=== PATIENT | male | born 1950 | race Caucasian/White ===

== ENCOUNTER → 2017-10-21 | Outpatient (CLI) | payer MEDICARE, OTHER ==
--- NOTE | 2017-10-26 10:19 | P.ARTDOP ---
Arterial Doppler LOWER EXTREMITY ARTERIAL DOPPLER: DATE OF SERVICE: 10/21/2017 Reason for study: Bilateral leg pain. Doppler waveforms: Multiphasic bilaterally throughout. Pulse volume recording: Normal configuration. Pressure gradients: None. Ankle-brachial indices: Greater than 1 bilaterally. Toe pressures: 90 on the right, 84 on the left Impression: Normal study.
== END | disposition home or self-care (01) ==
LOC: RADUSWWP 12:35
PROVIDERS: ATTEND Family Medicine
DX: R25.2 Cramp and spasm (principal)
CPT/HCPCS: 93923

== ENCOUNTER 2017-12-18 10:23 | Emergency (ER) | payer MEDICARE, OTHER ==
[2017-12-18] MEDS ORDERED: ORPHENADRINE 30 MG/ML 2 ML VIAL IM STA (10:54)
[2017-12-18] MEDS ORDERED: RX INFO: IV CONTRAST WAS GIVEN 1 EACH MISC MISCELLANE PRN (10:54)
[2017-12-18] MEDS ORDERED: SODIUM CHLORIDE 0.9% 1,000 ML IV ONE (11:34)
--- NOTE | 2017-12-18 11:38 | ED ---
Back Pain HPI - General Chief Complaint: Back Pain/Injury Stated Complaint: BACK PAIN Time Seen by Provider: 12/18/17 10:37 Source: patient, RN notes reviewed, old records reviewed Limitations: no limitations - History of Present Illness Initial Comments: 67-year-old male presents to complain of 2 weeks of back pain. He reports occasionally go to a friend's abdomen. Patient states that it's worse with certain movements and laying down. He is here with his significant other. Patient reports occasionally the pain will radiate down his legs. Worse with palpation over the spine. has history of high blood pressure reports is on low-dose medication. Nonsmoker. - Related Data Home Medications Medication Instructions Recorded Confirmed Aspirin [Adult Low Dose Aspirin EC] 81 mg PO DAILY 07/22/16 12/18/17 Cholecalciferol [Vitamin D3] 1,000 units PO DAILY 07/22/16 12/18/17 Gabapentin 300 mg PO TID 07/22/16 12/18/17 Multivit-Min/FA/Lycopen/Lutein 1 tab PO DAILY 07/22/16 12/18/17 [Centrum Silver Tablet] Omeprazole 40 mg PO DAILY 07/22/16 12/18/17 Vitamin B12. 1 tab PO DAILY 07/22/16 12/18/17 metFORMIN HCL 1,000 mg PO BID 07/22/16 12/18/17 Atenolol/Chlorthalidone 0.5 tab PO DAILY 07/26/16 12/18/17 [Atenolol-Chlorthalidone 50-25] Empagliflozin/Linagliptin 1 tab PO DAILY 12/18/17 12/18/17 [Glyxambi 25 mg-5 mg Tablet] Insulin Glargine [Lantus] 12 unit SQ HS 12/18/17 12/18/17 Pioglitazone [Actos] 30 mg PO DAILY 12/18/17 12/18/17 Thiamine [Vitamin B-1] 100 mg PO DAILY 12/18/17 12/18/17 oxyCODONE-APAP 5-325MG [Percocet 1 tab PO Q6HR PRN 12/18/17 12/18/17 5-325 mg] Previous Rx's Medication Instructions Recorded Cyclobenzaprine [Flexeril] 10 mg PO TID #15 tab 12/18/17 Dexamethasone 0.75 mg PO DAILY #12 tab 12/18/17 HYDROcodone/APAP 10-325MG [[place] 1 tab PO Q6H PRN #10 tab 12/18/17 10-325] Allergies Allergy/AdvReac Type Severity Reaction Status Date / Time No Known Allergies Allergy Verified 12/18/17 10:45 Review of Systems ROS Statement: Those systems with pertinent positive or pertinent negative responses have been documented in the HPI. ROS Other: All systems not noted in ROS Statement are negative. Past Medical History Past Medical History: Diabetes Mellitus, GERD/Reflux, Hypertension, Osteoarthritis (OA) History of Any Multi-Drug Resistant Organisms: None Reported Past Surgical History: Orthopedic Surgery Additional Past Surgical History / Comment(s): RT ROTATOR CUFF REPAIR. COLONOSCOPY Past Anesthesia/Blood Transfusion Reactions: Motion Sickness Past Psychological History: No Psychological Hx Reported Smoking Status: Never smoker Past Alcohol Use History: Rare Past Drug Use History: None Reported - Past Family History Father Family Medical History: Cancer Additional Family Medical History / Comment(s): COLON General Exam - General Exam Comments Initial Comments: This patient is a pleasant 67 year old male, no distress. Limitations: no limitations General appearance: alert, in no apparent distress Head exam: Present: atraumatic, normocephalic, normal inspection Eye exam: Present: normal appearance, PERRL, EOMI. Absent: scleral icterus, conjunctival injection, periorbital swelling ENT exam: Present: normal exam, mucous membranes moist Neck exam: Present: normal inspection. Absent: tenderness, meningismus, lymphadenopathy Respiratory exam: Present: normal lung sounds bilaterally. Absent: respiratory distress, wheezes, rales, rhonchi, stridor Cardiovascular Exam: Present: regular rate, normal rhythm, normal heart sounds. Absent: systolic murmur, diastolic murmur, rubs, gallop, clicks GI/Abdominal exam: Present: soft, normal bowel sounds. Absent: distended, tenderness, guarding, rebound, rigid Extremities exam: Present: normal inspection, full ROM, normal capillary refill. Absent: tenderness, pedal edema, joint swelling, calf tenderness Back exam: Present: normal inspection, tenderness (over lumbar spine) Neurological exam: Present: alert, oriented X3, CN II-XII intact Psychiatric exam: Present: normal affect, normal mood Course Vital Signs 12/18/17 12/18/17 12/18/17 10:27 13:24 14:00 Temperature 97 F L Pulse Rate 50 L 49 L 47 L Respiratory 18 16 Rate Blood Pressure 153/63 197/81 169/72 O2 Sat by Pulse 100 96 Oximetry 12/18/17 14:22 Temperature 98 F Pulse Rate Respiratory Rate Blood Pressure O2 Sat by Pulse Oximetry - Reevaluation(s) Reevaluation #1: 12/18/17 14:03 When I went to discharge the patient he reports that he is having some left shoulder pain. He's had a surgery previously on its area. Worse with certain movements. Patient's blood pressure was noted to be elevated this time 200. I ordered labetalol. We'll monitor the patient check his blood pressure. He denies any shortness of breath or significant chest pain. Medical Decision Making - Medical Decision Making This patient is a 67 year old male with CC of lower back pain for 2 weeks worse with movement. Patient has a hisotry of hypertension. Patient was given IV norflex and lab work obtained. CT abdomen and pelvis completed to rule out AAA. Patient CT was negative for AAA, mild spondylitic mash filter cloth changer lumbar spine. Patient was given Rx for pain medication and on discharge was complaining of right shoulder pain and blood pressure became elevated. EKG shows no acute abnormalities from previous EKG. Given IV labetalol and BP went down. Discussed patient needs to follow up with PCP and on site services specialist. Patient understands treatmant plan and will comply. - Lab Data Result diagrams: 12/18/17 11:35 12/18/17 11:35 Lab Results 12/18/17 12/18/17 Range/Units 11:35 11:35 WBC 7.3 (3.8-10.6) k/uL RBC 4.90 (4.30-5.90) m/uL Hgb 13.6 (13.0-17.5) gm/dL Hct 39.7 (39.0-53.0) % MCV 80.9 (80.0-100.0) fL MCH 27.7 (25.0-35.0) pg MCHC 34.2 (31.0-37.0) g/dL RDW 14.1 (11.5-15.5) % Plt Count 201 (150-450) k/uL Neutrophils % 70 % Lymphocytes % 20 % Monocytes % 6 % Eosinophils % 2 % Basophils % 1 % Neutrophils # 5.2 (1.3-7.7) k/uL Lymphocytes # 1.4 (1.0-4.8) k/uL Monocytes # 0.5 (0-1.0) k/uL Eosinophils # 0.1 (0-0.7) k/uL Basophils # 0.0 (0-0.2) k/uL Sodium 141 (137-145) mmol/L Potassium 5.0 (3.5-5.1) mmol/L Chloride 103 (98-107) mmol/L Carbon Dioxide 26 (22-30) mmol/L Anion Gap 12 mmol/L BUN 18 (9-20) mg/dL Creatinine 0.90 (0.66-1.25) mg/dL Est GFR (MDRD) Af Amer >60 (>60 ml/min/1.73 sqM) Est GFR (MDRD) Non-Af >60 (>60 ml/min/1.73 sqM) Glucose 163 H (74-99) mg/dL Calcium 10.2 (8.4-10.2) mg/dL Total Bilirubin 0.5 (0.2-1.3) mg/dL AST 28 (17-59) U/L ALT 33 (21-72) U/L Alkaline Phosphatase 59 (38-126) U/L Total Protein 7.0 (6.3-8.2) g/dL Albumin 4.2 (3.5-5.0) g/dL 12/18/17 14:05 EKG shows sinus bradycardia evidence of rib H Aleksey. Ventricular rate 49 bpm. WA interval 186 most seconds. QRS duration 182 ms. QT QTc is 506/457 ms. No evidence of ST elevation or T-wave inversion. No atrial or ventricular arrhythmias. 12/18/17 14:05 - Radiology Data Radiology results: report reviewed Bladder distended smoothly no evidence of pelvic mass and no chest wall thickening or loops. Mild spondylolisthesis of the lumbar spine. Mild interstitial infiltrate analysis: Basis. Mild sigmoid diverticulosis. No evidence of acute abdomen and pelvis. Disposition Clinical Impression: Mechanical back pain, Disc degeneration, lumbar Disposition: HOME SELF-CARE Condition: Good Instructions: Acute Low Back Pain (ED) Additional Instructions: Patient advised to follow-up with primary care physician within the next 2-3 days. Take the medication as prescribed. Return to the emergency department if any alarming signs or symptoms occur. Prescriptions: Cyclobenzaprine [Flexeril] 10 mg PO TID #15 tab Dexamethasone 0.75 mg PO DAILY #12 tab HYDROcodone/APAP 10-325MG [[place] 10-325] 1 tab PO Q6H PRN #10 tab PRN Reason: Pain Referrals: Long Hobbs MD [Primary Care Provider] - 1-2 days Time of Disposition: 13:36
[2017-12-18 11:47] LABS: Basophils % (A) 1 %; Eosinophils # (A) 0.1 k/uL (0-0.7); Eosinophils % (A) 2 %; HCT 39.7 % (39.0-53.0); HGB 13.6 gm/dL (13.0-17.5); Lymphocytes # (A) 1.4 k/uL (1.0-4.8); Lymphocytes % (A) 20 %; MCH 27.7 pg (25.0-35.0); MCHC 34.2 g/dL (31.0-37.0); MCV 80.9 fL (80.0-100.0); Monocytes # (A) 0.5 k/uL (0-1.0); Monocytes % (A) 6 %; Neutrophils # (A) 5.2 k/uL (1.3-7.7); Neutrophils % (A) 70 %; Platelet Count 201 k/uL (150-450); RDW 14.1 % (11.5-15.5); WBC 7.3 k/uL (3.8-10.6)
[2017-12-18 12:01] LABS: ALT 33 U/L (21-72); AST 28 U/L (17-59); Albumin 4.2 g/dL (3.5-5.0); Alkaline Phosphatase 59 U/L (38-126); Anion Gap 12 mmol/L; Blood Urea Nitrogen 18 mg/dL (9-20); Calcium 10.2 mg/dL (8.4-10.2); Carbon Dioxide 26 mmol/L (22-30); Chloride 103 mmol/L (98-107); Glucose 163 mg/dL (74-99); Sodium 141 mmol/L (137-145); Total Bilirubin 0.5 mg/dL (0.2-1.3)
[2017-12-18] MEDS ORDERED: MORPHINE SULFATE 4 MG/ML SYRINGE IVP ONE (12:16)
--- NOTE | 2017-12-18 13:12 | CT ---
EXAMINATION TYPE: CT abdomen pelvis w con DATE OF EXAM: 12/18/2017 COMPARISON: NONE HISTORY: LUQ and Low back pain CT DLP: 2121 mGycm Automated exposure control for dose reduction was used. TECHNIQUE: Helical acquisition of images was performed from the lung bases through the pelvis. CONTRAST: Performed without Oral Contrast and with IV Contrast, patient injected with 100 mL of Omnipaque 300. FINDINGS: There is patchy mild infiltrate and atelectasis at the lung bases. Heart is enlarged. There is no ple ural effusion. Liver spleen pancreas gallbladder appear normal. Bile ducts are not dilated. There is no adrenal mass. Kidneys show satisfactory contrast opacification. There is no hydronephrosi s. There is no retroperitoneal adenopathy. There is no ascites. Appendix appears normal. There is no sign of free air. There are a few sigmoid diverticula. There is no evidence of diverticulitis. Bladde r distends smoothly. There is no evidence of a pelvic mass. I see no intestinal wall thickening. Ther e are no dilated loops. There is mild spondylosis in the lumbar spine. IMPRESSION: MILD INTERSTITIAL INFILTRATE AND ATELECTASIS AT THE LUNG BASES. CARDIOMEGALY. MINIMAL SIGMOID DIVERTICULOSIS. NO SIGN OF ACUTE ABDOMEN AND PELVIS.
[2017-12-18 13:25] VITALS: RESP 16
[2017-12-18] MEDS ORDERED: LABETALOL 5 MG/ML VIAL MDV IVP STA (13:38)
[2017-12-18 14:01] VITALS: BP 169/72; PULSE 47
[2017-12-18 14:26] VITALS: TEMP 98
== END 2017-12-18 14:22 | disposition home or self-care (01) ==
LOC: EC 10:23
DX: M51.36 Other intervertebral disc degeneration, lumbar region (principal); M43.16 Spondylolisthesis, lumbar region; K57.30 Diverticulosis of large intestine without perforation or abscess without bleeding; R00.1 Bradycardia, unspecified; M25.511 Pain in right shoulder; R10.9 Unspecified abdominal pain; I10 Essential (primary) hypertension; E11.9 Type 2 diabetes mellitus without complications; K21.9 Gastro-esophageal reflux disease without esophagitis; M19.90 Unspecified osteoarthritis, unspecified site; Z79.4 Long term (current) use of insulin; Z79.82 Long term (current) use of aspirin; Z79.899 Other long term (current) drug therapy; Z98.890 Other specified postprocedural states; Z80.0 Family history of malignant neoplasm of digestive organs
CPT/HCPCS: 36415; 93005; 80053; 85025; 74177; 99284; 96374; 96375; 96361 ×2; 96372; J2270; J2360; Q9967

== ENCOUNTER → 2018-06-13 | Outpatient (CLI) | payer MEDICARE ==
--- NOTE | 2018-06-13 14:02 | ECHOS ---
STRESS ECHOCARDIOGRAM INDICATIONS: Shortness of breath. MEDICATIONS: Aspirin, atenolol, gabapentin, metformin, Lantus BASELINE HEART RATE: 48 BASELINE BLOOD PRESSURE: 140/55 MAXIMUM HEART RATE: 79 MAXIMUM BLOOD PRESSURE: 180/57 85% MPHR: 128 100% MPHR: 151 METS: 5.8 MAXIMUM STAGE REACHED: I TOTAL EXERCISE TIME: 4:26 CLINICAL INFORMATION: Baseline rhythm is sinus mechanism, rate 48, normal axis, intervals, normal electrocardiogram. Baseline blood pressure 140/55 mmHg. Patient exercised on Srikanth protocol for 4 minutes 26 seconds reaching a peak rate of 79 beats per minute which is equal to 50% maximum predicted heart rate. Blood pressure 180/57 mmHg. Test was terminated due to fatigue. Patient had chest discomfort at peak exercise that resolved in recovery. Electrocardiograph monitoring revealed no evidence of diagnostic ischemic ST deviation, rare PVCs were noted. FINDINGS: Baseline echocardiogram revealed normal function at peak exercise, there was no evidence of stress induced ischemia. CONCLUSION: 1. Decreased exercise tolerance with normal electrocardiograph with nondiagnostic electrocardiograph stress testing secondary to the inability to achieve 85% maximum predicted heart rate. Patient had chest discomfort at peak exercise. 2. Nondiagnostic stress echocardiogram secondary to the inability to achieve 85% maximum predicted heart rate. At the rate achieved, there was no evidence of stress-induced ischemia. 3. If clinically indicated, further cardiac workup will be needed. MMODL / IJN: [id number] /
== END | disposition home or self-care (01) ==
LOC: RADNMMAIN 09:28
PROVIDERS: ATTEND Family Medicine
DX: R06.00 Dyspnea, unspecified (principal)
CPT/HCPCS: 93351

== ENCOUNTER → 2018-07-24 | Outpatient (CLI) | payer MEDICARE ==
[2018-07-24 15:10] LABS: HCT 40.3 % (39.0-53.0); HGB 13.5 gm/dL (13.0-17.5); MCH 27.8 pg (25.0-35.0); MCHC 33.5 g/dL (31.0-37.0); Mean Platelet Volume 9.3; Platelet Count 192 k/uL (150-450); RBC 4.85 m/uL (4.30-5.90); RDW 13.9 % (11.5-15.5); WBC 5.3 k/uL (3.8-10.6)
[2018-07-24 15:18] LABS: Potassium 4.7 mmol/L (3.5-5.1)
== END | disposition home or self-care (01) ==
LOC: LABPAT 14:34
PROVIDERS: ATTEND Internal Medicine Interventional Cardiology
DX: Z01.812 Encounter for preprocedural laboratory examination (principal); I25.10 Atherosclerotic heart disease of native coronary artery without angina pectoris; I10 Essential (primary) hypertension; E78.1 Pure hyperglyceridemia; E10.9 Type 1 diabetes mellitus without complications; R07.9 Chest pain, unspecified; R05 Cough
CPT/HCPCS: 36415; 80051; 82565; 84520; 85027

== ENCOUNTER 2018-08-01 09:00 | Day surgery (SDC) | payer MEDICARE ==
[2018-07-31 08:42] VITALS: BMI 28.4
[2018-08-01 08:13] VITALS: TEMP 98.9
[2018-08-01 08:17] LABS: Glucose,Whole Blood 180 mg/dL (75-99)
[~2018-08-01 09:00] MED LIST: ALPRAZolam 0.25 MG TAB PO PRN; ALPRAZolam 0.5 MG TAB PO PRN; ASPIRIN 325 MG TAB PO STA; ATORVASTATIN 80 MG TAB PO STA; NITROGLYCERIN SL TABS 0.4 MG TAB SUBLINGUAL PRN; SODIUM CHLORIDE 0.9% 1,000 ML in EMPTY BAG 1 BAG IV ONE
[2018-08-01] MEDS ORDERED: MIDAZOLAM 2 MG/2 ML VIAL ONE (09:14)
[2018-08-01] MEDS ORDERED: HEPARIN SODIUM 1,000 UN/ML (10ML VL) ONE (09:14)
[2018-08-01] MEDS ORDERED: VERAPAMIL 2.5 MG/ML 2 ML AMP ONE (09:14)
[2018-08-01] MEDS ORDERED: LIDOCAINE 1% INJ 10MG/ML (20 ML MDV) ONE (09:14)
[2018-08-01] MEDS ORDERED: MIDAZOLAM 2 MG/2 ML VIAL IVP ONE (09:26)
[2018-08-01] MEDS ORDERED: LIDOCAINE 1% INJ 10MG/ML (20 ML MDV) SQ ONE (09:29)
[2018-08-01] MEDS ORDERED: LIDOCAINE 2% INJ 20 MG/ML SQ ONE (09:29)
[2018-08-01] MEDS: VERAPAMIL SYRINGE (5 MG/10 ML) INTRAARTER ONE ×2 (09:30→09:41)
[2018-08-01] MEDS ORDERED: HEPARIN SODIUM 1,000 UN/ML (10ML VL) IV ONE (09:31)
[2018-08-01] MEDS ORDERED: IV FLUID CONTINUATION 850 ML IV ONE (09:32)
[2018-08-01] MEDS ORDERED: IOPAMIDOL-370 125ML BTL INJ ONE (09:39)
[2018-08-01] MEDS ORDERED: RX INFO: IV CONTRAST WAS GIVEN 1 EACH MISC MISCELLANE PRN (09:51)
[2018-08-01] MEDS ORDERED: SODIUM CHLORIDE 0.9% 1,000 ML IV SCH (10:00)
--- NOTE | 2018-08-01 10:19 | CC ---
CARDIAC CATHETERIZATION REPORT DATE OF SERVICE: 08/01/2018 PERFORMING PHYSICIAN: William Erickson MD, Credit Risk Analyst. PROCEDURE PERFORMED: 1. Selective right and left coronary angiogram. 2. Left heart catheterization. INDICATION: This is a very pleasant 67-year-old gentleman with known history of diabetes, hypertension, dyslipidemia, who was experiencing chest discomfort concerning for angina. Because of that, a heart catheterization was advised. APPROACH: Right radial artery. COMPLICATION: None. LEVEL OF SEDATION: Moderate sedation length of 14 minutes. PROCEDURES DESCRIPTION: After obtaining an informed consent, the patient was brought to the cardiac research laboratory specialist. The right radial artery was cannulated using micropuncture technique, the micropuncture wire passed easily, then I placed a 6-Bolivian sheath in the right radial artery. After that, I did give the patient 2 mg of verapamil IA and 10,000 units of heparin IV and subsequently, I performed selective right and left coronary angiogram using JR4 and JL3.5 catheters. A heart catheterization was performed using 5-Bolivian pigtail catheter. The procedure was completed without any complication. SELECTIVE CORONARY ANGIOGRAM: 1. The right coronary artery is a large caliber vessel. It is a dominant vessel. It is angiographically normal. It distally bifurcates into PDA and PLV branches, both are angiographically normal. The left main is angiographically normal. It bifurcates into left circumflex, ramus intermedius, and left anterior descending artery. The left circumflex is a large caliber vessel. It is a nondominant vessel. The left circumflex itself is angiographically normal. 2. The ramus intermedius has eccentric lesion, appeared to be in the range of 50%. 3. The LAD: The proximal LAD appeared to be angiographically normal and gives rise into a medium-sized diagonal branch, appeared to be angiographically normal. The mid and distal LAD is angiographically normal. HEMODYNAMICS: The left ventricular end-diastolic pressure was about 10 mmHg and no gradient was identified across the aortic valve. 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 POSTPROCEDURE MANAGEMENT: 1. Maximize medical treatment. 2. Follow up with the patient. 3. If the patient continues to have chest discomfort in spite of maximized medical treatment, he might benefit from myocardial perfusion imaging to assess for ischemia in the lateral wall. MMODL / IJN: [id number] /
--- NOTE | 2018-08-01 10:19 | LTR ---
DATE OF SERVICE: August 01, 2018 RE: Otis Corral Dear Dr. Hobbs; Mr. Otis Corral underwent a heart catheterization today and that revealed intermediate disease involving the ramus intermedius coronary artery and the disease appeared to be in the range of 50%. I did recommend maximized medical treatment at this point. I will continue following up with him. I want to thank you for allowing me to participate in his care and please do not hesitate to call if you have any question or concern. Sincerely, William Erickson MD MMLINDAL / PARASN: [id number] /
[2018-08-01 13:41] VITALS: PULSE 46
[2018-08-01 13:54] VITALS: RESP 18
[2018-08-01 16:48] VITALS: BP 164/64
== END 2018-08-01 14:38 | disposition home or self-care (01) ==
LOC: CATHCVL 09:00
PROVIDERS: ATTEND Internal Medicine Interventional Cardiology
DX: I25.110 Atherosclerotic heart disease of native coronary artery with unstable angina pectoris (principal); I10 Essential (primary) hypertension; E11.9 Type 2 diabetes mellitus without complications; Z79.4 Long term (current) use of insulin; Z79.82 Long term (current) use of aspirin; Z79.899 Other long term (current) drug therapy
CPT/HCPCS: 93458; C1894; J2250; J2001; J1644; Q9967

== ENCOUNTER → 2019-01-18 | Outpatient (CLI) | payer MEDICARE ==
[2019-01-18 09:24] LABS: Basophils # (A) 0.1 k/uL (0-0.2); Basophils % (A) 1 %; Eosinophils # (A) 0.1 k/uL (0-0.7); Eosinophils % (A) 1 %; HCT 40.1 % (39.0-53.0); HGB 13.5 gm/dL (13.0-17.5); Lymphocytes # (A) 1.6 k/uL (1.0-4.8); Lymphocytes % (A) 19 %; MCH 27.5 pg (25.0-35.0); MCHC 33.7 g/dL (31.0-37.0); MCV 81.6 fL (80.0-100.0); Monocytes # (A) 0.4 k/uL (0-1.0); Monocytes % (A) 5 %; Neutrophils # (A) 6.1 k/uL (1.3-7.7); Neutrophils % (A) 73 %; Platelet Count 194 k/uL (150-450); RBC 4.92 m/uL (4.30-5.90); RDW 14.8 % (11.5-15.5); WBC 8.4 k/uL (3.8-10.6)
[2019-01-18 16:51] LABS: Albumin 4.6 g/dL (3.80-4.90); Albumin/Globulin Ratio 2.42 (1.60-3.17); Anion Gap 11.2 mmol/L (4.00-12.00); Calcium 9.7 mg/dL (8.7-10.3); Carbon Dioxide 28.8 mmol/L (21.6-31.8); Globulin 1.9 g/dL (1.6-3.3); LDL Cholesterol,Calculated 50.8 mg/dL (0.0-131.0); Potassium 4.2 mmol/L (3.5-5.5); Total Bilirubin 0.7 mg/dL (0.2-1.2); Total Protein 6.5 g/dL (6.2-8.2); VLDL Calculation 54.2 mg/dL (5.00-40.00)
== END | disposition home or self-care (01) ==
LOC: LABWHC1 08:37
PROVIDERS: ATTEND Family Medicine
DX: I10 Essential (primary) hypertension (principal); Z12.5 Encounter for screening for malignant neoplasm of prostate; Z13.220 Encounter for screening for lipoid disorders
CPT/HCPCS: 80061; 80053; 85025; 36415; G0103

== ENCOUNTER 2020-02-13 17:31 | Inpatient (IN) | payer MEDICARE ==
[2020-02-13] MEDS ORDERED: ASPIRIN 81 MG PO STA (17:45)
--- NOTE | 2020-02-13 17:47 | ED ---
Chest Pain HPI - General Chief Complaint: Chest Pain Stated Complaint: chest pain Time Seen by Provider: 02/13/20 17:45 Source: patient, family Mode of arrival: wheelchair Limitations: language barrier - History of Present Illness Initial Comments: 69-year-old male presenting today for chief complaint of shortness of breath cough, chest pain x 2 days. Patient states that for the past 2 days and lying flat night he has had increased cough and shortness of breath he states is experiencing is in the past. Patient states at times he has a chest pressure. Patient denies any history of DVT or pulmonary elbow some he is not currently on any anticoagulation therapy. Denies hemoptysis denies leg swelling. Denies a known active cancer recent surgical procedures. Patient states that he does had a stent procedure performed by Dr. Moore in the past. Patient denies fevers. Patient denies sick contacts. Patient feels fatigued. Remainign ROS (-). Upon arrival he appears well no respiratory distress. - Related Data Home Medications Medication Instructions Recorded Confirmed Aspirin [Adult Low Dose Aspirin EC] 81 mg PO DAILY 07/22/16 02/13/20 Gabapentin 300 mg PO DAILY 07/22/16 02/13/20 Atenolol/Chlorthalidone 1 tab PO DAILY 07/26/16 02/13/20 [Atenolol-Chlorthalidone 50-25] Acetaminophen Tab [Tylenol] 650 mg PO Q6H PRN 02/13/20 02/13/20 Diphenox-Atrop 2.5-0.025 mg 1 tab PO TID PRN 02/13/20 02/13/20 [Lomotil] Insulin Glargine,Hum.rec.anlog 10 unit SQ BID 02/13/20 02/13/20 [Lantus Solostar] Omeprazole [PriLOSEC] 40 mg PO DAILY 02/13/20 02/13/20 Pioglitazone [Actos] 30 mg PO DAILY 02/13/20 02/13/20 Simvastatin [Zocor] 20 mg PO DAILY 02/13/20 02/13/20 hydrOXYzine HCL [Atarax] 25 mg PO DAILY PRN 02/13/20 02/13/20 metFORMIN HCL [Glucophage] 1,000 mg PO BID 02/13/20 02/13/20 sitaGLIPtin [Januvia] 100 mg PO DAILY 02/13/20 02/13/20 Allergies Allergy/AdvReac Type Severity Reaction Status Date / Time Pain Pill (Unknown Name) Allergy Itching Uncoded 02/13/20 19:31 Review of Systems ROS Statement: Those systems with pertinent positive or pertinent negative responses have been documented in the HPI. ROS Other: All systems not noted in ROS Statement are negative. Past Medical History Past Medical History: Diabetes Mellitus, GERD/Reflux, Hypertension, Myocardial Infarction ([place]), Osteoarthritis (OA) History of Any Multi-Drug Resistant Organisms: None Reported Past Surgical History: Heart Catheterization With Stent, Orthopedic Surgery Additional Past Surgical History / Comment(s): RT ROTATOR CUFF REPAIR. COLONOSCOPY Past Anesthesia/Blood Transfusion Reactions: Motion Sickness Past Psychological History: No Psychological Hx Reported Smoking Status: Never smoker Past Alcohol Use History: Rare Past Drug Use History: None Reported - Past Family History Father Family Medical History: Cancer Additional Family Medical History / Comment(s): COLON General Exam - General Exam Comments Initial Comments: General: The patient is awake and alert, in no distress Eye: +3 mm pupils are equal, round and reactive to light, extra-ocular movements are intact. No nystagmus. There is normal conjunctiva bilaterally. No signs of icterus. Ears, nose, mouth and throat: There are moist mucous membranes and no oral lesions. Neck: The neck is supple, there is no tenderness or JVD. Cardiovascular: There is a regular rate and rhythm. No murmur, rub or gallop is appreciated. Respiratory: Lungs are clear to auscultation, respirations are non-labored, b reath sounds are equal. No wheezes, stridor, rales, or rhonchi. Gastrointestinal: Soft, non-tender abdomen without masses or organomegaly noted. There is no rebound or guarding present. Musculoskeletal: Normal ROM, no tenderness. Strength 5/5. Sensation intact. Pulses equal bilaterally 2+. Neurological: A&O x 3. CN II-XII intact grossly, There are no obvious motor or sensory deficits. Coordination appears grossly intact. Speech is normal. Skin: Skin is warm and dry and no rashes or lesions are noted. No lE edema/s welling. Psychiatric: Cooperative, appropriate mood & affect, normal judgment. Limitations: language barrier Course Vital Signs 02/13/20 02/13/20 02/13/20 17:33 18:12 19:37 Temperature 98.9 F 98.2 F Pulse Rate 48 L 48 L 44 L Respiratory 18 18 18 Rate Blood Pressure 210/69 193/78 192/71 O2 Sat by Pulse 98 96 96 Oximetry Chest Pain MDM - MDM 69-year-old male presenting for chest pain shortness of breath cough at night difficulty lying flat. History CHF. Infiltrates consistent with fluid overload on chest x-ray patient's BMP elevated from baseline. Troponin within acceptable limits. EKG no ST elevation or depression. Dimer slightly elevated CT angiography revealed very small peripheral pulmonary emboli no central emboli noted to cause heart strain, there is symmetrically enlarged heart consistent with HF, No saddle emboli. Patient given lasix. Started on high intensity heparin. Patient case accepted by Nila Rodriguez. Admtited appearing well, BP stable slightly bradycardic. Dr. Moore agreeable to care plan. Disposition Clinical Impression: Pulmonary embolism, Chest pressure, Heart failure Disposition: ADMITTED IP TO THIS HOSP Condition: Serious Is patient prescribed a controlled substance at d/c from ED?: No Referrals: Long Hobbs MD [Primary Care Provider] - 1-2 days Time of Disposition: 19:59 Decision to Admit Reason: Admit from EC Decision Date: 02/13/20 Decision Time: 19:59
[2020-02-13 18:00] LABS: Basophils % (A) 1 %; Eosinophils # (A) 0.1 k/uL (0-0.7); Eosinophils % (A) 1 %; HCT 35.8 % (39.0-53.0); HGB 12.1 gm/dL (13.0-17.5); Lymphocytes # (A) 1.4 k/uL (1.0-4.8); Lymphocytes % (A) 20 %; MCH 29.8 pg (25.0-35.0); MCHC 33.8 g/dL (31.0-37.0); MCV 88.3 fL (80.0-100.0); Mean Platelet Volume 10.7; Monocytes # (A) 0.5 k/uL (0-1.0); Monocytes % (A) 7 %; Neutrophils % (A) 70 %; Platelet Count 180 k/uL (150-450); RBC 4.06 m/uL (4.30-5.90); RDW 13.4 % (11.5-15.5); WBC 7.1 k/uL (3.8-10.6)
[2020-02-13 18:10] LABS: ALT 23 U/L (4-49); AST 31 U/L (17-59); African American GFR (CKD) >90 (>60 ml/min/1.73 sqM); Albumin 4.2 g/dL (3.5-5.0); Alkaline Phosphatase 56 U/L (38-126); Anion Gap 7 mmol/L; Blood Urea Nitrogen 11 mg/dL (9-20); Calcium 9.3 mg/dL (8.4-10.2); Carbon Dioxide 27 mmol/L (22-30); Chloride 106 mmol/L (98-107); Glucose 168 mg/dL (74-99); Magnesium 1.2 mg/dL (1.6-2.3); Non-African American GFR(CKD) 78 (>60 ml/min/1.73 sqM); Potassium 4.1 mmol/L (3.5-5.1); Sodium 140 mmol/L (137-145); Total Bilirubin 0.5 mg/dL (0.2-1.3); Total Protein 6.8 g/dL (6.3-8.2)
[2020-02-13 18:13] LABS: INR 1.1 (<1.2); Partial Thromboplastin Time 24.7 sec (22.0-30.0); Prothrombin Time 10.8 sec (9.0-12.0)
--- NOTE | 2020-02-13 18:41 | XR ---
EXAMINATION TYPE: XR chest 2V DATE OF EXAM: 02/13/2020 COMPARISON: 02/26/2011 HISTORY: Chest pain, shortness of breath, and cough that started yesterday TECHNIQUE: Frontal and lateral views of the chest are obtained. FINDINGS: There are new Angelica B lines and diffuse interstitial prominence throughout most exaggerat ed centrally. Cardiomediastinal silhouette is enlarged. Diffuse osseous demineralization. No sizable pleural effusion or pneumothorax. Right infrahilar spiculated density measures 7 mm. IMPRESSION: 1. Findings suggesting interstitial fluid overload. Consider congestive heart failure. 2. Right infrahilar spiculated nodular density. Follow-up CT thorax is recommended on a nonemergent b asis for further evaluation.
[2020-02-13] MEDS ORDERED: FUROSEMIDE 10 MG/ML 4 ML VIAL IV STA (18:52)
[2020-02-13 18:58] LABS: D-Dimer 0.73 mg/L FEU (<0.60)
[2020-02-13] MEDS ORDERED: NALOXONE 0.4 MG/ML 1 ML VIAL IV PRN (19:21)
[2020-02-13] MEDS ORDERED: NITROGLYCERIN SL TABS 0.4 MG TAB SUBLINGUAL PRN (19:22)
[2020-02-13] MEDS ORDERED: NITROGLYCERIN OINT 1 INCH/GM PACKET TOPICAL STA (19:40)
[2020-02-13] MEDS ORDERED: MAGNESIUM SULFATE-D5W PMX 1 GM in DEXTROSE/WATER 1 100ML.BAG IVPB ONE (19:40)
[2020-02-13] MEDS ORDERED: HEPARIN SODIUM,PORCINE 10,000 UNIT/ML 1 ML VIAL IV ONE (19:57)
[2020-02-13] MEDS ORDERED: HEPARIN SODIUM,PORCINE 5,000 UNIT/ML 1 ML VIAL IV PRN (19:57)
--- NOTE | 2020-02-13 20:00 | CT ---
EXAMINATION TYPE: CT angio chest DATE OF EXAM: 02/13/2020 COMPARISON: NONE HISTORY: chest pain, SOB, elevated d-dimer CT DLP: 691.3 mGycm. Automated Exposure Control for Dose Reduction was Utilized. CONTRAST: CTA scan of the thorax is performed with IV Contrast, patient injected with 79cc mL of Isovue 370, pu lmonary embolism protocol. MIP Images are created on CT scanner and reviewed. FINDINGS: LUNGS: Extensive patient motion limits evaluation for pulmonary nodule. Interlobular septal thickenin g is seen throughout with trace left and small right pleural effusions and associated bibasilar atele ctasis. Geographic areas of ground glass opacity at the dependent aspect of the lungs likely are also on the basis of atelectasis versus fluid overload. Right lower lobe pulmonary nodule measures 9 mm o n image 79 of the lung algorithm. Adjacent 5 mm pulmonary nodule is marked on image 77. MEDIASTINUM: The exam is limited by patient motion however there are tiny pulmonary emboli to the sub segmental arteries of the anterior left upper lobe and questionably within the subsegmental arteries of the right lower lobe and left lower lobe. Evaluation of size of the main pulmonary artery is sever sg limited by patient motion and cardiac motion. Reflux of contrast into the inferior vena cava and hepatic veins is seen. There is abnormal right ventricular to left ventricular ratio that can be seen in right heart strain however there is global cardiomegaly also noted. No sizable pericardial effusi on. At least mild coronary calcifications. OTHER: Bilateral symmetric mild gynecomastia. Small splenule near the alutiiq spleen. Limited evaluati on of the upper abdomen given patient motion. Mild multilevel degenerative change of the spine. IMPRESSION: 1. Small subsegmental pulmonary emboli to the anterior left upper lobe and questionable subsegmental pulmonary emboli of the bilateral lower lobes largely limited by patient motion. Assessment of right heart strain is difficult given patient motion however there is an abnormal right ventricular to left ventricular ratio suggesting at least some degree of right heart strain. Underlying cardiomegaly is however appreciated with evidence of likely cardiogenic fluid overload. Findings discussed with the [facility] ER provider Shirin Enriquez by Dr. Damian at 1956 on 02/13/2020. 2. Right lower lobe 9 mm pulmonary nodule and adjacent 5 mm pulmonary nodule. Given the size of the l arger pulmonary nodule PET/CT could be considered.
[2020-02-13] MEDS: HEPARIN SOD,PORK IN 0.45% NACL 25,000 UNIT in 0.45% NACL 1 250ML.BAG IV SCH (20:23)
[2020-02-14 02:52] LABS: Basophils % (A) 1 %; Eosinophils # (A) 0.1 k/uL (0-0.7); Eosinophils % (A) 2 %; HCT 32.4 % (39.0-53.0); HGB 10.9 gm/dL (13.0-17.5); Lymphocytes # (A) 1.6 k/uL (1.0-4.8); Lymphocytes % (A) 25 %; MCH 29.4 pg (25.0-35.0); MCHC 33.6 g/dL (31.0-37.0); MCV 87.4 fL (80.0-100.0); Mean Platelet Volume 10.5; Monocytes # (A) 0.5 k/uL (0-1.0); Monocytes % (A) 7 %; Neutrophils # (A) 4.3 k/uL (1.3-7.7); Neutrophils % (A) 64 %; Platelet Count 175 k/uL (150-450); RBC 3.71 m/uL (4.30-5.90); RDW 13.4 % (11.5-15.5); WBC 6.6 k/uL (3.8-10.6)
[2020-02-14 03:10] LABS: Partial Thromboplastin Time 84.6 sec (22.0-30.0); Prothrombin Time 10.8 sec (9.0-12.0)
[2020-02-14 05:45] LABS: Cholesterol 83 mg/dL (<200); HDL Cholesterol 30 mg/dL (40-60); LDL Cholesterol,Calculated 36 mg/dL (0-99); Triglycerides 87 mg/dL (<150)
[2020-02-14 06:19] LABS: Glucose,Whole Blood 130 mg/dL (75-99)
[2020-02-14] MEDS ORDERED: ASPIRIN 325 MG TAB PO SCH (09:00)
--- NOTE | 2020-02-14 09:44 | P.CRDCN ---
History of Present Illness Consult date: 02/14/20 Requesting physician: Josiane Davidson Chief complaint: Shortness of breath, chest pain History of present illness: This is a 69-year-old gentleman who follows with Dr. Moore in the office. He has a known history of diabetes, hypertension, hyperlipidemia, GERD, underwent a cardiac catheterization in 2018 which revealed intermediate disease in a large ramus, medical therapy was advised at that time. He presents to the hospital with symptoms of shortness of breath with associated chest pains which have been going off and on for the past couple of days, the shortness of breath worsening in intensity. His chest x-ray on presentation here showed fluid overload, right infrahilar nodular density noted, EKG showed a sinus bradycardia with a right bundle branch block pattern, heart rate 46. CTA of the chest didn't reveal small subsegmental pulmonary embolism in the left upper lobe and right lower lobe pulmonary nodule. Blood pressure 146/60 with a heart rate of 46, respirations 18, 93% on room air. White blood cell count 6.6, hemoglobin 10.9, platelet count 175. D-dimer 0.73, sodium 140, potassium 4.1, chloride 106, CO2 27, BUN 11, creatinine 0.9. Magnesium 1.2, BNP 3320, troponin 0.02, 0.03, 0.03. Siddiqui virus not detected. The patient's home medications included Januvia, Glucophage, Atarax, Zocor 20 mg daily, Actos, omeprazole, insulin, no maternal when necessary, atenolol chlorthalidone 50/25 daily, aspirin 81 mg daily. Because of the noted bradycardia, atenolol has been placed on hold. We will also decrease the aspirin to 81 mg, replace magnesium, continue IV heparin, patient will need to be initiated on oral anticoagulation per PE protocol. Past Medical History Past Medical History: Diabetes Mellitus, GERD/Reflux, Hypertension, Myocardial Infarction (CT), Osteoarthritis (OA) Last Myocardial Infarction Date:: UNSURE History of Any Multi-Drug Resistant Organisms: None Reported Past Surgical History: Heart Catheterization With Stent, Orthopedic Surgery Additional Past Surgical History / Comment(s): RT ROTATOR CUFF REPAIR. COLONOSCOPY Past Anesthesia/Blood Transfusion Reactions: Motion Sickness Date of Last Stent Placement:: UNSURE Past Psychological History: No Psychological Hx Reported Smoking Status: Never smoker Past Alcohol Use History: Rare Past Drug Use History: None Reported - Past Family History Father Family Medical History: Cancer Additional Family Medical History / Comment(s): COLON Medications and Allergies Home Medications Medication Instructions Recorded Confirmed Type Aspirin [Adult Low Dose Aspirin EC] 81 mg PO DAILY 07/22/16 02/13/20 History Gabapentin 300 mg PO DAILY 07/22/16 02/13/20 History Atenolol/Chlorthalidone 1 tab PO DAILY 07/26/16 02/13/20 History [Atenolol-Chlorthalidone 50-25] Acetaminophen Tab [Tylenol] 650 mg PO Q6H PRN 02/13/20 02/13/20 History Diphenox-Atrop 2.5-0.025 mg 1 tab PO TID PRN 02/13/20 02/13/20 History [Lomotil] Insulin Glargine,Hum.rec.anlog 10 unit SQ BID 02/13/20 02/13/20 History [Lantus Solostar] Omeprazole [PriLOSEC] 40 mg PO DAILY 02/13/20 02/13/20 History Pioglitazone [Actos] 30 mg PO DAILY 02/13/20 02/13/20 History Simvastatin [Zocor] 20 mg PO DAILY 02/13/20 02/13/20 History hydrOXYzine HCL [Atarax] 25 mg PO DAILY PRN 02/13/20 02/13/20 History metFORMIN HCL [Glucophage] 1,000 mg PO BID 02/13/20 02/13/20 History sitaGLIPtin [Januvia] 100 mg PO DAILY 02/13/20 02/13/20 History Allergies Allergy/AdvReac Type Severity Reaction Status Date / Time Pain Pill (Unknown Name) Allergy Itching Uncoded 02/13/20 19:31 Physical Exam Vitals: Vital Signs Temp Pulse Pulse Resp BP BP BP 02/14/20 08:00 98.8 F 49 L 16 156/77 02/14/20 04:00 98.4 F 44 L 15 146/61 02/14/20 00:00 97.8 F 43 L 18 144/67 02/13/20 22:36 99.0 F 42 L 16 182/65 02/13/20 21:37 99.1 F 42 L 16 168/60 02/13/20 20:30 43 L 17 170/57 02/13/20 19:37 44 L 18 192/71 02/13/20 18:12 98.2 F 48 L 18 193/78 02/13/20 17:33 98.9 F 48 L 18 210/69 Pulse Ox 02/14/20 08:00 94 L 02/14/20 04:00 93 L 02/14/20 00:00 95 02/13/20 22:36 95 02/13/20 21:37 96 02/13/20 20:30 95 02/13/20 19:37 96 02/13/20 18:12 96 02/13/20 17:33 98 Intake and Output 02/13/20 02/14/20 02/14/20 22:59 06:59 14:59 Intake Total 134.986 Output Total 1400 Balance -1265.014 Intake: Intake, IV Titration 134.986 Amount Heparin Sod,Pork in 0.45% 134.986 NaCl 25,000 unit In 0.45 % NaCl 1 250ml.bag @ 18 UNITS/KG/HR 16.329 mls/hr IV .[id number] [facility] Rx#: [id number] Output: Urine 1400 Other: Voiding Method Urinal Weight 90.718 kg 99.2 kg PHYSICAL EXAMINATION: GENERAL: 69-year-old gentleman in no acute distress at the time of my examination HEENT: Head is atraumatic, normocephalic. Pupils equal, round. Sclera anicteric. Conjunctiva are clear. Mucous membranes of the mouth are moist. Neck is supple. There is no elevated jugular venous pressure. No carotid bruit is heard. HEART EXAMINATION: Heart S1-S2 normal, no murmur or gallop heard CHEST EXAMINATION: Lungs are clear to auscultation and precussion. No chest wall tenderness is noted on palpation or with deep breathing. ABDOMEN: Soft, nontender. Bowel sounds are heard. No organomegaly noted. EXTREMITIES: 2+ peripheral pulses with no evidence of peripheral edema and no calf tenderness noted. NEUROLOGIC patient is awake, alert and oriented 3 . Results 02/14/20 02:29 02/13/20 17:45 Cardiac Enzymes 02/13/20 02/13/20 02/14/20 Range/Units 17:45 17:45 00:05 AST 31 (17-59) U/L Troponin I 0.025 0.031 (0.000-0.034) ng/mL 02/14/20 Range/Units 05:27 AST (17-59) U/L Troponin I 0.032 (0.000-0.034) ng/mL Coagulation 02/13/20 02/14/20 Range/Units 17:45 02:29 PT 10.8 10.8 (9.0-12.0) sec APTT 24.7 84.6 H (22.0-30.0) sec Lipids 02/14/20 Range/Units 02:29 Triglycerides 87 (<150) mg/dL Cholesterol 83 (<200) mg/dL HDL Cholesterol 30 L (40-60) mg/dL CBC 02/13/20 02/14/20 Range/Units 17:45 02:29 WBC 7.1 6.6 (3.8-10.6) k/uL RBC 4.06 L 3.71 L (4.30-5.90) m/uL Hgb 12.1 L 10.9 L (13.0-17.5) gm/dL Hct 35.8 L 32.4 L (39.0-53.0) % Plt Count 180 175 (150-450) k/uL Comprehensive Metabolic Panel 02/13/20 Range/Units 17:45 Sodium 140 (137-145) mmol/L Potassium 4.1 (3.5-5.1) mmol/L Chloride 106 (98-107) mmol/L Carbon Dioxide 27 (22-30) mmol/L BUN 11 (9-20) mg/dL Creatinine 0.98 (0.66-1.25) mg/dL Glucose 168 H (74-99) mg/dL Calcium 9.3 (8.4-10.2) mg/dL AST 31 (17-59) U/L ALT 23 (4-49) U/L Alkaline Phosphatase 56 (38-126) U/L Total Protein 6.8 (6.3-8.2) g/dL Albumin 4.2 (3.5-5.0) g/dL Current Medications Generic Name Dose Route Start Last Admin Trade Name Freq PRN Reason Stop Dose Admin Aspirin 81 mg 02/14/20 09:00 Aspirin PO DAILY [facility] Heparin Sodium (Porcine) 0 unit 02/13/20 19:57 Heparin IV PER PROTOCOL PRN Low PTT Protocol Heparin Sodium/Sodium Chloride 250 mls @ 16.329 mls/hr 02/13/20 20:00 02/14/20 04:39 25,000 unit/ Sodium Chloride IV 16 units/kg/hr .[id number] [facility] 14.515 mls/hr Titration Protocol 18 UNITS/KG/HR Naloxone HCl 0.2 mg 02/13/20 19:21 Narcan IV Q2M PRN Opioid Reversal Nitroglycerin 0.4 mg 02/13/20 19:22 Nitrostat SUBLINGUAL Q5M PRN Chest Pain Intake and Output 02/13/20 02/14/20 02/14/20 22:59 06:59 14:59 Intake Total 134.986 Output Total 1400 Balance -1265.014 Intake: Intake, IV Titration 134.986 Amount Heparin Sod,Pork in 0.45% 134.986 NaCl 25,000 unit In 0.45 % NaCl 1 250ml.bag @ 18 UNITS/KG/HR 16.329 mls/hr IV .[id number] [facility] Rx#: [id number] Output: Urine 1400 Other: Voiding Method Urinal Weight 90.718 kg 99.2 kg 02/14/20 02:29 02/13/20 17:45 EKG Interpretations (text) EKG on presentation here showed a sinus bradycardia with a right bundle branch block pattern, heart rate of 46 Assessment and Plan Plan: Assessment and plan #1 symptoms of atypical pleuritic chest pain with associated shortness of breath, evidence of small subsegmental PE on CAT scan. Patient is currently on IV heparin #2 diabetes #3 hypertension #4 hyperlipidemia #5 GERD #6 coronary artery disease, patient underwent a cardiac catheterization in 2018 that revealed intermediate disease in a large ramus, medical therapy advised #7 sinus bradycardia #8 hypomagnesemia Plan We will obtain an echocardiogram with Doppler study, patient is currently on IV heparin and will need to transition over to oral anticoagulation for PE protocol. Replace magnesium. Atenolol has been placed on hold. Decrease aspirin to 81 mg daily. We will add a small dose of losartan to the patient's medication regime to optimize blood pressure control. DNP note has been reviewed, I agree with a documented findings and plan of care. Patient was seen and examined.
[2020-02-14] MEDS ORDERED: ACETAMINOPHEN TAB 325 MG TAB PO PRN (10:02)
[2020-02-14] MEDS ORDERED: DIPHENOX-ATROP 2.5-0.025 MG 1 EACH TAB PO PRN (10:02)
[2020-02-14] MEDS: ASPIRIN 81 MG PO SCH (10:08)
[2020-02-14] MEDS ORDERED: metFORMIN 500 MG TAB PO SCH (10:15)
[2020-02-14 10:46] VITALS: BMI 30.4
[2020-02-14 11:48] LABS: Glucose,Whole Blood 185 mg/dL (75-99)
[2020-02-14] MEDS: HEPARIN SOD,PORK IN 0.45% NACL 25,000 UNIT in 0.45% NACL 1 250ML.BAG IV SCH (11:56)
--- NOTE | 2020-02-14 12:10 | ECHOF ---
Referral Reason:sob MEASUREMENTS -------- HEIGHT: 180.3 cm WEIGHT: 98.9 kg BP: 146/61 RVIDd: 5.1 cm (< 3.3) IVSd: 1.6 cm (0.6 - 1.1) LVIDd: 4.5 cm (3.9 - 5.3) LVPWd: 1.8 cm (0.6 - 1.1) IVSs: 2.4 cm LVIDs: 2.7 cm LVPWs: 1.9 cm LAESV Index (A-L): 36.29 ml/m Ao Diam: 2.7 cm (2.0 - 3.7) AV Cusp: 2.0 cm (1.5 - 2.6) MV EXCURSION: 19.176 mm (> 18.000) MV EF SLOPE: 60 mm/s (70 - 150) EPSS: 0.6 cm MV E Damien: 0.85 m/s MV DecT: 308 ms MV A Damien: 0.57 m/s MV E/A Ratio: 1.49 RAP: 5.00 mmHg RVSP: 54.15 mmHg TAPSE: 21.84 mm FINDINGS -------- Resting bradycardia (HR<60bpm). This was a technically adequate study. The left ventricular size is normal. There is moderate concentric left ventricular hypertrophy. O verall left ventricular systolic function is low-normal with, an EF between 50 - 55 %. Increased La p Grade II Diastolic Dysfunction. The right ventricle is severely enlarged. RV Systolic Dysfunction LA is moderately dilated 34-39 ml/m2 The right atrium is moderately enlarged. Interatrial and interventricular septum intact. The aortic valve is trileaflet and appears structurally normal. There is mild aortic valve sclerosi s. There is no evidence of aortic regurgitation. There is no evidence of aortic stenosis. Moderate mitral regurgitation is present. Moderate to severe tricuspid regurgitation present. There is moderate to severe pulmonary hypertens ion. The right ventricular systolic pressure, as measured by Doppler, is 54.15mmHg. Trace/mild (physiologic) pulmonic regurgitation. The aortic root size is normal. IVC Not well visulized. There is no pericardial effusion. CONCLUSIONS -------- 1. Resting bradycardia (HR<60bpm). 2. This was a technically adequate study. 3. The left ventricular size is normal. 4. Overall left ventricular systolic function is low-normal with, an EF between 50 - 55 %. 5. Increased Lap Grade II Diastolic Dysfunction. 6. The right ventricle is severely enlarged. 7. RV Systolic Dysfunction 8. LA is moderately dilated 34-39 ml/m2 9. The right atrium is moderately enlarged. 10. Interatrial and interventricular septum intact. 11. The aortic valve is trileaflet and appears structurally normal. 12. There is mild aortic valve sclerosis. 13. There is no evidence of aortic regurgitation. 14. There is no evidence of aortic stenosis. 15. Moderate mitral regurgitation is present. 16. Moderate to severe tricuspid regurgitation present. 17. There is moderate to severe pulmonary hypertension. 18. The right ventricular systolic pressure, as measured by Doppler, is 54.15mmHg. 19. Trace/mild (physiologic) pulmonic regurgitation. 20. The aortic root size is normal. 21. IVC Not well visulized. 22. There is no pericardial effusion. METAL BALER: Gaviota Torres RDCS
[2020-02-14] MEDS: GABAPENTIN 300 MG CAP PO SCH (12:15)
[2020-02-14] MEDS: PANTOPRAZOLE 40 MG TABLET PO SCH (12:15)
[2020-02-14] MEDS: LOSARTAN 25 MG TAB PO SCH (12:15)
[2020-02-14] MEDS: LINAGLIPTIN 5 MG TABLET PO SCH (12:15)
[2020-02-14] MEDS: ATORVASTATIN 10 MG TAB PO SCH (12:16)
[2020-02-14] MEDS: MAGNESIUM OXIDE 400 MG TAB PO SCH ×3 (12:16→20:58)
[2020-02-14] MEDS: INSULIN DETEMIR (LEVEMIR) 100 UNIT/ML SYR SQ SCH ×2 (12:52→20:58)
--- NOTE | 2020-02-14 14:57 | P.CNPUL ---
History of Present Illness Consult date: 02/14/20 Requesting physician: Sunny Rodriguez Reason for consult: dyspnea, chest pain Chief complaint: shortness of breath, chest pain History of present illness: 69-year-old white male patient of Dr. Long Hobbs, with past history of pulmonary embolism currently not on any anticoagulation therapy, diabetes mellitus, hypertension, coronary artery disease, hyperlipidemia, previous episode of myocardial infarction, who presents to the hospital on 02/13/2020 with complaints of chest discomfort across his chest of 5 day duration, cough, increasing shortness of breath. Denied any leg swelling or calf tenderness, denied hemoptysis, no fever or chills, denied any recent history of surgical procedures, denied any sick contacts. Reports feeling fatigued. no history of chronic lung disease other than previous history of pulmonary embolism. Not sure what she took for anticoagulation. Patient has a very strong [place] accent, he asked us to speak to his [id number] on the phone, who was also n ot sure what type of anticoagulation patient took in the past for previous PE. chest x-ray was obtained showing interstitial fluid overload, with consideration for congestive heart failure and right infrahilar spiculated nodular density. lab work showed normal white count 7.1, hemoglobin of 12.1, d-dimer was 0.73, electrolytes and renal profile were within normal limits, troponins were 0.025, 0.031, 0.032, proBNP was elevated at 3320, coronavirus PCR was negative. CT angios was completed in view of elevated d-dimer showing a small subsegmental pulmonary emboli to the anterior left upper lobe and questionable subsegmental pulmonary emboli of the bilateral lower lobes. Assessment of right heart strain was difficult related to patient motion however there was an abnormal right ventricular to left ventricular ratio suggesting some degree of right heart strain. There was cardiomegaly with evidence of cardiogenic fluid overload. Right lower lobe 9 mm pulmonary nodule and adjacent 5 mm pulmonary nodule was noted. patient was started on heparin infusion, echocardiogram has been completed showing moderate concentric left ventricular hypertrophy, low normal EF of 50-55%, severe enlargement of the right ventricle, with right-sided pressure of 54.1 mmHg, moderate to severe tricuspid regurg, moderate mitral regurg, no evidence of aortic regurgitation or stenosis. patient has been given IV Lasix, he has diuresed about 1400 mL and urine output over the last 24 hours, during our evaluation patient is awake and alert, with room air pulse ox of 95%, does not appear to be in any acute distress. Review of Systems All systems: negative Constitutional: Denies chills, Denies fever Eyes: denies blurred vision, denies pain Ears, nose, mouth and throat: Denies headache, Denies sore throat Cardiovascular: Reports chest pain, Denies shortness of breath Respiratory: Denies cough Gastrointestinal: Denies abdominal pain, Denies diarrhea, Denies nausea, Denies vomiting Musculoskeletal: Denies myalgias Integumentary: Denies pruritus, Denies rash Neurological: Denies numbness, Denies weakness Psychiatric: Denies anxiety, Denies depression Endocrine: Denies fatigue, Denies weight change Past Medical History Past Medical History: Diabetes Mellitus, GERD/Reflux, Hypertension, Myocardial Infarction ([place]), Osteoarthritis (OA) Last Myocardial Infarction Date:: UNSURE History of Any Multi-Drug Resistant Organisms: None Reported Past Surgical History: Heart Catheterization With Stent, Orthopedic Surgery Additional Past Surgical History / Comment(s): RT ROTATOR CUFF REPAIR. COLONOSCOPY Past Anesthesia/Blood Transfusion Reactions: Motion Sickness Date of Last Stent Placement:: UNSURE Past Psychological History: No Psychological Hx Reported Smoking Status: Never smoker Past Alcohol Use History: Rare Past Drug Use History: None Reported - Past Family History Father Family Medical History: Cancer Additional Family Medical History / Comment(s): COLON Medications and Allergies Home Medications Medication Instructions Recorded Confirmed Type Aspirin [Adult Low Dose Aspirin EC] 81 mg PO DAILY 07/22/16 02/13/20 History Gabapentin 300 mg PO DAILY 07/22/16 02/13/20 History Atenolol/Chlorthalidone 1 tab PO DAILY 07/26/16 02/13/20 History [Atenolol-Chlorthalidone 50-25] Acetaminophen Tab [Tylenol] 650 mg PO Q6H PRN 02/13/20 02/13/20 History Diphenox-Atrop 2.5-0.025 mg 1 tab PO TID PRN 02/13/20 02/13/20 History [Lomotil] Insulin Glargine,Hum.rec.anlog 10 unit SQ BID 02/13/20 02/13/20 History [Lantus Solostar] Omeprazole [PriLOSEC] 40 mg PO DAILY 02/13/20 02/13/20 History Pioglitazone [Actos] 30 mg PO DAILY 02/13/20 02/13/20 History Simvastatin [Zocor] 20 mg PO DAILY 02/13/20 02/13/20 History hydrOXYzine HCL [Atarax] 25 mg PO DAILY PRN 02/13/20 02/13/20 History metFORMIN HCL [Glucophage] 1,000 mg PO BID 02/13/20 02/13/20 History sitaGLIPtin [Januvia] 100 mg PO DAILY 02/13/20 02/13/20 History Allergies Allergy/AdvReac Type Severity Reaction Status Date / Time Pain Pill (Unknown Name) Allergy Itching Uncoded 02/13/20 19:31 Physical Exam Vitals: Vital Signs Temp Pulse Pulse Resp BP BP BP 02/14/20 12:00 98.2 F 48 L 16 173/66 02/14/20 08:00 98.8 F 49 L 16 156/77 02/14/20 04:00 98.4 F 44 L 15 146/61 02/14/20 00:00 97.8 F 43 L 18 144/67 02/13/20 22:36 99.0 F 42 L 16 182/65 02/13/20 21:37 99.1 F 42 L 16 168/60 02/13/20 20:30 43 L 17 170/57 02/13/20 19:37 44 L 18 192/71 02/13/20 18:12 98.2 F 48 L 18 193/78 02/13/20 17:33 98.9 F 48 L 18 210/69 Pulse Ox 02/14/20 12:00 95 02/14/20 08:00 94 L 02/14/20 04:00 93 L 02/14/20 00:00 95 02/13/20 22:36 95 02/13/20 21:37 96 02/13/20 20:30 95 02/13/20 19:37 96 02/13/20 18:12 96 02/13/20 17:33 98 Intake and Output 02/13/20 02/14/20 02/14/20 22:59 06:59 14:59 Intake Total 134.986 765.718 Output Total 1400 400 Balance -1265.014 365.718 Intake: IV 120 Heparin Sod,Pork in 0.45% 120 NaCl 25,000 unit In 0.45 % NaCl 1 250ml.bag @ 18 UNITS/KG/HR 16.329 mls/hr IV .[id number] [facility] Rx#: [id number] Intake, IV Titration 134.986 105.718 Amount Heparin Sod,Pork in 0.45% 134.986 105.718 NaCl 25,000 unit In 0.45 % NaCl 1 250ml.bag @ 18 UNITS/KG/HR 16.329 mls/hr IV .[id number] [facility] Rx#: [id number] Oral 540 Output: Urine 1400 400 Other: Voiding Method Urinal Urinal Weight 90.718 kg 99.2 kg 99.2 kg GENERAL EXAM: Alert, the very pleasant, 69-year-old white male, on room air with a pulse ox of 95%, with a strong [place] accent comfortable in no apparent distress. HEAD: Normocephalic/atraumatic. EYES: Normal reaction of pupils, equal size. Conjunctiva pink, sclera white. NOSE: Clear with pink turbinates. THROAT: No erythema or exudates. NECK: No masses, no JVD, no thyroid enlargement, no adenopathy. CHEST: No chest wall deformity. Symmetrical expansion. LUNGS: Equal air entry with no crackles, wheeze, rhonchi or dullness. CVS: Regular rate and rhythm, normal S1 and S2, no gallops, no murmurs, no rubs ABDOMEN: Soft, nontender. No hepatosplenomegaly, normal bowel sounds, no guarding or rigidity. EXTREMITIES: No clubbing, no edema, no cyanosis, 2+ pulses and upper and lower extremities. MUSCULOSKELETAL: Muscle strength and tone normal. SPINE: No scoliosis or deformity SKIN: No rashes CENTRAL NERVOUS SYSTEM: Alert and oriented -3. No focal deficits, tone is normal in all 4 extremities. PSYCHIATRIC: Alert and oriented -3. Appropriate affect. Intact judgment and insight. Results - Laboratory Findings CBC and BMP: 02/14/20 02:29 02/13/20 17:45 PT/INR, D-dimer PT 10.8 sec (9.0-12.0) 02/14/20 02:29 INR 1.0 (<1.2) 02/14/20 02:29 D-Dimer 0.73 mg/L FEU (<0.60) H 02/13/20 17:45 Abnormal lab findings: Abnormal Labs 02/13/20 02/13/20 02/13/20 17:45 17:45 17:45 RBC 4.06 L Hgb 12.1 L Hct 35.8 L APTT D-Dimer 0.73 H Glucose 168 H POC Glucose (mg/dL) Magnesium 1.2 L HDL Cholesterol 02/14/20 02/14/20 02/14/20 02:29 02:29 02:29 RBC 3.71 L Hgb 10.9 L Hct 32.4 L APTT 84.6 H D-Dimer Glucose POC Glucose (mg/dL) Magnesium HDL Cholesterol 30 L 02/14/20 02/14/20 02/14/20 05:27 06:18 10:13 RBC Hgb Hct APTT 53.6 H D-Dimer Glucose POC Glucose (mg/dL) 130 H Magnesium 1.5 L HDL Cholesterol 02/14/20 11:46 RBC Hgb Hct APTT D-Dimer Glucose POC Glucose (mg/dL) 185 H Magnesium HDL Cholesterol - Diagnostic Findings Chest x-ray: report reviewed, image reviewed CT scan - chest: report reviewed, image reviewed Assessment and Plan Plan: assessment: #1. Acute dyspnea, with proBNP and chest x-ray findings suggesting acute exacerbation of chronic congestive heart failure with diastolic dysfunction #2. Chest pain related to acute pulmonary emboli, CTA chest showed small subsegmental pulmonary emboli to the anterior left upper lobe and questionable subsegmental pulmonary emboli of the bilateral lower lobes, with suggestion of right heart strain #3. Moderately severe pulmonary hypertension, likely related to acute pulmonary emboli #4. Right lower lobe 9 mm pulmonary nodule and adjacent 5 mm pulmonary nodule, will be followed #5. History of coronary artery disease #6. Diabetes mellitus type 2 #7. Hyperlipidemia #8. Previous history of pulmonary embolism #9. Hypertension #10. Lifetime nonsmoker Plan: Continue current medical treatment, will send a prescription to pharmacy for Xarelto or Eliquis, continue with heparin infusion. CTA chest has been reviewed which was suboptimal, and showing subsegmental and segmental questionable pulmonary emboli however in view of pattern of heart strain and severe pulmonary hypertension and previous history of pulmonary embolism, will have to continue anticoagulation, and in view of recurrent pattern of PE patient will likely need lifelong anticoagulation. Will obtain lower extremity Dopplers. Cardiology is following, and patient has been given diuretics.We'll continue to follow his clinical course I performed a history & physical examination of the patient and discussed their management with my nurse practitioner, An Javier. I reviewed the nurse practitioner's note and agree with the documented findings and plan of care. Lung sounds are positive for diminished breath sounds . The findings and the impression was discussed with the patient. I attest to the documentation by the nurse practitioner. Time with Patient: Greater than 30
[2020-02-14] MEDS: PIOGLITAZONE 30 MG TAB PO SCH (15:20)
[2020-02-14] MEDS: INSULIN ASPART (NovoLOG) 100 UNIT/ML VIAL SQ SCH ×2 (17:09→20:58)
--- NOTE | 2020-02-14 18:18 | P.HPIM ---
History of Present Illness H&P Date: 02/14/20 Chief Complaint: Chest pressure History of presenting complaint: This is a pleasant 69-year-old patient of Dr. Long Hobbs. Patient has a very strong Irish accent and is Fijian speaking is somewhat limited. Chronic stable medical conditions include diabetes mellitus type 2, GERD, hypertension, primary osteoarthritis. Has a prior history of cardiac catheterization with stent. 2 days patient has noticed pain going across the chest and also some in the right arm. Also short of breath and perspiration. No fever no chills. No obvious aggravating or relieving factor. Was a question about pulmonary embolism in the ER. Also cardiac cause of the presentation was being entertained. Hence admitted to the cardiology floor. Patient started on IV heparin. Patient denies any swelling. Patient did have a prior history of PE. Review of systems: GEN.: None EYES: None HEENT: None NECK: None RESPIRATORY: As above CARDIOVASCULAR: As above GASTROINTESTINAL: None GENITOURINARY: None MUSCULOSKELETAL: None LYMPHATICS: None HEMATOLOGICAL: None PSYCHIATRY: None NEUROLOGICAL: None Past medical history to include: Diabetes mellitus type 2, GERD, hypertension, coronary artery disease with stent, primary osteoarthritis Social history: Lives alone. No smoking. Alcohol rarely. Physical examination: VITAL SIGNS: 98.9, 48, 18, 210/69, 98% room air upon presentation GENERAL: [BMI 30.5, sitting up, nondistressed. EYES: Pupils equal. Conjunctiva normal. HEENT: External appearance of nose and ears normal, oral cavity grossly normal. NECK: JVD not raised; masses not palpable. HEART: First and second heart sounds are normal; no edema. LUNGS: Respiratory rate increased; fair air entry. ABDOMEN: Soft, nontender, liver spleen not palpable, no masses palpable. PSYCH: Alert and oriented x3; mood and affect normal. NEUROLOGICAL: Cranial nerves grossly intact; no facial asymmetry, power and sensation grossly intact. LYMPHATICS: No lymph nodes palpable in the axilla and neck INVESTIGATIONS, reviewed in the clinical context: White count 7.1 hemoglobin 12.1 platelets 180 progression 4.1 d-dimer 0.73 creatinine 0.98 Troponin I 0.025, 0.031, 0.03 to, proBNP 3320 LDL 36, now at's PCR-not detected EKG tracing personally reviewed by me-sinus rhythm with sinus bradycardia Chest x-ray film personally reviewed by me-some evidence of pulmonary edema with fluid in the fissure, right infrahilar suspect limited nodular density Chest CTA-limited because of motion that tiny pulmonary emboli to the subsegmental arteries some global cardiomegaly Assessment: -Possible unstable angina in a patient with known coronary artery disease with stent -Acute congestive heart failure exacerbation with patient showing CHF on the chest x-ray and elevated proBNP -Possible acute pulmonary embolism the CTA results not very good, but given a prior history of PE treat the same -Obesity BMI 30.5 -Diabetes mellitus type 2 -GERD -Essential hypertension -Primary osteoarthritis -IV heparin monitoring Plan: Patient started and IV heparin the ER. Home medications resumed. Accu-Cheks are being followed. Cardiology and pulmonary were consulted. 2-D course pending. Patient did get a dose of IV Lasix in the ER. 40 mg. We'll start the patient on Xarelto. Past Medical History Past Medical History: Diabetes Mellitus, GERD/Reflux, Hypertension, Myocardial Infarction (TN), Osteoarthritis (OA) Last Myocardial Infarction Date:: UNSURE History of Any Multi-Drug Resistant Organisms: None Reported Past Surgical History: Heart Catheterization With Stent, Orthopedic Surgery Additional Past Surgical History / Comment(s): RT ROTATOR CUFF REPAIR. COLONOSCOPY Past Anesthesia/Blood Transfusion Reactions: Motion Sickness Date of Last Stent Placement:: UNSURE Past Psychological History: No Psychological Hx Reported Smoking Status: Never smoker Past Alcohol Use History: Rare Past Drug Use History: None Reported - Past Family History Father Family Medical History: Cancer Additional Family Medical History / Comment(s): COLON Medications and Allergies Home Medications Medication Instructions Recorded Confirmed Type Aspirin [Adult Low Dose Aspirin EC] 81 mg PO DAILY 07/22/16 02/13/20 History Gabapentin 300 mg PO DAILY 07/22/16 02/13/20 History Atenolol/Chlorthalidone 1 tab PO DAILY 07/26/16 02/13/20 History [Atenolol-Chlorthalidone 50-25] Acetaminophen Tab [Tylenol] 650 mg PO Q6H PRN 02/13/20 02/13/20 History Diphenox-Atrop 2.5-0.025 mg 1 tab PO TID PRN 02/13/20 02/13/20 History [Lomotil] Insulin Glargine,Hum.rec.anlog 10 unit SQ BID 02/13/20 02/13/20 History [Lantus Solostar] Omeprazole [PriLOSEC] 40 mg PO DAILY 02/13/20 02/13/20 History Pioglitazone [Actos] 30 mg PO DAILY 02/13/20 02/13/20 History Simvastatin [Zocor] 20 mg PO DAILY 02/13/20 02/13/20 History hydrOXYzine HCL [Atarax] 25 mg PO DAILY PRN 02/13/20 02/13/20 History metFORMIN HCL [Glucophage] 1,000 mg PO BID 02/13/20 02/13/20 History sitaGLIPtin [Januvia] 100 mg PO DAILY 02/13/20 02/13/20 History Allergies Allergy/AdvReac Type Severity Reaction Status Date / Time Pain Pill (Unknown Name) Allergy Itching Uncoded 02/13/20 19:31 Physical Exam Vitals: Vital Signs Temp Pulse Pulse Resp BP BP BP 02/14/20 08:00 98.8 F 49 L 16 156/77 02/14/20 04:00 98.4 F 44 L 15 146/61 02/14/20 00:00 97.8 F 43 L 18 144/67 02/13/20 22:36 99.0 F 42 L 16 182/65 02/13/20 21:37 99.1 F 42 L 16 168/60 02/13/20 20:30 43 L 17 170/57 02/13/20 19:37 44 L 18 192/71 02/13/20 18:12 98.2 F 48 L 18 193/78 02/13/20 17:33 98.9 F 48 L 18 210/69 Pulse Ox 02/14/20 08:00 94 L 02/14/20 04:00 93 L 02/14/20 00:00 95 02/13/20 22:36 95 02/13/20 21:37 96 02/13/20 20:30 95 02/13/20 19:37 96 02/13/20 18:12 96 02/13/20 17:33 98 Intake and Output 02/13/20 02/14/20 02/14/20 22:59 06:59 14:59 Intake Total 134.986 Output Total 1400 Balance -1265.014 Intake: Intake, IV Titration 134.986 Amount Heparin Sod,Pork in 0.45% 134.986 NaCl 25,000 unit In 0.45 % NaCl 1 250ml.bag @ 18 UNITS/KG/HR 16.329 mls/hr IV .[id number] [facility] Rx#: [id number] Output: Urine 1400 Other: Voiding Method Urinal Weight 90.718 kg 99.2 kg Results CBC & Chem 7: 02/14/20 02:29 02/13/20 17:45 Labs: Abnormal Lab Results - Last 24 Hours (Table) 02/13/20 02/13/20 02/13/20 Range/Units 17:45 17:45 17:45 RBC 4.06 L (4.30-5.90) m/uL Hgb 12.1 L (13.0-17.5) gm/dL Hct 35.8 L (39.0-53.0) % APTT (22.0-30.0) sec D-Dimer 0.73 H (<0.60) mg/L FEU Glucose 168 H (74-99) mg/dL POC Glucose (mg/dL) (75-99) mg/dL Magnesium 1.2 L (1.6-2.3) mg/dL HDL Cholesterol (40-60) mg/dL 02/14/20 02/14/20 02/14/20 Range/Units 02: 02: 02:29 RBC 3.71 L (4.30-5.90) m/uL Hgb 10.9 L (13.0-17.5) gm/dL Hct 32.4 L (39.0-53.0) % APTT 84.6 H (22.0-30.0) sec D-Dimer (<0.60) mg/L FEU Glucose (74-99) mg/dL POC Glucose (mg/dL) (75-99) mg/dL Magnesium (1.6-2.3) mg/dL HDL Cholesterol 30 L (40-60) mg/dL 02/14/20 02/14/20 Range/Units 05:27 06:18 RBC (4.30-5.90) m/uL Hgb (13.0-17.5) gm/dL Hct (39.0-53.0) % APTT (22.0-30.0) sec D-Dimer (<0.60) mg/L FEU Glucose (74-99) mg/dL POC Glucose (mg/dL) 130 H (75-99) mg/dL Magnesium 1.5 L (1.6-2.3) mg/dL HDL Cholesterol (40-60) mg/dL Thrombosis Risk Factor Assmnt - Choose All That Apply Each Factor Represents 1 point: Heart failure (<1month), Obesity (BMI >25) Each Risk Factor Represents 2 Points: Age 61-74 years Thrombosis Risk Factor Assessment Total Risk Factor Score: 4 Thrombosis Risk Factor Assessment Level: Moderate Risk
[2020-02-14] MEDS ORDERED: FUROSEMIDE 10 MG/ML 2 ML VIAL IV ONE (18:20)
[2020-02-14] MEDS: RIVAROXABAN 15 MG TAB PO SCH (18:46)
[2020-02-14 21:33] VITALS: RESP 18
[2020-02-15] MEDS: RIVAROXABAN 15 MG TAB PO SCH (06:17)
[2020-02-15] MEDS: INSULIN ASPART (NovoLOG) 100 UNIT/ML VIAL SQ SCH ×2 (06:17→12:46)
[2020-02-15] MEDS: PANTOPRAZOLE 40 MG TABLET PO SCH (06:17)
[2020-02-15 07:45] LABS: Basophils % (A) 1 %; Eosinophils # (A) 0.1 k/uL (0-0.7); Eosinophils % (A) 2 %; HGB 12.6 gm/dL (13.0-17.5); Lymphocytes # (A) 1.1 k/uL (1.0-4.8); Lymphocytes % (A) 16 %; MCHC 33.1 g/dL (31.0-37.0); MCV 87.5 fL (80.0-100.0); Mean Platelet Volume 10.9; Monocytes # (A) 0.5 k/uL (0-1.0); Monocytes % (A) 8 %; Neutrophils # (A) 4.7 k/uL (1.3-7.7); Neutrophils % (A) 72 %; Platelet Count 200 k/uL (150-450); RBC 4.34 m/uL (4.30-5.90); RDW 13.3 % (11.5-15.5); WBC 6.6 k/uL (3.8-10.6)
[2020-02-15 07:49] LABS: Glucose,Whole Blood 181 mg/dL (75-99)
[2020-02-15 07:49] LABS: Glucose,Whole Blood 188 mg/dL (75-99)
[2020-02-15 07:51] LABS: Calcium 10.1 mg/dL (8.4-10.2); Potassium 3.7 mmol/L (3.5-5.1)
[2020-02-15 08:03] LABS: Glucose,Whole Blood 171 mg/dL (75-99)
[2020-02-15] MEDS: GABAPENTIN 300 MG CAP PO SCH (08:18)
[2020-02-15] MEDS: ASPIRIN 81 MG PO SCH (08:18)
[2020-02-15] MEDS: LINAGLIPTIN 5 MG TABLET PO SCH (08:18)
[2020-02-15] MEDS: ATORVASTATIN 10 MG TAB PO SCH (08:18)
[2020-02-15] MEDS: PIOGLITAZONE 30 MG TAB PO SCH (08:18)
[2020-02-15] MEDS: MAGNESIUM OXIDE 400 MG TAB PO SCH (08:18)
[2020-02-15] MEDS: LOSARTAN 25 MG TAB PO SCH (08:18)
[2020-02-15] MEDS: INSULIN DETEMIR (LEVEMIR) 100 UNIT/ML SYR SQ SCH (08:18)
--- NOTE | 2020-02-15 10:59 | P.PN ---
Subjective Progress Note Date: 02/15/20 This is a 45-year-old gentleman with documented history of hypertension, EtOH abuse, he apparently drinks a fifth of 5 Daily. Patient apparently recently lost his job, and started drinking significant amounts of alcohol again. He presented to the emergency room with symptoms of abdominal discomfort, he was also complaining of a deep ache in the center of his chest. He states that the symptoms started after several episodes of vomiting. His EKG on presentation here showed a sinus tachycardia with no acute changes. Chest x- ray was normal. Troponins 0.021, 0.0-4, 0.026. EtOH level on admission to and rodriguez virus was negative. Patient did undergo an echocardiogram with Doppler study approximately one year ago which revealed a normal left ventricular systolic function. His blood pressure this morning is 162/80 with a heart rate of 90 to low 100s, 96% on room air. 02/15/2020 Patient was seen and examined this morning by Dr. Mederos. Continues to feel some shortness of breath at rest, continues to be wheezy. Mild cough. Continues to be bradycardic with a heart rate in the 40s and low 50s. Blood pressure 142/68, heart rate 46 this morning 92% on room air. White blood cell count 6.6, hemoglobin 12.6, platelet count 200. Sodium 138, potassium 3.7, BUN 12, creatinine 1.0. TSH level 0.255. Echocardiogram with Doppler study was performed, overall left ventricular systolic function 50-55%. The right ventricle is severely enlarged, RV systolic dysfunction, LA is moderately dilated, moderate mitral regurgitation, moderate to severe tricuspid regurg and moderate to severe pulmonary hypertension, RVSP 54. No evidence of any pericardial effusion. Patient has been initiated on Xarelto per PE protocol. Objective - Vital Signs Vital signs: Vital Signs Temp 98.1 F 02/15/20 08:00 Pulse 45 L 02/15/20 08:00 Resp 18 02/15/20 08:00 BP 142/68 02/15/20 08:00 Pulse Ox 92 L 02/15/20 08:00 Intake & Output 02/14/20 02/15/20 02/15/20 18:59 06:59 18:59 Intake Total 1305.718 Output Total 400 650 Balance 905.718 -650 Weight 99.2 kg 95.5 kg Intake: IV 120 Heparin Sod,Pork in 0.45% 120 NaCl 25,000 unit In 0.45 % NaCl 1 250ml.bag @ 18 UNITS/KG/HR 16.329 mls/hr IV .[id number] [facility] Rx#: [id number] Intake, IV Titration 105.718 Amount Heparin Sod,Pork in 0.45% 105.718 NaCl 25,000 unit In 0.45 % NaCl 1 250ml.bag @ 18 UNITS/KG/HR 16.329 mls/hr IV .[id number] [facility] Rx#: [id number] Oral 1080 Output: Urine 400 650 Other: Voiding Method Urinal Urinal # Voids 1 2 - Exam PHYSICAL EXAMINATION: GENERAL: 69-year-old gentleman in no acute distress at the time of my examination HEENT: Head is atraumatic, normocephalic. Pupils equal, round. Sclera anicteric. Conjunctiva are clear. Mucous membranes of the mouth are moist. Neck is supple. There is no elevated jugular venous pressure. No carotid bruit is heard. HEART EXAMINATION: Heart S1-S2 normal, systolic murmur heard CHEST EXAMINATION: Lungs reveal mild wheezing throughout . No chest wall tenderness is noted on palpation or with deep breathing. ABDOMEN: Soft, nontender. Bowel sounds are heard. No organomegaly noted. EXTREMITIES: 2+ peripheral pulses with no evidence of peripheral edema and no calf tenderness noted. NEUROLOGIC patient is awake, alert and oriented 3 - Labs CBC & Chem 7: 02/15/20 07:17 02/15/20 07:17 Labs: Abnormal Lab Results - Last 24 Hours (Table) 02/14/20 02/14/20 02/14/20 Range/Units 11:46 16:29 20:15 Hgb (13.0-17.5) gm/dL Hct (39.0-53.0) % Glucose (74-99) mg/dL POC Glucose (mg/dL) 185 H 188 H 171 H (75-99) mg/dL TSH (0.465-4.680) mIU/L 02/15/20 02/15/20 02/15/20 Range/Units 06:02 07:17 07:17 Hgb 12.6 L (13.0-17.5) gm/dL Hct 38.0 L (39.0-53.0) % Glucose 163 H (74-99) mg/dL POC Glucose (mg/dL) 181 H (75-99) mg/dL TSH (0.465-4.680) mIU/L 02/15/20 Range/Units 07:17 Hgb (13.0-17.5) gm/dL Hct (39.0-53.0) % Glucose (74-99) mg/dL POC Glucose (mg/dL) (75-99) mg/dL TSH 0.255 L (0.465-4.680) mIU/L Assessment and Plan Plan: Assessment and plan #1 symptoms of atypical pleuritic chest pain with associated shortness of breath, evidence of small subsegmental PE on CAT scan. #2 diabetes #3 hypertension #4 hyperlipidemia #5 GERD #6 coronary artery disease, patient underwent a cardiac catheterization in 2018 that revealed intermediate disease in a large ramus, medical therapy advised #7 sinus bradycardia #8 hypomagnesemia Plan Patient has been initiated on Xarelto per PE protocol. We will continue with the rest of his medications. DNP note has been reviewed, I agree with a documented findings and plan of care. Patient was seen and examined.
[2020-02-15 11:37] LABS: Glucose,Whole Blood 183 mg/dL (75-99)
--- NOTE | 2020-02-15 12:43 | P.PN ---
Subjective Progress Note Date: 02/15/20 Principal diagnosis: Acute dyspnea, and chest pain related to acute pulmonary emboli mild CHF 69-year-old white male patient of Dr. Long Hobbs, with past history of pulmonary embolism currently not on any anticoagulation therapy, diabetes mellitus, hypertension, coronary artery disease, hyperlipidemia, previous episode of myocardial infarction, who presents to the hospital on 02/13/2020 with complaints of chest discomfort across his chest of 5 day duration, cough, increasing shortness of breath. Denied any leg swelling or calf tenderness, denied hemoptysis, no fever or chills, denied any recent history of surgical procedures, denied any sick contacts. Reports feeling fatigued. no history of chronic lung disease other than previous history of pulmonary embolism. Not sure what she took for anticoagulation. Patient has a very strong French accent, he asked us to speak to his [id number] on the phone, who was also not sure what type of anticoagulation patient took in the past for previous PE. chest x-ray was obtained showing interstitial fluid overload, with consideration for congestive heart failure and right infrahilar spiculated nodular density. lab work showed normal white count 7.1, hemoglobin of 12.1, d-dimer was 0.73, electrolytes and renal profile were within normal limits, troponins were 0.025, 0.031, 0.032, proBNP was elevated at 3320, coronavirus PCR was negative. CT angios was completed in view of elevated d-dimer showing a small subsegmental pulmonary emboli to the anterior left upper lobe and questionable subsegmental pulmonary emboli of the bilateral lower lobes. Assessment of right heart strain was difficult related to patient motion however there was an abnormal right ventricular to left ventricular ratio suggesting some degree of right heart strain. There was cardiomegaly with evidence of cardiogenic fluid overload. Ri ght lower lobe 9 mm pulmonary nodule and adjacent 5 mm pulmonary nodule was noted. patient was started on heparin infusion, echocardiogram has been completed showing moderate concentric left ventricular hypertrophy, low normal EF of 50-55%, severe enlargement of the right ventricle, with right-sided pressure of 54.1 mmHg, moderate to severe tricuspid regurg, moderate mitral regurg, no evidence of aortic regurgitation or stenosis. patient has been given IV Lasix, he has diuresed about 1400 mL and urine output over the last 24 hours, during our evaluation patient is awake and alert, with room air pulse ox of 95%, does not appear to be in any acute distress. On 02/15/2020 patient seen in follow-up on selective care unit, he is calm and comfortable, in no acute distress, room air pulse ox of 92-98%, hemodynamically stable, no fever or chills. Still has some shortness of breath at rest, mild wheezing, and occasional cough. Patient has been initiated on is a little, heparin drip has been discontinued. No acute events overnight. No complaints of chest pain. No syncope, no hemoptysis today's labs have been reviewed. Patient received a dose of IV Lasix in the evening yesterday, diuresed, feeling better Objective - Vital Signs Vital signs: Vital Signs Temp 98.1 F 02/15/20 08:00 Pulse 45 L 02/15/20 08:00 Resp 18 02/15/20 08:00 BP 142/68 02/15/20 08:00 Pulse Ox 92 L 02/15/20 08:00 Intake & Output 02/14/20 02/15/20 02/15/20 18:59 06:59 18:59 Intake Total 1305.718 Output Total 400 650 Balance 905.718 -650 Weight 99.2 kg 95.5 kg Intake: IV 120 Heparin Sod,Pork in 0.45% 120 NaCl 25,000 unit In 0.45 % NaCl 1 250ml.bag @ 18 UNITS/KG/HR 16.329 mls/hr IV .[id number] [facility] Rx#: [id number] Intake, IV Titration 105.718 Amount Heparin Sod,Pork in 0.45% 105.718 NaCl 25,000 unit In 0.45 % NaCl 1 250ml.bag @ 18 UNITS/KG/HR 16.329 mls/hr IV .[id number] [facility] Rx#: [id number] Oral 1080 Output: Urine 400 650 Other: Voiding Method Urinal Urinal # Voids 1 2 - Exam GENERAL EXAM: Alert, the very pleasant, 69-year-old white male, on room air with a pulse ox of 95%, with a strong French accent comfortable in no apparent distress. HEAD: Normocephalic/atraumatic. EYES: Normal reaction of pupils, equal size. Conjunctiva pink, sclera white. NOSE: Clear with pink turbinates. THROAT: No erythema or exudates. NECK: No masses, no JVD, no thyroid enlargement, no adenopathy. CHEST: No chest wall deformity. Symmetrical expansion. LUNGS: Equal air entry with no crackles, wheeze, rhonchi or dullness. CVS: Regular rate and rhythm, normal S1 and S2, no gallops, no murmurs, no rubs ABDOMEN: Soft, nontender. No hepatosplenomegaly, normal bowel sounds, no guarding or rigidity. EXTREMITIES: No clubbing, no edema, no cyanosis, 2+ pulses and upper and lower extremities. MUSCULOSKELETAL: Muscle strength and tone normal. SPINE: No scoliosis or deformity SKIN: No rashes CENTRAL NERVOUS SYSTEM: Alert and oriented -3. No focal deficits, tone is normal in all 4 extremities. PSYCHIATRIC: Alert and oriented -3. Appropriate affect. Intact judgment and insight. - Labs CBC & Chem 7: 02/15/20 07:17 02/15/20 07:17 Labs: Abnormal Lab Results - Last 24 Hours (Table) 02/14/20 02/14/20 02/15/20 Range/Units 16:29 20:15 06:02 Hgb (13.0-17.5) gm/dL Hct (39.0-53.0) % Glucose (74-99) mg/dL POC Glucose (mg/dL) 188 H 171 H 181 H (75-99) mg/dL TSH (0.465-4.680) mIU/L 02/15/20 02/15/20 02/15/20 Range/Units 07:17 07:17 07:17 Hgb 12.6 L (13.0-17.5) gm/dL Hct 38.0 L (39.0-53.0) % Glucose 163 H (74-99) mg/dL POC Glucose (mg/dL) (75-99) mg/dL TSH 0.255 L (0.465-4.680) mIU/L 02/15/20 Range/Units 11:36 Hgb (13.0-17.5) gm/dL Hct (39.0-53.0) % Glucose (74-99) mg/dL POC Glucose (mg/dL) 183 H (75-99) mg/dL TSH (0.465-4.680) mIU/L Assessment and Plan Plan: assessment: #1. Acute dyspnea, with proBNP and chest x-ray findings suggesting acute exacerbation of chronic congestive heart failure with diastolic dysfunction #2. Chest pain related to acute pulmonary emboli, CTA chest showed small subsegmental pulmonary emboli to the anterior left upper lobe and questionable subsegmental pulmonary emboli of the bilateral lower lobes, with suggestion of right heart strain #3. Moderately severe pulmonary hypertension, likely related to acute pulmonary emboli #4. Right lower lobe 9 mm pulmonary nodule and adjacent 5 mm pulmonary nodule, will be followed #5. History of coronary artery disease #6. Diabetes mellitus type 2 #7. Hyperlipidemia #8. Previous history of pulmonary embolism #9. Hypertension #10. Lifetime nonsmoker Plan: Patient has been transitioned to oral anticoagulation, he is doing well, vital signs are stable, his been diuresed, no acute events overnight, maintaining stable O2 saturations on room air, from pulmonary perspective he stable for discharge home today with outpatient follow-up with Dr. Berrios any office in 2-3 weeks I performed a history & physical examination of the patient and discussed their management with my nurse practitioner, An Javier. I reviewed the nurse practitioner's note and agree with the documented findings and plan of care. Lung sounds are positive for diminished breath sounds . The findings and the impression was discussed with the patient. I attest to the documentation by the nurse practitioner. Time with Patient: Less than 30
[2020-02-15 13:46] VITALS: BP 143/63; PULSE 44; TEMP 98
[2020-02-15 13:50] LABS: Hemoglobin A1C 8.2 % (4.0-6.0)
[2020-02-15] MEDS ORDERED: metFORMIN 500 MG TAB PO SCH (17:30)
--- NOTE | 2020-02-15 18:53 | P.DS ---
Providers Date of admission: 02/13/20 19:41 Expected date of discharge: 02/15/20 Attending physician: Sunny Rodriguez Consults: 02/13/20 19:22 Consult Physician Urgent Consulting Provider: William Erickson Consult Reason/Comments: CP/ CHF exacerbation Do you want consulting provider notified?: Yes, Notify in am 02/14/20 12:32 Consult Physician Routine Consulting Provider: aPko Berrios Consult Reason/Comments: questionable PE Do you want consulting provider notified?: Yes [facility]: Chief Complaint: Chest pressure History of presenting complaint: This is a pleasant 69-year-old patient of Dr. Long Hobbs. Patient has a very strong [place] accent and is Icelandic speaking is somewhat limited. Chronic sta ble medical conditions include diabetes mellitus type 2, GERD, hypertension, primary osteoarthritis. Has a prior history of cardiac catheterization with stent. 2 days patient has noticed pain going across the chest and also some in the right arm. Also short of breath and perspiration. No fever no chills. No obvious aggravating or relieving factor. Was a question about pulmonary embolism in the ER. Also cardiac cause of the presentation was being entertained. Hence admitted to the cardiology floor. Patient started on IV heparin. Patient denies any swelling. Patient did have a prior history of PE. Admitted with-acute pulmonary embolism. Acute CHF exacerbation. Bradycardia. Given IV Lasix. Start IV heparin. Changed over to Xarelto. Breathing much better by the time of discharge. Cleared by cardiology and pulmonary for discharge. Discussed with the patient. Questions answered. Consultation: Dr. Berrios from pulmonary Dr. Vivek Mederos from cardiology Physical examination: VITAL SIGNS: 98, 45, 18, 1 43/63, 92% on room air GENERAL: Sitting up, comfortable EYES: Pupils equal. Conjunctiva normal. HEENT: External appearance of nose and ears normal, oral cavity grossly normal. NECK: JVD not raised; masses not palpable. HEART: First and second heart sounds are normal; no edema. LUNGS: Respiratory rate normal; fair air entry. ABDOMEN: Soft, nontender, liver spleen not palpable, no masses palpable. PSYCH: Alert and oriented x3; mood and affect normal. INVESTIGATIONS, reviewed in the clinical context: White count 7.1 hemoglobin 12.1 platelets 180 progression 4.1 d-dimer 0.73 creatinine 0.98 Troponin I 0.025, 0.031, 0.03 to, proBNP 3320 LDL 36, now at's PCR-not detected EKG tracing personally reviewed by me-sinus rhythm with sinus bradycardia Chest x-ray film personally reviewed by me-some evidence of pulmonary edema with fluid in the fissure, right infrahilar suspect limited nodular density Chest CTA-limited because of motion that tiny pulmonary emboli to the subsegmental arteries some global cardiomegaly 2-D echo-year 50-55%, right atrium moderately enlarged, moderate mitral regurgitation, moderate to severe tricuspid regurgitation, moderate to severe pulmonary hypertension Assessment: -Acute congestive heart failure exacerbation from diastolic dysfunction EF 50- 55% -Possible acute pulmonary embolism with a given a prior history of PE -Moderate mitral, moderate to severe tricuspid regurgitation, nontraumatic -Moderate to severe secondary pulmonary hypertension -Obesity BMI 30.5 -Diabetes mellitus type 2 -GERD -Essential hypertension -Primary osteoarthritis -IV heparin monitoring Disposition: Home Patient Condition at Discharge: Stable Plan - Discharge Summary Discharge Rx Participant: No New Discharge Prescriptions: New Losartan [Cozaar] 25 mg PO DAILY #30 tab Rivaroxaban [Xarelto Starter Pack] 0 mg PO DIRECTED 30 Days #1 pack Furosemide [Lasix] 40 mg PO MOWEFR #30 tablet Continue Gabapentin 300 mg PO DAILY Aspirin [Adult Low Dose Aspirin EC] 81 mg PO DAILY Acetaminophen Tab [Tylenol] 650 mg PO Q6H PRN PRN Reason: Pain sitaGLIPtin [Januvia] 100 mg PO DAILY metFORMIN HCL [Glucophage] 1,000 mg PO BID Simvastatin [Zocor] 20 mg PO DAILY Pioglitazone [Actos] 30 mg PO DAILY Insulin Glargine,Hum.rec.anlog [Lantus Solostar] 10 unit SQ BID Diphenox-Atrop 2.5-0.025 mg [Lomotil] 1 tab PO TID PRN PRN Reason: Diarrhea Omeprazole [PriLOSEC] 40 mg PO DAILY Discontinued Atenolol/Chlorthalidone [Atenolol-Chlorthalidone 50-25] 1 tab PO DAILY hydrOXYzine HCL [Atarax] 25 mg PO DAILY PRN PRN Reason: Itching Discharge Medication List Aspirin [Adult Low Dose Aspirin EC] 81 mg PO DAILY 07/22/16 [History] Gabapentin 300 mg PO DAILY 07/22/16 [History] Acetaminophen Tab [Tylenol] 650 mg PO Q6H PRN 02/13/20 [History] Diphenox-Atrop 2.5-0.025 mg [Lomotil] 1 tab PO TID PRN 02/13/20 [History] Insulin Glargine,Hum.rec.anlog [Lantus Solostar] 10 unit SQ BID 02/13/20 [History] Omeprazole [PriLOSEC] 40 mg PO DAILY 02/13/20 [History] Pioglitazone [Actos] 30 mg PO DAILY 02/13/20 [History] Simvastatin [Zocor] 20 mg PO DAILY 02/13/20 [History] metFORMIN HCL [Glucophage] 1,000 mg PO BID 02/13/20 [History] sitaGLIPtin [Januvia] 100 mg PO DAILY 02/13/20 [History] Furosemide [Lasix] 40 mg PO MOWEFR #30 tablet 02/15/20 [Rx] Losartan [Cozaar] 25 mg PO DAILY #30 tab 02/15/20 [Rx] Rivaroxaban [Xarelto Starter Pack] 0 mg PO DIRECTED 30 Days #1 pack 02/15/20 [Rx] Follow up Appointment(s)/Referral(s): Pako Berrios MD [STAFF PHYSICIAN] - 02/21/20 10:15 am (Rn Acute Care- Telephone appointment, office will call you to speak with Dr. Berrios. ) William Erickson MD [STAFF PHYSICIAN] - 02/26/20 2:00 pm (In office appointment. ) Long Hobbs MD [Primary Care Provider] - 02/20/20 10:30 am (In office follow up appointment. ) Patient Instructions/Handouts: Pulmonary Embolism (DC), Hypertension (DC), Safe Use of Anticoagulants (DC) Activity/Diet/Wound Care/Special Instructions: Xarelto script filled at [facility] is $8.95 Discharge Disposition: HOME SELF-CARE
--- NOTE | 2020-02-19 06:30 | CDI ---
Documentation Clarification Form Date: 02/18/20 From: Alejandra Arroyo Phone: If you have a question about this query, please contact Gayla Cisse, Supervisor Product Inspection at [phone] between 8am and 5pm. Admit Date: 02/13/20 Discharge Date: 03/17/20 Patient Name: GABBY SANTOS Visit Number: [id number] ATTENTION: The Clinical Documentation Specialists (CDI) and [facility] Staff appreciate your assistance in clarifying documentation. Please respond to the clarification below the line at the bottom and electronically sign. The CDI & [facility] staff will review the response and follow-up if needed. Please note: Queries are made part of the Legal Health Record. If you have any questions, please contact the author of this message via ITS. Dear Dr. Sunny Rodriguez, Right heart strain is documented in the Dr Berrios's consult and 02/14 progress note and [address] CT. Please specify the acuity of right heart strain with terms such as: Acute Chronic Other (please specify in the medical record) Clinically unable to further specify Unknown Possibly chronic right heart strain MTDD
== END 2020-02-15 16:17 | disposition home or self-care (01) | DRG 175 ==
LOC: EC 17:31 → 3SCARD 19:41
PROVIDERS: ADMIT Hospitalist; ATTEND Hospitalist
DX: I26.99 Other pulmonary embolism without acute cor pulmonale (principal); I50.33 Acute on chronic diastolic (congestive) heart failure; I27.29 Other secondary pulmonary hypertension; I11.0 Hypertensive heart disease with heart failure; E11.9 Type 2 diabetes mellitus without complications; Z79.4 Long term (current) use of insulin; Z11.59 Encounter for screening for other viral diseases; I25.10 Atherosclerotic heart disease of native coronary artery without angina pectoris; I08.1 Rheumatic disorders of both mitral and tricuspid valves; E83.42 Hypomagnesemia; I45.10 Unspecified right bundle-branch block; R00.1 Bradycardia, unspecified; E78.5 Hyperlipidemia, unspecified; K21.9 Gastro-esophageal reflux disease without esophagitis; E66.9 Obesity, unspecified; I25.2 Old myocardial infarction; M19.91 Primary osteoarthritis, unspecified site; R91.8 Other nonspecific abnormal finding of lung field; F10.10 Alcohol abuse, uncomplicated; Z68.30 Body mass index [BMI] 30.0-30.9, adult; Z79.82 Long term (current) use of aspirin; Z79.899 Other long term (current) drug therapy; Z86.711 Personal history of pulmonary embolism; Z95.5 Presence of coronary angioplasty implant and graft; Z71.3 Dietary counseling and surveillance; Z98.890 Other specified postprocedural states; Z88.5 Allergy status to narcotic agent; Z80.0 Family history of malignant neoplasm of digestive organs
CPT/HCPCS: 36415; 71046; 71275; 80048; 80053; 80061; 83036; 83735; 83880; 84443; 84484; 85025; 85379; 85610; 85730; 87635; 93005; 93306; 96365; 96367; 96375; 96376; 99285

== ENCOUNTER 2020-11-15 15:52 | Inpatient (IN) | payer MEDICARE ==
[2020-11-15] MEDS ORDERED: PIPERACILLIN-TAZOBACTAM 3.375 GM in SODIUM CHLORIDE 0.9% 100 ML IVPB STA (16:20)
[2020-11-15] MEDS ORDERED: SODIUM CHLORIDE 0.9% 500 ML 500 ML IV ONE (16:21)
[2020-11-15] MEDS ORDERED: SODIUM CHLORIDE 0.9% 1,000 ML IV ONE (16:21)
[2020-11-15] MEDS ORDERED: ONDANSETRON 4 MG/2 ML VIAL IVP STA (16:22)
[2020-11-15] MEDS ORDERED: ACETAMINOPHEN TAB 325 MG TAB PO STA (16:22)
--- NOTE | 2020-11-15 16:28 | ED ---
Weakness HPI - General Chief complaint: Weakness Stated complaint: Weak/ams Time Seen by Provider: 11/15/20 16:17 Source: patient Mode of arrival: wheelchair Limitations: no limitations - History of Present Illness Initial comments: 69-year-old male with hx DM, HTN NE presents today for chief complaint of generalized weakness and nausea unable to eat or drink. Patient states that he has felt warm like he has a fever has felt weak all over had a slight cough but has been nauseated unable to really eat or drink for the past 2-3 days. He denies vomiting diarrhea chest pain shortness of breath he states he does have the sensation of diffuse abdominal pain he describes as mild. Denies radiation. Pt denies leg swelling> patient denies headaches, neck stiffness, sore throat, ear pain or pain with urination. Patient appears fatigued,but not altered nor lethargic on arrival. fever in triage. - Related Data Home Medications Medication Instructions Recorded Confirmed RX: Aspirin [Adult Low Dose 81 mg PO DAILY 07/22/16 11/15/20 Aspirin EC] RX: Gabapentin 300 mg PO BID 07/22/16 11/15/20 RX: Diphenox-Atrop 2.5-0.025 mg 1 tab PO TID PRN 02/13/20 11/15/20 [Lomotil] RX: Insulin Glargine,Hum.rec.anlog 20 unit SQ DAILY 02/13/20 11/15/20 [Lantus Solostar] RX: Omeprazole [PriLOSEC] 40 mg PO DAILY 02/13/20 11/15/20 RX: Pioglitazone [Actos] 30 mg PO DAILY 02/13/20 11/15/20 RX: metFORMIN HCL [Glucophage] 1,000 mg PO BID 02/13/20 11/15/20 Atenolol/Chlorthalidone 0.5 tab PO DAILY 11/15/20 11/15/20 [Atenolol-Chlorthalidone 50-25] Cholecalciferol [Vitamin D3 (25 25 mcg PO DAILY 11/15/20 11/15/20 Mcg = 1000 Iu)] Empagliflozin/Linagliptin 1 tab PO DAILY 11/15/20 11/15/20 [Glyxambi 25 mg-5 mg Tablet] Fish Oil/Dha/Epa [Fish Oil 1,200 1 cap PO DAILY 11/15/20 11/15/20 mg Fish Oil] Multivit-Min/FA/Lycopen/Lutein 1 tab PO DAILY 11/15/20 11/15/20 [Centrum Silver Tablet] RX: Atorvastatin [Lipitor] 20 mg PO DAILY 11/15/20 11/15/20 RX: hydrOXYzine HCL 25 mg PO DAILY 11/15/20 11/15/20 Rivaroxaban [Xarelto] 20 mg PO DAILY 11/15/20 11/15/20 Thiamine [Vitamin B-1] 50 mg PO DAILY 11/15/20 11/15/20 Previous Rx's Medication Instructions Recorded RX: Losartan [Cozaar] 25 mg PO DAILY #30 tab 02/15/20 Allergies Allergy/AdvReac Type Severity Reaction Status Date / Time Pain Pill (Unknown Name) Allergy Itching Uncoded 11/15/20 18:37 Review of Systems ROS Statement: Those systems with pertinent positive or pertinent negative responses have been documented in the HPI. ROS Other: All systems not noted in ROS Statement are negative. Past Medical History Past Medical History: Diabetes Mellitus, GERD/Reflux, Hypertension, Myocardial Infarction (NE), Osteoarthritis (OA) Last Myocardial Infarction Date:: UNSURE History of Any Multi-Drug Resistant Organisms: None Reported Past Surgical History: Heart Catheterization With Stent, Orthopedic Surgery Additional Past Surgical History / Comment(s): RT ROTATOR CUFF REPAIR. COLONOSCOPY Past Anesthesia/Blood Transfusion Reactions: Motion Sickness Date of Last Stent Placement:: UNSURE Past Psychological History: No Psychological Hx Reported Smoking Status: Never smoker Past Alcohol Use History: Rare Past Drug Use History: None Reported - Past Family History Father Family Medical History: Cancer Additional Family Medical History / Comment(s): COLON General Exam - General Exam Comments Initial Comments: General: The patient is awake and alert, in no distress, Eye: +3 mm pupils are equal, round and reactive to light, extra-ocular movements are intact. No nystagmus. There is normal conjunctiva bilaterally. No signs of icterus. Ears, nose, mouth and throat: There are moist mucous membranes and dry lips Neck: The neck is supple, there is no tenderness or JVD. Cardiovascular: There is a regular rate and rhythm. No murmur, rub or gallop is appreciated. Respiratory: Respirations are non-labored, breath sounds are equal. No wheezes, stridor. Scattered rales/rhonchi. Coughing. Gastrointestinal: Soft, non-distended, diffuse mild abdominal pain, abdomen without masses or organomegaly noted. There is no rebound or guarding present. Musculoskeletal: Normal ROM, no tenderness. Strength 5/5. Sensation intact. Radial and DP pulses equal bilaterally 2+. Neurological: A&O x 3. CN II-XII intact grossly, There are no obvious motor or sensory deficits. Coordination appears grossly intact. Speech is normal. Skin: Skin is warm and dry and no rashes or lesions are noted. No LE edema. Psychiatric: Cooperative, appropriate mood & affect, normal judgment. Limitations: no limitations Course Vital Signs 11/15/20 11/15/20 11/15/20 16:04 17:14 18:07 Temperature 102 F H 101.8 F H Pulse Rate 58 L 60 82 Respiratory 16 16 18 Rate Blood Pressure 134/73 147/53 147/53 O2 Sat by Pulse 95 95 95 Oximetry Medical Decision Making - Medical Decision Making Covid +. Pneumonia on CXR. Patient has one dose zosyn in ER. Procalcitonin pending. pt troponin elevated. denies chest pain or dyspnea. pt not hypoxia. pt complaining of abdominal pain/nausea. Mild/minimal pain to palpation on abdominal exam. Pt Cr/BUN elevated with dry lips, weakness, decreased oral intake. pt will be admitted for covid pneumonia, hydrations, monitoring of respiratory status which is WNL at this time no hypoxia nor signs of distress. - Lab Data Result diagrams: 11/15/20 16:49 11/15/20 16:49 Lab Results 11/15/20 11/15/20 11/15/20 Range/Units 16:49 16:49 16:49 WBC 6.0 (3.8-10.6) k/uL RBC 4.62 (4.30-5.90) m/uL Hgb 12.8 L (13.0-17.5) gm/dL Hct 37.6 L (39.0-53.0) % MCV 81.3 (80.0-100.0) fL MCH 27.6 (25.0-35.0) pg MCHC 34.0 (31.0-37.0) g/dL RDW 14.6 (11.5-15.5) % Plt Count 161 (150-450) k/uL MPV 10.0 Neutrophils % 77 % Lymphocytes % 14 % Monocytes % 6 % Eosinophils % 0 % Basophils % 2 % Neutrophils # 4.6 (1.3-7.7) k/uL Lymphocytes # 0.8 L (1.0-4.8) k/uL Monocytes # 0.4 (0-1.0) k/uL Eosinophils # 0.0 (0-0.7) k/uL Basophils # 0.1 (0-0.2) k/uL PT 11.4 (9.0-12.0) sec INR 1.1 (<1.2) APTT 27.2 (22.0-30.0) sec Sodium (137-145) mmol/L Potassium (3.5-5.1) mmol/L Chloride (98-107) mmol/L Carbon Dioxide (22-30) mmol/L Anion Gap mmol/L BUN (9-20) mg/dL Creatinine (0.66-1.25) mg/dL Est GFR (CKD-EPI)AfAm (>60 ml/min/1.73 sqM) Est GFR (CKD-EPI)NonAf (>60 ml/min/1.73 sqM) Glucose (74-99) mg/dL Plasma Lactic Acid Eron (0.7-2.0) mmol/L Calcium (8.4-10.2) mg/dL Magnesium (1.6-2.3) mg/dL Total Bilirubin (0.2-1.3) mg/dL AST (17-59) U/L ALT (4-49) U/L Alkaline Phosphatase (38-126) U/L Troponin I (0.000-0.034) ng/mL NT-Pro-B Natriuret Pep pg/mL Total Protein (6.3-8.2) g/dL Albumin (3.5-5.0) g/dL TSH (0.465-4.680) mIU/L Urine Color Light Yellow Urine Appearance Clear (Clear) Urine pH 5.5 (5.0-8.0) Ur Specific [place] 1.019 (1.001-1.035) Urine Protein 1+ H (Negative) Urine Glucose (UA) 4+ H (Negative) Urine Ketones Negative (Negative) Urine Blood Trace H (Negative) Urine Nitrite Negative (Negative) Urine Bilirubin Negative (Negative) Urine Urobilinogen <2.0 (<2.0) mg/dL Ur Leukocyte Esterase Negative (Negative) Urine WBC 1 (0-5) /hpf Acetone, Qual (Negative) Coronavirus (PCR) (Not Detectd) 11/15/20 11/15/20 11/15/20 Range/Units 16:49 16:49 16:49 WBC (3.8-10.6) k/uL RBC (4.30-5.90) m/uL Hgb (13.0-17.5) gm/dL Hct (39.0-53.0) % MCV (80.0-100.0) fL MCH (25.0-35.0) pg MCHC (31.0-37.0) g/dL RDW (11.5-15.5) % Plt Count (150-450) k/uL MPV Neutrophils % % Lymphocytes % % Monocytes % % Eosinophils % % Basophils % % Neutrophils # (1.3-7.7) k/uL Lymphocytes # (1.0-4.8) k/uL Monocytes # (0-1.0) k/uL Eosinophils # (0-0.7) k/uL Basophils # (0-0.2) k/uL PT (9.0-12.0) sec INR (<1.2) APTT (22.0-30.0) sec Sodium 137 (137-145) mmol/L Potassium 4.2 (3.5-5.1) mmol/L Chloride 95 L (98-107) mmol/L Carbon Dioxide 28 (22-30) mmol/L Anion Gap 14 mmol/L BUN 37 H (9-20) mg/dL Creatinine 1.91 H (0.66-1.25) mg/dL Est GFR (CKD-EPI)AfAm 40 (>60 ml/min/1.73 sqM) Est GFR (CKD-EPI)NonAf 35 (>60 ml/min/1.73 sqM) Glucose 200 H (74-99) mg/dL Plasma Lactic Acid Eron (0.7-2.0) mmol/L Calcium 9.0 (8.4-10.2) mg/dL Magnesium 2.0 (1.6-2.3) mg/dL Total Bilirubin 0.7 (0.2-1.3) mg/dL AST 42 (17-59) U/L ALT 25 (4-49) U/L Alkaline Phosphatase 69 (38-126) U/L Troponin I 0.040 H* (0.000-0.034) ng/mL NT-Pro-B Natriuret Pep 216 pg/mL Total Protein 7.5 (6.3-8.2) g/dL Albumin 4.2 (3.5-5.0) g/dL TSH 0.868 (0.465-4.680) mIU/L Urine Color Urine Appearance (Clear) Urine pH (5.0-8.0) Ur Specific [place] (1.001-1.035) Urine Protein (Negative) Urine Glucose (UA) (Negative) Urine Ketones (Negative) Urine Blood (Negative) Urine Nitrite (Negative) Urine Bilirubin (Negative) Urine Urobilinogen (<2.0) mg/dL Ur Leukocyte Esterase (Negative) Urine WBC (0-5) /hpf Acetone, Qual Negative (Negative) Coronavirus (PCR) (Not Detectd) 11/15/20 11/15/20 Range/Units 16:49 16:49 WBC (3.8-10.6) k/uL RBC (4.30-5.90) m/uL Hgb (13.0-17.5) gm/dL Hct (39.0-53.0) % MCV (80.0-100.0) fL MCH (25.0-35.0) pg MCHC (31.0-37.0) g/dL RDW (11.5-15.5) % Plt Count (150-450) k/uL MPV Neutrophils % % Lymphocytes % % Monocytes % % Eosinophils % % Basophils % % Neutrophils # (1.3-7.7) k/uL Lymphocytes # (1.0-4.8) k/uL Monocytes # (0-1.0) k/uL Eosinophils # (0-0.7) k/uL Basophils # (0-0.2) k/uL PT (9.0-12.0) sec INR (<1.2) APTT (22.0-30.0) sec Sodium (137-145) mmol/L Potassium (3.5-5.1) mmol/L Chloride (98-107) mmol/L Carbon Dioxide (22-30) mmol/L Anion Gap mmol/L BUN (9-20) mg/dL Creatinine (0.66-1.25) mg/dL Est GFR (CKD-EPI)AfAm (>60 ml/min/1.73 sqM) Est GFR (CKD-EPI)NonAf (>60 ml/min/1.73 sqM) Glucose (74-99) mg/dL Plasma Lactic Acid Eron 1.6 (0.7-2.0) mmol/L Calcium (8.4-10.2) mg/dL Magnesium (1.6-2.3) mg/dL Total Bilirubin (0.2-1.3) mg/dL AST (17-59) U/L ALT (4-49) U/L Alkaline Phosphatase (38-126) U/L Troponin I (0.000-0.034) ng/mL NT-Pro-B Natriuret Pep pg/mL Total Protein (6.3-8.2) g/dL Albumin (3.5-5.0) g/dL TSH (0.465-4.680) mIU/L Urine Color Urine Appearance (Clear) Urine pH (5.0-8.0) Ur Specific [place] (1.001-1.035) Urine Protein (Negative) Urine Glucose (UA) (Negative) Urine Ketones (Negative) Urine Blood (Negative) Urine Nitrite (Negative) Urine Bilirubin (Negative) Urine Urobilinogen (<2.0) mg/dL Ur Leukocyte Esterase (Negative) Urine WBC (0-5) /hpf Acetone, Qual (Negative) Coronavirus (PCR) Detected A (Not Detectd) Disposition Clinical Impression: Fever, Weakness, Dehydration, Creatinine elevation, Nausea, Elevated troponin Disposition: ADMITTED IP TO THIS [facility] Condition: Stable Is patient prescribed a controlled substance at d/c from ED?: No Referrals: Long Hobbs MD [Primary Care Provider] - 1-2 days Time of Disposition: 18:56 Decision to Admit Reason: Admit from EC Decision Date: 11/15/20 Decision Time: 18:56
[2020-11-15 17:03] LABS: Basophils # (A) 0.1 k/uL (0-0.2); Basophils % (A) 2 %; Eosinophils % (A) 0 %; HCT 37.6 % (39.0-53.0); HGB 12.8 gm/dL (13.0-17.5); Lymphocytes # (A) 0.8 k/uL (1.0-4.8); Lymphocytes % (A) 14 %; MCH 27.6 pg (25.0-35.0); MCV 81.3 fL (80.0-100.0); Monocytes # (A) 0.4 k/uL (0-1.0); Monocytes % (A) 6 %; Neutrophils # (A) 4.6 k/uL (1.3-7.7); Neutrophils % (A) 77 %; Platelet Count 161 k/uL (150-450); RBC 4.62 m/uL (4.30-5.90); RDW 14.6 % (11.5-15.5)
[2020-11-15 17:05] LABS: Appearance,Urine Clear (Clear); Bilirubin,Urine Negative (Negative); Blood,Urine Trace (Negative); Color,Urine Light Yellow; Glucose,Urine (UA) 4+ (Negative); Ketones,Urine Negative (Negative); Leukocyte Esterase,Urine Negative (Negative); Nitrite,Urine Negative (Negative); PH, Urine 5.5 (5.0-8.0); Protein,Urine 1+ (Negative); Specific Gravity,Urine 1.019 (1.001-1.035); Urobilinogen,Urine <2.0 mg/dL (<2.0); WBC,Urine 1 /hpf (0-5)
[2020-11-15] MEDS: SODIUM CHLORIDE 0.9% 1,000 ML IV SCH (17:14)
[2020-11-15 17:22] LABS: ALT 25 U/L (4-49); AST 42 U/L (17-59); African American GFR (CKD) 40 (>60 ml/min/1.73 sqM); Albumin 4.2 g/dL (3.5-5.0); Alkaline Phosphatase 69 U/L (38-126); Anion Gap 14 mmol/L; Blood Urea Nitrogen 37 mg/dL (9-20); Carbon Dioxide 28 mmol/L (22-30); Chloride 95 mmol/L (98-107); Glucose 200 mg/dL (74-99); Non-African American GFR(CKD) 35 (>60 ml/min/1.73 sqM); Potassium 4.2 mmol/L (3.5-5.1); Sodium 137 mmol/L (137-145); Total Bilirubin 0.7 mg/dL (0.2-1.3); Total Protein 7.5 g/dL (6.3-8.2)
[2020-11-15 17:43] LABS: INR 1.1 (<1.2); Partial Thromboplastin Time 27.2 sec (22.0-30.0); Prothrombin Time 11.4 sec (9.0-12.0)
--- NOTE | 2020-11-15 18:01 | XR ---
EXAMINATION TYPE: XR chest 2V DATE OF EXAM: 11/15/2020 COMPARISON: 02/13/2020 HISTORY: Weakness TECHNIQUE: 2 views FINDINGS: There is some coarse infiltrate in the left lower lobe. The right lung is clear. There is n o heart failure. There are no hilar masses. There are chest leads. Bony thorax is intact. IMPRESSION: There is a new mild pneumonia in the left lower lobe compared to old exam. No heart failu re. Normal heart.
[2020-11-15] MEDS ORDERED: NALOXONE 0.4 MG/ML 1 ML VIAL IV PRN (18:16)
--- NOTE | 2020-11-15 18:52 | CT ---
EXAMINATION TYPE: CT abdomen pelvis wo con DATE OF EXAM: 11/15/2020 COMPARISON: 12/18/2017 HISTORY: Non-localized pain, fever. No contrast. Prior in PACS CT DLP: 800.9 mGycm Automated exposure control for dose reduction was used. Images obtained from the diaphragm to the floor the pelvis with no contrast. FINDINGS: There is some patchy infiltrate and atelectasis at the lung bases. Heart is enlarged. There is no per icardial effusion. Liver spleen stomach pancreas gallbladder appear normal. Bile ducts are not dilated. There is no adrenal mass. The kidneys show normal size and contour. There is no hydronephrosis. Urete rs are not dilated. There is no retroperitoneal adenopathy. Appendix is posterior and appears normal. There is no inguinal hernia. Bladder distends smoothly. There is no evidence of a pelvic mass. There is no free fluid in the pelvis. There is no mesenteric edema. There is no ascites or free air. There is no bowel obstruction. Lumbar vertebra have normal alignment. There is some spurring of the endplates in the lumbar spine. T here is no compression fracture. The hip joints are intact. I see no bony destructive process. IMPRESSION: There is some mild infiltrate and atelectasis at the lung bases that is similar to old exam. No acute abnormality within the abdomen and pelvis.
[2020-11-15] MEDS ORDERED: dexAMETHasone 2 MG TAB PO STA (21:19)
[2020-11-15] MEDS: ACETAMINOPHEN TAB 325 MG TAB PO PRN (23:25)
[2020-11-16 06:57] LABS: Glucose,Whole Blood 303 mg/dL (75-99)
[2020-11-16] MEDS: PANTOPRAZOLE 40 MG TABLET PO SCH (07:02)
[2020-11-16] MEDS: INSULIN ASPART (NovoLOG) 100 UNIT/ML VIAL SQ SCH ×4 (07:02→20:51)
[2020-11-16 07:52] LABS: HGB 12.3 gm/dL (13.0-17.5); MCH 27.7 pg (25.0-35.0); MCHC 33.3 g/dL (31.0-37.0); MCV 83.1 fL (80.0-100.0); Mean Platelet Volume 10.5; Platelet Count 145 k/uL (150-450); RBC 4.45 m/uL (4.30-5.90); RDW 14.4 % (11.5-15.5); WBC 4.6 k/uL (3.8-10.6)
[2020-11-16 08:12] LABS: Calcium 8.9 mg/dL (8.4-10.2); Potassium 4.9 mmol/L (3.5-5.1)
[2020-11-16] MEDS: THIAMINE 100 MG TAB PO SCH (08:12)
[2020-11-16] MEDS: RIVAROXABAN 20 MG TAB PO SCH (08:13)
[2020-11-16] MEDS: CHOLECALCIFEROL 25 MCG (1000 IU) TABLET PO SCH (08:13)
[2020-11-16] MEDS: ZINC SULFATE 220 MG CAP PO SCH (08:13)
[2020-11-16] MEDS: dexAMETHasone 2 MG TAB PO SCH (08:14)
[2020-11-16] MEDS: ATORVASTATIN 20 MG TAB PO SCH (08:14)
[2020-11-16] MEDS: ASPIRIN 81 MG PO SCH (08:14)
[2020-11-16] MEDS: SODIUM CHLORIDE 0.9% 1,000 ML IV SCH (08:14)
[2020-11-16 12:29] LABS: Glucose,Whole Blood 278 mg/dL (75-99)
--- NOTE | 2020-11-16 12:29 | P.HPIM ---
History of Present Illness H&P Date: 11/15/20 Patient is a 69-year-old male with a PMH of type II DM, hx of PE (on Xarelto), hypertension, coronary artery disease status post PCI, and osteoarthritis who presented to the emergency room with complaints of feeling weak and feverish at home. The patient reported that his symptoms started 2 days ago when he also developed some nausea and a poor appetite. He reported a mild cough but denied chest pain or shortness of breath. Denied any known exposure to people who were ill. Denied lower extremity pain or swelling. Denied abdominal pain or diarrhea. Notes that due to his nausea and poor appetite, he hasn't been eating or drinking much which is only worsening his weakness. He underwent an extensive evaluation in the emergency room. Upon presentation, he was febrile to 102F, pulse 58, BP 134/73, SpO2 95% on room air. EKG revealed sinus bradycardia at 56 bpm with a right bundle chanelle block with a CT abdomen and pelvis showing mild infiltrate and atelectasis at the lung bases and chest x-ray showing left lower lobe pneumonia. Laboratory evaluation was remarkable for coronavirus rapid testing positive, hemoglobin of 12.8, chloride 95, BUN 37, creatinine 1.91, lactic acid 1.6, troponin 0.04, and proBNP 216. Review of Systems Pertinent positives and negatives as discussed in HPI, a complete review of systems was performed and all other systems are negative. Past Medical History Past Medical History: Diabetes Mellitus, GERD/Reflux, Hypertension, Myocardial Infarction (HI), Osteoarthritis (OA) Last Myocardial Infarction Date:: UNSURE History of Any Multi-Drug Resistant Organisms: None Reported Past Surgical History: Heart Catheterization With Stent, Orthopedic Surgery Additional Past Surgical History / Comment(s): RT ROTATOR CUFF REPAIR. COLONOSCOPY Past Anesthesia/Blood Transfusion Reactions: Motion Sickness Date of Last Stent Placement:: UNSURE Past Psychological History: No Psychological Hx Reported Smoking Status: Never smoker Past Alcohol Use History: Rare Past Drug Use History: None Reported - Past Family History Father Family Medical History: Cancer Additional Family Medical History / Comment(s): COLON Medications and Allergies Home Medications Medication Instructions Recorded Confirmed Type Aspirin [Adult Low Dose Aspirin EC] 81 mg PO DAILY 07/22/16 11/15/20 History Gabapentin 300 mg PO BID 07/22/16 11/15/20 History Diphenox-Atrop 2.5-0.025 mg 1 tab PO TID PRN 02/13/20 11/15/20 History [Lomotil] Insulin Glargine,Hum.rec.anlog 20 unit SQ DAILY 02/13/20 11/15/20 History [Lantus Solostar] Omeprazole [PriLOSEC] 40 mg PO DAILY 02/13/20 11/15/20 History Pioglitazone [Actos] 30 mg PO DAILY 02/13/20 11/15/20 History metFORMIN HCL [Glucophage] 1,000 mg PO BID 02/13/20 11/15/20 History Losartan [Cozaar] 25 mg PO DAILY #30 tab 02/15/20 11/15/20 Rx Atenolol/Chlorthalidone 0.5 tab PO DAILY 11/15/20 11/15/20 History [Atenolol-Chlorthalidone 50-25] Atorvastatin [Lipitor] 20 mg PO DAILY 11/15/20 11/15/20 History Cholecalciferol [Vitamin D3 (25 25 mcg PO DAILY 11/15/20 11/15/20 History Mcg = 1000 Iu)] Empagliflozin/Linagliptin 1 tab PO DAILY 11/15/20 11/15/20 History [Glyxambi 25 mg-5 mg Tablet] Fish Oil/Dha/Epa [Fish Oil 1,200 1 cap PO DAILY 11/15/20 11/15/20 History mg Fish Oil] Multivit-Min/FA/Lycopen/Lutein 1 tab PO DAILY 11/15/20 11/15/20 History [Centrum Silver Tablet] Rivaroxaban [Xarelto] 20 mg PO DAILY 11/15/20 11/15/20 History Thiamine [Vitamin B-1] 50 mg PO DAILY 11/15/20 11/15/20 History hydrOXYzine HCL 25 mg PO DAILY 11/15/20 11/15/20 History Allergies Allergy/AdvReac Type Severity Reaction Status Date / Time Pain Pill (Unknown Name) Allergy Itching Uncoded 11/15/20 18:37 Physical Exam Vitals: Vital Signs Temp Pulse Resp BP Pulse Ox 11/15/20 20:04 98.5 F 50 L 18 134/55 96 11/15/20 18:07 101.8 F H 82 18 147/53 95 11/15/20 17:14 60 16 147/53 95 11/15/20 16:04 102 F H 58 L 16 134/73 95 Intake and Output 11/15/20 11/15/20 11/15/20 06:59 14:59 22:59 Other: Weight 92.986 kg General: non toxic, no distress, appears at stated age, overweight Derm: no unusual rashes/lesions no unusual ecchymoses, warm, dry Head: atraumatic, normocephalic, symmetric Eyes: EOMI, no lid lag, anicteric sclera, pupils equal round reactive to light ENT: Nose and ears atraumatic, no thrush, no pharyngeal erythema Neck: No thyromegaly, no cervical lymphadenopathy, trachea midline, supple Mouth: no lip lesion, mucus membranes moist Cardiovascular: S1S2 reg, no murmur, positive posterior tibial pulse bilateral, no edema, capillary refill less than 2 seconds Lungs: Bibasilar rales , no wheezing, no accessory muscle use Abdominal: soft, nontender to palpation, no guarding, no appreciable organomegaly, normal bowel sounds Ext: no gross muscle atrophy, muscle strength 5 out of 5 in all 4 extremities grossly, no contractures, Neuro: CN II-XI grossly intact, light touch intact all 4 extremities, finger to nose within normal limits, Psych: Alert, oriented, appropriate affect Results CBC & Chem 7: 11/15/20 16:49 11/15/20 16:49 Labs: Abnormal Lab Results - Last 24 Hours (Table) 11/15/20 11/15/20 11/15/20 Range/Units 16:49 16:49 16:49 Hgb 12.8 L (13.0-17.5) gm/dL Hct 37.6 L (39.0-53.0) % Lymphocytes # 0.8 L (1.0-4.8) k/uL Chloride 95 L (98-107) mmol/L BUN 37 H (9-20) mg/dL Creatinine 1.91 H (0.66-1.25) mg/dL Glucose 200 H (74-99) mg/dL Troponin I (0.000-0.034) ng/mL Urine Protein 1+ H (Negative) Urine Glucose (UA) 4+ H (Negative) Urine Blood Trace H (Negative) Coronavirus (PCR) (Not Detectd) 11/15/20 11/15/20 Range/Units 16:49 16:49 Hgb (13.0-17.5) gm/dL Hct (39.0-53.0) % Lymphocytes # (1.0-4.8) k/uL Chloride (98-107) mmol/L BUN (9-20) mg/dL Creatinine (0.66-1.25) mg/dL Glucose (74-99) mg/dL Troponin I 0.040 H* (0.000-0.034) ng/mL Urine Protein (Negative) Urine Glucose (UA) (Negative) Urine Blood (Negative) Coronavirus (PCR) Detected A (Not Detectd) Assessment and Plan Plan: COVID-19 pneumonitis -Decadron, Zinc, Melatonin, Vit C, Vit D -Pulmonary consult -Monitor inflammatory markers -Received Zosyn in the emergency room - may consider antibiotics if elevated pro-calcitonin ALENA, likely prerenal due to dehydration -Continue with IV fluids -Monitor BMP Elevated troponin, slightly higher from baseline -Likely due to ongoing infection -Denying chest pain or shortness of breath -Repeat in a.m. Hx of PE -C/w Xarelto Chronic conditions: Type II DM, hypertension, coronary artery disease -Insulin sliding scale with blood glucose monitoring -Levemir 20 U qhs; Hold oral hypoglycemics -C/w home antihypertensives DVT prophylaxis -Xarelto The patient is admitted with an anticipated greater than 2 midnight stay for evaluation of COVID CODE STATUS: Full Code Discussed with: Patient Anticipated discharge date: 3-[address]: Home A total of 40 minutes was spent on the care of this complex patient more than 50% of the time was spent in counseling and care coordination.
--- NOTE | 2020-11-16 12:37 | P.PN ---
Subjective Progress Note Date: 11/16/20 Principal diagnosis: No new complaints today. Pt reports significant improvement in N/V/MAL. He still reports mild pain in the chest. Objective - Vital Signs Vital signs: Vital Signs Temp 98.8 F 11/16/20 09:02 Pulse 50 L 11/16/20 11:50 Resp 18 11/16/20 11:50 BP 139/59 11/16/20 11:50 Pulse Ox 92 L 11/16/20 11:50 Intake & Output 11/15/20 11/16/20 11/16/20 18:59 06:59 18:59 Intake Total 240 Output Total 700 600 Balance -700 -360 Weight 92.986 kg 90.5 kg Intake: Oral 240 Output: Urine 700 600 - Exam Gen: awake, alert HEENT: normocephalic, atraumatic, good hearing acuity, moist mucous membranes Resp: good air exchange, breathing comfortably with no accessory muscle use, clear to auscultation bilaterally without any crackles CVS: good distal perfusion x 4, tachycardic without murmurs, regular rhythm GI: soft, NTTP, ND : no SPT, no CVAT, villalpando catheter not present MSK: no pitting edema, no clubbing Neuro: non-focal, moving all extremities Psych: cooperative, euthymic mood - Labs CBC & Chem 7: 11/16/20 07:33 11/16/20 07:33 Labs: Abnormal Lab Results - Last 24 Hours (Table) 11/15/20 11/15/20 11/15/20 Range/Units 16:49 16:49 16:49 Hgb 12.8 L (13.0-17.5) gm/dL Hct 37.6 L (39.0-53.0) % Plt Count (150-450) k/uL Lymphocytes # 0.8 L (1.0-4.8) k/uL Chloride 95 L (98-107) mmol/L BUN 37 H (9-20) mg/dL Creatinine 1.91 H (0.66-1.25) mg/dL Glucose 200 H (74-99) mg/dL POC Glucose (mg/dL) (75-99) mg/dL Troponin I (0.000-0.034) ng/mL Procalcitonin (0.02-0.09) ng/mL Urine Protein 1+ H (Negative) Urine Glucose (UA) 4+ H (Negative) Urine Blood Trace H (Negative) Coronavirus (PCR) (Not Detectd) 11/15/20 11/15/20 11/15/20 Range/Units 16:49 16:49 20:36 Hgb (13.0-17.5) gm/dL Hct (39.0-53.0) % Plt Count (150-450) k/uL Lymphocytes # (1.0-4.8) k/uL Chloride (98-107) mmol/L BUN (9-20) mg/dL Creatinine (0.66-1.25) mg/dL Glucose (74-99) mg/dL POC Glucose (mg/dL) (75-99) mg/dL Troponin I 0.040 H* (0.000-0.034) ng/mL Procalcitonin 0.12 H (0.02-0.09) ng/mL Urine Protein (Negative) Urine Glucose (UA) (Negative) Urine Blood (Negative) Coronavirus (PCR) Detected A (Not Detectd) 11/16/20 11/16/20 11/16/20 Range/Units 06:51 07:33 07:33 Hgb 12.3 L (13.0-17.5) gm/dL Hct 37.0 L (39.0-53.0) % Plt Count 145 L (150-450) k/uL Lymphocytes # (1.0-4.8) k/uL Chloride (98-107) mmol/L BUN 34 H (9-20) mg/dL Creatinine 1.53 H (0.66-1.25) mg/dL Glucose 305 H (74-99) mg/dL POC Glucose (mg/dL) 303 H (75-99) mg/dL Troponin I (0.000-0.034) ng/mL Procalcitonin (0.02-0.09) ng/mL Urine Protein (Negative) Urine Glucose (UA) (Negative) Urine Blood (Negative) Coronavirus (PCR) (Not Detectd) 11/16/20 Range/Units 12:27 Hgb (13.0-17.5) gm/dL Hct (39.0-53.0) % Plt Count (150-450) k/uL Lymphocytes # (1.0-4.8) k/uL Chloride (98-107) mmol/L BUN (9-20) mg/dL Creatinine (0.66-1.25) mg/dL Glucose (74-99) mg/dL POC Glucose (mg/dL) 278 H (75-99) mg/dL Troponin I (0.000-0.034) ng/mL Procalcitonin (0.02-0.09) ng/mL Urine Protein (Negative) Urine Glucose (UA) (Negative) Urine Blood (Negative) Coronavirus (PCR) (Not Detectd) Assessment and Plan Assessment: COVID-19 pneumonitis -Decadron, Zinc, Melatonin, Vit C, Vit D -Pulmonary consult -Monitor inflammatory markers -Received Zosyn in the emergency room - may consider antibiotics if elevated pro-calcitonin ALENA, likely prerenal due to dehydration -Continue with IV fluids -Monitor BMP Elevated troponin, slightly higher from baseline -Likely due to ongoing infection -Denying chest pain or shortness of breath -Repeat in a.m. Hx of PE -C/w Xarelto Chronic conditions: Type II DM, hypertension, coronary artery disease -Insulin sliding scale with blood glucose monitoring -Levemir 20 U qhs; Hold oral hypoglycemics -C/w home antihypertensives DVT prophylaxis -Xarelto The patient is admitted with an anticipated greater than 2 midnight stay for evaluation of COVID CODE STATUS: Full Code Discussed with: Patient Anticipated discharge date: 3-[address]: Home
[2020-11-16 17:07] LABS: Glucose,Whole Blood 334 mg/dL (75-99)
[2020-11-16 20:37] LABS: Glucose,Whole Blood 346 mg/dL (75-99)
[2020-11-16] MEDS: MELATONIN 5 MG TABLET PO SCH (20:51)
[2020-11-16] MEDS ORDERED: INSULIN DETEMIR (LEVEMIR) 100 UNIT/ML SYR SQ SCH (21:00)
[2020-11-17 06:25] LABS: Glucose,Whole Blood 222 mg/dL (75-99)
[2020-11-17] MEDS: INSULIN ASPART (NovoLOG) 100 UNIT/ML VIAL SQ SCH ×6 (06:46→21:59)
[2020-11-17] MEDS: PANTOPRAZOLE 40 MG TABLET PO SCH (06:46)
[2020-11-17 09:08] LABS: Basophils % (A) 0 %; Eosinophils % (A) 0 %; HCT 34.5 % (39.0-53.0); HGB 11.1 gm/dL (13.0-17.5); Lymphocytes # (A) 0.6 k/uL (1.0-4.8); Lymphocytes % (A) 5 %; MCH 26.5 pg (25.0-35.0); MCHC 32.3 g/dL (31.0-37.0); MCV 82.2 fL (80.0-100.0); Mean Platelet Volume 10.2; Monocytes # (A) 0.3 k/uL (0-1.0); Monocytes % (A) 3 %; Neutrophils # (A) 9.4 k/uL (1.3-7.7); Neutrophils % (A) 92 %; Platelet Count 174 k/uL (150-450); RDW 14.6 % (11.5-15.5); WBC 10.3 k/uL (3.8-10.6)
[2020-11-17 09:19] LABS: Albumin 3.4 g/dL (3.5-5.0); Calcium 8.5 mg/dL (8.4-10.2); Potassium 4.2 mmol/L (3.5-5.1); Total Bilirubin 0.6 mg/dL (0.2-1.3); Total Protein 6.3 g/dL (6.3-8.2)
[2020-11-17 09:38] LABS: C Reactive Protein 43.8 mg/L (<10.0)
[2020-11-17] MEDS: ATORVASTATIN 20 MG TAB PO SCH (09:40)
[2020-11-17] MEDS: CHOLECALCIFEROL 25 MCG (1000 IU) TABLET PO SCH (09:40)
[2020-11-17] MEDS: THIAMINE 100 MG TAB PO SCH (09:40)
[2020-11-17] MEDS: ASPIRIN 81 MG PO SCH (09:41)
[2020-11-17] MEDS: RIVAROXABAN 20 MG TAB PO SCH (09:41)
[2020-11-17] MEDS: dexAMETHasone 2 MG TAB PO SCH (09:41)
[2020-11-17] MEDS: ZINC SULFATE 220 MG CAP PO SCH (09:41)
[2020-11-17 11:48] LABS: Glucose,Whole Blood 317 mg/dL (75-99)
[2020-11-17] MEDS: SODIUM CHLORIDE 0.9% 1,000 ML IV SCH (15:00)
[2020-11-17 16:48] LABS: Glucose,Whole Blood 284 mg/dL (75-99)
--- NOTE | 2020-11-17 18:16 | P.PN ---
Subjective Progress Note Date: 11/17/20 Principal diagnosis: Weak and feverish. Patient is a 69-year-old [place] male with history of diabetes mellitus type 2, prior pulmonary embolism on Xarelto, hypertension, coronary artery disease status post PCI, and osteoarthritis who initially presented to the ER with complaints of weakness and fatigue. On arrival to the ER he was found to be febrile with a temperature of 102. Initial laboratory analysis showed some leukopenia, creatinine 1.9 one up from his baseline of 1, glucose 200, troponin mildly elevated at 0.04, and he was found to be COVID positive. Chest x-ray showed left lower lobe pneumonia. CT abdomen and pelvis showed mild infiltrate and atelectasis at the lung bases with no acute abdomen and pelvis pathology. Further testing revealed d-dimer 0.17 and pro-calcitonin 0.12. He had initially received Zosyn in the ER but this was discontinued as his pro-calcitonin was normal. He was admitted for further monitoring. He was started on Decadron, Zinc, melatonin, vitamin C, and vitamin D. He was monitored and did become increasingly hypoxic with a SpO2 of 92 on room air. He did have significant clinical improvement in his abdominal discomfort and shortness. Infectious disease was consulted who said he is in the window for rec.severe however could worsen his asymptomatic bradycardia. Patient seen and examined at bedside. He reports he is feeling better than at admission. He states he is still not eating and drinking well. He denies any significant shortness breath but does report some continued cough. No nausea, vomiting, or diarrhea. Objective - Vital Signs Vital signs: Vital Signs Temp 98.7 F 11/17/20 08:00 Pulse 56 L 11/17/20 13:57 Resp 18 11/17/20 15:40 BP 150/70 11/17/20 15:40 Pulse Ox 92 L 11/17/20 15:40 Intake & Output 11/16/20 11/17/20 11/17/20 18:59 06:59 18:59 Intake Total 1175 387 6458 Output Total 600 400 Balance 700 -160 1200 Intake: Intake, IV Titration 100 Amount Piperacillin-Tazobactam 3 100 .375 gm In Sodium Chloride 0.9% 100 ml @ 200 mls/hr IVPB ONCE STA Rx#:[id number] Oral [phone] Output: Urine 600 400 Other: Voiding Method Urinal Urinal Urinal # Voids 2 1 - Exam General: non toxic, no distress, appears at stated age Derm: warm, dry Head: atraumatic, normocephalic, symmetric Eyes: EOMI, no lid lag, anicteric sclera Mouth: no lip lesion, mucus membranes moist Cardiovascular: S1S2 reg, no murmur, positive posterior tibial pulse bilateral, Lungs: Coarse breath sounds bilateral, no accessory muscle use Abdominal: soft, nontender to palpation, no guarding, no appreciable organomegaly Ext: no gross muscle atrophy, no edema, no contractures Neuro: CN II-XI grossly intact, no focal neuro deficits Psych: Alert, oriented, appropriate affect - Labs CBC & Chem 7: 11/17/20 08:40 11/17/20 08:40 Labs: Abnormal Lab Results - Last 24 Hours (Table) 11/16/20 11/17/20 11/17/20 Range/Units 20:35 06:23 08:40 RBC (4.30-5.90) m/uL Hgb (13.0-17.5) gm/dL Hct (39.0-53.0) % Neutrophils # (1.3-7.7) k/uL Lymphocytes # (1.0-4.8) k/uL BUN 36 H (9-20) mg/dL Creatinine 1.37 H (0.66-1.25) mg/dL Glucose 273 H (74-99) mg/dL POC Glucose (mg/dL) 346 H 222 H (75-99) mg/dL C-Reactive Protein 43.8 H (<10.0) mg/L Albumin 3.4 L (3.5-5.0) g/dL 11/17/20 11/17/20 11/17/20 Range/Units 08:40 11:46 16:47 RBC 4.20 L (4.30-5.90) m/uL Hgb 11.1 L (13.0-17.5) gm/dL Hct 34.5 L (39.0-53.0) % Neutrophils # 9.4 H (1.3-7.7) k/uL Lymphocytes # 0.6 L (1.0-4.8) k/uL BUN (9-20) mg/dL Creatinine (0.66-1.25) mg/dL Glucose (74-99) mg/dL POC Glucose (mg/dL) 317 H 284 H (75-99) mg/dL C-Reactive Protein (<10.0) mg/L Albumin (3.5-5.0) g/dL Microbiology - Last 24 Hours (Table) 11/15/20 16:49 Blood Culture - Preliminary Blood No Growth after 24 hours Assessment and Plan Assessment: COVID 19 pneumonitis with acute hypoxic respiratory failure -Continue with Decadron, zinc, melatonin -Supportive care -Infectious disease recommendation: Case discussed and will hold off on the custody with clinical improvement secondary to incidence of precipitating worsening bradycardia Acute kidney injury secondary to dehydration -Continue with IV fluids -Improving -Avoid nephrotoxic agents -Repeat creatinine in a.m. -Encourage oral intake IVs mellitus type II with hyperglycemia -Likely secondary to steroid use -Increase long-acting insulin dosing -Sliding-scale insulin -Outpatient follow-up with PCP for hemoglobin A1c testing Normocytic anemia -Stable from outpatient testing -Follow CBC -Further outpatient workup Hypertension, controlled Elevated troponin 1 not clinically significant DVT prophylaxis: [place] Discussed with: Patient, nursing Anticipated discharge: 1-[address]: Home A total of 35 minutes was spent on the care of this complex patient more than 50% of the time was spent in counseling and care coordination.
[2020-11-17 20:38] LABS: Glucose,Whole Blood 341 mg/dL (75-99)
[2020-11-17] MEDS ORDERED: INSULIN DETEMIR (LEVEMIR) 100 UNIT/ML SYR SQ SCH (21:00)
[2020-11-17 21:43] LABS: Glucose,Whole Blood 245 mg/dL (75-99)
[2020-11-17] MEDS: MELATONIN 5 MG TABLET PO SCH (21:59)
--- NOTE | 2020-11-17 22:41 | CONS ---
CONSULTATION DATE OF SERVICE: 11/17/2020 REASON FOR CONSULTATION: COVID-19 and need for Remdesivir therapy. HISTORY OF PRESENT ILLNESS: The patient is a 69-year-old male with multiple comorbidities, presented to the hospital on November 15, 2020 for generalized weakness, nausea, unable eat or to drink. The patient's symptoms have been going on for about a week. Apparently the patient was complaining of feeling warm before presentation to the hospital. The patient did have a cough which has been mild in intensity and drainage, not bringing up any sputum. Some shortness of breath, but denies having any chest pain. No nausea, no vomiting. No diarrhea. With these symptoms, the patient was evaluated by the ER physician. On arrival to the ER, the patient did have a fever of 102 degrees Fahrenheit. The patient did have mild hypoxemia. Initially he was not, but now he is saturating about 92% on room air. The patient also had bradyarrhythmia. The heart rate in the 50s. The patient did have a COVID-19 PCR which came back positive. The patient did have normal white count with lymphopenia. D-dimer was normal. Procalcitonin mildly elevated at 0.12. The patient's urine has been negative. The patient did have a CT of abdomen and pelvis that was reported negative for any acute abnormality with some infiltrate on the lung bases and the patient noticed mild pneumonia left lower lobe. The patient has been admitted to the hospital where the patient has been treated with aspirin and Lipitor, dexamethasone, Xarelto and zinc. Infectious Disease was consulted with possible need for Remdesivir therapy. However, the patient has shown clinical improvement since admitted to the hospital. REVIEW OF SYSTEMS: Positive points have been mentioned in HPI. Rest of the systems are negative. PAST MEDICAL HISTORY: Significant for diabetes mellitus, hypertension, coronary artery disease, surgery. SOCIAL HISTORY: No smoking, drinking or drug use. FAMILY HISTORY: No pertinent findings noticed. ALLERGIES: No known drug allergies. MEDICATIONS: The patient is currently on zinc, vitamin B1, IV fluids, Xarelto, Protonix, Narcan, Levemir, NovoLog, Dexamethasone, Lipitor, aspirin and Tylenol. PHYSICAL EXAMINATION: Blood pressure 152/90 with a pulse of 52, temperature 98.9. He is 92% on room air. General description: The patient is an elderly male lying in bed in no distress. No tachypnea or accessory muscles of respiration use. HEENT: Examination shows slight pallor. No scleral icterus. Oral mucous membranes dry. No pharyngeal erythema or thrush. NECK: Trachea central. LUNGS: Unlabored breathing with decreased intense breath sounds. No wheeze. HEART: S1, S2. Regular rate and rhythm. ABDOMEN: Soft, no tenderness. No guarding. No rigidity. EXTREMITIES: No edema of the feet. SKIN examination: No rash or mass palpable. NEUROLOGICAL: Patient is awake, alert, oriented times three. Mood and affect normal. LABS: Hemoglobin 11.1, white count 10.3. D-dimer was negative. Creatinine was 1.27. Liver enzymes are normal. CRP 43.8. Chest x-ray with left lower lobe infiltrate. Blood culture negative. DIAGNOSTIC IMPRESSION AND PLAN: Patient admitted to the hospital with not feeling well, weakness, decreased appetite, cough. The patient did have a fever on presentation to hospital. However, the patient's fever has resolved with initial therapy of the dexamethasone and Xarelto. In view of the clinical improvement without need for Remdesivir and apparently the patient should be ready for discharge in the morning per the admitting team. We will hold on adding Remdesivir therapy at this point. Patient also bradyarrhythmia at baseline and is at risk of developing severe bradyarrhythmia with Remdesivir infusion. PLAN: 1. Keep the patient on dexamethasone, Xarelto and zinc. 2. Droplet isolation and respiratory support. 3. We will follow on clinical condition and adjust medication further if needed. Thank you for this consultation. Will follow this patient along with you. MMODL / IJN: [id number] /
[2020-11-18] MEDS: SODIUM CHLORIDE 0.9% 1,000 ML IV SCH (05:04)
[2020-11-18] MEDS: ACETAMINOPHEN TAB 325 MG TAB PO PRN (05:16)
[2020-11-18 07:24] LABS: Glucose,Whole Blood 341 mg/dL (75-99)
[2020-11-18] MEDS: INSULIN ASPART (NovoLOG) 100 UNIT/ML VIAL SQ SCH ×4 (08:13→12:19)
[2020-11-18] MEDS: ASPIRIN 81 MG PO SCH (08:13)
[2020-11-18] MEDS: PANTOPRAZOLE 40 MG TABLET PO SCH (08:13)
[2020-11-18] MEDS: dexAMETHasone 2 MG TAB PO SCH (08:13)
[2020-11-18] MEDS: ZINC SULFATE 220 MG CAP PO SCH (08:13)
[2020-11-18] MEDS: CHOLECALCIFEROL 25 MCG (1000 IU) TABLET PO SCH (08:13)
[2020-11-18] MEDS: ATORVASTATIN 20 MG TAB PO SCH (08:13)
[2020-11-18] MEDS: THIAMINE 100 MG TAB PO SCH (08:14)
[2020-11-18 09:43] LABS: African American GFR (CKD) 77.9 (60.0-200.0); Albumin/Globulin Ratio 2.11 (1.60-3.17); Anion Gap 11.1 mmol/L (4.00-12.00); BUN/Creat Ratio 27.27 Ratio (12.00-20.00); Calcium 8.4 mg/dL (8.7-10.3); Carbon Dioxide 25.9 mmol/L (21.6-31.8); Globulin 1.9 g/dL (1.6-3.3); Non-African American GFR(CKD) 67.2 (60.0-200.0); Total Bilirubin 0.6 mg/dL (0.2-1.2); Total Protein 5.9 g/dL (6.2-8.2)
--- NOTE | 2020-11-18 09:56 | P.DS ---
Providers Date of admission: 11/15/20 19:39 Expected date of discharge: 11/18/20 Attending physician: Nela Combs MD Consults: 11/17/20 14:58 Consult Physician Routine Consulting Provider: Earnestine Agarwal Consult Reason/Comments: COVID- Remdesivir Do you want consulting provider notified?: Yes Primary care physician: Long Hobbs [facility] Hospital Course: Discharge Diagnosis: COVID 19 pneumonitis with acute hypoxic respiratory failure COVID gastritis DM 2 with hyperglycemia due to steroids Normocytice anemia HTN Asymptomiatic Bradycarida- off betablocker Elevated troponin X 1, not clinically significant ad not consistent with acute coronary syndrome Hospital Course: Patient is a 69-year-old Greek male with history of diabetes mellitus type 2, prior pulmonary embolism on Xarelto, hypertension, coronary artery disease status post PCI, and osteoarthritis who initially presented to the ER with complaints of weakness and fatigue. On arrival to the ER he was found to be febrile with a temperature of 102. Initial laboratory analysis showed some leukopenia, creatinine 1.9 one up from his baseline of 1, glucose 200, troponin mildly elevated at 0.04, and he was found to be COVID positive. Chest x-ray showed left lower lobe pneumonia. CT abdomen and pelvis showed mild infiltrate and atelectasis at the lung bases with no acute abdomen and pelvis pathology. Further testing revealed d-dimer 0.17 and pro-calcitonin 0.12. He had initially received Zosyn in the ER but this was discontinued as his pro-calcitonin was normal. He was admitted for further monitoring. He was started on Decadron, Zinc, melatonin, vitamin C, and vitamin D. He was monitored and did become increasingly hypoxic with a SpO2 of 92 on room air. He did have significant clinical improvement in his abdominal discomfort and shortness of breath. Infectious disease was consulted who said he is in the window for remdesivir however could worsen his asymptomatic bradycardia. He improved clinically and was asking to be discharge home on the morning of 11/18. He underwent a home O2 eval and did not need oxygen at home as SpO2 89% with ambulation. He will complete a 10 days course of dexamethasone, during that time he will increase his lantus to 27 units I anticipate his blood sugar will still be slightly high during steroid therapy. He will follow with Dr. Hobbs. Patient instructions: Return to the emergency room if worsening shortness of breath, chest pain, confusion, inability to stay awake, and any other acute medical concerns You will complete Dexamethasone on 11/24. While on this medication increase your lantus to 27 units, On 11/25 resume Lantus [address] Hobbs if blood sugar is high or low. Allow yourself the time to rest and heal Patient seen and examined at bedside. He had some nausea this morning after pills but this has resolved. Breathing is stable. No complaints. Diarrhea is better. Vital signs reviewed and stable. General: non toxic, no distress, appears at stated age Derm: warm, dry Head: atraumatic, normocephalic, symmetric Eyes: EOMI, no lid lag, anicteric sclera Mouth: no lip lesion, mucus membranes moist Cardiovascular: S1S2 reg, no murmur, positive posterior tibial pulse bilateral, Lungs: Course bs bilateral, no rhonchi, no rales , no accessory muscle use Abdominal: soft, nontender to palpation, no guarding, no appreciable organomegaly Ext: no gross muscle atrophy, no edema, no contractures Neuro: CN II-XI grossly intact, no focal neuro deficits Psych: Alert, oriented, appropriate affect A total of 35 minutes of time were spent preparing this complex discharge summary . Patient Condition at Discharge: Stable Plan - Discharge Summary New Discharge Prescriptions: New dexAMETHasone [Hexadrol] 6 mg PO DAILY #18 tab Zinc Sulfate [Orazinc] 220 mg PO DAILY #30 cap Continue Gabapentin 300 mg PO BID Aspirin [Adult Low Dose Aspirin EC] 81 mg PO DAILY metFORMIN HCL [Glucophage] 1,000 mg PO BID Pioglitazone [Actos] 30 mg PO DAILY Insulin Glargine,Hum.rec.anlog [Lantus Solostar] 20 unit SQ DAILY Diphenox-Atrop 2.5-0.025 mg [Lomotil] 1 tab PO TID PRN PRN Reason: Diarrhea Omeprazole [PriLOSEC] 40 mg PO DAILY Losartan [Cozaar] 25 mg PO DAILY #30 tab hydrOXYzine HCL 25 mg PO DAILY Rivaroxaban [Xarelto] 20 mg PO DAILY Cholecalciferol [Vitamin D3 (25 Mcg = 1000 Iu)] 25 mcg PO DAILY Multivit-Min/FA/Lycopen/Lutein [Centrum Silver Tablet] 1 tab PO DAILY Fish Oil/Dha/Epa [Fish Oil 1,200 mg Fish Oil] 1 cap PO DAILY Empagliflozin/Linagliptin [Glyxambi 25 mg-5 mg Tablet] 1 tab PO DAILY Atorvastatin [Lipitor] 20 mg PO DAILY Thiamine [Vitamin B-1] 50 mg PO DAILY Discontinued Atenolol/Chlorthalidone [Atenolol-Chlorthalidone 50-25] 0.5 tab PO DAILY Discharge Medication List Aspirin [Adult Low Dose Aspirin EC] 81 mg PO DAILY 07/22/16 [History] Gabapentin 300 mg PO BID 07/22/16 [History] Diphenox-Atrop 2.5-0.025 mg [Lomotil] 1 tab PO TID PRN 02/13/20 [History] Insulin Glargine,Hum.rec.anlog [Lantus Solostar] 20 unit SQ DAILY 02/13/20 [History] Omeprazole [PriLOSEC] 40 mg PO DAILY 02/13/20 [History] Pioglitazone [Actos] 30 mg PO DAILY 02/13/20 [History] metFORMIN HCL [Glucophage] 1,000 mg PO BID 02/13/20 [History] Losartan [Cozaar] 25 mg PO DAILY #30 tab 02/15/20 [Rx] Atorvastatin [Lipitor] 20 mg PO DAILY 11/15/20 [History] Cholecalciferol [Vitamin D3 (25 Mcg = 1000 Iu)] 25 mcg PO DAILY 11/15/20 [History] Empagliflozin/Linagliptin [Glyxambi 25 mg-5 mg Tablet] 1 tab PO DAILY 11/15/20 [History] Fish Oil/Dha/Epa [Fish Oil 1,200 mg Fish Oil] 1 cap PO DAILY 11/15/20 [History] Multivit-Min/FA/Lycopen/Lutein [Centrum Silver Tablet] 1 tab PO DAILY 11/15/20 [History] Rivaroxaban [Xarelto] 20 mg PO DAILY 11/15/20 [History] Thiamine [Vitamin B-1] 50 mg PO DAILY 11/15/20 [History] hydrOXYzine HCL 25 mg PO DAILY 11/15/20 [History] Zinc Sulfate [Orazinc] 220 mg PO DAILY #30 cap 11/18/20 [Rx] dexAMETHasone [Hexadrol] 6 mg PO DAILY #18 tab 11/18/20 [Rx] Follow up Appointment(s)/Referral(s): Long Hobbs MD [Primary Care Provider] - 1-2 days Patient Instructions/Handouts: Coronavirus Disease 2019 (COVID-19) Activity/Diet/Wound Care/Special Instructions: Activity: as tolerated Diet: [place] Special Instructions: Return to the emergency room if worsening shortness of breath, chest pain, confusion, inability to stay awake, and any other acute medical concerns You will complete Dexamethasone on 11/24. While on this medication increase your lantus to 27 units, On 11/25 resume Lantus [address] Hobbs if blood sugar is high or low. Allow yourself the time to rest and heal Isolation ends on 11/24 Discharge Disposition: HOME SELF-CARE
[2020-11-18] MEDS: RIVAROXABAN 20 MG TAB PO SCH (09:58)
[2020-11-18 10:47] LABS: Basophils # (A) 0.01 X 10*3/uL (0.00-0.10); Basophils % (A) 0.1 %; Eosinophils # (A) 0 X 10*3/uL (0.04-0.35); Eosinophils % (A) 0 %; HCT 33.7 % (39.6-50.0); HGB 11.3 g/dL (13.0-17.0); MCH 27.5 pg (27.0-32.0); MCHC 33.5 g/dL (32.0-37.0); Mean Platelet Volume 13.1 fL (9.5-12.2); Monocytes # (A) 0.33 X 10*3/uL (0.20-1.00); Monocytes % (A) 2.8 %; Neutrophils # (A) 10.91 X 10*3/uL (1.80-7.70); Neutrophils % (A) 91.4 %; Platelet Count 188 X 10*3/uL (140-440); RBC 4.11 X 10*6/uL (4.40-5.60); RDW 14.4 % (11.5-14.5); WBC 11.93 X 10*3/uL (4.50-10.00)
[2020-11-18 11:11] VITALS: RESP 18
[2020-11-18 11:29] LABS: Glucose,Whole Blood 182 mg/dL (75-99)
--- NOTE | 2020-11-18 13:18 | PN ---
PROGRESS NOTE DATE OF SERVICE: 11/18/2020 REASON FOR FOLLOWUP: COVID-19 infection. INTERVAL HISTORY: The patient is seen on rounds this morning. The patient has been afebrile. Patient has been breathing comfortably. Did mention appetite is coming back, but not as good. No vomiting or diarrhea reported. The patient has already been discharged by the admitting team. PHYSICAL EXAMINATION: Blood pressure 172/72 with a pulse of 48, temperature 98. He is 93% on room air. General description is an elderly male lying in bed in no distress. RESPIRATORY SYSTEM: Unlabored breathing with decreased intensity of breath sounds by nursing staff. ABDOMEN: Soft. EXTREMITIES: No edema of feet. LABS: Hemoglobin 11.3, white count 11.93, creatinine 1.1. DIAGNOSTIC IMPRESSION AND PLAN: 1. Patient with acute COVID-19 infection. The patient seems to have clinically responded to the treatment with dexamethasone. He is continued on Xarelto and zinc, may consider a course of on discharge. 2. Patient did have a significant bradyarrhythmia and may need to be monitored by Cardiology and will not be a good candidate for remdesivir with concern for possible worsening of his bradyarrhythmia with it. Will leave that treatment of bradyarrhythmia to the admitting team. MMODL / IJN: [id number] /
[2020-11-18 13:51] LABS: Glucose,Whole Blood 102 mg/dL (75-99)
[2020-11-18 15:49] VITALS: PULSE 84; TEMP 97.7
[2020-11-18 16:00] VITALS: BP 188/48
== END 2020-11-18 15:42 | disposition home or self-care (01) | DRG 177 ==
LOC: EC 15:52 → 3SCARD 19:39 → 4SSUR 11-17 20:55
PROVIDERS: ADMIT Internal Medicine; ATTEND Internal Medicine
DX: U07.1 COVID-19 (principal); J12.82 Pneumonia due to coronavirus disease 2019; J96.01 Acute respiratory failure with hypoxia; N17.9 Acute kidney failure, unspecified; A08.39 Other viral enteritis; Z79.4 Long term (current) use of insulin; E11.65 Type 2 diabetes mellitus with hyperglycemia; K21.9 Gastro-esophageal reflux disease without esophagitis; E86.0 Dehydration; I10 Essential (primary) hypertension; M19.90 Unspecified osteoarthritis, unspecified site; I25.10 Atherosclerotic heart disease of native coronary artery without angina pectoris; R00.1 Bradycardia, unspecified; I45.10 Unspecified right bundle-branch block; D72.810 Lymphocytopenia; D64.9 Anemia, unspecified; R77.8 Other specified abnormalities of plasma proteins; R63.0 Anorexia; T38.0X5A Adverse effect of glucocorticoids and synthetic analogues, initial encounter; I25.2 Old myocardial infarction; Z68.28 Body mass index [BMI] 28.0-28.9, adult; Z79.899 Other long term (current) drug therapy; Z79.01 Long term (current) use of anticoagulants; Z79.82 Long term (current) use of aspirin; Z86.711 Personal history of pulmonary embolism; Z95.5 Presence of coronary angioplasty implant and graft; Z98.890 Other specified postprocedural states; Z88.5 Allergy status to narcotic agent; Z80.0 Family history of malignant neoplasm of digestive organs
CPT/HCPCS: 36415; 71046; 74176; 80048; 80053; 81001; 82009; 83605; 83615; 83735; 83880; 84145; 84443; 84484; 85025; 85027; 85379; 85610; 85730; 86140; 87040; 87635; 93005; 93270; 96361; 96365; 96375; 99285

== ENCOUNTER 2020-11-23 09:06 | Inpatient (IN) | payer MEDICARE ==
--- NOTE | 2020-11-23 09:37 | ED ---
General Adult HPI - General Chief complaint: Shortness of Breath Stated complaint: SOB/covid + Time Seen by Provider: 11/23/20 09:10 Source: patient, EMS, RN notes reviewed, old records reviewed Mode of arrival: EMS Limitations: language barrier - History of Present Illness Initial comments: This is a 70-year-old male who presents to the emergency department complaining of difficulty breathing and weakness. Patient was diagnosed: Today's ago. Patient states over the last couple days become weaker and weaker to the point where it's difficult to stand. Patient also states very short of breath. According to the EMS the patient was in the 70s pulse ox when they got there. Patient denies any chest pain or palpitations. Patient denies fever. Patient states he still has occasional cough. Patient states any kind of walking makes his reading worse per patient denies any smoking history. Patient is very difficult to understand because of the language.. Patient denies any swelling to his legs or calf tenderness. Patient denies nausea vomiting or diarrhea. - Related Data Home Medications Medication Instructions Recorded Confirmed Aspirin [Adult Low Dose Aspirin EC] 81 mg PO DAILY 07/22/16 11/23/20 Gabapentin 300 mg PO BID 07/22/16 11/23/20 Diphenox-Atrop 2.5-0.025 mg 1 tab PO TID PRN 02/13/20 11/23/20 [Lomotil] Insulin Glargine,Hum.rec.anlog 20 unit SQ DAILY 02/13/20 11/23/20 [Lantus Solostar] Omeprazole [PriLOSEC] 40 mg PO DAILY 02/13/20 11/23/20 Pioglitazone [Actos] 30 mg PO DAILY 02/13/20 11/23/20 metFORMIN HCL [Glucophage] 1,000 mg PO BID 02/13/20 11/23/20 Atorvastatin [Lipitor] 20 mg PO DAILY 11/15/20 11/23/20 Cholecalciferol [Vitamin D3 (25 25 mcg PO DAILY 11/15/20 11/23/20 Mcg = 1000 Iu)] Empagliflozin/Linagliptin 1 tab PO DAILY 11/15/20 11/23/20 [Glyxambi 25 mg-5 mg Tablet] Fish Oil/Dha/Epa [Fish Oil 1,200 1 cap PO DAILY 11/15/20 11/23/20 mg Fish Oil] Multivit-Min/FA/Lycopen/Lutein 1 tab PO DAILY 11/15/20 11/23/20 [Centrum Silver Tablet] Rivaroxaban [Xarelto] 20 mg PO DAILY 11/15/20 11/23/20 Thiamine [Vitamin B-1] 50 mg PO DAILY 11/15/20 11/23/20 hydrOXYzine HCL 25 mg PO DAILY 11/15/20 11/23/20 Previous Rx's Medication Instructions Recorded Losartan [Cozaar] 25 mg PO DAILY #30 tab 02/15/20 Zinc Sulfate [Orazinc] 220 mg PO DAILY #30 cap 11/18/20 dexAMETHasone [Hexadrol] 6 mg PO DAILY #18 tab 11/18/20 Allergies Allergy/AdvReac Type Severity Reaction Status Date / Time Pain Pill (Unknown Name) Allergy Itching Uncoded 11/23/20 09:32 Review of Systems ROS Statement: Those systems with pertinent positive or pertinent negative responses have been documented in the HPI. ROS Other: All systems not noted in ROS Statement are negative. Past Medical History Past Medical History: Diabetes Mellitus, GERD/Reflux, Hypertension, Myocardial Infarction (NE), Osteoarthritis (OA) Last Myocardial Infarction Date:: UNSURE History of Any Multi-Drug Resistant Organisms: None Reported Past Surgical History: Heart Catheterization With Stent, Orthopedic Surgery Additional Past Surgical History / Comment(s): RT ROTATOR CUFF REPAIR. COLONOSCOPY Past Anesthesia/Blood Transfusion Reactions: Motion Sickness Date of Last Stent Placement:: UNSURE Past Psychological History: No Psychological Hx Reported Smoking Status: Never smoker Past Alcohol Use History: Rare Past Drug Use History: None Reported - Past Family History Father Family Medical History: Cancer Additional Family Medical History / Comment(s): COLON General Exam - General Exam Comments Initial Comments: GENERAL: Patient is well-developed and well-nourished. Patient is nontoxic and well- hydrated and is in Mild distress. ENT: Neck is soft and supple. No significant lymphadenopathy is noted. Oropharynx is clear. Moist mucous membranes. Neck has full range of motion without elic iting any pain. EYES: The sclera were anicteric and conjunctiva were pink and moist. Extraocular movements were intact and pupils were equal round and reactive to light. Eyelids were unremarkable. PULMONARY: Crackles bilateral bases CARDIOVASCULAR: There is a regular rate and rhythm without any murmurs gallops or rubs. ABDOMEN: Soft and nontender with normal bowel sounds. SKIN: Skin is clear with no lesions or rashes and otherwise unremarkable. NEUROLOGIC: Patient is alert and oriented x3. Cranial nerves II through XII are grossly intact. Motor and sensory are also intact. Normal speech, volume and content. Symmetrical smile. MUSCULOSKELETAL: Normal extremities with adequate strength and full range of motion. No lower extremity swelling or edema. No calf tenderness. LYMPHATICS: No significant lymphadenopathy is noted PSYCHIATRIC: Normal psychiatric evaluation. Course Vital Signs 11/23/20 09:10 Temperature 97.8 F Pulse Rate 61 Respiratory 20 Rate Blood Pressure 150/57 O2 Sat by Pulse 92 L Oximetry Medical Decision Making - Medical Decision Making EKG shows sinus bradycardia 55 bpm [place] interval 162 QRS is 128 QT interval is 520 QTC is 497. Patient's EKG shows a right bundle branch block EKG shows some ST segment depression in V3 through V6. - Lab Data Result diagrams: 11/23/20 09:34 11/23/20 09:34 Lab Results 11/23/20 11/23/20 11/23/20 Range/Units 09:34 09:34 09:34 WBC 11.7 H (3.8-10.6) k/uL RBC 5.03 (4.30-5.90) m/uL Hgb 14.1 D (13.0-17.5) gm/dL Hct 42.2 (39.0-53.0) % MCV 83.9 (80.0-100.0) fL MCH 28.1 (25.0-35.0) pg MCHC 33.5 (31.0-37.0) g/dL RDW 14.4 (11.5-15.5) % Plt Count 393 D (150-450) k/uL MPV 9.5 Neutrophils % 91 % Lymphocytes % 3 % Monocytes % 4 % Eosinophils % 1 % Basophils % 0 % Neutrophils # 10.7 H (1.3-7.7) k/uL Lymphocytes # 0.4 L (1.0-4.8) k/uL Monocytes # 0.5 (0-1.0) k/uL Eosinophils # 0.1 (0-0.7) k/uL Basophils # 0.1 (0-0.2) k/uL PT 10.7 (9.0-12.0) sec INR 1.0 (<1.2) APTT 18.6 L (22.0-30.0) sec D-Dimer 0.20 (<0.60) mg/L FEU Sodium 140 (137-145) mmol/L Potassium 5.4 H (3.5-5.1) mmol/L Chloride 101 (98-107) mmol/L Carbon Dioxide 20 L (22-30) mmol/L Anion Gap 19 mmol/L BUN 59 H (9-20) mg/dL Creatinine 1.44 H (0.66-1.25) mg/dL Est GFR (CKD-EPI)AfAm 56 (>60 ml/min/1.73 sqM) Est GFR (CKD-EPI)NonAf 48 (>60 ml/min/1.73 sqM) Glucose 504 H* (74-99) mg/dL Plasma Lactic Acid Eron (0.7-2.0) mmol/L Calcium 10.0 (8.4-10.2) mg/dL Magnesium 2.5 H (1.6-2.3) mg/dL Total Bilirubin 1.1 (0.2-1.3) mg/dL AST 19 (17-59) U/L ALT 19 (4-49) U/L Alkaline Phosphatase 83 (38-126) U/L Troponin I (0.000-0.034) ng/mL Total Protein 7.0 (6.3-8.2) g/dL Albumin 3.9 (3.5-5.0) g/dL Acetone, Qual (Negative) Coronavirus (PCR) (Not Detectd) 11/23/20 11/23/20 11/23/20 Range/Units 09:34 09:34 09:34 WBC (3.8-10.6) k/uL RBC (4.30-5.90) m/uL Hgb (13.0-17.5) gm/dL Hct (39.0-53.0) % MCV (80.0-100.0) fL MCH (25.0-35.0) pg MCHC (31.0-37.0) g/dL RDW (11.5-15.5) % Plt Count (150-450) k/uL MPV Neutrophils % % Lymphocytes % % Monocytes % % Eosinophils % % Basophils % % Neutrophils # (1.3-7.7) k/uL Lymphocytes # (1.0-4.8) k/uL Monocytes # (0-1.0) k/uL Eosinophils # (0-0.7) k/uL Basophils # (0-0.2) k/uL PT (9.0-12.0) sec INR (<1.2) APTT (22.0-30.0) sec D-Dimer (<0.60) mg/L FEU Sodium (137-145) mmol/L Potassium (3.5-5.1) mmol/L Chloride (98-107) mmol/L Carbon Dioxide (22-30) mmol/L Anion Gap mmol/L BUN (9-20) mg/dL Creatinine (0.66-1.25) mg/dL Est GFR (CKD-EPI)AfAm (>60 ml/min/1.73 sqM) Est GFR (CKD-EPI)NonAf (>60 ml/min/1.73 sqM) Glucose (74-99) mg/dL Plasma Lactic Acid Eron 1.9 (0.7-2.0) mmol/L Calcium (8.4-10.2) mg/dL Magnesium (1.6-2.3) mg/dL Total Bilirubin (0.2-1.3) mg/dL AST (17-59) U/L ALT (4-49) U/L Alkaline Phosphatase (38-126) U/L Troponin I 0.027 (0.000-0.034) ng/mL Total Protein (6.3-8.2) g/dL Albumin (3.5-5.0) g/dL Acetone, Qual (Negative) Coronavirus (PCR) Detected A (Not Detectd) 11/23/20 Range/Units 09:34 WBC (3.8-10.6) k/uL RBC (4.30-5.90) m/uL Hgb (13.0-17.5) gm/dL Hct (39.0-53.0) % MCV (80.0-100.0) fL MCH (25.0-35.0) pg MCHC (31.0-37.0) g/dL RDW (11.5-15.5) % Plt Count (150-450) k/uL MPV Neutrophils % % Lymphocytes % % Monocytes % % Eosinophils % % Basophils % % Neutrophils # (1.3-7.7) k/uL Lymphocytes # (1.0-4.8) k/uL Monocytes # (0-1.0) k/uL Eosinophils # (0-0.7) k/uL Basophils # (0-0.2) k/uL PT (9.0-12.0) sec INR (<1.2) APTT (22.0-30.0) sec D-Dimer (<0.60) mg/L FEU Sodium (137-145) mmol/L Potassium (3.5-5.1) mmol/L Chloride (98-107) mmol/L Carbon Dioxide (22-30) mmol/L Anion Gap mmol/L BUN (9-20) mg/dL Creatinine (0.66-1.25) mg/dL Est GFR (CKD-EPI)AfAm (>60 ml/min/1.73 sqM) Est GFR (CKD-EPI)NonAf (>60 ml/min/1.73 sqM) Glucose (74-99) mg/dL Plasma Lactic Acid Eron (0.7-2.0) mmol/L Calcium (8.4-10.2) mg/dL Magnesium (1.6-2.3) mg/dL Total Bilirubin (0.2-1.3) mg/dL AST (17-59) U/L ALT (4-49) U/L Alkaline Phosphatase (38-126) U/L Troponin I (0.000-0.034) ng/mL Total Protein (6.3-8.2) g/dL Albumin (3.5-5.0) g/dL Acetone, Qual Positive (Negative) Coronavirus (PCR) (Not Detectd) Critical Care Time Critical Care Time: Yes Disposition Clinical Impression: Pneumonia due to COVID-19 virus, DKA (diabetic ketoacidoses) Disposition: ADMITTED IP TO THIS HOSP Referrals: Long Hobbs MD [Primary Care Provider] - 1-2 days Time of Disposition: 10:20
[2020-11-23 09:46] LABS: Basophils # (A) 0.1 k/uL (0-0.2); Basophils % (A) 0 %; Eosinophils # (A) 0.1 k/uL (0-0.7); Eosinophils % (A) 1 %; HCT 42.2 % (39.0-53.0); Lymphocytes # (A) 0.4 k/uL (1.0-4.8); Lymphocytes % (A) 3 %; MCH 28.1 pg (25.0-35.0); MCHC 33.5 g/dL (31.0-37.0); MCV 83.9 fL (80.0-100.0); Mean Platelet Volume 9.5; Monocytes # (A) 0.5 k/uL (0-1.0); Monocytes % (A) 4 %; Neutrophils # (A) 10.7 k/uL (1.3-7.7); Neutrophils % (A) 91 %; RBC 5.03 m/uL (4.30-5.90); RDW 14.4 % (11.5-15.5); WBC 11.7 k/uL (3.8-10.6)
[2020-11-23 09:57] LABS: Albumin 3.9 g/dL (3.5-5.0); Magnesium 2.5 mg/dL (1.6-2.3); Potassium 5.4 mmol/L (3.5-5.1); Total Bilirubin 1.1 mg/dL (0.2-1.3)
--- NOTE | 2020-11-23 10:00 | XR ---
EXAMINATION TYPE: XR chest 2V DATE OF EXAM: 11/23/2020 COMPARISON: 10/3020 HISTORY: Shortness of breath TECHNIQUE: Frontal and lateral views of the chest are obtained. FINDINGS: Scattered senescent parenchymal changes noted. Hyperinflation compatible with COPD. Patchy perihilar and basilar infiltrates noted. Correlate for developing pneumonia. Heart size is stable. Mediastinal structures are stable and grossly unremarkable. No evidence for hilar prominence. Degenerative changes dorsal spine. IMPRESSION: 1. Patchy perihilar and basilar infiltrates noted. Correlate for developing pneumonia.
[2020-11-23 10:02] LABS: HGB 14.1 gm/dL (13.0-17.5); Platelet Count 393 k/uL (150-450)
[2020-11-23] MEDS ORDERED: dexAMETHasone 2 MG TAB PO STA ×2 (10:02→10:52)
[2020-11-23 10:05] LABS: D-Dimer 0.2 mg/L FEU (<0.60); Prothrombin Time 10.7 sec (9.0-12.0)
[2020-11-23 10:13] LABS: Partial Thromboplastin Time 18.6 sec (22.0-30.0)
[2020-11-23] MEDS ORDERED: SODIUM CHLORIDE 0.9% 1,000 ML IV ONE (10:47)
[2020-11-23] MEDS ORDERED: Potassium Replacement Protocol 1 EACH MISC MISCELLANE PRN (10:48)
[2020-11-23] MEDS ORDERED: Magnesium Replacement Protocol 1 EACH MISC MISCELLANE PRN (10:48)
[2020-11-23] MEDS ORDERED: INSULIN REGULAR BOLUS (FROM DRIP BAG) IV ONE (10:48)
[2020-11-23] MEDS: SODIUM CHLORIDE 0.9% 1,000 ML IV SCH ×3 (11:01→22:27)
[2020-11-23] MEDS: INSULIN REGULAR 100 UNIT in SODIUM CHLORIDE 0.9% 100 ML IV SCH ×2 (11:07→14:30)
[2020-11-23 11:17] LABS: Appearance,Urine Clear (Clear); Bilirubin,Urine Negative (Negative); Blood,Urine Negative (Negative); Color,Urine Light Yellow; Glucose,Urine (UA) 4+ (Negative); Ketones,Urine 1+ (Negative); Leukocyte Esterase,Urine Negative (Negative); Nitrite,Urine Negative (Negative); Protein,Urine 1+ (Negative); RBC,Urine <1 /hpf (0-5); Specific Gravity,Urine 1.027 (1.001-1.035); Urobilinogen,Urine <2.0 mg/dL (<2.0); WBC,Urine 1 /hpf (0-5)
[2020-11-23 11:55] LABS: Glucose,Whole Blood 411 mg/dL (75-99)
[2020-11-23] MEDS ORDERED: DIPHENOX-ATROP 2.5-0.025 MG 1 EACH TAB PO PRN (12:05)
[2020-11-23] MEDS ORDERED: SODIUM POLYSTYRENE SULFONATE 15 GM/60 ML BOTTLE PO STA (12:08)
[2020-11-23] MEDS: ZINC SULFATE 220 MG CAP PO SCH (13:00)
[2020-11-23] MEDS: GABAPENTIN 300 MG CAP PO SCH ×2 (13:00→21:02)
[2020-11-23] MEDS: LOSARTAN 25 MG TAB PO SCH ×2 (13:00→17:43)
[2020-11-23] MEDS: RIVAROXABAN 20 MG TAB PO SCH (13:00)
[2020-11-23] MEDS: ATORVASTATIN 20 MG TAB PO SCH (13:00)
[2020-11-23] MEDS: THIAMINE 100 MG TAB PO SCH (13:01)
[2020-11-23 13:02] LABS: Glucose,Whole Blood 321 mg/dL (75-99)
[2020-11-23 13:21] LABS: Potassium 4.6 mmol/L (3.5-5.1)
[2020-11-23 14:06] LABS: Glucose,Whole Blood 251 mg/dL (75-99)
[2020-11-23 15:04] LABS: Glucose,Whole Blood 264 mg/dL (75-99)
[2020-11-23 16:04] LABS: Glucose,Whole Blood 234 mg/dL (75-99)
--- NOTE | 2020-11-23 17:51 | P.HPIM ---
History of Present Illness H&P Date: 11/23/20 Chief Complaint: Tired History of presenting complaint: This is a pleasant 70-year-old patient of Dr. Long Hobbs. Patient has a very strong [place] Citizen accent his Thai speaking is limited. Chronic stable medical conditions include diabetes mellitus type 2, GERD, hypertension, PE, primary osteoarthritis. Has a prior history of cardiac catheterization with stent. Patient presents to the ER. Complaint of short of breath weakness. Diagnosed with COVID. Last 2 days and become much more weaker in finding it difficult to stand. Short of breath. Pulse ox by the EMS was 70%. Slight cough. No headaches. Loss of taste and smell.. Feels rather tired and rundown. Review of systems: GEN.: Loss of appetite decreased bowel EYES: None HEENT: None NECK: None RESPIRATORY: As above CARDIOVASCULAR: As above GASTROINTESTINAL: None GENITOURINARY: None MUSCULOSKELETAL: Joint pains LYMPHATICS: None HEMATOLOGICAL: None PSYCHIATRY: None NEUROLOGICAL: None Past medical history to include: Diabetes mellitus type 2, GERD, hypertension, coronary artery disease with sarah nt, primary osteoarthritis Social history: No smoking. Alcohol rarely. Physical examination: VITAL SIGNS: 97.8, 61, 20, 150/57, 92% on 4 L GENERAL: BMI 24.7, laying in bed, tired EYES: Pupils equal. Conjunctiva normal. HEENT: External appearance of nose and ears normal, oral cavity dry NECK: JVD not raised; masses not palpable. HEART: First and second heart sounds are normal; no edema. LUNGS: Respiratory rate increased; decreased breath sounds. ABDOMEN: Soft, nontender, liver spleen not palpable, no masses palpable. PSYCH: Answering questions NEUROLOGICAL: Cranial nerves grossly intact; no facial asymmetry, power and sensation grossly intact. LYMPHATICS: No lymph nodes palpable in the axilla and neck INVESTIGATIONS, reviewed in the clinical context: Potassium 4.6 bun 59 creatinine 1.37 White count 11.7 hemoglobin 14.1 platelets 393 potassium 5.4 bun 59 creatinine 1.44 blood glucose 504 Serum acetone positive Coronavirus [PCR]-detected EKG tracing personally reviewed by me-sinus rhythm right bundle-branch block Chest x-ray film personally reviewed by me-bilateral infiltrates Assessment and plan: -Bilateral COVID 19 pneumonia-started on dexamethasone, vitamin C vitamin D zinc -Acute hypoxic respiratory failure from COVID 19-oxygen support -Chronic congestive heart failure from diastolic dysfunction EF 50-55% -Moderate mitral, moderate to severe tricuspid regurgitation, nontraumatic -Moderate to severe secondary pulmonary hypertension -Chronic PE on Xarelto -Diabetic ketoacidosis-insulin drip protocol -Diabetes mellitus type 2 -GERD-add Pepcid -Essential hypertension -Primary osteoarthritis-analgesia as needed Patient will need at least 2 nights stay in the hospital. Spoke to patient's son over the phone. Follow lites closely. Check CRP. Past Medical History Past Medical History: Diabetes Mellitus, GERD/Reflux, Hypertension, Myocardial Infarction ([place]), Osteoarthritis (OA) Last Myocardial Infarction Date:: UNSURE History of Any Multi-Drug Resistant Organisms: None Reported Past Surgical History: Heart Catheterization With Stent, Orthopedic Surgery Additional Past Surgical History / Comment(s): RT ROTATOR CUFF REPAIR. COLONOSCOPY Past Anesthesia/Blood Transfusion Reactions: Motion Sickness Date of Last Stent Placement:: UNSURE Past Psychological History: No Psychological Hx Reported Smoking Status: Never smoker Past Alcohol Use History: Rare Past Drug Use History: None Reported - Past Family History Father Family Medical History: Cancer Additional Family Medical History / Comment(s): COLON Medications and Allergies Home Medications Medication Instructions Recorded Confirmed Type Aspirin [Adult Low Dose Aspirin EC] 81 mg PO DAILY 07/22/16 11/23/20 History Gabapentin 300 mg PO BID 07/22/16 11/23/20 History Diphenox-Atrop 2.5-0.025 mg 1 tab PO TID PRN 02/13/20 11/23/20 History [Lomotil] Insulin Glargine,Hum.rec.anlog 20 unit SQ DAILY 02/13/20 11/23/20 History [Lantus Solostar] Omeprazole [PriLOSEC] 40 mg PO DAILY 02/13/20 11/23/20 History Pioglitazone [Actos] 30 mg PO DAILY 02/13/20 11/23/20 History metFORMIN HCL [Glucophage] 1,000 mg PO BID 02/13/20 11/23/20 History Losartan [Cozaar] 25 mg PO DAILY #30 tab 02/15/20 11/23/20 Rx Atorvastatin [Lipitor] 20 mg PO DAILY 11/15/20 11/23/20 History Cholecalciferol [Vitamin D3 (25 25 mcg PO DAILY 11/15/20 11/23/20 History Mcg = 1000 Iu)] Empagliflozin/Linagliptin 1 tab PO DAILY 11/15/20 11/23/20 History [Glyxambi 25 mg-5 mg Tablet] Fish Oil/Dha/Epa [Fish Oil 1,200 1 cap PO DAILY 11/15/20 11/23/20 History mg Fish Oil] Multivit-Min/FA/Lycopen/Lutein 1 tab PO DAILY 11/15/20 11/23/20 History [Centrum Silver Tablet] Rivaroxaban [Xarelto] 20 mg PO DAILY 11/15/20 11/23/20 History Thiamine [Vitamin B-1] 50 mg PO DAILY 11/15/20 11/23/20 History hydrOXYzine HCL 25 mg PO DAILY 11/15/20 11/23/20 History Zinc Sulfate [Orazinc] 220 mg PO DAILY #30 cap 11/18/20 11/23/20 Rx dexAMETHasone [Hexadrol] 6 mg PO DAILY #18 tab 11/18/20 11/23/20 Rx Allergies Allergy/AdvReac Type Severity Reaction Status Date / Time Pain Pill (Unknown Name) Allergy Itching Uncoded 11/23/20 09:32 Physical Exam Vitals: Vital Signs Temp Pulse Resp BP Pulse Ox 11/23/20 11:13 97.6 F 52 L 18 146/88 95 11/23/20 09:10 97.8 F 61 20 150/57 92 L Intake and Output 11/22/20 11/23/20 11/23/20 22:59 06:59 14:59 Other: Weight 73.663 kg Results CBC & Chem 7: 11/23/20 09:34 11/23/20 12:52 Labs: Abnormal Lab Results - Last 24 Hours (Table) 11/23/20 11/23/20 11/23/20 Range/Units 09:34 09:34 09:34 WBC 11.7 H (3.8-10.6) k/uL Neutrophils # 10.7 H (1.3-7.7) k/uL Lymphocytes # 0.4 L (1.0-4.8) k/uL APTT 18.6 L (22.0-30.0) sec Potassium 5.4 H (3.5-5.1) mmol/L Carbon Dioxide 20 L (22-30) mmol/L BUN 59 H (9-20) mg/dL Creatinine 1.44 H (0.66-1.25) mg/dL Glucose 504 H* (74-99) mg/dL POC Glucose (mg/dL) (75-99) mg/dL Magnesium 2.5 H (1.6-2.3) mg/dL Urine Protein (Negative) Urine Glucose (UA) (Negative) Urine Ketones (Negative) Coronavirus (PCR) (Not Detectd) 11/23/20 11/23/20 11/23/20 Range/Units 09:34 11:54 Unknown WBC (3.8-10.6) k/uL Neutrophils # (1.3-7.7) k/uL Lymphocytes # (1.0-4.8) k/uL APTT (22.0-30.0) sec Potassium (3.5-5.1) mmol/L Carbon Dioxide (22-30) mmol/L BUN (9-20) mg/dL Creatinine (0.66-1.25) mg/dL Glucose (74-99) mg/dL POC Glucose (mg/dL) 411 H (75-99) mg/dL Magnesium (1.6-2.3) mg/dL Urine Protein 1+ H (Negative) Urine Glucose (UA) 4+ H (Negative) Urine Ketones 1+ H (Negative) Coronavirus (PCR) Detected A (Not Detectd)
[2020-11-23 18:08] LABS: Phosphorus 3.9 mg/dL (2.5-4.5); Potassium 4.5 mmol/L (3.5-5.1)
[2020-11-23 18:15] LABS: Glucose,Whole Blood 171 mg/dL (75-99)
[2020-11-23 19:59] LABS: Glucose,Whole Blood 176 mg/dL (75-99)
[2020-11-23] MEDS ORDERED: D5-0.45% NACL WITH KCL 20MEQ/L 1,000 ML IV SCH (20:00)
[2020-11-23] MEDS: INSULIN ASPART (NovoLOG) 100 UNIT/ML VIAL SQ SCH (21:02)
[2020-11-23] MEDS: INSULIN DETEMIR (LEVEMIR) 100 UNIT/ML SYR SQ SCH (21:02)
[2020-11-23] MEDS: ASCORBIC ACID 500 MG TAB PO SCH (21:02)
[2020-11-23] MEDS: FAMOTIDINE 20 MG TAB PO SCH (21:02)
[2020-11-23 21:58] LABS: Glucose,Whole Blood 123 mg/dL (75-99)
[2020-11-24 02:00] LABS: Glucose,Whole Blood 207 mg/dL (75-99)
[2020-11-24 06:06] LABS: Glucose,Whole Blood 223 mg/dL (75-99)
[2020-11-24] MEDS: INSULIN ASPART (NovoLOG) 100 UNIT/ML VIAL SQ SCH ×4 (06:35→20:30)
[2020-11-24] MEDS: metFORMIN 500 MG TAB PO SCH (06:35)
[2020-11-24] MEDS: PANTOPRAZOLE 40 MG TABLET PO SCH (06:35)
[2020-11-24 07:49] LABS: Calcium 9.2 mg/dL (8.4-10.2)
[2020-11-24 08:48] LABS: C Reactive Protein 10.6 mg/L (<10.0)
[2020-11-24] MEDS ORDERED: NON FORMULARY DRUG (Insulin Glargine,Hum.Rec.Anlog [Lantus Solostar] 100 UNIT/ML Insuln.Pe SQ SCH (09:00)
[2020-11-24] MEDS ORDERED: PIOGLITAZONE 30 MG TAB PO SCH (09:00)
--- NOTE | 2020-11-24 09:55 | P.CNPUL ---
History of Present Illness Consult date: 11/24/20 History of present illness: 68-year-old male patient hospitalized for shortness of breath under the diagnosis of colitis/chronic ventilatory pneumonia. The patient is known to have cardiac disease including coronary artery disease and the patient has had previous cardiac catheterization and stenting. The patient also is diabetic and has history of chronic pulmonary embolism maintained on long-term anticoagulation. Other comorbidities include osteoarthritis and acid reflux. This patient came into the emergency department complaining of generalized fatigue and weakness. Patient was diagnosed approximately 2 days ago to have COVID 19. The patient was progressively getting weaker and was having also shortness of breath and the patient's pulse ox respiratory and the pulse ox was in the 70s at time of admission. No fever. He was having some cough along with shortness of breath. No chest pain. No altered mentation. No swelling lower extremities. No nausea vomiting or diarrhea. Initially the time of admission, his sugar was elevated at 504. He did have a acute kidney injury with a mild anion gap metabolic acidosis. The gap was 19 with a serum bicarb of 20 and the patient was given IV fluids and insulin and his creatinine is down to 1.05 and h e has no significant anion gap metabolic acidosis this point and the serum bicarb is up to 25. The urine was positive for ketones and as such there was a concern of an underlying diabetic ketoacidosis. Serum acetone was also positive. On his CBC, the patient had a component of lymphopenia with a white cell count of 11.7. At this point in time the patient is currently on 4 L of oxygen by nasal cannula and a chest x-ray showing patchy perihilar and basilar pulmonary infiltration consistent with pneumonia. This morning, the patient has no resting comfortably in bed. Overnight, his oxygenation has been worse and the patient has been placed on 15 L of oxygen by nasal cannula. His chest x-ray showing bilateral perihilar and she pulmonary infiltrates more so in the peripheries. He has no chest pain. He has significant oral dryness. Review of Systems Constitutional: Reports fatigue, Reports lethargy, Reports poor appetite, Reports weakness Eyes: denies as per HPI, denies blurred vision, denies bulging eye, denies decreased vision, denies diplopia, denies discharge, denies dry eye, denies i rritation, denies itching, denies pain, denies photophobia, denies loss of peripheral vision, denies loss of vision, denies tunnel vision/blind spots Ears: deny: decreased hearing, ear discharge, earache, tinnitus Ears, nose, mouth and throat: Reports as per HPI Cardiovascular: Reports decreased exercise tolerance, Reports dyspnea on exertion Respiratory: Reports dyspnea Gastrointestinal: Reports as per HPI Genitourinary: Reports as per HPI Musculoskeletal: Reports as per HPI Musculoskeletal: absent: ankle pain, ankle stiffness, ankle swelling Integumentary: Reports as per HPI Neurological: Reports as per HPI, Reports weakness Psychiatric: Reports as per HPI Hematologic/Lymphatic: Reports as per HPI Allergic/Immunologic: Reports as per HPI Past Medical History Past Medical History: Coronary Artery Disease (CAD), Diabetes Mellitus, GERD/Reflux, Hypertension, Myocardial Infarction ([place]), Osteoarthritis (OA), Pulmonary Embolus ([place]) Last Myocardial Infarction Date:: UNSURE History of Any Multi-Drug Resistant Organisms: None Reported Past Surgical History: Heart Catheterization With Stent, Orthopedic Surgery Additional Past Surgical History / Comment(s): RT ROTATOR CUFF REPAIR. COLONOSCOPY Past Anesthesia/Blood Transfusion Reactions: Motion Sickness Date of Last Stent Placement:: UNSURE Past Psychological History: No Psychological Hx Reported Smoking Status: Never smoker Past Alcohol Use History: Rare Past Drug Use History: None Reported - Past Family History Father Family Medical History: Cancer Additional Family Medical History / Comment(s): COLON Medications and Allergies Home Medications Medication Instructions Recorded Confirmed Type Aspirin [Adult Low Dose Aspirin EC] 81 mg PO DAILY 07/22/16 11/23/20 History Gabapentin 300 mg PO BID 07/22/16 11/23/20 History Diphenox-Atrop 2.5-0.025 mg 1 tab PO TID PRN 02/13/20 11/23/20 History [Lomotil] Insulin Glargine,Hum.rec.anlog 20 unit SQ DAILY 02/13/20 11/23/20 History [Lantus Solostar] Omeprazole [PriLOSEC] 40 mg PO DAILY 02/13/20 11/23/20 History Pioglitazone [Actos] 30 mg PO DAILY 02/13/20 11/23/20 History metFORMIN HCL [Glucophage] 1,000 mg PO BID 02/13/20 11/23/20 History Losartan [Cozaar] 25 mg PO DAILY #30 tab 02/15/20 11/23/20 Rx Atorvastatin [Lipitor] 20 mg PO DAILY 11/15/20 11/23/20 History Cholecalciferol [Vitamin D3 (25 25 mcg PO DAILY 11/15/20 11/23/20 History Mcg = 1000 Iu)] Empagliflozin/Linagliptin 1 tab PO DAILY 11/15/20 11/23/20 History [Glyxambi 25 mg-5 mg Tablet] Fish Oil/Dha/Epa [Fish Oil 1,200 1 cap PO DAILY 11/15/20 11/23/20 History mg Fish Oil] Multivit-Min/FA/Lycopen/Lutein 1 tab PO DAILY 11/15/20 11/23/20 History [Centrum Silver Tablet] Rivaroxaban [Xarelto] 20 mg PO DAILY 11/15/20 11/23/20 History Thiamine [Vitamin B-1] 50 mg PO DAILY 11/15/20 11/23/20 History hydrOXYzine HCL 25 mg PO DAILY 11/15/20 11/23/20 History Zinc Sulfate [Orazinc] 220 mg PO DAILY #30 cap 11/18/20 11/23/20 Rx dexAMETHasone [Hexadrol] 6 mg PO DAILY #18 tab 11/18/20 11/23/20 Rx Allergies Allergy/AdvReac Type Severity Reaction Status Date / Time Pain Pill (Unknown Name) Allergy Itching Uncoded 11/23/20 09:32 Physical Exam Vitals: Vital Signs Temp Pulse Pulse Resp BP BP Pulse Ox 11/24/20 04:35 20 92 L 11/24/20 04:02 98.6 F 44 L 20 170/79 92 L 11/24/20 01:38 18 11/23/20 23:21 98 F 43 L 18 146/68 93 L 11/23/20 19:48 18 91 L 11/23/20 19:45 98.4 F 48 L 18 154/76 89 L 11/23/20 16:00 48 L 182/78 91 L 11/23/20 12:00 97.9 F 50 L 18 156/69 96 11/23/20 11:13 97.6 F 52 L 18 146/88 95 Intake and Output 11/23/20 11/24/20 11/24/20 22:59 06:59 14:59 Intake Total 70.643 500 Output Total 720 580 Balance -649.357 -580 500 Intake: Intake, IV Titration 70.643 Amount Insulin Regular 100 unit 70.643 In Sodium Chloride 0.9% 100 ml @ 0.1 UNITS/KG/HR 7.44 mls/hr IV .[id number] [facility] Rx#:[id number] Oral 500 Output: Urine 720 580 Other: Voiding Method Urinal Urinal # Voids 1 GENERAL EXAM: Alert, the very pleasant, 69-year-old white male, on 4 liters with a pulse ox of 95%, with a strong [place] accent comfortable in no apparent distress. HEAD: Normocephalic/atraumatic. EYES: Normal reaction of pupils, equal size. Conjunctiva pink, sclera white. NOSE: Clear with pink turbinates. THROAT: No erythema or exudates. NECK: No masses, no JVD, no thyroid enlargement, no adenopathy. CHEST: No chest wall deformity. Symmetrical expansion. LUNGS: Equal air entry with no crackles, wheeze, rhonchi or dullness. CVS: Regular rate and rhythm, normal S1 and S2, no gallops, no murmurs, no rubs ABDOMEN: Soft, nontender. No hepatosplenomegaly, normal bowel sounds, no guarding or rigidity. EXTREMITIES: No clubbing, no edema, no cyanosis, 2+ pulses and upper and lower extremities. MUSCULOSKELETAL: Muscle strength and tone normal. SPINE: No scoliosis or deformity SKIN: No rashes CENTRAL NERVOUS SYSTEM: Alert and oriented -3. No focal deficits, tone is normal in all 4 extremities. PSYCHIATRIC: Alert and oriented -3. Appropriate affect. Intact judgment and insight. Results - Laboratory Findings CBC and BMP: 11/23/20 09:34 11/24/20 06:16 PT/INR, D-dimer PT 10.7 sec (9.0-12.0) 11/23/20 09:34 INR 1.0 (<1.2) 11/23/20 09:34 D-Dimer 0.49 mg/L FEU (<0.60) 11/24/20 06:16 Abnormal lab findings: Abnormal Labs 11/23/20 11/23/20 11/23/20 09:34 09:34 09:34 WBC 11.7 H Neutrophils # 10.7 H Lymphocytes # 0.4 L APTT 18.6 L Potassium 5.4 H Chloride Carbon Dioxide 20 L BUN 59 H Creatinine 1.44 H Glucose 504 H* POC Glucose (mg/dL) Phosphorus Magnesium 2.5 H C-Reactive Protein Urine Protein Urine Glucose (UA) Urine Ketones Coronavirus (PCR) 11/23/20 11/23/20 11/23/20 09:34 11:54 12:52 WBC Neutrophils # Lymphocytes # APTT Potassium Chloride Carbon Dioxide BUN 59 H Creatinine 1.37 H Glucose 358 H POC Glucose (mg/dL) 411 H Phosphorus 5.0 H Magnesium C-Reactive Protein Urine Protein Urine Glucose (UA) Urine Ketones Coronavirus (PCR) Detected A 11/23/20 11/23/20 11/23/20 13:00 14:04 15:00 WBC Neutrophils # Lymphocytes # APTT Potassium Chloride Carbon Dioxide BUN Creatinine Glucose POC Glucose (mg/dL) 321 H 251 H 264 H Phosphorus Magnesium C-Reactive Protein Urine Protein Urine Glucose (UA) Urine Ketones Coronavirus (PCR) 11/23/20 11/23/20 11/23/20 16:02 17:28 17:44 WBC Neutrophils # Lymphocytes # APTT Potassium Chloride 109 H Carbon Dioxide BUN 53 H Creatinine Glucose 206 H POC Glucose (mg/dL) 234 H Phosphorus Magnesium C-Reactive Protein 13.7 H Urine Protein Urine Glucose (UA) Urine Ketones Coronavirus (PCR) 11/23/20 11/23/20 11/23/20 18:13 19:57 21:57 WBC Neutrophils # Lymphocytes # APTT Potassium Chloride Carbon Dioxide BUN Creatinine Glucose POC Glucose (mg/dL) 171 H 176 H 123 H Phosphorus Magnesium C-Reactive Protein Urine Protein Urine Glucose (UA) Urine Ketones Coronavirus (PCR) 11/23/20 11/24/20 11/24/20 Unknown 01:57 06:04 WBC Neutrophils # Lymphocytes # APTT Potassium Chloride Carbon Dioxide BUN Creatinine Glucose POC Glucose (mg/dL) 207 H 223 H Phosphorus Magnesium C-Reactive Protein Urine Protein 1+ H Urine Glucose (UA) 4+ H Urine Ketones 1+ H Coronavirus (PCR) 11/24/20 06:16 WBC Neutrophils # Lymphocytes # APTT Potassium Chloride 108 H Carbon Dioxide BUN 46 H Creatinine Glucose 213 H POC Glucose (mg/dL) Phosphorus Magnesium C-Reactive Protein 10.6 H Urine Protein Urine Glucose (UA) Urine Ketones Coronavirus (PCR) - Diagnostic Findings Chest x-ray: image reviewed Assessment and Plan Plan: 1 acute coronavirus COVID 19-related pneumonia with secondary hypoxic respirat ory failure and the patient is currently on dexamethasone, vitamin C vitamin D zinc 2 Shortness of breath secondary to above 3 Chronic congestive heart failure from diastolic dysfunction EF 50-55% 4 Moderate mitral, moderate to severe tricuspid regurgitation, nontraumatic with secondary moderate to severe secondary pulmonary hypertension 5 history of PE on Xarelto, and the patient was in the hospital in 01/2020 and he was found to have small subsegmental pulmonary emboli to the anterior left upper lobe and questionable subsegmental pulmonary emboli of the bilateral lower lobes, with suggestion of right heart strain 6 Diabetes mellitus type 2 with a component of DKA, treated 7 GERD 8 Essential hypertension 9 Primary osteoarthritis-analgesia as needed Plan The patient is on Decadron 6 mg by mouth daily. Continue vitamin C, vitamin D and zinc and consider this patient for Remdesivir per protocol as the patient falls within the window for this treatment. Also, based on his age and high risk of decompensation due to comorbidities, the patient would benefit from early convalescent plasma administration, recommend 2 units if possible. Continue Xarelto Continue IV fluids and switch this patient to half-normal saline at the rate of 100 mL an hour for the next 24 hours as the patient has significant mucosal dryness Repeat chest x-ray monitor inflammatory markers Monitor oxygenation and the patient is currently on 15 L of oxygen by nasal cannula We'll continue to follow.
[2020-11-24] MEDS ORDERED: SODIUM CHLORIDE 0.9% 1,000 ML IV SCH (10:00)
[2020-11-24] MEDS: THIAMINE 100 MG TAB PO SCH (10:02)
[2020-11-24] MEDS: GABAPENTIN 300 MG CAP PO SCH ×2 (10:02→20:30)
[2020-11-24] MEDS: CHOLECALCIFEROL 25 MCG (1000 IU) TABLET PO SCH (10:02)
[2020-11-24] MEDS: MULTIVITAMINS, THERA 1 EACH TAB PO SCH (10:02)
[2020-11-24] MEDS: RIVAROXABAN 20 MG TAB PO SCH (10:02)
[2020-11-24] MEDS: dexAMETHasone 2 MG TAB PO SCH (10:02)
[2020-11-24] MEDS: ATORVASTATIN 20 MG TAB PO SCH (10:03)
[2020-11-24] MEDS: ZINC SULFATE 220 MG CAP PO SCH (10:03)
[2020-11-24] MEDS: ASPIRIN 81 MG PO SCH (10:03)
[2020-11-24] MEDS: PIOGLITAZONE 30 MG TAB PO SCH (10:03)
[2020-11-24] MEDS: ASCORBIC ACID 500 MG TAB PO SCH ×2 (10:03→20:30)
[2020-11-24] MEDS: FAMOTIDINE 20 MG TAB PO SCH ×2 (10:03→20:30)
[2020-11-24] MEDS: LOSARTAN 25 MG TAB PO SCH (10:04)
[2020-11-24] MEDS ORDERED: REMDESIVIR 200 MG in SODIUM CHLORIDE 0.9% 250 ML IVPB ONE (10:30)
[2020-11-24 12:05] LABS: Glucose,Whole Blood 247 mg/dL (75-99)
[2020-11-24] MEDS: SODIUM CHLORIDE 0.45% 1,000 ML IV SCH ×2 (13:36→20:30)
[2020-11-24 13:49] VITALS: BMI 24.7
[2020-11-24 16:48] LABS: Glucose,Whole Blood 296 mg/dL (75-99)
[2020-11-24 20:00] LABS: Glucose,Whole Blood 293 mg/dL (75-99)
[2020-11-24] MEDS: INSULIN DETEMIR (LEVEMIR) 100 UNIT/ML SYR SQ SCH ×2 (20:30→21:34)
--- NOTE | 2020-11-24 20:48 | P.PN ---
Progress Note - Text Progress Note Date: 11/24/20 Chief Complaint: Tired History of presenting complaint: This is a pleasant 70-year-old patient of Dr. Long Hobbs. Patient has a very strong Divehi accent his Turkish speaking is limited. Chronic stable medical conditions include diabetes mellitus type 2, GERD, hypertension, PE, primary osteoarthritis. Has a prior history of cardiac catheterization with stent. Patient presents to the ER. Complaint of short of breath weakness. Diagnosed with COVID. Last 2 days and become much more weaker in finding it difficult to stand. Short of breath. Pulse ox by the EMS was 70%. Slight cough. No headaches. Loss of taste and smell.. Feels rather tired and rundown. Admitted with bilateral COVID 19 pneumonia, acute hypoxic respiratory failure. Patient started on Remdesivir, vitamin C vitamin D IV fluids dexamethasone. Xarelto continued. Today-laying in bed, short of breath, tired. Eating about 25%. On high flow 15 L nasal canal. mouth breathing Review of systems: Was done for constitutional, cardiovascular, GI, pulmonary. relevant finding as above Active Medications Ascorbic Acid (Ascorbic Acid 500 Mg Tab) 500 mg PO BID [facility] Last Admin: 11/24/20 20:30 Dose: 500 mg Documented by: Aspirin (Aspirin 81 Mg) 81 mg PO DAILY [facility] Last Admin: 11/24/20 10:03 Dose: 81 mg Documented by: Atorvastatin Calcium (Atorvastatin 20 Mg Tab) 20 mg PO DAILY [facility] Last Admin: 11/24/20 10:03 Dose: 20 mg Documented by: Cholecalciferol (Cholecalciferol 25 Mcg (1000 Iu) Tablet) 25 mcg PO DAILY [facility] Last Admin: 11/24/20 10:02 Dose: 25 mcg Documented by: Dexamethasone (Dexamethasone 2 Mg Tab) 6 mg PO DAILY [facility] Last Admin: 11/24/20 10:02 Dose: 6 mg Documented by: Diphenoxylate HCl/Atropine (Diphenox-Atrop 2.5-0.025 Mg 1 Each Tab) 1 each PO TID PRN PRN Reason: Diarrhea Famotidine (Famotidine 20 Mg Tab) 20 mg PO BID [facility] Last Admin: 11/24/20 20:30 Dose: 20 mg Documented by: Gabapentin (Gabapentin 300 Mg Cap) 300 mg PO BID [facility] Last Admin: 11/24/20 20:30 Dose: 300 mg Documented by: Remdesivir 100 mg/ Sodium (Chloride) 250 mls @ 250 mls/hr IVPB DAILY@1000 [facility] Stop: 11/28/20 10:59 Sodium Chloride (Saline 0.45%) 1,000 mls @ 100 mls/hr IV .Q10H [facility] Last Admin: 11/24/20 20:30 Dose: 100 mls/hr Documented by: Insulin Aspart (Insulin Aspart (Novolog) 100 Unit/Ml Vial) 0 unit SQ ACHS [facility]; Protocol Last Admin: 11/24/20 20:30 Dose: 5 unit Documented by: Insulin Detemir (Insulin Detemir (Levemir) 100 Unit/Ml Syr) 20 unit SQ HS [facility] Last Admin: 11/24/20 20:30 Dose: 20 unit Documented by: Losartan Potassium (Losartan 25 Mg Tab) 25 mg PO DAILY [facility] Last Admin: 11/24/20 10:04 Dose: 25 mg Documented by: Metformin HCl (Metformin 500 Mg Tab) 1,000 mg PO W/BRKT [facility] Last Admin: 11/24/20 06:35 Dose: 1,000 mg Documented by: Miscellaneous Information (Magnesium Replacement Protocol 1 Each Misc) 1 each MISCELLANE DAILY PRN; Protocol PRN Reason: Per Protocol Miscellaneous Information (Potassium Replacement Protocol 1 Each Misc) 1 each MISCELLANE DAILY PRN PRN Reason: Per Protocol Multivitamins (Multivitamins, Thera 1 Each Tab) 1 each PO DAILY [facility] Last Admin: 11/24/20 10:02 Dose: 1 each Documented by: Pantoprazole Sodium (Pantoprazole 40 Mg Tablet) 40 mg PO AC-BRKT [facility] Last Admin: 11/24/20 06:35 Dose: 40 mg Documented by: Pioglitazone HCl (Pioglitazone 30 Mg Tab) 30 mg PO DAILY [facility] Last Admin: 11/24/20 10:03 Dose: 30 mg Documented by: Rivaroxaban (Rivaroxaban 20 Mg Tab) 20 mg PO DAILY [facility] Last Admin: 11/24/20 10:02 Dose: 20 mg Documented by: Thiamine HCl (Thiamine 100 Mg Tab) 100 mg PO DAILY [facility] Last Admin: 11/24/20 10:02 Dose: 100 mg Documented by: Zinc Sulfate (Zinc Sulfate 220 Mg Cap) 220 mg PO DAILY [facility] Last Admin: 11/24/20 10:03 Dose: 220 mg Documented by: Past medical history to include: Diabetes mellitus type 2, GERD, hypertension, coronary artery disease with stent, primary osteoarthritis Social history: No smoking. Alcohol rarely. Physical examination: VITAL SIGNS: 97.1, 56, 22, 118/60, 95% on 15 L GENERAL: Laying in bed, tired, high flow nasal cannula, mild breathing NEUROLOGICAL: Moving all 4 limbs-no facial asymmetry PSYCH: Answering questions Breast exam as per pulmonary, nursing INVESTIGATIONS, reviewed in the clinical context: November 24: Potassium 5 creatinine 1.2 to. Accu-Cheks 247, 296 ProBNP 634 d-dimer 0.49 CRP 10.6 Potassium 4.6 bun 59 creatinine 1.37 White count 11.7 hemoglobin 14.1 platelets 393 potassium 5.4 bun 59 creatinine 1.44 blood glucose 504 Serum acetone positive Coronavirus [PCR]-detected EKG tracing personally reviewed by me-sinus rhythm right bundle-branch block Chest x-ray film personally reviewed by me-bilateral infiltrates Assessment and plan: -Bilateral COVID 19 pneumonia-started on dexamethasone, vitamin C vitamin D zinc. Remdesivir -Acute hypoxic respiratory failure from COVID 19-oxygen support sodium respond, on 15 L nasal cannula -Chronic congestive heart failure from diastolic dysfunction EF 50-55% -Moderate mitral, moderate to severe tricuspid regurgitation, nontraumatic -Moderate to severe secondary pulmonary hypertension -Chronic PE on Xarelto -Diabetic ketoacidosis-insulin drip protocol-corrected -Diabetes mellitus type 2, uncontrolled with hyperglycemia steroids. Increase Levemir to 28 units daily at bedtime -GERD-add Pepcid -Essential hypertension -Primary osteoarthritis-analgesia as needed Recheck CRP, procalcitonin, d-dimer
[2020-11-25 06:15] LABS: Glucose,Whole Blood 132 mg/dL (75-99)
[2020-11-25] MEDS: INSULIN ASPART (NovoLOG) 100 UNIT/ML VIAL SQ SCH ×4 (06:28→21:26)
[2020-11-25] MEDS: metFORMIN 500 MG TAB PO SCH (06:29)
[2020-11-25] MEDS: PANTOPRAZOLE 40 MG TABLET PO SCH (06:29)
[2020-11-25] MEDS: ZINC SULFATE 220 MG CAP PO SCH (08:33)
[2020-11-25] MEDS: MULTIVITAMINS, THERA 1 EACH TAB PO SCH (08:33)
[2020-11-25] MEDS: ASCORBIC ACID 500 MG TAB PO SCH ×2 (08:33→21:26)
[2020-11-25] MEDS: ATORVASTATIN 20 MG TAB PO SCH (08:33)
[2020-11-25] MEDS: dexAMETHasone 2 MG TAB PO SCH (08:33)
[2020-11-25] MEDS: FAMOTIDINE 20 MG TAB PO SCH ×2 (08:33→21:26)
[2020-11-25] MEDS: GABAPENTIN 300 MG CAP PO SCH ×2 (08:34→21:26)
[2020-11-25] MEDS: RIVAROXABAN 20 MG TAB PO SCH (08:34)
[2020-11-25] MEDS: CHOLECALCIFEROL 25 MCG (1000 IU) TABLET PO SCH (08:34)
[2020-11-25] MEDS: ASPIRIN 81 MG PO SCH (08:34)
[2020-11-25] MEDS: LOSARTAN 25 MG TAB PO SCH (08:34)
[2020-11-25] MEDS: THIAMINE 100 MG TAB PO SCH (08:34)
[2020-11-25] MEDS: PIOGLITAZONE 30 MG TAB PO SCH (08:35)
[2020-11-25] MEDS: REMDESIVIR 100 MG in SODIUM CHLORIDE 0.9% 250 ML IVPB SCH (09:17)
--- NOTE | 2020-11-25 10:59 | P.PN ---
Subjective Progress Note Date: 11/25/20 68-year-old male patient hospitalized for shortness of breath under the diagnosis of colitis/chronic ventilatory pneumonia. The patient is known to have cardiac disease including coronary artery disease and the patient has had previous cardiac catheterization and stenting. The patient also is diabetic and has history of chronic pulmonary embolism maintained on long-term anticoagulation. Other comorbidities include osteoarthritis and acid reflux. This patient came into the emergency department complaining of generalized fatigue and weakness. Patient was diagnosed approximately 2 days ago to have COVID 19. The patient was progressively getting weaker and was having also shortness of breath and the patient's pulse ox respiratory and the pulse ox was in the 70s at time of admission. No fever. He was having some cough along with shortness of breath. No chest pain. No altered mentation. No swelling lower extremities. No nausea vomiting or diarrhea. Initially the time of admission, his sugar was elevated at 504. He did have a acute kidney injury with a mild anion gap metabolic acidosis. The gap was 19 with a serum bicarb of 20 and the patient was given IV fluids and insulin and his creatinine is down to 1.05 and he has no significant anion gap metabolic acidosis this point and the serum bicarb is up to 25. The urine was positive for ketones and as such there was a concern of an underlying diabetic ketoacidosis. Serum acetone was also positive. On his CBC, the patient had a component of lymphopenia with a white cell count of 11.7. At this point in time the patient is currently on 4 L of oxygen by nasal cannula and a chest x-ray showing patchy perihilar and basilar p ulmonary infiltration consistent with pneumonia. This morning, the patient has no resting comfortably in bed. Overnight, his oxygenation has been worse and the patient has been placed on 15 L of oxygen by nasal cannula. His chest x-ray showing bilateral perihilar and she pulmonary infiltrates more so in the peripheries. He has no chest pain. He has significant oral dryness. His evaluation of 11/25/2020 the patient is awake. He is stating that he is the same. Stop all day yesterday and his current pulse ox is 96%. 3 L of oxygen by nasal cannula. CRP is 22.6. His d-dimer is low at 0.52. Noted the patient is currently receiving Decadron 6 mg IV every 24 hours. He was also started on Remdesivir an 80 also received a unit of, less than plasma. No side effects to those treatments. He has a good appetite. He is tolerating his diet. No nausea. No vomiting. No abdominal pain. His blood sugars under adequate control for now most recent blood sugar being at 132. IV fluids are running at KVO as the patient is taken off Objective - Vital Signs Vital signs: Vital Signs Temp 97.5 F L 11/25/20 08:00 Pulse 56 L 11/25/20 08:00 Resp 16 11/25/20 08:00 BP 135/62 11/25/20 08:00 Pulse Ox 94 L 11/25/20 08:00 Intake & Output 11/24/20 11/25/20 11/25/20 18:59 06:59 18:59 Intake Total 914 236 Output Total 700 560 Balance 214 -560 236 Weight 73.663 kg 73.5 kg Intake: Oral 720 236 Blood Product 194 Ffp Pher Conval Covid19 194 Acda 3 Unit [id number] Output: Urine 700 560 Other: Voiding Method Urinal Urinal # Voids 1 # Bowel Movements 2 - Exam GENERAL EXAM: Alert, the very pleasant, 69-year-old white male, on 4 liters with a pulse ox of 95%, with a strong Kinyarwanda accent comfortable in no apparent distress. HEAD: Normocephalic/atraumatic. EYES: Normal reaction of pupils, equal size. Conjunctiva pink, sclera white. NOSE: Clear with pink turbinates. THROAT: No erythema or exudates. NECK: No masses, no JVD, no thyroid enlargement, no adenopathy. CHEST: No chest wall deformity. Symmetrical expansion. LUNGS: Equal air entry with no crackles, wheeze, rhonchi or dullness. CVS: Regular rate and rhythm, normal S1 and S2, no gallops, no murmurs, no rubs ABDOMEN: Soft, nontender. No hepatosplenomegaly, normal bowel sounds, no guarding or rigidity. EXTREMITIES: No clubbing, no edema, no cyanosis, 2+ pulses and upper and lower extremities. MUSCULOSKELETAL: Muscle strength and tone normal. SPINE: No scoliosis or deformity SKIN: No rashes CENTRAL NERVOUS SYSTEM: Alert and oriented -3. No focal deficits, tone is normal in all 4 extremities. PSYCHIATRIC: Alert and oriented -3. Appropriate affect. Intact judgment and insight. - Labs CBC & Chem 7: 11/23/20 09:34 11/24/20 06:16 Labs: Abnormal Lab Results - Last 24 Hours (Table) 11/24/20 11/24/20 11/24/20 Range/Units 12:03 16:47 19:59 POC Glucose (mg/dL) 247 H 296 H 293 H (75-99) mg/dL C-Reactive Protein (<10.0) mg/L 11/25/20 11/25/20 Range/Units 06:13 07:35 POC Glucose (mg/dL) 132 H (75-99) mg/dL C-Reactive Protein 22.6 H (<10.0) mg/L Assessment and Plan Plan: 1 acute coronavirus COVID 19-related pneumonia with secondary hypoxic respir atory failure and the patient is currently on dexamethasone, vitamin C vitamin D zinc, currently on 15 L about 2 by nasal cannula that was dropped down to 10 L as the patient also has was in the order of 96%. His oxidation is being monitored very closely. 2 Shortness of breath secondary to above 3 Chronic congestive heart failure from diastolic dysfunction EF 50-55% 4 Moderate mitral, moderate to severe tricuspid regurgitation, nontraumatic with secondary moderate to severe secondary pulmonary hypertension 5 history of PE on Xarelto, and the patient was in the hospital in 01/2020 and he was found to have small subsegmental pulmonary emboli to the anterior left upper lobe and questionable subsegmental pulmonary emboli of the bilateral lower lobes, with suggestion of right heart strain 6 Diabetes mellitus type 2 with a component of DKA, treated 7 GERD 8 Essential hypertension 9 Primary osteoarthritis-analgesia as needed Plan The patient is on Decadron 6 mg by mouth daily. Continue vitamin C, vitamin D and zinc and started on Remdesivir per protocol and the patient was seated total of 5 day course of treatment. His oxidation is improved today and the patient's pulse ox was 96% and he was dropped down to 10 L about 2 by nasal cannula. CRP levels are lower. He received a unit units of convalescent plasma. Repeat chest x-ray in the morning. Repeat inflammatory markers in a.m. Condition is stable for now. Continue Xarelto We'll continue to follow.
[2020-11-25 11:53] LABS: Glucose,Whole Blood 191 mg/dL (75-99)
[2020-11-25] MEDS: SODIUM CHLORIDE 0.9% 1,000 ML IV SCH (13:01)
[2020-11-25 13:58] LABS: Hemoglobin A1C 11.3 % (4.0-6.0)
[2020-11-25 16:55] LABS: Glucose,Whole Blood 227 mg/dL (75-99)
[2020-11-25] MEDS: SODIUM CHLORIDE 0.45% 1,000 ML IV SCH (17:43)
--- NOTE | 2020-11-25 20:09 | P.PN ---
Progress Note - Text Progress Note Date: 11/25/20 Chief Complaint: Tired History of presenting complaint: This is a pleasant 70-year-old patient of Dr. Long Hobbs. Patient has a very strong Danish accent his Estonian speaking is limited. Chronic stable medical conditions include diabetes mellitus type 2, GERD, hypertension, PE, primary osteoarthritis. Has a prior history of cardiac catheterization with stent. Patient presents to the ER. Complaint of short of breath weakness. Diagnosed with COVID. Last 2 days and become much more weaker in finding it difficult to stand. Short of breath. Pulse ox by the EMS was 70%. Slight cough. No headaches. Loss of taste and smell.. Feels rather tired and rundown. Admitted with bilateral COVID 19 pneumonia, acute hypoxic respiratory failure. Patient started on Remdesivir, vitamin C vitamin D IV fluids dexamethasone. Xarelto continued. Also received convalescent plasma. Today-l looking a bit better today. On 6 L of nasal cannula. Oral intake about 25%. Laying in bed. Review of systems: Was done for constitutional, cardiovascular, GI, pulmonary. r elevant finding as above Active Medications Ascorbic Acid (Ascorbic Acid 500 Mg Tab) 500 mg PO BID [facility] Last Admin: 11/25/20 08:33 Dose: 500 mg Documented by: Aspirin (Aspirin 81 Mg) 81 mg PO DAILY [facility] Last Admin: 11/25/20 08:34 Dose: 81 mg Documented by: Atorvastatin Calcium (Atorvastatin 20 Mg Tab) 20 mg PO DAILY [facility] Last Admin: 11/25/20 08:33 Dose: 20 mg Documented by: Cholecalciferol (Cholecalciferol 25 Mcg (1000 Iu) Tablet) 25 mcg PO DAILY [facility] Last Admin: 11/25/20 08:34 Dose: 25 mcg Documented by: Dexamethasone (Dexamethasone 2 Mg Tab) 6 mg PO DAILY [facility] Last Admin: 11/25/20 08:33 Dose: 6 mg Documented by: Diphenoxylate HCl/Atropine (Diphenox-Atrop 2.5-0.025 Mg 1 Each Tab) 1 each PO TID PRN PRN Reason: Diarrhea Famotidine (Famotidine 20 Mg Tab) 20 mg PO BID [facility] Last Admin: 11/25/20 08:33 Dose: 20 mg Documented by: Gabapentin (Gabapentin 300 Mg Cap) 300 mg PO BID [facility] Last Admin: 11/25/20 08:34 Dose: 300 mg Documented by: Remdesivir 100 mg/ Sodium (Chloride) 250 mls @ 250 mls/hr IVPB DAILY@1000 [facility] Stop: 11/28/20 10:59 Last Admin: 11/25/20 09:17 Dose: 250 mls/hr Documented by: Sodium Chloride (Saline 0.9%) 1,000 mls @ 75 mls/hr IV .[id number] [facility] Last Admin: 11/25/20 13:01 Dose: 75 mls/hr Documented by: Insulin Aspart (Insulin Aspart (Novolog) 100 Unit/Ml Vial) 0 unit SQ [facility]; Protocol Last Admin: 11/25/20 17:50 Dose: 3 unit Documented by: Insulin Detemir (Insulin Detemir (Levemir) 100 Unit/Ml Syr) 28 unit SQ [facility] Last Admin: 11/24/20 21:34 Dose: 8 unit Documented by: Losartan Potassium (Losartan 25 Mg Tab) 25 mg PO DAILY [facility] Last Admin: 11/25/20 08:34 Dose: 25 mg Documented by: Metformin HCl (Metformin 500 Mg Tab) 1,000 mg PO W/BRKFST [facility] Last Admin: 11/25/20 06:29 Dose: 1,000 mg Documented by: Miscellaneous Information (Magnesium Replacement Protocol 1 Each Misc) 1 each MISCELLANE DAILY PRN; Protocol PRN Reason: Per Protocol Miscellaneous Information (Potassium Replacement Protocol 1 Each Misc) 1 each MISCELLANE DAILY PRN PRN Reason: Per Protocol Multivitamins (Multivitamins, Thera 1 Each Tab) 1 each PO DAILY [facility] Last Admin: 11/25/20 08:33 Dose: 1 each Documented by: Pantoprazole Sodium (Pantoprazole 40 Mg Tablet) 40 mg PO -BRKFST [facility] Last Admin: 11/25/20 06:29 Dose: 40 mg Documented by: Pioglitazone HCl (Pioglitazone 30 Mg Tab) 30 mg PO DAILY [facility] Last Admin: 11/25/20 08:35 Dose: 30 mg Documented by: Rivaroxaban (Rivaroxaban 20 Mg Tab) 20 mg PO DAILY [facility] Last Admin: 11/25/20 08:34 Dose: 20 mg Documented by: Thiamine HCl (Thiamine 100 Mg Tab) 100 mg PO DAILY [facility] Last Admin: 11/25/20 08:34 Dose: 100 mg Documented by: Zinc Sulfate (Zinc Sulfate 220 Mg Cap) 220 mg PO DAILY [facility] Last Admin: 11/25/20 08:33 Dose: 220 mg Documented by: Past medical history to include: Diabetes mellitus type 2, GERD, hypertension, coronary artery disease with stent, primary osteoarthritis Social history: No smoking. Alcohol rarely. Physical examination: VITAL SIGNS: 97, 59, 18, 123/56, 94% on 6 L GENERAL: Laying in bed, bit more awake and talking better NEUROLOGICAL: Moving all 4 limbs-no facial asymmetry PSYCH: Answering questions Rest of exam as per pulmonary, nursing INVESTIGATIONS, reviewed in the clinical context: November 25: D-dimer 0.5 to CRP 22.6 pro-calcitonin 0.08 November 24: Potassium 5 creatinine 1.2 to. Accu-Cheks 247, 296 ProBNP 634 d-dimer 0.49 CRP 10.6 Potassium 4.6 bun 59 creatinine 1.37 White count 11.7 hemoglobin 14.1 platelets 393 potassium 5.4 bun 59 creatinine 1.44 blood glucose 504 Serum acetone positive Coronavirus [PCR]-detected EKG tracing personally reviewed by me-sinus rhythm right bundle-branch block Chest x-ray film personally reviewed by me-bilateral infiltrates Assessment and plan: -Bilateral COVID 19 pneumonia-started on dexamethasone, vitamin C vitamin D zinc. Remdesivir. Convalescent plasma. Slowly improving -Acute hypoxic respiratory failure from COVID 19-oxygen support -improving oxygen on 6 L nasal cannula. -Chronic congestive heart failure from diastolic dysfunction EF 50-55% -Moderate mitral, moderate to severe tricuspid regurgitation, nontraumatic -Moderate to severe secondary pulmonary hypertension -Chronic PE on Xarelto -Diabetic ketoacidosis-insulin drip protocol-corrected -Diabetes mellitus type 2, uncontrolled with hyperglycemia steroids. Increase L evemir to 28 units daily at bedtime -GERD-add Pepcid -Essential hypertension -Primary osteoarthritis-analgesia as needed Encourage oral intake. Spoke to the nurse to have the patient sit up in a [place]. Continue Remdesivir.
[2020-11-25 21:01] LABS: Glucose,Whole Blood 296 mg/dL (75-99)
[2020-11-25] MEDS: INSULIN DETEMIR (LEVEMIR) 100 UNIT/ML SYR SQ SCH (21:26)
[2020-11-26 02:29] LABS: Glucose,Whole Blood 162 mg/dL (75-99)
[2020-11-26] MEDS: SODIUM CHLORIDE 0.9% 1,000 ML IV SCH ×2 (02:30→06:44)
[2020-11-26 05:53] LABS: Glucose,Whole Blood 150 mg/dL (75-99)
[2020-11-26] MEDS: INSULIN ASPART (NovoLOG) 100 UNIT/ML VIAL SQ SCH ×4 (06:41→21:20)
[2020-11-26] MEDS: PANTOPRAZOLE 40 MG TABLET PO SCH (06:41)
[2020-11-26] MEDS: metFORMIN 500 MG TAB PO SCH (06:41)
--- NOTE | 2020-11-26 08:10 | XR ---
EXAMINATION TYPE: XR chest 1V DATE OF EXAM: 11/26/2020 COMPARISON: 11/23/2020 HISTORY: 70-year-old male COVID 19 pneumonia. TECHNIQUE: Single frontal view of the chest is obtained. FINDINGS: Heart borderline in size. Patchy peripheral and basilar interstitial infiltrates similar to slightly increased. IMPRESSION: 1. Similar borderline heart size. 2. Patchy peripheral and basilar interstitial infiltrates similar to slightly worsened.
[2020-11-26] MEDS: dexAMETHasone 2 MG TAB PO SCH (09:17)
[2020-11-26] MEDS: RIVAROXABAN 20 MG TAB PO SCH (09:17)
[2020-11-26] MEDS: CHOLECALCIFEROL 25 MCG (1000 IU) TABLET PO SCH (09:17)
[2020-11-26] MEDS: MULTIVITAMINS, THERA 1 EACH TAB PO SCH (09:17)
[2020-11-26] MEDS: PIOGLITAZONE 30 MG TAB PO SCH (09:17)
[2020-11-26] MEDS: LOSARTAN 25 MG TAB PO SCH (09:17)
[2020-11-26] MEDS: ASPIRIN 81 MG PO SCH (09:17)
[2020-11-26] MEDS: GABAPENTIN 300 MG CAP PO SCH ×2 (09:17→21:19)
[2020-11-26] MEDS: ASCORBIC ACID 500 MG TAB PO SCH ×2 (09:18→21:19)
[2020-11-26] MEDS: THIAMINE 100 MG TAB PO SCH (09:18)
[2020-11-26] MEDS: ZINC SULFATE 220 MG CAP PO SCH (09:18)
[2020-11-26] MEDS: FAMOTIDINE 20 MG TAB PO SCH ×2 (09:18→21:19)
[2020-11-26] MEDS: ATORVASTATIN 20 MG TAB PO SCH (09:18)
[2020-11-26] MEDS: REMDESIVIR 100 MG in SODIUM CHLORIDE 0.9% 250 ML IVPB SCH (10:13)
--- NOTE | 2020-11-26 10:56 | P.PN ---
Subjective Progress Note Date: 11/26/20 68-year-old male patient hospitalized for shortness of breath under the diagnosis of colitis/chronic ventilatory pneumonia. The patient is known to have cardiac disease including coronary artery disease and the patient has had previous cardiac catheterization and stenting. The patient also is diabetic and has history of chronic pulmonary embolism maintained on long-term anticoagulation. Other comorbidities include osteoarthritis and acid reflux. This patient came into the emergency department complaining of generalized fatigue and weakness. Patient was diagnosed approximately 2 days ago to have COVID 19. The patient was progressively getting weaker and was having also shortness of breath and the patient's pulse ox respiratory and the pulse ox was in the 70s at time of admission. No fever. He was having some cough along with shortness of breath. No chest pain. No altered mentation. No swelling lower extremities. No nausea vomiting or diarrhea. Initially the time of admission, his sugar was elevated at 504. He did have a acute kidney injury with a mild anion gap metabolic acidosis. The gap was 19 with a serum bicarb of 20 and the patient was given IV fluids and insulin and his creatinine is down to 1.05 and he has no significant anion gap metabolic acidosis this point and the serum bicarb is up to 25. The urine was positive for ketones and as such there was a concern of an underlying diabetic ketoacidosis. Serum acetone was also positive. On his CBC, the patient had a component of lymphopenia with a white cell count of 11.7. At this point in time the patient is currently on 4 L of oxygen by nasal cannula and a chest x-ray showing patchy perihilar and basilar p ulmonary infiltration consistent with pneumonia. This morning, the patient has no resting comfortably in bed. Overnight, his oxygenation has been worse and the patient has been placed on 15 L of oxygen by nasal cannula. His chest x-ray showing bilateral perihilar and she pulmonary infiltrates more so in the peripheries. He has no chest pain. He has significant oral dryness. His evaluation of 11/25/2020 the patient is awake. He is stating that he is the same. Stop all day yesterday and his current pulse ox is 96%. 3 L of oxygen by nasal cannula. CRP is 22.6. His d-dimer is low at 0.52. Noted the patient is currently receiving Decadron 6 mg IV every 24 hours. He was also started on Remdesivir an 80 also received a unit of, less than plasma. No side effects to those treatments. He has a good appetite. He is tolerating his diet. No nausea. No vomiting. No abdominal pain. His blood sugars under adequate control for now most recent blood sugar being at 132. IV fluids are running at KVO as the patient is taken off 11/26/2020, the patient is reporting some worsening in his shortness of breath. He is up to 5 L of oxygen by nasal cannula and his pulse ox is ranging between 88-90%. His chest x-ray showing some slight interval worsening. He remains on Decadron 6 mg IV every 24 hours. He is also started on Remdesivir #3 and the patient also received 1 units of convalescent plasma. No fever. No chills. No other new complaints otherwise for now. He is having a cough and his cough is dry. No nausea. No vomiting. No abdominal pain. No chest pain. His most of the time in bed. Objective - Vital Signs Vital signs: Vital Signs Temp 97.5 F L 11/26/20 09:07 Pulse 62 11/26/20 09:07 Resp 20 11/26/20 09:07 BP 142/64 11/26/20 09:07 Pulse Ox 82 L 11/26/20 09:07 Intake & Output 11/25/20 11/26/20 11/26/20 18:59 06:59 18:59 Intake Total 966 550 360 Output Total 850 Balance 966 -300 360 Weight 74 kg Intake: Intake, IV Titration 250 450 Amount Remdesivir 100 mg In 250 Sodium Chloride 0.9% 250 ml @ 250 mls/hr IVPB DAILY@1000 [facility] Rx#: [id number] Sodium Chloride 0.9% 1, 450 000 ml @ 75 mls/hr IV . [id number] [facility] Rx#:[id number] Oral 716 100 360 Output: Urine 850 Other: Voiding Method Urinal Urinal Urinal Diaper # Voids 1 # Bowel Movements 0 - Exam GENERAL EXAM: Alert, the very pleasant, 69-year-old white male, on 5 liters with a pulse ox of 88%, with a strong Mosotho accent comfortable in no apparent distress. HEAD: Normocephalic/atraumatic. EYES: Normal reaction of pupils, equal size. Conjunctiva pink, sclera white. NOSE: Clear with pink turbinates. THROAT: No erythema or exudates. NECK: No masses, no JVD, no thyroid enlargement, no adenopathy. CHEST: No chest wall deformity. Symmetrical expansion. LUNGS: Equal air entry with no crackles, wheeze, rhonchi or dullness. CVS: Regular rate and rhythm, normal S1 and S2, no gallops, no murmurs, no rubs ABDOMEN: Soft, nontender. No hepatosplenomegaly, normal bowel sounds, no guarding or rigidity. EXTREMITIES: No clubbing, no edema, no cyanosis, 2+ pulses and upper and lower extremities. MUSCULOSKELETAL: Muscle strength and tone normal. SPINE: No scoliosis or deformity SKIN: No rashes CENTRAL NERVOUS SYSTEM: Alert and oriented -3. No focal deficits, tone is normal in all 4 extremities. PSYCHIATRIC: Alert and oriented -3. Appropriate affect. Intact judgment and insight. - Labs CBC & Chem 7: 11/23/20 09:34 11/24/20 06:16 Labs: Abnormal Lab Results - Last 24 Hours (Table) 11/25/20 11/25/20 11/25/20 Range/Units 07:35 11:52 16:53 POC Glucose (mg/dL) 191 H 227 H (75-99) mg/dL Hemoglobin A1c 11.3 H (4.0-6.0) % 11/25/20 11/26/20 11/26/20 Range/Units 20:47 02:27 05:50 POC Glucose (mg/dL) 296 H 162 H 150 H (75-99) mg/dL Hemoglobin A1c (4.0-6.0) % Assessment and Plan Plan: 1 acute coronavirus COVID 19-related pneumonia with secondary hypoxic respiratory failure and the patient is currently on dexamethasone, vitamin C vitamin D zinc, currently on 5 liter by nasal cannula . Clinically he is still having active pneumonia. The chest x-rays showing some limited worsening. Nevertheless clinically the same. Oxygenation is stable at 5 L about 2 by nasal cannula. He is also completing a course of Remdesivir 2 Shortness of breath secondary to above 3 Chronic congestive heart failure from diastolic dysfunction EF 50-55% 4 Moderate mitral, moderate to severe tricuspid regurgitation, nontraumatic with secondary moderate to severe secondary pulmonary hypertension 5 history of PE on Xarelto, and the patient was in the hospital in 01/2020 and he was found to have small subsegmental pulmonary emboli to the anterior left upper lobe and questionable subsegmental pulmonary emboli of the bilateral lower lobes, with suggestion of right heart strain 6 Diabetes mellitus type 2 with a component of DKA, treated 7 GERD 8 Essential hypertension 9 Primary osteoarthritis-analgesia as needed Plan The patient is on Decadron 6 mg by mouth daily. Continue vitamin C, vitamin D and zinc Remdesivir per protocol and the patient was seated total of 5 day course of treatment. Keep the patient on 5 L about 2 by nasal cannula. Oxygenation in general is improved. Monitor inflammatory markers He received a unit units of convalescent plasma. Repeat chest x-ray in the morning. Repeat inflammatory markers in a.m. Continue Xarelto We'll continue to follow.
[2020-11-26 11:21] LABS: C Reactive Protein 29.7 mg/L (<10.0)
[2020-11-26 11:34] LABS: Basophils % (A) 0 %; Eosinophils # (A) 0.1 k/uL (0-0.7); Eosinophils % (A) 1 %; HCT 37.6 % (39.0-53.0); HGB 12.3 gm/dL (13.0-17.5); Lymphocytes # (A) 0.8 k/uL (1.0-4.8); Lymphocytes % (A) 7 %; MCH 27.4 pg (25.0-35.0); MCHC 32.8 g/dL (31.0-37.0); MCV 83.4 fL (80.0-100.0); Mean Platelet Volume 9.9; Monocytes # (A) 0.5 k/uL (0-1.0); Monocytes % (A) 4 %; Neutrophils # (A) 9.9 k/uL (1.3-7.7); Neutrophils % (A) 88 %; Platelet Count 301 k/uL (150-450); RBC 4.51 m/uL (4.30-5.90); RDW 13.9 % (11.5-15.5); WBC 11.3 k/uL (3.8-10.6)
[2020-11-26 11:41] LABS: Potassium 3.8 mmol/L (3.5-5.1)
[2020-11-26 11:58] LABS: Glucose,Whole Blood 230 mg/dL (75-99)
[2020-11-26 17:12] LABS: Glucose,Whole Blood 264 mg/dL (75-99)
[2020-11-26 21:02] LABS: Glucose,Whole Blood 344 mg/dL (75-99)
[2020-11-26] MEDS: INSULIN DETEMIR (LEVEMIR) 100 UNIT/ML SYR SQ SCH (21:19)
--- NOTE | 2020-11-26 22:30 | P.PN ---
Progress Note - Text Progress Note Date: 11/26/20 Chief Complaint: Tired History of presenting complaint: This is a pleasant 70-year-old patient of Dr. Long Hobbs. Patient has a very strong Sami accent his Irish speaking is limited. Chronic stable medical conditions include diabetes mellitus type 2, GERD, hypertension, PE, primary osteoarthritis. Has a prior history of cardiac catheterization with stent. Patient presents to the ER. Complaint of short of breath weakness. Diagnosed with COVID. Last 2 days and become much more weaker in finding it difficult to stand. Short of breath. Pulse ox by the EMS was 70%. Slight cough. No headaches. Loss of taste and smell.. Feels rather tired and rundown. Admitted with bilateral COVID 19 pneumonia, acute hypoxic respiratory failure. Patient started on Remdesivir, vitamin C vitamin D IV fluids dexamethasone. Xarelto continued. Also received convalescent plasma. Today-breathing better. Eating about 50%. On about 5 L nasal cannula. Review of systems: Was done for constitutional, cardiovascular, GI, pulmonary. relevant finding as above Active Medications Ascorbic Acid (Ascorbic Acid 500 Mg Tab) 500 mg PO BID [facility] Last Admin: 11/26/20 21:19 Dose: 500 mg Documented by: Aspirin (Aspirin 81 Mg) 81 mg PO DAILY [facility] Last Admin: 11/26/20 09:17 Dose: 81 mg Documented by: Atorvastatin Calcium (Atorvastatin 20 Mg Tab) 20 mg PO DAILY [facility] Last Admin: 11/26/20 09:18 Dose: 20 mg Documented by: Cholecalciferol (Cholecalciferol 25 Mcg (1000 Iu) Tablet) 25 mcg PO DAILY [facility] Last Admin: 11/26/20 09:17 Dose: 25 mcg Documented by: Dexamethasone (Dexamethasone 2 Mg Tab) 6 mg PO DAILY [facility] Last Admin: 11/26/20 09:17 Dose: 6 mg Documented by: Diphenoxylate HCl/Atropine (Diphenox-Atrop 2.5-0.025 Mg 1 Each Tab) 1 each PO TID PRN PRN Reason: Diarrhea Famotidine (Famotidine 20 Mg Tab) 20 mg PO BID [facility] Last Admin: 11/26/20 21:19 Dose: 20 mg Documented by: Gabapentin (Gabapentin 300 Mg Cap) 300 mg PO BID [facility] Last Admin: 11/26/20 21:19 Dose: 300 mg Documented by: Remdesivir 100 mg/ Sodium (Chloride) 250 mls @ 250 mls/hr IVPB DAILY@1000 [facility] Stop: 11/28/20 10:59 Last Admin: 11/26/20 10:13 Dose: 250 mls/hr Documented by: Sodium Chloride (Saline 0.9%) 1,000 mls @ 75 mls/hr IV .[id number] [facility] Last Admin: 11/26/20 06:44 Dose: 75 mls/hr Documented by: Insulin Aspart (Insulin Aspart (Novolog) 100 Unit/Ml Vial) 0 unit SQ ACHS [facility]; Protocol Last Admin: 11/26/20 21:20 Dose: 6 unit Documented by: Insulin Detemir (Insulin Detemir (Levemir) 100 Unit/Ml Syr) 28 unit SQ HS [facility] Last Admin: 11/26/20 21:19 Dose: 28 unit Documented by: Losartan Potassium (Losartan 25 Mg Tab) 25 mg PO DAILY [facility] Last Admin: 11/26/20 09:17 Dose: 25 mg Documented by: Metformin HCl (Metformin 500 Mg Tab) 1,000 mg PO W/BRKT [facility] Last Admin: 11/26/20 06:41 Dose: 1,000 mg Documented by: Miscellaneous Information (Magnesium Replacement Protocol 1 Each Misc) 1 each MISCELLANE DAILY PRN; Protocol PRN Reason: Per Protocol Miscellaneous Information (Potassium Replacement Protocol 1 Each Misc) 1 each MISCELLANE DAILY PRN PRN Reason: Per Protocol Multivitamins (Multivitamins, Thera 1 Each Tab) 1 each PO DAILY [facility] Last Admin: 11/26/20 09:17 Dose: 1 each Documented by: Pantoprazole Sodium (Pantoprazole 40 Mg Tablet) 40 mg PO -BRKT [facility] Last Admin: 11/26/20 06:41 Dose: 40 mg Documented by: Pioglitazone HCl (Pioglitazone 30 Mg Tab) 30 mg PO DAILY [facility] Last Admin: 11/26/20 09:17 Dose: 30 mg Documented by: Rivaroxaban (Rivaroxaban 20 Mg Tab) 20 mg PO DAILY [facility] Last Admin: 11/26/20 09:17 Dose: 20 mg Documented by: Thiamine HCl (Thiamine 100 Mg Tab) 100 mg PO DAILY [facility] Last Admin: 11/26/20 09:18 Dose: 100 mg Documented by: Zinc Sulfate (Zinc Sulfate 220 Mg Cap) 220 mg PO DAILY [facility] Last Admin: 11/26/20 09:18 Dose: 220 mg Documented by: Past medical history to include: Diabetes mellitus type 2, GERD, hypertension, coronary artery disease with stent, primary osteoarthritis Social history: No smoking. Alcohol rarely. Physical examination: VITAL SIGNS: 97.5, 55, 18, 157/60, 95% on 5 L GENERAL: Laying in bed, awake and talking NEUROLOGICAL: Moving all 4 limbs-no facial asymmetry PSYCH: Answering questions Rest of exam as per pulmonary, nursing INVESTIGATIONS, reviewed in the clinical context: November 26: White count 9.3 hemoglobin 12.3 potassium 3.8 creatinine 0.99 CRP 29.7 November 25: D-dimer 0.5 to CRP 22.6 pro-calcitonin 0.08 November 24: Potassium 5 creatinine 1.2 to. Accu-Cheks 247, 296 ProBNP 634 d-dimer 0.49 CRP 10.6 Potassium 4.6 bun 59 creatinine 1.37 White count 11.7 hemoglobin 14.1 platelets 393 potassium 5.4 bun 59 creatinine 1.44 blood glucose 504 Serum acetone positive Coronavirus [PCR]-detected EKG tracing personally reviewed by me-sinus rhythm right bundle-branch block Chest x-ray film personally reviewed by me-bilateral infiltrates Assessment and plan: -Bilateral COVID 19 pneumonia-started on dexamethasone, vitamin C vitamin D zinc. Remdesivir. Convalescent plasma. Slowly improving -Acute hypoxic respiratory failure from COVID 19-oxygen support oxygen on 5 L nasal cannula.-Slow to respond -Chronic congestive heart failure from diastolic dysfunction EF 50-55% -Moderate mitral, moderate to severe tricuspid regurgitation, nontraumatic -Moderate to severe secondary pulmonary hypertension -Chronic PE on Xarelto -Diabetic ketoacidosis-insulin drip protocol-corrected -Diabetes mellitus type 2, uncontrolled with hyperglycemia steroids. Increase Levemir to 28 units daily at bedtime -GERD-add Pepcid -Essential hypertension -Primary osteoarthritis-analgesia as needed Oral intake improving. Still requiring about 5 inches a nasal cannula. Repeat labs. Reminded nurse to have the patient sit up in a chair.
[2020-11-27 02:10] LABS: Glucose,Whole Blood 141 mg/dL (75-99)
[2020-11-27 06:10] LABS: Glucose,Whole Blood 179 mg/dL (75-99)
[2020-11-27] MEDS: metFORMIN 500 MG TAB PO SCH (06:33)
[2020-11-27] MEDS: PANTOPRAZOLE 40 MG TABLET PO SCH (06:33)
[2020-11-27] MEDS: INSULIN ASPART (NovoLOG) 100 UNIT/ML VIAL SQ SCH ×4 (06:33→21:30)
[2020-11-27] MEDS: SODIUM CHLORIDE 0.9% 1,000 ML IV SCH ×2 (06:39→16:08)
[2020-11-27] MEDS: ASCORBIC ACID 500 MG TAB PO SCH ×2 (09:41→20:35)
[2020-11-27] MEDS: ATORVASTATIN 20 MG TAB PO SCH (09:41)
[2020-11-27] MEDS: dexAMETHasone 2 MG TAB PO SCH (09:41)
[2020-11-27] MEDS: REMDESIVIR 100 MG in SODIUM CHLORIDE 0.9% 250 ML IVPB SCH (09:41)
[2020-11-27] MEDS: THIAMINE 100 MG TAB PO SCH (09:41)
[2020-11-27] MEDS: FAMOTIDINE 20 MG TAB PO SCH ×2 (09:41→20:35)
[2020-11-27] MEDS: RIVAROXABAN 20 MG TAB PO SCH (09:41)
[2020-11-27] MEDS: GABAPENTIN 300 MG CAP PO SCH ×2 (09:42→20:35)
[2020-11-27] MEDS: CHOLECALCIFEROL 25 MCG (1000 IU) TABLET PO SCH (09:42)
[2020-11-27] MEDS: ASPIRIN 81 MG PO SCH (09:42)
[2020-11-27] MEDS: ZINC SULFATE 220 MG CAP PO SCH (09:42)
[2020-11-27] MEDS: LOSARTAN 25 MG TAB PO SCH (09:42)
[2020-11-27] MEDS: MULTIVITAMINS, THERA 1 EACH TAB PO SCH (09:42)
[2020-11-27] MEDS: PIOGLITAZONE 30 MG TAB PO SCH (09:42)
--- NOTE | 2020-11-27 09:58 | XR ---
EXAMINATION TYPE: XR chest 1V portable DATE OF EXAM: 11/27/2020 COMPARISON: 11/26/2020 INDICATION: Dyspnea increased O2 demand Covid TECHNIQUE: Single frontal view of the chest is obtained. FINDINGS: The heart size is normal. The pulmonary vasculature is normal. Scattered bilateral infiltrates are present. This is greater in the left mid and lower lung field. Fi ndings are similar to comparison. IMPRESSION: 1. Left lower lobe infiltrate with additional bilateral scattered mild infiltrates. Findings can be c ompatible with atypical pneumonia. Findings appear similar to comparison.
[2020-11-27 11:50] LABS: Glucose,Whole Blood 178 mg/dL (75-99)
--- NOTE | 2020-11-27 13:41 | P.PN ---
Subjective Progress Note Date: 11/27/20 68-year-old male patient hospitalized for shortness of breath under the diagnosis of colitis/chronic ventilatory pneumonia. The patient is known to have cardiac disease including coronary artery disease and the patient has had previous cardiac catheterization and stenting. The patient also is diabetic and has history of chronic pulmonary embolism maintained on long-term anticoagulation. Other comorbidities include osteoarthritis and acid reflux. This patient came into the emergency department complaining of generalized fatigue and weakness. Patient was diagnosed approximately 2 days ago to have COVID 19. The patient was progressively getting weaker and was having also shortness of breath and the patient's pulse ox respiratory and the pulse ox was in the 70s at time of admission. No fever. He was having some cough along with shortness of breath. No chest pain. No altered mentation. No swelling lower extremities. No nausea vomiting or diarrhea. Initially the time of admission, his sugar was elevated at 504. He did have a acute kidney injury with a mild anion gap metabolic acidosis. The gap was 19 with a serum bicarb of 20 and the patient was given IV fluids and insulin and his creatinine is down to 1.05 and he has no significant anion gap metabolic acidosis this point and the serum bicarb is up to 25. The urine was positive for ketones and as such there was a concern of an underlying diabetic ketoacidosis. Serum acetone was also positive. On his CBC, the patient had a component of lymphopenia with a white cell count of 11.7. At this point in time the patient is currently on 4 L of oxygen by nasal cannula and a chest x-ray showing patchy perihilar and basilar pulmonary infiltration consistent with pneumonia. This morning, the patient has no resting comfortably in bed. Overnight, his oxygenation has been worse and the patient has been placed on 15 L of oxygen by nasal cannula. His chest x-ray showing bilateral perihilar and she pulmonary infiltrates more so in the peripheries. He has no chest pain. He has significant oral dryness. His evaluation of 11/25/2020 the patient is awake. He is stating that he is the same. Stop all day yesterday and his current pulse ox is 96%. 3 L of oxygen by nasal cannula. CRP is 22.6. His d-dimer is low at 0.52. Noted the patient is currently receiving Decadron 6 mg IV every 24 hours. He was also started on Remdesivir an 80 also received a unit of, less than plasma. No side effects to those treatments. He has a good appetite. He is tolerating his diet. No nausea. No vomiting. No abdominal pain. His blood sugars under adequate control for now most recent blood sugar being at 132. IV fluids are running at KVO as the patient is taken off 11/26/2020, the patient is reporting some worsening in his shortness of breath. He is up to 5 L of oxygen by nasal cannula and his pulse ox is ranging between 88-90%. His chest x-ray showing some slight interval worsening. He remains on Decadron 6 mg IV every 24 hours. He is also started on Remdesivir #3 and the patient also received 1 units of convalescent plasma. No fever. No chills. No other new complaints otherwise for now. He is having a cough and his cough is dry. No nausea. No vomiting. No abdominal pain. No chest pain. His most of the time in bed. The patient is seen today 11/27/2020 in follow-up on the regular medical floor. He is currently sitting up in a chair at the bedside. Awake and alert. He did have some issues with chest discomfort with inhalation earlier. Follow-up chest x-ray reveals left lower lobe infiltrate with additional bilateral scattered mild infiltrates. Suspect atypical pneumonia secondary to CoVID. He did receive 1 unit of convalescent plasma. D-dimer 0.38. C-reactive protein 25.2. Glucose 178. He remains on dexamethasone, Pepcid, vitamin supplements. He received day 4 of Remdesivir this morning. He is anticoagulated with Xarelto. Objective - Vital Signs Vital signs: Vital Signs Temp 97.6 F 11/27/20 08:00 Pulse 61 11/27/20 08:00 Resp 26 H 11/27/20 08:00 BP 133/61 11/27/20 08:00 Pulse Ox 92 L 11/27/20 08:00 Intake & Output 11/26/20 11/27/20 11/27/20 18:59 06:59 18:59 Intake Total 1420 100 10 Output Total 475 2200 Balance 945 -2100 10 Weight 74 kg 73.5 kg Intake: IV 10 Invasive Line 2 10 Intake, IV Titration 700 Amount Remdesivir 100 mg In 250 Sodium Chloride 0.9% 250 ml @ 250 mls/hr IVPB DAILY@1000 [facility] Rx#: [id number] Sodium Chloride 0.9% 1, 450 000 ml @ 75 mls/hr IV . [id number] [facility] Rx#:[id number] Oral 720 100 Output: Urine 475 2200 Other: Voiding Method Urinal Urinal Urinal Diaper Diaper # Voids 2 1 1 - Exam GENERAL EXAM: Alert, very pleasant, 69-year-old male patient, up in a chair at the bedside, on 5 liters with a pulse ox of 98%, comfortable in no apparent distress. HEAD: Normocephalic/atraumatic. EYES: Normal reaction of pupils, equal size. Conjunctiva pink, sclera white. NOSE: Clear with pink turbinates. THROAT: No erythema or exudates. NECK: No masses, no JVD, no thyroid enlargement, no adenopathy. CHEST: No chest wall deformity. Symmetrical expansion. LUNGS: Equal air entry with bibasilar crackles left greater than right CVS: Regular rate and rhythm, normal S1 and S2, no gallops, no murmurs, no rubs ABDOMEN: Soft, nontender. No hepatosplenomegaly, normal bowel sounds, no guarding or rigidity. EXTREMITIES: No clubbing, no edema, no cyanosis, 2+ pulses and upper and lower extremities. MUSCULOSKELETAL: Muscle strength and tone normal. SPINE: No scoliosis or deformity SKIN: No rashes CENTRAL NERVOUS SYSTEM: Alert and oriented -3. No focal deficits, tone is normal in all 4 extremities. PSYCHIATRIC: Alert and oriented -3. Appropriate affect. Intact judgment and insight. - Labs CBC & Chem 7: 11/26/20 09:40 11/26/20 09:40 Labs: Abnormal Lab Results - Last 24 Hours (Table) 11/26/20 11/26/20 11/27/20 Range/Units 17:07 20:58 02:02 POC Glucose (mg/dL) 264 H 344 H 141 H (75-99) mg/dL C-Reactive Protein (<10.0) mg/L 11/27/20 11/27/20 11/27/20 Range/Units 06:04 09:59 11:48 POC Glucose (mg/dL) 179 H 178 H (75-99) mg/dL C-Reactive Protein 25.2 H (<10.0) mg/L Assessment and Plan Assessment: 1 acute coronavirus COVID 19-related pneumonia with secondary hypoxic respiratory failure and the patient is currently on dexamethasone, vitamin C vitamin D zinc, currently on 5 liter by nasal cannula . Clinically he is still having active pneumonia. The chest x-rays showing some limited worsening. Nevertheless clinically the same. Oxygenation is stable at 5 L by nasal cannula. He is also completing a course of Remdesivir. He received 1 unit of convalescent plasma 2 Shortness of breath secondary to above 3 Chronic congestive heart failure from diastolic dysfunction EF 50-55% 4 Moderate mitral, moderate to severe tricuspid regurgitation, nontraumatic with secondary moderate to severe secondary pulmonary hypertension 5 history of PE on Xarelto, and the patient was in the hospital in 01/2020 and he was found to have small subsegmental pulmonary emboli to the anterior left upper lobe and questionable subsegmental pulmonary emboli of the bilateral lower lobes, with suggestion of right heart strain 6 Diabetes mellitus type 2 with a component of DKA, treated 7 GERD 8 Essential hypertension 9 Primary osteoarthritis-analgesia as needed Plan The patient was seen and evaluated by Dr. Cortes Chest x-ray and labs reviewed Increase the patient's Levemir to 38 units daily at bedtime Repeat chest x-ray and inflammatory markers in the a.m. Anticoagulated with Xarelto Titrate down the FiO2 as tolerated We will continue to follow I, the cosigning physician, performed a history & physical examination of the patient. Lungs sounds with bibasilar crackles left greater than right. Maintaining good O2 saturations in the 90s on 5 L/m per nasal cannula. I discussed the assessment and plan of care with my nurse practitioner, Wendy Goodwin. I attest to the above note as dictated by her.
--- NOTE | 2020-11-27 14:39 | P.CRDCN ---
History of Present Illness Consult date: 11/27/20 History of present illness: CHIEF COMPLAINT: Atrial fibrillation HISTORY OF PRESENT ILLNESS: This is a 70-year-old male with a past medical history significant for coronary artery disease, diabetes mellitus, GERD, hypertension, osteoarthritis, and PE on anticoagulation with Xarelto. Patient follows in the office with Dr. Erickson. Patient is currently admitted to the hospital secondary to Covid. EKG completed this morning reveals questionable atrial fibrillation, hence consult to cardiology was placed. EKG reviewed by Dr. Younger revealing sinus bradycardia. Telemetry tracings revealed as well with no evidence of atrial fibrillation. DIAGNOSTICS: EKG reveals sinus bradycardia Chest xray left lower lobe infiltrate with additional bilateral scattered mild infiltrates. Findings compatible with atypical pneumonia. Laboratory data: WBC 11.3. Hemoglobin 12.3. Platelet count 301. Sodium 135. Potassium 3.8. BUN 25. Creatinine 0.99. Current home cardiac medications include Xarelto 20 mg daily, losartan 25 mg daily, Lipitor 20 mg daily, and aspirin 81 mg daily Echocardiogram completed January 2020 revealed ejection fraction 50-55%, moderate mitral regurgitation, moderate to severe tricuspid regurgitation, and moderate to severe pulmonary hypertension REVIEW OF SYSTEMS: Thorough review of systems not completed secondary to limited evaluation/examination and due to Covid19 PHYSICAL EXAM: Thorough physical exam not completed secondary to limited evaluation/examination and due to Covid19 ASSESSMENT: Covid 19 pneumonia Coronary artery disease, status post cardiac cath in 2018 revealing intermediate disease of large ramus intermedius branch, medical management recommended Hypertension Hyperlipidemia History of PE, on anticoagulation with Xarelto PLAN: Obtain 2-D echo to assess cardiac structure and function No evidence of atrial fibrillation at this time. Continue telemetry monitoring Further recommendations pending patient's course Nurse practitioner note has been reviewed by physician. Signing provider agrees with the documented findings, assessment, and plan of care. Past Medical History Past Medical History: Coronary Artery Disease (CAD), Diabetes Mellitus, GERD/Reflux, Hypertension, Myocardial Infarction (MA), Osteoarthritis (OA), Pulmonary Embolus (PE) Last Myocardial Infarction Date:: UNSURE History of Any Multi-Drug Resistant Organisms: None Reported Past Surgical History: Heart Catheterization With Stent, Orthopedic Surgery Additional Past Surgical History / Comment(s): RT ROTATOR CUFF REPAIR. COLONOSCOPY Past Anesthesia/Blood Transfusion Reactions: Motion Sickness Date of Last Stent Placement:: UNSURE Past Psychological History: No Psychological Hx Reported Smoking Status: Never smoker Past Alcohol Use History: Rare Past Drug Use History: None Reported - Past Family History Father Family Medical History: Cancer Additional Family Medical History / Comment(s): COLON Medications and Allergies Home Medications Medication Instructions Recorded Confirmed Type Aspirin [Adult Low Dose Aspirin EC] 81 mg PO DAILY 07/22/16 11/23/20 History Gabapentin 300 mg PO BID 07/22/16 11/23/20 History Diphenox-Atrop 2.5-0.025 mg 1 tab PO TID PRN 02/13/20 11/23/20 History [Lomotil] Insulin Glargine,Hum.rec.anlog 20 unit SQ DAILY 02/13/20 11/23/20 History [Lantus Solostar] Omeprazole [PriLOSEC] 40 mg PO DAILY 02/13/20 11/23/20 History Pioglitazone [Actos] 30 mg PO DAILY 02/13/20 11/23/20 History metFORMIN HCL [Glucophage] 1,000 mg PO BID 02/13/20 11/23/20 History Losartan [Cozaar] 25 mg PO DAILY #30 tab 02/15/20 11/23/20 Rx Atorvastatin [Lipitor] 20 mg PO DAILY 11/15/20 11/23/20 History Cholecalciferol [Vitamin D3 (25 25 mcg PO DAILY 11/15/20 11/23/20 History Mcg = 1000 Iu)] Empagliflozin/Linagliptin 1 tab PO DAILY 11/15/20 11/23/20 History [Glyxambi 25 mg-5 mg Tablet] Fish Oil/Dha/Epa [Fish Oil 1,200 1 cap PO DAILY 11/15/20 11/23/20 History mg Fish Oil] Multivit-Min/FA/Lycopen/Lutein 1 tab PO DAILY 11/15/20 11/23/20 History [Centrum Silver Tablet] Rivaroxaban [Xarelto] 20 mg PO DAILY 11/15/20 11/23/20 History Thiamine [Vitamin B-1] 50 mg PO DAILY 11/15/20 11/23/20 History hydrOXYzine HCL 25 mg PO DAILY 11/15/20 11/23/20 History Zinc Sulfate [Orazinc] 220 mg PO DAILY #30 cap 11/18/20 11/23/20 Rx dexAMETHasone [Hexadrol] 6 mg PO DAILY #18 tab 11/18/20 11/23/20 Rx Allergies Allergy/AdvReac Type Severity Reaction Status Date / Time Pain Pill (Unknown Name) Allergy Itching Uncoded 11/23/20 09:32 Physical Exam Vitals: Vital Signs Temp Pulse Resp BP Pulse Ox 11/27/20 13:37 24 11/27/20 12:30 24 94 L 11/27/20 12:15 97.6 F 61 24 127/58 98 11/27/20 08:00 97.6 F 61 26 H 133/61 92 L 11/27/20 06:56 52 L 19 92 L 11/27/20 04:00 39 L 17 131/60 92 L 11/27/20 01:03 42 L 17 11/27/20 00:00 42 L 17 161/72 93 L 11/26/20 20:00 55 L 19 11/26/20 19:40 97.6 F 55 L 19 157/60 95 11/26/20 15:45 97.5 F L 55 L 18 173/71 91 L Intake and Output 11/26/20 11/27/20 11/27/20 22:59 06:59 14:59 Intake Total 1060 100 598 Output Total 1175 1500 600 Balance -115 -1400 -2 Intake: IV 20 Invasive Line 2 20 Intake, IV Titration 700 Amount Remdesivir 100 mg In 250 Sodium Chloride 0.9% 250 ml @ 250 mls/hr IVPB DAILY@1000 [facility] Rx#: [id number] Sodium Chloride 0.9% 1, 450 000 ml @ 75 mls/hr IV . [id number] [facility] Rx#:[id number] Oral 360 100 578 Output: Urine 1175 1500 600 Other: Voiding Method Urinal Urinal Urinal Diaper Diaper # Voids 1 1 1 Weight 73.5 kg Results 11/26/20 09:40 11/26/20 09:40 Current Medications Generic Name Dose Route Start Last Admin Trade Name Freq PRN Reason Stop Dose Admin Ascorbic Acid 500 mg 11/23/20 21:00 11/27/20 09:41 Ascorbic Acid 500 Mg Tab PO 500 mg BID [facility] Administration Aspirin 81 mg 11/24/20 09:00 11/27/20 09:42 Aspirin 81 Mg PO 81 mg DAILY [facility] Administration Atorvastatin Calcium 20 mg 11/23/20 12:15 11/27/20 09:41 Atorvastatin 20 Mg Tab PO 20 mg DAILY YOAN Administration Cholecalciferol 25 mcg 11/24/20 09:00 11/27/20 09:42 Cholecalciferol 25 Mcg (1000 Iu) Tablet PO 25 mcg DAILY YOAN Administration Dexamethasone 6 mg 11/24/20 09:00 11/27/20 09:41 Dexamethasone 2 Mg Tab PO 6 mg DAILY YOAN Administration Diphenoxylate HCl/Atropine 1 each 11/23/20 12:05 11/27/20 09:41 Diphenox-Atrop 2.5-0.025 Mg 1 Each Tab PO 1 each TID PRN Administration Diarrhea Famotidine 20 mg 11/23/20 21:00 11/27/20 09:41 Famotidine 20 Mg Tab PO 20 mg BID YOAN Administration Gabapentin 300 mg 11/23/20 12:15 11/27/20 09:42 Gabapentin 300 Mg Cap PO 300 mg BID YOAN Administration Remdesivir 100 mg/ Sodium 250 mls @ 250 mls/hr 11/25/20 10:00 11/27/20 09:41 Chloride IVPB 11/28/20 10:59 250 mls/hr DAILY@1000 [facility] Administration Sodium Chloride 1,000 mls @ 75 mls/hr 11/25/20 11:15 11/27/20 06:39 Saline 0.9% IV Not Given .[id number] [facility] Insulin Aspart 0 unit 11/23/20 21:00 11/27/20 12:44 Insulin Aspart (Novolog) 100 Unit/Ml Vial SQ 100 unit ACHS [facility] Administration Protocol Insulin Detemir 38 unit 11/27/20 21:00 Insulin Detemir (Levemir) 100 Unit/Ml Syr SQ HS [facility] Losartan Potassium 25 mg 11/23/20 12:15 11/27/20 09:42 Losartan 25 Mg Tab PO 25 mg DAILY [facility]OAN Administration Metformin HCl 1,000 mg 11/24/20 07:30 11/27/20 06:33 Metformin 500 Mg Tab PO 1,000 mg W/BRKFST [facility] Administration Miscellaneous Information 1 each 11/23/20 10:48 Magnesium Replacement Protocol 1 Each Misc MISCELLANE DAILY PRN Per Protocol Protocol Miscellaneous Information 1 each 11/23/20 10:48 Potassium Replacement Protocol 1 Each Misc MISCELLANE DAILY PRN Per Protocol Multivitamins 1 each 11/24/20 09:00 11/27/20 09:42 Multivitamins, Thera 1 Each Tab PO 1 each DAILY [facility] Administration Pantoprazole Sodium 40 mg 11/24/20 07:30 11/27/20 06:33 Pantoprazole 40 Mg Tablet PO 40 mg AC-BRKFST [facility] Administration Pioglitazone HCl 30 mg 11/24/20 09:00 11/27/20 09:42 Pioglitazone 30 Mg Tab PO 30 mg DAILY [facility] Administration Rivaroxaban 20 mg 11/23/20 12:15 11/27/20 09:41 Rivaroxaban 20 Mg Tab PO 20 mg DAILY [facility] Administration Thiamine HCl 100 mg 11/23/20 12:15 11/27/20 09:41 Thiamine 100 Mg Tab PO 100 mg DAILY [facility] Administration Zinc Sulfate 220 mg 11/23/20 12:15 11/27/20 09:42 Zinc Sulfate 220 Mg Cap PO 220 mg DAILY [facility] Administration Intake and Output 11/26/20 11/27/20 11/27/20 22:59 06:59 14:59 Intake Total 1060 100 598 Output Total 1175 1500 600 Balance -115 -1400 -2 Intake: IV 20 Invasive Line 2 20 Intake, IV Titration 700 Amount Remdesivir 100 mg In 250 Sodium Chloride 0.9% 250 ml @ 250 mls/hr IVPB DAILY@1000 [facility] Rx#: [id number] Sodium Chloride 0.9% 1, 450 000 ml @ 75 mls/hr IV . [id number] [facility] Rx#:[id number] Oral 360 100 578 Output: Urine 1175 1500 600 Other: Voiding Method Urinal Urinal Urinal Diaper Diaper # Voids 1 1 1 Weight 73.5 kg 11/26/20 09:40 11/26/20 09:40
[2020-11-27 16:43] LABS: Glucose,Whole Blood 336 mg/dL (75-99)
[2020-11-27 19:38] LABS: Glucose,Whole Blood 297 mg/dL (75-99)
[2020-11-27] MEDS: INSULIN DETEMIR (LEVEMIR) 100 UNIT/ML SYR SQ SCH (21:30)
--- NOTE | 2020-11-27 22:27 | P.PN ---
Progress Note - Text Progress Note Date: 11/27/20 Chief Complaint: Tired History of presenting complaint: This is a pleasant 70-year-old patient of Dr. Long Hobbs. Patient has a very strong Arabic accent his French speaking is limited. Chronic stable medical conditions include diabetes mellitus type 2, GERD, hypertension, PE, primary osteoarthritis. Has a prior history of cardiac catheterization with stent. Patient presents to the ER. Complaint of short of breath weakness. Diagnosed with COVID. Last 2 days and become much more weaker in finding it difficult to stand. Short of breath. Pulse ox by the EMS was 70%. Slight cough. No headaches. Loss of taste and smell.. Feels rather tired and rundown. Admitted with bilateral COVID 19 pneumonia, acute hypoxic respiratory failure. Patient started on Remdesivir, vitamin C vitamin D IV fluids dexamethasone. Xarelto continued. Also received convalescent plasma. Today-patient is felt to have atrial fibrillation it was then reviewed by Dr. Dea Younger. [place] to be only bradycardia. Patient sitting up in a chair. Tolerating liquid diet. Oral intake is much improved. Some cough. Review of systems: Was done for constitutional, cardiovascular, GI, pulmonary. relevant finding as above Active Medications Ascorbic Acid (Ascorbic Acid 500 Mg Tab) 500 mg PO BID [facility] Last Admin: 11/27/20 20:35 Dose: 500 mg Documented by: Aspirin (Aspirin 81 Mg) 81 mg PO DAILY [facility] Last Admin: 11/27/20 09:42 Dose: 81 mg Documented by: Atorvastatin Calcium (Atorvastatin 20 Mg Tab) 20 mg PO DAILY [facility] Last Admin: 11/27/20 09:41 Dose: 20 mg Documented by: Cholecalciferol (Cholecalciferol 25 Mcg (1000 Iu) Tablet) 25 mcg PO DAILY [facility] Last Admin: 11/27/20 09:42 Dose: 25 mcg Documented by: Dexamethasone (Dexamethasone 2 Mg Tab) 6 mg PO DAILY [facility] Last Admin: 11/27/20 09:41 Dose: 6 mg Documented by: Diphenoxylate HCl/Atropine (Diphenox-Atrop 2.5-0.025 Mg 1 Each Tab) 1 each PO TID PRN PRN Reason: Diarrhea Last Admin: 11/27/20 09:41 Dose: 1 each Documented by: Famotidine (Famotidine 20 Mg Tab) 20 mg PO BID [facility] Last Admin: 11/27/20 20:35 Dose: 20 mg Documented by: Gabapentin (Gabapentin 300 Mg Cap) 300 mg PO BID [facility] Last Admin: 11/27/20 20:35 Dose: 300 mg Documented by: Remdesivir 100 mg/ Sodium (Chloride) 250 mls @ 250 mls/hr IVPB DAILY@1000 [facility] Stop: 11/28/20 10:59 Last Admin: 11/27/20 09:41 Dose: 250 mls/hr Documented by: Sodium Chloride (Saline 0.9%) 1,000 mls @ 75 mls/hr IV .[id number] [facility] Last Admin: 11/27/20 16:08 Dose: 75 mls/hr Documented by: Insulin Aspart (Insulin Aspart (Novolog) 100 Unit/Ml Vial) 0 unit SQ ACHS [facility]; Protocol Last Admin: 11/27/20 21:30 Dose: 5 unit Documented by: Insulin Detemir (Insulin Detemir (Levemir) 100 Unit/Ml Syr) 38 unit SQ HS [facility] Last Admin: 11/27/20 21:30 Dose: 38 unit Documented by: Losartan Potassium (Losartan 25 Mg Tab) 25 mg PO DAILY [facility] Last Admin: 11/27/20 09:42 Dose: 25 mg Documented by: Metformin HCl (Metformin 500 Mg Tab) 1,000 mg PO W/BRKFST [facility] Last Admin: 11/27/20 06:33 Dose: 1,000 mg Documented by: Miscellaneous Information (Magnesium Replacement Protocol 1 Each Misc) 1 each MISCELLANE DAILY PRN; Protocol PRN Reason: Per Protocol Miscellaneous Information (Potassium Replacement Protocol 1 Each Misc) 1 each MISCELLANE DAILY PRN PRN Reason: Per Protocol Multivitamins (Multivitamins, Thera 1 Each Tab) 1 each PO DAILY [facility] Last Admin: 11/27/20 09:42 Dose: 1 each Documented by: Pantoprazole Sodium (Pantoprazole 40 Mg Tablet) 40 mg PO AC-BRKFST [facility] Last Admin: 11/27/20 06:33 Dose: 40 mg Documented by: Pioglitazone HCl (Pioglitazone 30 Mg Tab) 30 mg PO DAILY [facility] Last Admin: 11/27/20 09:42 Dose: 30 mg Documented by: Rivaroxaban (Rivaroxaban 20 Mg Tab) 20 mg PO DAILY [facility] Last Admin: 11/27/20 09:41 Dose: 20 mg Documented by: Thiamine HCl (Thiamine 100 Mg Tab) 100 mg PO DAILY [facility] Last Admin: 11/27/20 09:41 Dose: 100 mg Documented by: Zinc Sulfate (Zinc Sulfate 220 Mg Cap) 220 mg PO DAILY [facility] Last Admin: 11/27/20 09:42 Dose: 220 mg Documented by: Past medical history to include: Diabetes mellitus type 2, GERD, hypertension, coronary artery disease with stent, primary osteoarthritis Social history: No smoking. Alcohol rarely. Physical examination: VITAL SIGNS: 96.9, 52, 24, hard 36/64, 94% on 4 L GENERAL: Sitting up in a chair, eating his lunch NEUROLOGICAL: Moving all 4 limbs-no facial asymmetry PSYCH: Answering questions Rest of exam as per pulmonary, nursing INVESTIGATIONS, reviewed in the clinical context: Febrile : D-dimer 0.38 CRP 25.2 November 26: White count 9.3 hemoglobin 12.3 potassium 3.8 creatinine 0.99 CRP 29.7 November 25: D-dimer 0.5 to CRP 22.6 pro-calcitonin 0.08 November 24: Potassium 5 creatinine 1.2 to. Accu-Cheks 247, 296 ProBNP 634 d-dimer 0.49 CRP 10.6 Potassium 4.6 bun 59 creatinine 1.37 White count 11.7 hemoglobin 14.1 platelets 393 potassium 5.4 bun 59 creatinine 1.44 blood glucose 504 Serum acetone positive Coronavirus [PCR]-detected EKG tracing personally reviewed by me-sinus rhythm right bundle-branch block Chest x-ray film personally reviewed by me-bilateral infiltrates Assessment and plan: -Bilateral COVID 19 pneumonia-started on dexamethasone, vitamin C vitamin D zinc. Remdesivir. Convalescent plasma. Slowly improving -Acute hypoxic respiratory failure from COVID 19-oxygen support oxygen on 4 L nasal cannula.-Slow to respond -Chronic congestive heart failure from diastolic dysfunction EF 50-55% -Moderate mitral, moderate to severe tricuspid regurgitation, nontraumatic -Moderate to severe secondary pulmonary hypertension -Chronic PE on Xarelto -Diabetic ketoacidosis-insulin drip protocol-corrected -Diabetes mellitus type 2, uncontrolled with hyperglycemia steroids. Levemir increased. -GERD-add Pepcid -Essential hypertension -Primary osteoarthritis-analgesia as needed Hopefully discharge in 24-48 hours
[2020-11-28 02:20] LABS: Glucose,Whole Blood 183 mg/dL (75-99)
[2020-11-28 06:16] LABS: Glucose,Whole Blood 125 mg/dL (75-99)
[2020-11-28] MEDS: INSULIN ASPART (NovoLOG) 100 UNIT/ML VIAL SQ SCH ×7 (06:19→20:21)
[2020-11-28] MEDS: PANTOPRAZOLE 40 MG TABLET PO SCH (06:39)
[2020-11-28] MEDS: metFORMIN 500 MG TAB PO SCH (06:39)
--- NOTE | 2020-11-28 07:15 | XR ---
EXAMINATION TYPE: XR chest 1V portable DATE OF EXAM: 11/28/2020 HISTORY: Shortness of breath. COMPARISON: 11/27/2020 TECHNIQUE: Single view of the chest is submitted. FINDINGS: Demonstrated are scattered senescent parenchymal change. Persistent mixed interstitial and alveolar infiltrates throughout both lung gardner without significan t interval change. The heart is stable. Hilar and mediastinal structures are within normal limits. Degenerative changes are seen of the dorsal spine. IMPRESSION: 1. Persistent mixed interstitial and alveolar infiltrates throughout both lung gardner without signif icant interval change.
[2020-11-28 08:24] LABS: C Reactive Protein 24.4 mg/L (<10.0)
[2020-11-28] MEDS: REMDESIVIR 100 MG in SODIUM CHLORIDE 0.9% 250 ML IVPB SCH (08:47)
[2020-11-28] MEDS: SODIUM CHLORIDE 0.9% 1,000 ML IV SCH (08:47)
[2020-11-28] MEDS: CHOLECALCIFEROL 25 MCG (1000 IU) TABLET PO SCH (08:48)
[2020-11-28] MEDS: ASCORBIC ACID 500 MG TAB PO SCH ×2 (08:48→20:16)
[2020-11-28] MEDS: GABAPENTIN 300 MG CAP PO SCH ×2 (08:48→20:16)
[2020-11-28] MEDS: FAMOTIDINE 20 MG TAB PO SCH ×2 (08:48→20:16)
[2020-11-28] MEDS: THIAMINE 100 MG TAB PO SCH (08:48)
[2020-11-28] MEDS: ZINC SULFATE 220 MG CAP PO SCH (08:48)
[2020-11-28] MEDS: ASPIRIN 81 MG PO SCH (08:48)
[2020-11-28] MEDS: LOSARTAN 25 MG TAB PO SCH (08:48)
[2020-11-28] MEDS: PIOGLITAZONE 30 MG TAB PO SCH (08:48)
[2020-11-28] MEDS: MULTIVITAMINS, THERA 1 EACH TAB PO SCH (08:48)
[2020-11-28] MEDS: RIVAROXABAN 20 MG TAB PO SCH (08:48)
[2020-11-28] MEDS: dexAMETHasone 2 MG TAB PO SCH (08:48)
[2020-11-28] MEDS: ATORVASTATIN 20 MG TAB PO SCH (08:49)
--- NOTE | 2020-11-28 10:05 | ECHOF ---
Referral Reason:LV function MEASUREMENTS -------- HEIGHT: 172.7 cm WEIGHT: 64.0 kg BP: 142/67 RVIDd: 2.8 cm (< 3.3) IVSd: 1.5 cm (0.6 - 1.1) LVIDd: 3.5 cm (3.9 - 5.3) LVPWd: 2.0 cm (0.6 - 1.1) IVSs: 2.0 cm LVIDs: 2.5 cm LVPWs: 1.9 cm LAESV Index (A-L): 26.65 ml/m Ao Diam: 2.8 cm (2.0 - 3.7) AV Cusp: 1.9 cm (1.5 - 2.6) LA Diam: 4.0 cm (2.7 - 3.8) MV EXCURSION: 23.254 mm (> 18.000) MV EF SLOPE: 76 mm/s (70 - 150) EPSS: 0.3 cm MV E Damien: 0.54 m/s MV DecT: 370 ms MV A Damien: 0.82 m/s MV E/A Ratio: 0.66 RAP: 5.00 mmHg RVSP: 37.92 mmHg FINDINGS -------- Sinus rhythm. This was a technically adequate study. The left ventricular size is normal. There is severe concentric left ventricular hypertrophy. Ove rall left ventricular systolic function is normal with, an EF between 55 - 60 %. The diastolic fill ing pattern is normal for the age of the patient 12.70. The right ventricle is normal in size. Normal LA size by volume 22+/-6 ml/m2. The right atrial size is normal. Interatrial and interventricular septum intact. The aortic valve is trileaflet, and appears structurally normal. No aortic stenosis or regurgitation. The mitral valve is normal. There is trace to mild mitral regurgitation. The tricuspid valve appears structurally normal. Mild tricuspid regurgitation present. There is m ild pulmonary hypertension. The right ventricular systolic pressure, as measured by Doppler, is 37. 92mmHg. Trace/mild (physiologic) pulmonic regurgitation. The aortic root size is normal. Normal inferior vena cava with normal inspiratory collapse consistent with estimated right atrial pre ssure of 5 mmHg. There is no pericardial effusion. CONCLUSIONS -------- 1. There is severe concentric left ventricular hypertrophy. 2. Overall left ventricular systolic function is normal with, an EF between 55 - 60 %. 3. Normal LA size by volume 22+/-6 ml/m2. 4. The aortic valve is trileaflet, and appears structurally normal. No aortic stenosis or regurgitati on. 5. There is trace to mild mitral regurgitation. 6. Mild tricuspid regurgitation present. 7. There is mild pulmonary hypertension. 8. Trace/mild (physiologic) pulmonic regurgitation. 9. There is no pericardial effusion. PLATE TAKE OUT WORKER: Amanda Roland RDCS
--- NOTE | 2020-11-28 11:51 | P.PN ---
Subjective Progress Note Date: 11/28/20 68-year-old male patient hospitalized for shortness of breath under the diagnosis of colitis/chronic ventilatory pneumonia. The patient is known to have cardiac disease including coronary artery disease and the patient has had previous cardiac catheterization and stenting. The patient also is diabetic and has history of chronic pulmonary embolism maintained on long-term anticoagulation. Other comorbidities include osteoarthritis and acid reflux. This patient came into the emergency department complaining of generalized fatigue and weakness. Patient was diagnosed approximately 2 days ago to have COVID 19. The patient was progressively getting weaker and was having also shortness of breath and the patient's pulse ox respiratory and the pulse ox was in the 70s at time of admission. No fever. He was having some cough along with shortness of breath. No chest pain. No altered mentation. No swelling lower extremities. No nausea vomiting or diarrhea. Initially the time of admission, his sugar was elevated at 504. He did have a acute kidney injury with a mild anion gap metabolic acidosis. The gap was 19 with a serum bicarb of 20 and the patient was given IV fluids and insulin and his creatinine is down to 1.05 and he has no significant anion gap metabolic acidosis this point and the serum bicarb is up to 25. The urine was positive for ketones and as such there was a concern of an underlying diabetic ketoacidosis. Serum acetone was also positive. On his CBC, the patient had a component of lymphopenia with a white cell count of 11.7. At this point in time the patient is currently on 4 L of oxygen by nasal cannula and a chest x-ray showing patchy perihilar and basilar pulmonary infiltration consistent with pneumonia. This morning, the patient has no resting comfortably in bed. Overnight, his oxygenation has been worse and the patient has been placed on 15 L of oxygen by nasal cannula. His chest x-ray showing bilateral perihilar and she pulmonary infiltrates more so in the peripheries. He has no chest pain. He has significant oral dryness. His evaluation of 11/25/2020 the patient is awake. He is stating that he is the same. Stop all day yesterday and his current pulse ox is 96%. 3 L of oxygen by nasal cannula. CRP is 22.6. His d-dimer is low at 0.52. Noted the patient is currently receiving Decadron 6 mg IV every 24 hours. He was also started on Remdesivir an 80 also received a unit of, less than plasma. No side effects to those treatments. He has a good appetite. He is tolerating his diet. No nausea. No vomiting. No abdominal pain. His blood sugars under adequate control for now most recent blood sugar being at 132. IV fluids are running at KVO as the patient is taken off 11/26/2020, the patient is reporting some worsening in his shortness of breath. He is up to 5 L of oxygen by nasal cannula and his pulse ox is ranging between 88-90%. His chest x-ray showing some slight interval worsening. He remains on Decadron 6 mg IV every 24 hours. He is also started on Remdesivir #3 and the patient also received 1 units of convalescent plasma. No fever. No chills. No other new complaints otherwise for now. He is having a cough and his cough is dry. No nausea. No vomiting. No abdominal pain. No chest pain. His most of the time in bed. The patient is seen today 11/27/2020 in follow-up on the regular medical floor. He is currently sitting up in a chair at the bedside. Awake and alert. He did have some issues with chest discomfort with inhalation earlier. Follow-up chest x-ray reveals left lower lobe infiltrate with additional bilateral scattered mild infiltrates. Suspect atypical pneumonia secondary to CoVID. He did receive 1 unit of convalescent plasma. D-dimer 0.38. C-reactive protein 25.2. Glucose 178. He remains on dexamethasone, Pepcid, vitamin supplements. He received day 4 of Remdesivir this morning. He is anticoagulated with Xarelto. The patient is seen today 11/28/2020 in follow-up on the regular medical floor. He is currently sitting up in a chair at the bedside. Awake and alert in no acute distress. Feeling stronger today. Less short of breath. He is maintaining O2 saturations in the 90s on 2 L/m per nasal cannula. He is afebrile. C-reactive protein 24.4. LDH 507. D-dimer 0.37. Glucose 125. Receiving his last dose of Remdesivir today. Remains at dexamethasone. Xarelto. Objective - Vital Signs Vital signs: Vital Signs Temp 97.2 F L 11/28/20 11:25 Pulse 48 L 11/28/20 11:25 Resp 18 11/28/20 11:30 BP 126/60 11/28/20 11:25 Pulse Ox 91 L 11/28/20 11:30 Intake & Output 11/27/20 11/28/20 11/28/20 18:59 06:59 18:59 Intake Total 1435 475 250 Output Total 1250 2150 Balance 185 -1675 250 Weight 64 kg Intake: IV 20 10 Invasive Line 2 20 10 Oral 1415 475 240 Output: Urine 1250 2150 Other: Voiding Method Urinal Urinal # Voids 1 - Exam GENERAL EXAM: Alert, very pleasant, 69-year-old male patient, up in a chair at the bedside, on 2 liters with a pulse ox of 91%, comfortable in no apparent distress. HEAD: Normocephalic/atraumatic. EYES: Normal reaction of pupils, equal size. Conjunctiva pink, sclera white. NOSE: Clear with pink turbinates. THROAT: No erythema or exudates. NECK: No masses, no JVD, no thyroid enlargement, no adenopathy. CHEST: No chest wall deformity. Symmetrical expansion. LUNGS: Equal air entry with bibasilar crackles left greater than right CVS: Regular rate and rhythm, normal S1 and S2, no gallops, no murmurs, no rubs ABDOMEN: Soft, nontender. No hepatosplenomegaly, normal bowel sounds, no guarding or rigidity. EXTREMITIES: No clubbing, no edema, no cyanosis, 2+ pulses and upper and lower extremities. MUSCULOSKELETAL: Muscle strength and tone normal. SPINE: No scoliosis or deformity SKIN: No rashes CENTRAL NERVOUS SYSTEM: Alert and oriented -3. No focal deficits, tone is normal in all 4 extremities. PSYCHIATRIC: Alert and oriented -3. Appropriate affect. Intact judgment and insight. - Labs CBC & Chem 7: 11/26/20 09:40 11/26/20 09:40 Labs: Abnormal Lab Results - Last 24 Hours (Table) 11/27/20 11/27/20 11/27/20 Range/Units 09:59 11:48 16:41 POC Glucose (mg/dL) 178 H 336 H (75-99) mg/dL C-Reactive Protein 25.2 H (<10.0) mg/L 11/27/20 11/28/20 11/28/20 Range/Units 19:37 02:18 06:15 POC Glucose (mg/dL) 297 H 183 H 125 H (75-99) mg/dL C-Reactive Protein (<10.0) mg/L 11/28/20 Range/Units 07:42 POC Glucose (mg/dL) (75-99) mg/dL C-Reactive Protein 24.4 H (<10.0) mg/L Assessment and Plan Assessment: 1 Acute coronavirus COVID 19-related pneumonia with secondary hypoxic respiratory failure and the patient is currently on dexamethasone, vitamin C vitamin D zinc, Xarelto. Clinically improving. Oxygenation is stable at 2 L by nasal cannula. He is also completing a course of Remdesivir. He received 1 unit of convalescent plasma 2 Shortness of breath secondary to above 3 Chronic congestive heart failure from diastolic dysfunction EF 50-55% 4 Moderate mitral, moderate to severe tricuspid regurgitation, nontraumatic with secondary moderate to severe secondary pulmonary hypertension 5 History of PE on Xarelto, and the patient was in the hospital in 01/2020 and he was found to have small subsegmental pulmonary emboli to the anterior left upper lobe and questionable subsegmental pulmonary emboli of the bilateral lower lobes, with suggestion of right heart strain 6 Diabetes mellitus type 2 with a component of DKA, treated 7 GERD 8 Essential hypertension 9 Primary osteoarthritis-analgesia as needed Plan The patient was seen and evaluated by Dr. Cortes Completed Remdesivir today Received 1 unit of convalescent plasma Anticoagulated with Xarelto Continue dexamethasone, vitamin supplements Titrate down the FiO2 as tolerated We will continue to follow I, the cosigning physician, performed a history & physical examination of the patient. Lungs sounds with bibasilar crackles left greater than right. Maintaining good O2 saturations in the 90s on 2 L/m per nasal cannula. I discussed the assessment and plan of care with my nurse practitioner, Wendy Goodwin. I attest to the above note as dictated by her.
[2020-11-28 12:09] LABS: Glucose,Whole Blood 146 mg/dL (75-99)
--- NOTE | 2020-11-28 12:18 | P.PN ---
Subjective Progress Note Date: 11/28/20 CHIEF COMPLAINT: Atrial fibrillation HISTORY OF PRESENT ILLNESS: 11/27/2020 This is a 70-year-old male with a past medical history significant for coronary artery disease, diabetes mellitus, GERD, hypertension, osteoarthritis, and PE on anticoagulation with Xarelto. Patient follows in the office with Dr. Erickson. Patient is currently admitted to the hospital secondary to Covid. EKG completed this morning reveals questionable atrial fibrillation, hence consult to cardiology was placed. EKG reviewed by Dr. Younger revealing sinus bradycardia. Telemetry tracings revealed as well with no evidence of atrial fibrillation. Echocardiogram completed January 2020 revealed ejection fraction 50-55%, moderate mitral regurgitation, moderate to severe tricuspid regurgitation, and moderate to severe pulmonary hypertension 11/28/2020 Telemetry reviewed without evidence of atrial fibrillation. Echocardiogram completed reveals ejection fraction 55-60%, trace to mild mitral regurgitation, mild tricuspid regurgitation, and mild pulmonary hypertension. Vital signs are stable. Blood pressure 126/60. He is afebrile. Patient is on 3 L nasal cannula with oxygen saturations greater than 92%. PHYSICAL EXAM: Thorough physical exam not completed secondary to limited evaluation/examination and due to Covid19 ASSESSMENT: Covid 19 pneumonia Coronary artery disease, status post cardiac cath in 2018 revealing intermediate disease of large ramus intermedius branch, medical management recommended Hypertension Hyperlipidemia History of PE, on anticoagulation with Xarelto PLAN: Patient is currently stable from a cardiac perspective. We will sign off. Please reconsult if needed. Nurse practitioner note has been reviewed by physician. Signing provider agrees with the documented findings, assessment, and plan of care. Objective - Vital Signs Vital signs: Vital Signs Temp 97.2 F L 11/28/20 11:25 Pulse 48 L 11/28/20 11:25 Resp 18 11/28/20 11:30 BP 126/60 11/28/20 11:25 Pulse Ox 91 L 11/28/20 11:30 Intake & Output 11/27/20 11/28/20 11/28/20 18:59 06:59 18:59 Intake Total 1435 475 250 Output Total 1250 2150 Balance 185 -1675 250 Weight 64 kg Intake: IV 20 10 Invasive Line 2 20 10 Oral 1415 475 240 Output: Urine 1250 2150 Other: Voiding Method Urinal Urinal # Voids 1 - Labs CBC & Chem 7: 11/26/20 09:40 11/26/20 09:40 Labs: Abnormal Lab Results - Last 24 Hours (Table) 11/27/20 11/27/20 11/28/20 Range/Units 16:41 19:37 02:18 POC Glucose (mg/dL) 336 H 297 H 183 H (75-99) mg/dL C-Reactive Protein (<10.0) mg/L 11/28/20 11/28/20 11/28/20 Range/Units 06:15 07:42 12:08 POC Glucose (mg/dL) 125 H 146 H (75-99) mg/dL C-Reactive Protein 24.4 H (<10.0) mg/L
[2020-11-28 17:23] LABS: Glucose,Whole Blood 237 mg/dL (75-99)
[2020-11-28 20:04] LABS: Glucose,Whole Blood 226 mg/dL (75-99)
[2020-11-28] MEDS: INSULIN DETEMIR (LEVEMIR) 100 UNIT/ML SYR SQ SCH (20:22)
--- NOTE | 2020-11-28 20:23 | P.PN ---
Progress Note - Text Progress Note Date: 11/28/20 Chief Complaint: Tired History of presenting complaint: This is a pleasant 70-year-old patient of Dr. Long Hobbs. Patient has a very strong Azeri accent his Lithuanian speaking is limited. Chronic stable medical conditions include diabetes mellitus type 2, GERD, hypertension, PE, primary osteoarthritis. Has a prior history of cardiac catheterization with stent. Patient presents to the ER. Complaint of short of breath weakness. Diagnosed with COVID. Last 2 days and become much more weaker in finding it difficult to stand. Short of breath. Pulse ox by the EMS was 70%. Slight cough. No headaches. Loss of taste and smell.. Feels rather tired and rundown. Admitted with bilateral COVID 19 pneumonia, acute hypoxic respiratory failure. Patient started on Remdesivir, vitamin C vitamin D IV fluids dexamethasone. Xarelto continued. Also received convalescent plasma. Today-sitting up in a chair. Eating about 100%. Breathing better. FiO2 3 L. Slight cough. Looking better Review of systems: Was done for constitutional, cardiovascular, GI, pulmonary. relevant finding as above Active Medications Ascorbic Acid (Ascorbic Acid 500 Mg Tab) 500 mg PO BID [facility] Last Admin: 11/28/20 20:16 Dose: 500 mg Documented by: Aspirin (Aspirin 81 Mg) 81 mg PO DAILY [facility] Last Admin: 11/28/20 08:48 Dose: 81 mg Documented by: Atorvastatin Calcium (Atorvastatin 20 Mg Tab) 20 mg PO DAILY [facility] Last Admin: 11/28/20 08:49 Dose: 20 mg Documented by: Cholecalciferol (Cholecalciferol 25 Mcg (1000 Iu) Tablet) 25 mcg PO DAILY [facility] Last Admin: 11/28/20 08:48 Dose: 25 mcg Documented by: Dexamethasone (Dexamethasone 2 Mg Tab) 6 mg PO DAILY [facility] Last Admin: 11/28/20 08:48 Dose: 6 mg Documented by: Diphenoxylate HCl/Atropine (Diphenox-Atrop 2.5-0.025 Mg 1 Each Tab) 1 each PO TID PRN PRN Reason: Diarrhea Last Admin: 11/27/20 09:41 Dose: 1 each Documented by: Famotidine (Famotidine 20 Mg Tab) 20 mg PO BID [facility] Last Admin: 11/28/20 20:16 Dose: 20 mg Documented by: Gabapentin (Gabapentin 300 Mg Cap) 300 mg PO BID [facility] Last Admin: 11/28/20 20:16 Dose: 300 mg Documented by: Insulin Aspart (Insulin Aspart (Novolog) 100 Unit/Ml Vial) 0 unit SQ ACHS [facility]; Protocol Last Admin: 11/28/20 17:47 Dose: 3 unit Documented by: Insulin Aspart (Insulin Aspart (Novolog) 100 Unit/Ml Vial) 6 unit SQ AC-TID [facility] Last Admin: 11/28/20 17:46 Dose: 6 unit Documented by: Insulin Detemir (Insulin Detemir (Levemir) 100 Unit/Ml Syr) 38 unit SQ HS [facility] Last Admin: 11/27/20 21:30 Dose: 38 unit Documented by: Losartan Potassium (Losartan 25 Mg Tab) 25 mg PO DAILY [facility] Last Admin: 11/28/20 08:48 Dose: 25 mg Documented by: Metformin HCl (Metformin 500 Mg Tab) 1,000 mg PO W/BRKFST [facility] Last Admin: 11/28/20 06:39 Dose: 1,000 mg Documented by: Miscellaneous Information (Magnesium Replacement Protocol 1 Each Misc) 1 each MISCELLANE DAILY PRN; Protocol PRN Reason: Per Protocol Miscellaneous Information (Potassium Replacement Protocol 1 Each Misc) 1 each MISCELLANE DAILY PRN PRN Reason: Per Protocol Multivitamins (Multivitamins, Thera 1 Each Tab) 1 each PO DAILY [facility] Last Admin: 11/28/20 08:48 Dose: 1 each Documented by: Pantoprazole Sodium (Pantoprazole 40 Mg Tablet) 40 mg PO AC-BRKFST [facility] Last Admin: 11/28/20 06:39 Dose: 40 mg Documented by: Pioglitazone HCl (Pioglitazone 30 Mg Tab) 30 mg PO DAILY [facility] Last Admin: 11/28/20 08:48 Dose: 30 mg Documented by: Rivaroxaban (Rivaroxaban 20 Mg Tab) 20 mg PO DAILY [facility] Last Admin: 11/28/20 08:48 Dose: 20 mg Documented by: Thiamine HCl (Thiamine 100 Mg Tab) 100 mg PO DAILY [facility] Last Admin: 11/28/20 08:48 Dose: 100 mg Documented by: Zinc Sulfate (Zinc Sulfate 220 Mg Cap) 220 mg PO DAILY [facility] Last Admin: 11/28/20 08:48 Dose: 220 mg Documented by: Past medical history to include: Diabetes mellitus type 2, GERD, hypertension, coronary artery disease with stent, primary osteoarthritis Social history: No smoking. Alcohol rarely. Physical examination: VITAL SIGNS: 97.2, 48, 18, 126/60, 94% on 3 L GENERAL: Sitting up in a chair, more comfortable, looking better NEUROLOGICAL: Moving all 4 limbs-no facial asymmetry PSYCH: Answering questions Rest of exam as per pulmonary, nursing INVESTIGATIONS, reviewed in the clinical context: November 28: D-dimer 0.37 CRP 24.4 November 27: D-dimer 0.38 CRP 25.2 November 26: White count 9.3 hemoglobin 12.3 potassium 3.8 creatinine 0.99 CRP 29.7 November 25: D-dimer 0.5 to CRP 22.6 pro-calcitonin 0.08 November 24: Potassium 5 creatinine 1.2 to. Accu-Cheks 247, 296 ProBNP 634 d-dimer 0.49 CRP 10.6 Potassium 4.6 bun 59 creatinine 1.37 White count 11.7 hemoglobin 14.1 platelets 393 potassium 5.4 bun 59 creatinine 1.44 blood glucose 504 Serum acetone positive Coronavirus [PCR]-detected EKG tracing personally reviewed by me-sinus rhythm right bundle-branch block Chest x-ray film personally reviewed by me-bilateral infiltrates Assessment and plan: -Bilateral COVID 19 pneumonia-started on dexamethasone, vitamin C vitamin D zinc. Remdesivir. Convalescent plasma. Improving -Acute hypoxic respiratory failure from COVID 19-oxygen support oxygen on 3 L nasal cannula.-Improving -Chronic congestive heart failure from diastolic dysfunction EF 50-55% -Moderate mitral, moderate to severe tricuspid regurgitation, nontraumatic -Moderate to severe secondary pulmonary hypertension -Chronic PE on Xarelto -Diabetic ketoacidosis-insulin drip protocol-corrected -Diabetes mellitus type 2, uncontrolled with hyperglycemia steroids. Levemir increased. -GERD-add Pepcid -Essential hypertension -Primary osteoarthritis-analgesia as needed Doing better.
[2020-11-29 02:01] LABS: Glucose,Whole Blood 133 mg/dL (75-99)
[2020-11-29 05:04] VITALS: RESP 18
[2020-11-29 06:08] LABS: Glucose,Whole Blood 103 mg/dL (75-99)
[2020-11-29] MEDS: INSULIN ASPART (NovoLOG) 100 UNIT/ML VIAL SQ SCH ×5 (06:26→12:10)
[2020-11-29] MEDS: metFORMIN 500 MG TAB PO SCH (06:40)
[2020-11-29] MEDS: PANTOPRAZOLE 40 MG TABLET PO SCH (06:40)
[2020-11-29] MEDS: dexAMETHasone 2 MG TAB PO SCH (09:15)
[2020-11-29] MEDS: GABAPENTIN 300 MG CAP PO SCH (09:15)
[2020-11-29] MEDS: FAMOTIDINE 20 MG TAB PO SCH (09:15)
[2020-11-29] MEDS: ASPIRIN 81 MG PO SCH (09:15)
[2020-11-29] MEDS: CHOLECALCIFEROL 25 MCG (1000 IU) TABLET PO SCH (09:15)
[2020-11-29] MEDS: ASCORBIC ACID 500 MG TAB PO SCH (09:15)
[2020-11-29] MEDS: ATORVASTATIN 20 MG TAB PO SCH (09:15)
[2020-11-29] MEDS: PIOGLITAZONE 30 MG TAB PO SCH (09:18)
[2020-11-29] MEDS: MULTIVITAMINS, THERA 1 EACH TAB PO SCH (09:18)
[2020-11-29] MEDS: RIVAROXABAN 20 MG TAB PO SCH (09:18)
[2020-11-29] MEDS: LOSARTAN 25 MG TAB PO SCH (09:18)
[2020-11-29] MEDS: ZINC SULFATE 220 MG CAP PO SCH (09:18)
[2020-11-29] MEDS: THIAMINE 100 MG TAB PO SCH (09:18)
[2020-11-29 11:52] VITALS: BP 126/59; TEMP 98.2
[2020-11-29 11:55] VITALS: PULSE 53
[2020-11-29 12:01] LABS: Glucose,Whole Blood 180 mg/dL (75-99)
--- NOTE | 2020-11-29 23:53 | P.DS ---
Providers Date of admission: 11/23/20 10:51 Expected date of discharge: 11/29/20 Attending physician: Sunny Rodriguez Consults: 11/23/20 10:50 Consult Physician Urgent Consulting Provider: Marty Tate Reason/Comments: COVID pneumonia Do you want consulting provider notified?: Yes Primary care physician: Long Hobbs [facility] Course: Chief Complaint: Tired History of presenting complaint: This is a pleasant 70-year-old patient of Dr. Long Hobbs. Patient has a very strong Bulgarian accent his Liberian speaking is limited. Chronic stable medical conditions include diabetes mellitus type 2, GERD, hypertension, PE, primary osteoarthritis. Has a prior history of cardiac catheterization with stent. Patient presents to the ER. Complaint of short of breath weakness. Diagnosed with COVID. Last 2 days and become much more weaker in finding it difficult to stand. Short of breath. Pulse ox by the EMS was 70%. Slight cough. No he adaches. Loss of taste and smell.. Feels rather tired and rundown. Admitted with bilateral COVID 19 pneumonia, acute hypoxic respiratory failure. Patient started on Remdesivir, vitamin C vitamin D IV fluids dexamethasone. Xarelto continued. Also received convalescent plasma. Today-sitting up. Eating well. Pulse ox 93% room air. Feeling much better. Consultants: Dr. Odell Renee-cardiology Dr. Cortes from pulmonary Past medical history to include: Diabetes mellitus type 2, GERD, hypertension, coronary artery disease with stent, primary osteoarthritis Social history: No smoking. Alcohol rarely. Physical examination: VITAL SIGNS: 98.2, 58, 18, 1 26 x 59, 93% room air GENERAL: Sitting up, comfortable NEUROLOGICAL: Moving all 4 limbs-no facial asymmetry PSYCH: Answering questions Rest of exam as per pulmonary, nursing INVESTIGATIONS, reviewed in the clinical context: November 28: D-dimer 0.37 CRP 24.4 November 27: D-dimer 0.38 CRP 25.2 November 26: White count 9.3 hemoglobin 12.3 potassium 3.8 creatinine 0.99 CRP 29.7 November 25: D-dimer 0.5 to CRP 22.6 pro-calcitonin 0.08 November 24: Potassium 5 creatinine 1.2 to. Accu-Cheks 247, 296 ProBNP 634 d-dimer 0.49 CRP 10.6 Potassium 4.6 bun 59 creatinine 1.37 White count 11.7 hemoglobin 14.1 platelets 393 potassium 5.4 bun 59 creatinine 1.44 blood glucose 504 Serum acetone positive Coronavirus [PCR]-detected EKG tracing personally reviewed by me-sinus rhythm right bundle-branch block Chest x-ray film personally reviewed by me-bilateral infiltrates Assessment and plan: -Bilateral COVID 19 pneumonia-started on dexamethasone, vitamin C vitamin D zinc. Remdesivir. Convalescent plasma. Responded well -Acute hypoxic respiratory failure from COVID 19-oxygen support oxygen on 3 L nasal cannula.-Now 93% room air -Chronic congestive heart failure from diastolic dysfunction EF 50-55% -Moderate mitral, moderate to severe tricuspid regurgitation, nontraumatic -Moderate to severe secondary pulmonary hypertension -Chronic PE on Xarelto -Diabetic ketoacidosis-insulin drip protocol-corrected -Diabetes mellitus type 2, uncontrolled with hyperglycemia steroids. -GERD-add Pepcid -Essential hypertension -Primary osteoarthritis-analgesia as needed Disposition: Home with son Additional instructions: Patient will take Lantus 30 units for 2 days then drop down to 20 units a day. Patient Condition at Discharge: Stable Plan - Discharge Summary Discharge Rx Participant: Yes New Discharge Prescriptions: New Famotidine [Pepcid] 20 mg PO BID #60 tab Pantoprazole [Protonix] 40 mg PO AC-BRKFST tablet. Ascorbic Acid [Vitamin C] 500 mg PO BID #60 tab Continue Gabapentin 300 mg PO BID Aspirin [Adult Low Dose Aspirin EC] 81 mg PO DAILY metFORMIN HCL [Glucophage] 1,000 mg PO BID Pioglitazone [Actos] 30 mg PO DAILY Insulin Glargine,Hum.rec.anlog [Lantus Solostar] 20 unit SQ DAILY Diphenox-Atrop 2.5-0.025 mg [Lomotil] 1 tab PO TID PRN PRN Reason: Diarrhea Losartan [Cozaar] 25 mg PO DAILY #30 tab Rivaroxaban [Xarelto] 20 mg PO DAILY Cholecalciferol [Vitamin D3 (25 Mcg = 1000 Iu)] 25 mcg PO DAILY Multivit-Min/FA/Lycopen/Lutein [Centrum Silver Tablet] 1 tab PO DAILY Fish Oil/Dha/Epa [Fish Oil 1,200 mg Fish Oil] 1 cap PO DAILY Empagliflozin/Linagliptin [Glyxambi 25 mg-5 mg Tablet] 1 tab PO DAILY Atorvastatin [Lipitor] 20 mg PO DAILY Thiamine [Vitamin B-1] 50 mg PO DAILY Zinc Sulfate [Orazinc] 220 mg PO DAILY #30 cap dexAMETHasone [Hexadrol] 6 mg PO DAILY #6 tab Discontinued Omeprazole [PriLOSEC] 40 mg PO DAILY hydrOXYzine HCL 25 mg PO DAILY Discharge Medication List Aspirin [Adult Low Dose Aspirin EC] 81 mg PO DAILY 07/22/16 [History] Gabapentin 300 mg PO BID 07/22/16 [History] Diphenox-Atrop 2.5-0.025 mg [Lomotil] 1 tab PO TID PRN 02/13/20 [History] Insulin Glargine,Hum.rec.anlog [Lantus Solostar] 20 unit SQ DAILY 02/13/20 [History] Pioglitazone [Actos] 30 mg PO DAILY 02/13/20 [History] metFORMIN HCL [Glucophage] 1,000 mg PO BID 02/13/20 [History] Losartan [Cozaar] 25 mg PO DAILY #30 tab 02/15/20 [Rx] Atorvastatin [Lipitor] 20 mg PO DAILY 11/15/20 [History] Cholecalciferol [Vitamin D3 (25 Mcg = 1000 Iu)] 25 mcg PO DAILY 11/15/20 [History] Empagliflozin/Linagliptin [Glyxambi 25 mg-5 mg Tablet] 1 tab PO DAILY 11/15/20 [History] Fish Oil/Dha/Epa [Fish Oil 1,200 mg Fish Oil] 1 cap PO DAILY 11/15/20 [History] Multivit-Min/FA/Lycopen/Lutein [Centrum Silver Tablet] 1 tab PO DAILY 11/15/20 [History] Rivaroxaban [Xarelto] 20 mg PO DAILY 11/15/20 [History] Thiamine [Vitamin B-1] 50 mg PO DAILY 11/15/20 [History] Zinc Sulfate [Orazinc] 220 mg PO DAILY #30 cap 11/18/20 [Rx] Ascorbic Acid [Vitamin C] 500 mg PO BID #60 tab 11/29/20 [Rx] Famotidine [Pepcid] 20 mg PO BID #60 tab 11/29/20 [Rx] Pantoprazole [Protonix] 40 mg PO AC-BRKFST tablet. 11/29/20 [Rx] dexAMETHasone [Hexadrol] 6 mg PO DAILY #6 tab 11/29/20 [Rx] Follow up Appointment(s)/Referral(s): Long Hobbs MD [Primary Care Provider] - 1-2 days Patient Instructions/Handouts: Coronavirus Disease 2019 (COVID-19), Viral Pneumonia (ED), SARS (Severe Acute Respiratory Syndrome) (ED) Activity/Diet/Wound Care/Special Instructions: lantus 30 units sq daily for 2 days then 20 mg sq daily to continue Discharge Disposition: HOME SELF-CARE
== END 2020-11-29 18:30 | disposition home or self-care (01) | DRG 177 ==
LOC: EC 09:06 → 3SCARD 10:51
PROVIDERS: ADMIT Hospitalist; ATTEND Hospitalist
PROC: XW033E5 Introduction of Remdesivir Anti-infective into Peripheral Vein, Percutaneous Approach, New Technology Group 5 (ICD-10-PCS; principal; 2020-11-23)
PROC: XW13325 Transfusion of Convalescent Plasma (Nonautologous) into Peripheral Vein, Percutaneous Approach, New Technology Group 5 (ICD-10-PCS; principal; 2020-11-23)
DX: U07.1 COVID-19 (principal); E11.10 Type 2 diabetes mellitus with ketoacidosis without coma; J12.82 Pneumonia due to coronavirus disease 2019; J96.01 Acute respiratory failure with hypoxia; N17.9 Acute kidney failure, unspecified; I50.32 Chronic diastolic (congestive) heart failure; I27.82 Chronic pulmonary embolism; K21.9 Gastro-esophageal reflux disease without esophagitis; K52.9 Noninfective gastroenteritis and colitis, unspecified; I48.91 Unspecified atrial fibrillation; I45.10 Unspecified right bundle-branch block; I27.29 Other secondary pulmonary hypertension; E78.5 Hyperlipidemia, unspecified; D72.810 Lymphocytopenia; I11.0 Hypertensive heart disease with heart failure; I25.10 Atherosclerotic heart disease of native coronary artery without angina pectoris; I08.1 Rheumatic disorders of both mitral and tricuspid valves; M19.91 Primary osteoarthritis, unspecified site; Z95.5 Presence of coronary angioplasty implant and graft; Z79.899 Other long term (current) drug therapy; Z79.84 Long term (current) use of oral hypoglycemic drugs; Z79.82 Long term (current) use of aspirin; Z79.01 Long term (current) use of anticoagulants; Z88.8 Allergy status to other drugs, medicaments and biological substances; I25.2 Old myocardial infarction; Z98.890 Other specified postprocedural states; Z80.0 Family history of malignant neoplasm of digestive organs
CPT/HCPCS: 36415; 71045; 71046; 80048; 80051; 80053; 81001; 82009; 82565; 82947; 83036; 83605; 83615; 83735; 83880; 84100; 84145; 84484; 84520; 85025; 85379; 85610; 85730; 86140; 86850; 86900; 86901; 87635; 93005; 93306; 96360; 99291

== ENCOUNTER → 2020-12-22 | Outpatient (CLI) | payer MEDICARE ==
--- NOTE | 2020-12-23 10:45 | ECHOF ---
Referral Reason:I31.9 disease of pericardium MEASUREMENTS -------- HEIGHT: 177.8 cm WEIGHT: 82.6 kg BP: RVIDd: 4.4 cm (< 3.3) IVSd: 1.7 cm (0.6 - 1.1) LVIDd: 4.4 cm (3.9 - 5.3) LVPWd: 1.4 cm (0.6 - 1.1) IVSs: 2.1 cm LVIDs: 3.0 cm LVPWs: 1.8 cm LAESV Index (A-L): 36.86 ml/m Ao Diam: 3.9 cm (2.0 - 3.7) AV Cusp: 2.5 cm (1.5 - 2.6) LA Diam: 3.9 cm (2.7 - 3.8) MV EXCURSION: 24.642 mm (> 18.000) MV EF SLOPE: 54 mm/s (70 - 150) EPSS: 0.4 cm MV E Damien: 0.50 m/s MV DecT: 256 ms MV A Damien: 0.68 m/s MV E/A Ratio: 0.73 RAP: 5.00 mmHg RVSP: 41.96 mmHg FINDINGS -------- Sinus rhythm. This was a technically adequate study. The left ventricular size is normal. There is moderate concentric left ventricular hypertrophy. O verall left ventricular systolic function is normal with, an EF between 55 - 60 %. The diastolic fi lling pattern is normal for the age of the patient 11.50. The right ventricle is severely enlarged. LA is moderately dilated 34-39 ml/m2 The right atrium is mildly enlarged. Interatrial and interventricular septum intact. The aortic valve is trileaflet, and appears structurally normal. No aortic stenosis or regurgitation. The mitral valve is normal. Mild mitral regurgitation is present. Mild tricuspid regurgitation present. There is mild pulmonary hypertension. The right ventricular systolic pressure, as measured by Doppler, is 41.96mmHg. There is no pulmonic regurgitation present. The aortic root size is normal. Normal inferior vena cava with normal inspiratory collapse consistent with estimated right atrial pre ssure of 5 mmHg. There is a trivial pericardial effusion present. CONCLUSIONS -------- 1. There is moderate concentric left ventricular hypertrophy. 2. Overall left ventricular systolic function is normal with, an EF between 55 - 60 %. 3. The right ventricle is severely enlarged. 4. LA is moderately dilated 34-39 ml/m2 5. The right atrium is mildly enlarged. 6. The aortic valve is trileaflet, and appears structurally normal. No aortic stenosis or regurgitati on. 7. Mild mitral regurgitation is present. 8. Mild tricuspid regurgitation present. 9. There is mild pulmonary hypertension. [employer] PROGRAMS DIRECTOR: Stella Peck RDCS
== END | disposition home or self-care (01) ==
LOC: RADECHMAIN 14:25
PROVIDERS: ATTEND Family Medicine
DX: I08.1 Rheumatic disorders of both mitral and tricuspid valves (principal); I27.20 Pulmonary hypertension, unspecified
CPT/HCPCS: 93306

== ENCOUNTER → 2020-12-22 | Outpatient (CLI) | payer MEDICARE ==
[2020-12-22 18:42] LABS: Basophils # (A) 0.07 X 10*3/uL (0.00-0.10); Basophils % (A) 0.9 %; Eosinophils # (A) 0.07 X 10*3/uL (0.04-0.35); Eosinophils % (A) 0.9 %; HCT 36.9 % (39.6-50.0); HGB 11.6 g/dL (13.0-17.0); Lymphocytes # (A) 1.44 X 10*3/uL (0.90-5.00); Lymphocytes % (A) 18.5 %; MCHC 31.4 g/dL (32.0-37.0); MCV 85.8 fL (80.0-97.0); Mean Platelet Volume 11.4 fL (9.5-12.2); Monocytes # (A) 0.82 X 10*3/uL (0.20-1.00); Monocytes % (A) 10.5 %; Neutrophils # (A) 5.32 X 10*3/uL (1.80-7.70); Neutrophils % (A) 68.4 %; Platelet Count 519 X 10*3/uL (140-440); RDW 15.8 % (11.5-14.5); WBC 7.78 X 10*3/uL (4.50-10.00)
[2020-12-22 20:02] LABS: Erythrocyte Sedimentation Rate 61 mm/Hr (0-20)
[2020-12-22 20:09] LABS: African American GFR (CKD) 77.3 (60.0-200.0); Albumin 4.2 g/dL (3.80-4.90); Albumin/Globulin Ratio 1.68 (1.60-3.17); Anion Gap 9.8 mmol/L (4.00-12.00); BUN/Creat Ratio 11.82 Ratio (12.00-20.00); Calcium 9.7 mg/dL (8.7-10.3); Carbon Dioxide 27.2 mmol/L (21.6-31.8); Globulin 2.5 g/dL (1.6-3.3); Non-African American GFR(CKD) 66.7 (60.0-200.0); Potassium 3.7 mmol/L (3.5-5.5); Total Bilirubin 0.6 mg/dL (0.2-1.2); Total Protein 6.7 g/dL (6.2-8.2)
== END | disposition home or self-care (01) ==
LOC: LABWHC1 14:15
PROVIDERS: ATTEND Family Medicine
DX: I50.9 Heart failure, unspecified (principal)
CPT/HCPCS: 36415; 80053; 83880; 85025; 85652

== ENCOUNTER 2021-06-12 15:47 | Observation (INO) | payer MEDICARE ==
[2021-06-12] MEDS ORDERED: NITROGLYCERIN SL TABS 0.4 MG TAB SUBLINGUAL STA (16:09)
[2021-06-12 16:19] LABS: Basophils # (A) 0.1 k/uL (0-0.2); Basophils % (A) 1 %; Eosinophils # (A) 0.2 k/uL (0-0.7); Eosinophils % (A) 2 %; HCT 36.9 % (39.0-53.0); HGB 11.8 gm/dL (13.0-17.5); Hypochromasia Slight; Lymphocytes # (A) 1.9 k/uL (1.0-4.8); Lymphocytes % (A) 20 %; MCH 24.4 pg (25.0-35.0); MCHC 31.9 g/dL (31.0-37.0); MCV 76.4 fL (80.0-100.0); Mean Platelet Volume 8.6; Microcytosis Slight; Monocytes # (A) 0.6 k/uL (0-1.0); Monocytes % (A) 7 %; Neutrophils # (A) 6.5 k/uL (1.3-7.7); Neutrophils % (A) 68 %; Platelet Count 229 k/uL (150-450); RBC 4.84 m/uL (4.30-5.90); RDW 15.5 % (11.5-15.5); WBC 9.6 k/uL (3.8-10.6)
[2021-06-12 16:30] LABS: Calcium 10.2 mg/dL (8.4-10.2); Magnesium 1.9 mg/dL (1.6-2.3); Total Bilirubin 0.6 mg/dL (0.2-1.3); Total Protein 7.9 g/dL (6.3-8.2)
[2021-06-12 16:39] LABS: INR 1.1 (<1.2); Partial Thromboplastin Time 29.5 sec (22.0-30.0)
--- NOTE | 2021-06-12 17:34 | XR ---
EXAMINATION TYPE: XR chest 2V DATE OF EXAM: 06/12/2021 COMPARISON: 11/28/2020 HISTORY: Chest pain There is coarsening of the interstitial markings. Heart appears enlarged. Thoracic aorta is atheromat ous. There is poor inspiration. There are chest leads. There is no gross heart failure. IMPRESSION: There is improvement in the extensive pulmonary interstitial pneumonia compared to old ex am.
--- NOTE | 2021-06-12 18:07 | ED ---
Chest Pain [facility] - General Chief Complaint: Chest Pain Stated Complaint: Chest pain Time Seen by Provider: 06/12/21 15:54 Source: patient, RN notes reviewed Mode of arrival: ambulatory Limitations: no limitations - History of Present Illness Initial Comments: 70-year-old male with a history of heart disease in the past who states he had the onset today of some dizziness palpitations retrosternal chest pain was nonradiating 7/10 severity. Some shortness of breath associated with it. No fevers chills nausea vomiting sweats no cough. No other complaints or modifying factors at this time MD Complaint: chest pain - Related Data Home Medications Medication Instructions Recorded Confirmed Aspirin [Adult Low Dose Aspirin EC] 81 mg PO DAILY 07/22/16 06/12/21 Gabapentin 300 mg PO BID 07/22/16 06/12/21 Insulin Glargine,Hum.rec.anlog 20 unit SQ DAILY 02/13/20 06/12/21 [Lantus Solostar Pen] metFORMIN HCL [Glucophage] 1,000 mg PO BID 02/13/20 06/12/21 Atorvastatin [Lipitor] 20 mg PO DAILY 11/15/20 06/12/21 Cholecalciferol [Vitamin D3 (25 25 mcg PO DAILY 11/15/20 06/12/21 Mcg = 1000 Iu)] Empagliflozin/Linagliptin 1 tab PO DAILY 11/15/20 06/12/21 [Glyxambi 25 mg-5 mg Tablet] Fish Oil/Dha/Epa [Fish Oil 1,200 1 cap PO DAILY 11/15/20 06/12/21 mg Fish Oil] Multivit-Min/FA/Lycopen/Lutein 1 tab PO DAILY 11/15/20 06/12/21 [Centrum Silver Tablet] Rivaroxaban [Xarelto] 20 mg PO DAILY 11/15/20 06/12/21 Ascorbic Acid [Vitamin C] 500 mg PO DAILY 06/12/21 06/12/21 Furosemide [Lasix] 40 mg PO DAILY 06/12/21 06/12/21 Previous Rx's Medication Instructions Recorded Losartan [Cozaar] 25 mg PO DAILY #30 tab 02/15/20 Famotidine [Pepcid] 20 mg PO BID #60 tab 11/29/20 Pantoprazole [Protonix] 40 mg PO AC-BRKFST tablet. 11/29/20 Allergies Allergy/AdvReac Type Severity Reaction Status Date / Time Pain Pill (Unknown Name) Allergy Itching Uncoded 06/12/21 16:29 Review of Systems ROS Statement: Those systems with pertinent positive or pertinent negative responses have been documented in the HPI. ROS Other: All systems not noted in ROS Statement are negative. EKG Findings - EKG Results: EKG: interpreted by CAMILA, sinus rhythm (Sinus bradycardia 56. Interval 170 QRS duration 136 QT since QTC 476/459) block no acute ST-T wave changes seen at this time) Past Medical History Past Medical History: Coronary Artery Disease (CAD), Diabetes Mellitus, GERD/Reflux, Hypertension, Myocardial Infarction ([place]), Osteoarthritis (OA), Pulmonary Embolus ([place]) Last Myocardial Infarction Date:: UNSURE History of Any Multi-Drug Resistant Organisms: None Reported Past Surgical History: Heart Catheterization With Stent, Orthopedic Surgery Additional Past Surgical History / Comment(s): RT ROTATOR CUFF REPAIR. COLONOSCOPY Past Anesthesia/Blood Transfusion Reactions: Motion Sickness Date of Last Stent Placement:: UNSURE Past Psychological History: Depression Smoking Status: Never smoker Past Alcohol Use History: None Reported Past Drug Use History: None Reported - Past Family History Father Family Medical History: Cancer Additional Family Medical History / Comment(s): COLON General Exam - General Exam Comments Initial Comments: This is a well-developed well-nourished awake alert oriented 3 male Limitations: no limitations General appearance: alert, anxious Head exam: Present: atraumatic, normocephalic, normal inspection Eye exam: Present: normal appearance, PERRL, EOMI. Absent: scleral icterus, conjunctival injection, periorbital swelling ENT exam: Present: normal exam, mucous membranes moist Neck exam: Present: normal inspection. Absent: tenderness, meningismus, lymphadenopathy Respiratory exam: Present: normal lung sounds bilaterally. Absent: respiratory distress, wheezes, rales, rhonchi, stridor Cardiovascular Exam: Present: regular rate, normal rhythm, normal heart sounds. Absent: systolic murmur, diastolic murmur, rubs, gallop, clicks GI/Abdominal exam: Present: soft, normal bowel sounds. Absent: distended, tenderness, guarding, rebound, rigid Extremities exam: Present: normal inspection, full ROM, normal capillary refill. Absent: tenderness, pedal edema, joint swelling, calf tenderness Back exam: Present: normal inspection Neurological exam: Present: alert, oriented X3, CN II-XII intact Psychiatric exam: Present: normal affect, normal mood Skin exam: Present: warm, dry, intact, normal color. Absent: rash Course Vital Signs 06/12/21 06/12/21 06/12/21 15:49 16:09 16:30 Temperature 98.6 F Pulse Rate 59 L 53 L 53 L Respiratory 18 18 14 Rate Blood Pressure 152/64 145/68 115/73 O2 Sat by Pulse 99 97 96 Oximetry 06/12/21 06/12/21 06/12/21 17:00 17:30 18:00 Temperature Pulse Rate 53 L 51 L 50 L Respiratory 18 16 18 Rate Blood Pressure 124/56 131/58 127/52 O2 Sat by Pulse 99 97 100 Oximetry Chest Pain MDM - MDM (Reviewed no acute findings are seen clearing of previous findings. Patient does have an appointment to see Dr. Moore for a upcoming stress test through the symptoms and the patient did get improvement after nitroglycerin the patient will be admitted the case is discussed with the sound group Dr. Moore will be consulted Critical Care Time Critical Care Time: Yes Total Critical Care Time: 31 Critical Care Time: Vehicle care time includes initial presentation with history physical labs x- rays reevaluation patient response to therapy discuss with the admitting physician admission orders documentation of the above Disposition Clinical Impression: Unstable angina, Chest pain Disposition: ADMITTED IP TO THIS HOSP Condition: Fair Referrals: Long Hobbs MD [Primary Care Provider] - 1-2 days
[2021-06-12] MEDS ORDERED: NITROGLYCERIN SL TABS 0.4 MG TAB SUBLINGUAL PRN (18:32)
[2021-06-12] MEDS: SODIUM CHLORIDE 0.9% 1,000 ML IV SCH (18:52)
[2021-06-12 20:00] LABS: Glucose,Whole Blood 139 mg/dL (75-99)
[2021-06-12] MEDS: FAMOTIDINE 20 MG TAB PO SCH (20:47)
[2021-06-12] MEDS: GABAPENTIN 300 MG CAP PO SCH (20:47)
[2021-06-12] MEDS: INSULIN ASPART (NovoLOG) 100 UNIT/ML VIAL SQ SCH (20:47)
[2021-06-12] MEDS ORDERED: metFORMIN 500 MG TAB PO SCH (21:00)
--- NOTE | 2021-06-12 21:06 | P.HPIM ---
History of Present Illness H&P Date: 06/12/21 The patient is a 70-year-old male with a PMH of type II DM, hypertension, hyperlipidemia, chronic kidney disease, and history of PE and DVT currently on Xarelto who presented to the emergency room with complaints of chest discomfort, dizziness, and palpitations. He reports that his symptoms started this morning he woke up from sleep. He noted that as he tried to get out of bed, he felt somewhat lightheaded though he proceeded to make his coffee and eat his breakfast, after which he developed substernal pressure-like and sharp discomfort. He reported the pain was nonradiating, 10 out of 10 at maximal intensity, with a pleuritic component, without any alleviating features. He reports that the pain persisted after several minutes, at which time he called his primary care physician who advised him to come to the emergency room. He noted the pain had improved slightly after he received the nitroglycerin sublingual. At time of interview, he reports that he continues to have 4 out of 10 substernal discomfort, waxing and waning. Reported associated lightheadedness but denied experiencing shortness of breath, nausea, vomiting, diaphoresis, syncope. Also denied cough, fever, chills. Denied abdominal pain, diarrhea. Denied recent travel, sick contacts. Reports compliance with his medications at home. The patient was reportedly scheduled to undergo a stress test with his layaway clerk Dr. Erickson in the coming weeks. In the emergency room and EKG revealed sinus bradycardia at 56 bpm with a right bundle branch block and a QTC of 459. Chest x-ray was unremarkable. Laboratory evaluation was remarkable for microcytic anemia with hemoglobin 11.8 and MCV 76.4, BUN 23, creatinine 1.29 (baseline 1.1), troponin 0.013, and proBNP 436. Review of systems: Pertinent positives and negatives as discussed in HPI, a complete review of systems was performed and all other systems are negative. Physical examination: General: non toxic, no distress, appears at stated age, overweight Derm: no unusual rashes/lesions no unusual ecchymoses, warm, dry Head: atraumatic, normocephalic, symmetric Eyes: EOMI, no lid lag, anicteric sclera, pupils equal round reactive to light ENT: Nose and ears atraumatic, no thrush, no pharyngeal erythema Neck: No thyromegaly, no cervical lymphadenopathy, trachea midline, supple Mouth: no lip lesion, mucus membranes moist Cardiovascular: S1S2 reg, no murmur, positive posterior tibial pulse bilateral, no edema, capillary refill less than 2 seconds Lungs: CTA bilateral, no rhonchi, no rales , no accessory muscle use Abdominal: soft, nontender to palpation, no guarding, no appreciable organomegaly, normal bowel sounds Ext: no gross muscle atrophy, muscle strength 5 out of 5 in all 4 extremities grossly, no contractures, Neuro: CN II-XI grossly intact, light touch intact all 4 extremities, finger to nose within normal limits, Psych: Alert, oriented, appropriate affect Assessment/plan Chest pain with atypical features, rule out ACS -Cardiology consult -Cardiac monitoring -Echocardiogram -Continue with aspirin and home Xarelto dose Acute kidney injury on chronic kidney disease -Monitor BMP Microcytic anemia -Hemoglobin at baseline with worsening microcytosis -Obtain anemia panel Chronic conditions: Type II DM, hypertension, hyperlipidemia, history of PE -Continue with home Levemir dose of 20 units daily -Hold oral hypoglycemics -Lispro insulin sliding scale and blood glucose monitoring -Check A1c -Continue with home antihypertensives and Lipitor DVT prophylaxis -Xarelto The patient is admitted with an anticipated less than 2 midnight stay for evaluation of chest pain CODE STATUS: Full Code Discussed with: Patient Anticipated discharge date: in am Anticipated discharge place: Home Past Medical History Past Medical History: Coronary Artery Disease (CAD), Diabetes Mellitus, GERD/ Reflux, Hypertension, Myocardial Infarction ([place]), Osteoarthritis (OA), Pulmonary Embolus ([place]) Last Myocardial Infarction Date:: UNSURE History of Any Multi-Drug Resistant Organisms: None Reported Past Surgical History: Heart Catheterization With Stent, Orthopedic Surgery Additional Past Surgical History / Comment(s): RT ROTATOR CUFF REPAIR. COLONOSCOPY Past Anesthesia/Blood Transfusion Reactions: Motion Sickness Date of Last Stent Placement:: UNSURE Past Psychological History: Depression Smoking Status: Never smoker Past Alcohol Use History: None Reported Past Drug Use History: None Reported - Past Family History Father Family Medical History: Cancer Additional Family Medical History / Comment(s): COLON Medications and Allergies Home Medications Medication Instructions Recorded Confirmed Type Aspirin [Adult Low Dose Aspirin EC] 81 mg PO DAILY 07/22/16 06/12/21 History Gabapentin 300 mg PO BID 07/22/16 06/12/21 History Insulin Glargine,Hum.rec.anlog 20 unit SQ DAILY 02/13/20 06/12/21 History [Lantus Solostar Pen] metFORMIN HCL [Glucophage] 1,000 mg PO BID 02/13/20 06/12/21 History Losartan [Cozaar] 25 mg PO DAILY #30 tab 02/15/20 06/12/21 Rx Atorvastatin [Lipitor] 20 mg PO DAILY 11/15/20 06/12/21 History Cholecalciferol [Vitamin D3 (25 25 mcg PO DAILY 11/15/20 06/12/21 History Mcg = 1000 Iu)] Empagliflozin/Linagliptin 1 tab PO DAILY 11/15/20 06/12/21 History [Glyxambi 25 mg-5 mg Tablet] Fish Oil/Dha/Epa [Fish Oil 1,200 1 cap PO DAILY 11/15/20 06/12/21 History mg Fish Oil] Multivit-Min/FA/Lycopen/Lutein 1 tab PO DAILY 11/15/20 06/12/21 History [Centrum Silver Tablet] Rivaroxaban [Xarelto] 20 mg PO DAILY 11/15/20 06/12/21 History Famotidine [Pepcid] 20 mg PO BID #60 tab 11/29/20 06/12/21 Rx Pantoprazole [Protonix] 40 mg PO AC-BRKFST tablet. 11/29/20 06/12/21 Rx Ascorbic Acid [Vitamin C] 500 mg PO DAILY 06/12/21 06/12/21 History Furosemide [Lasix] 40 mg PO DAILY 06/12/21 06/12/21 History Allergies Allergy/AdvReac Type Severity Reaction Status Date / Time Pain Pill (Unknown Name) Allergy Itching Uncoded 06/12/21 16:29 Physical Exam Vitals: Vital Signs Temp Pulse Pulse Resp BP BP Pulse Ox 06/12/21 19:39 98.2 F 50 L 18 178/68 100 06/12/21 19:00 52 L 22 114/64 97 06/12/21 18:30 51 L 24 127/111 99 06/12/21 18:00 50 L 18 127/52 100 06/12/21 17:30 51 L 16 131/58 97 06/12/21 17:00 53 L 18 124/56 99 06/12/21 16:30 53 L 14 115/73 96 06/12/21 16:09 53 L 18 145/68 97 06/12/21 15:49 98.6 F 59 L 18 152/64 99 Intake and Output 06/12/21 06/12/21 06/12/21 06:59 14:59 22:59 Other: Weight 81.647 kg Results CBC & Chem 7: 06/12/21 16:00 06/12/21 16:00 Labs: Abnormal Lab Results - Last 24 Hours (Table) 06/12/21 06/12/21 06/12/21 Range/Units 16:00 16:00 19:58 Hgb 11.8 L (13.0-17.5) gm/dL Hct 36.9 L (39.0-53.0) % MCV 76.4 L (80.0-100.0) fL MCH 24.4 L (25.0-35.0) pg BUN 23 H (9-20) mg/dL Creatinine 1.29 H (0.66-1.25) mg/dL Glucose 123 H (74-99) mg/dL POC Glucose (mg/dL) 139 H (75-99) mg/dL
[2021-06-12] MEDS: NITROGLYCERIN OINT 1 INCH/GM PACKET TOPICAL SCH (23:16)
[2021-06-13 06:22] LABS: Glucose,Whole Blood 137 mg/dL (75-99)
[2021-06-13] MEDS: PANTOPRAZOLE 40 MG TABLET PO SCH (06:37)
[2021-06-13] MEDS: NITROGLYCERIN OINT 1 INCH/GM PACKET TOPICAL SCH ×4 (06:38→23:43)
[2021-06-13] MEDS: INSULIN ASPART (NovoLOG) 100 UNIT/ML VIAL SQ SCH ×6 (06:38→20:03)
[2021-06-13 07:45] LABS: HCT 33.5 % (39.0-53.0); HGB 10.9 gm/dL (13.0-17.5); Hypochromasia Moderate; MCH 25.2 pg (25.0-35.0); MCHC 32.5 g/dL (31.0-37.0); MCV 77.5 fL (80.0-100.0); Mean Platelet Volume 10.4; Microcytosis Slight; Platelet Count 208 k/uL (150-450); RBC 4.32 m/uL (4.30-5.90); RDW 15.5 % (11.5-15.5); WBC 7.7 k/uL (3.8-10.6)
[2021-06-13 08:04] LABS: Calcium 9.8 mg/dL (8.4-10.2); Potassium 4.3 mmol/L (3.5-5.1)
[2021-06-13] MEDS: ASCORBIC ACID 500 MG TAB PO SCH (08:56)
[2021-06-13] MEDS: FUROSEMIDE 40 MG TAB PO SCH (08:56)
[2021-06-13] MEDS: CHOLECALCIFEROL 25 MCG (1000 IU) TABLET PO SCH (08:56)
[2021-06-13] MEDS: FAMOTIDINE 20 MG TAB PO SCH ×2 (08:56→20:03)
[2021-06-13] MEDS: LOSARTAN 25 MG TAB PO SCH (08:56)
[2021-06-13] MEDS: GABAPENTIN 300 MG CAP PO SCH ×2 (08:56→20:03)
[2021-06-13] MEDS: ATORVASTATIN 20 MG TAB PO SCH (08:56)
[2021-06-13] MEDS ORDERED: LINAGLIPTIN PO SCH (09:00)
[2021-06-13] MEDS ORDERED: RIVAROXABAN 20 MG TAB PO SCH (09:00)
[2021-06-13] MEDS ORDERED: EMPAGLIFLOZIN PO SCH (09:00)
[2021-06-13] MEDS ORDERED: NON FORMULARY DRUG (Fish Oil/Dha/Epa [Fish Oil 1,200 Mg Fish Oil] 1 EACH Capsule) PO SCH (09:00)
[2021-06-13] MEDS ORDERED: [UNRECOGNIZED DRUG - OTHER] PO SCH (09:00)
[2021-06-13] MEDS ORDERED: ASPIRIN 325 MG TAB PO SCH (09:00)
--- NOTE | 2021-06-13 10:44 | P.CRDCN ---
History of Present Illness Consult date: 06/13/21 History of present illness: HISTORY OF PRESENT ILLNESS: This is a 70-year-old male with a past medical history significant for coronary artery disease with known intermediate disease involving the ramus intermedius, diabetes, hypertension, and hyperlipidemia. Patient follows in the office with Dr. Erickson. We have been asked to see the patient in consultation for chest pain. Patient examined at the bedside. There is a mild language barrier present during examination. Patient states yesterday he began having pain on the right side of his chest. He reports associated shortness of breath. He states he felt dizzy and was having some elevations. Patient reports pain is worse with chest wall palpation. He states he only has minimal chest pain this morning. Patient recently saw Dr. Moore on 05/26/2021. Dr. Moore recommended a stress test at that time but the patient stated he would like to undergo a cardiac catheterization instead. The patient was scheduled for a cardiac catheterization on 06/11/2021. However the patient did not come to the hospital for his scheduled procedure. Patient states he was unable to make the appointment because there was issues with his insurance. EKG reveals sinus rhythm. Right bundle branch block. No signs of acute ischemia. Chest xray improvement in extensive pulmonary interstitial pneumonia compared to old exam. Laboratory data: WBC 7.7. Hemoglobin 10.9. Platelet count 208. Sodium 139. Potassium 4.3. BUN 21. Creatinine 1.23. D-dimer 0.17. ProBNP 436. Troponin negative 3. Current home cardiac medications include Xarelto 20 mg daily, losartan 25 mg daily, Lasix 40 mg daily, atorvastatin 20 mg daily, and aspirin 81 mg daily Most recent echocardiogram obtained in December 2020 revealed ejection fraction 55- 60%. Mild mitral regurgitation. Mild tricuspid regurgitation. Mild pulmonary hypertension. Cardiac catheterization history: 2018 revealing intermediate disease of large ramus intermedius branch REVIEW OF SYSTEMS: At the time of my exam: CONSTITUTIONAL: Denies fever or chills. HEENT: Denies blurred vision, vision changes, or eye pain. Denies hemoptysis CARDIOVASCULAR: Denies chest pain. Denies orthopnea. Denies PND. Denies palpitations RESPIRATORY: Denies shortness of breath. GASTROINTESTINAL: Denies abdominal pain. Denies nausea or vomiting. HEMATOLOGIC: Denies bleeding disorders. GENITOURINARY: Denies any blood in urine. SKIN: Denies pruitis. Denies rash. PHYSICAL EXAM: VITAL SIGNS: Reviewed. GENERAL: Well-developed in no acute distress. HEENT: Head is normocephalic. Pupils are equal, round. Sclerae anicteric. Mucous membranes of the mouth are moist. Neck supple. No JVD or thyromegaly LUNGS: Respirations even and unlabored. Lungs essentially clear to auscultation bilaterally. HEART: Regular rate and rhythm. S1 and S2 heard. ABDOMEN: Soft. Nondistended. Nontender. EXTREMITIES: Normal range of motion. No clubbing or cyanosis. Peripheral pulses intact. No lower extremity edema NEUROLOGIC: Awake and alert. Oriented x 3. ASSESSMENT: Chest pain with typical and atypical features, troponin negative 3 Coronary artery disease with known intermediate disease involving the ramus intermedius Diabetes Hypertension Hyperlipidemia PLAN: Obtain 2D echo to assess cardiac structure and function Resume home cardiac medications Continue Nitro paste Continue Xarelto. Hold starting tomorrow. Cardiac cath with Dr. Erickson on Tuesday Nurse practitioner note has been reviewed by physician. Signing provider agrees with the documented findings, assessment, and plan of care. Past Medical History Past Medical History: Coronary Artery Disease (CAD), Diabetes Mellitus, GERD/Reflux, Hypertension, Myocardial Infarction ([place]), Osteoarthritis (OA), Pulmonary Embolus ([place]) Last Myocardial Infarction Date:: UNSURE History of Any Multi-Drug Resistant Organisms: None Reported Past Surgical History: Heart Catheterization With Stent, Orthopedic Surgery Additional Past Surgical History / Comment(s): RT ROTATOR CUFF REPAIR. COLONOSCOPY Past Anesthesia/Blood Transfusion Reactions: Motion Sickness Date of Last Stent Placement:: UNSURE Past Psychological History: Depression Smoking Status: Never smoker Past Alcohol Use History: None Reported Past Drug Use History: None Reported - Past Family History Father Family Medical History: Cancer Additional Family Medical History / Comment(s): COLON Medications and Allergies Home Medications Medication Instructions Recorded Confirmed Type Aspirin [Adult Low Dose Aspirin EC] 81 mg PO DAILY 07/22/16 06/12/21 History Gabapentin 300 mg PO BID 07/22/16 06/12/21 History Insulin Glargine,Hum.rec.anlog 20 unit SQ DAILY 02/13/20 06/12/21 History [Lantus Solostar Pen] metFORMIN HCL [Glucophage] 1,000 mg PO BID 02/13/20 06/12/21 History Losartan [Cozaar] 25 mg PO DAILY #30 tab 02/15/20 06/12/21 Rx Atorvastatin [Lipitor] 20 mg PO DAILY 11/15/20 06/12/21 History Cholecalciferol [Vitamin D3 (25 25 mcg PO DAILY 11/15/20 06/12/21 History Mcg = 1000 Iu)] Empagliflozin/Linagliptin 1 tab PO DAILY 11/15/20 06/12/21 History [Glyxambi 25 mg-5 mg Tablet] Fish Oil/Dha/Epa [Fish Oil 1,200 1 cap PO DAILY 11/15/20 06/12/21 History mg Fish Oil] Multivit-Min/FA/Lycopen/Lutein 1 tab PO DAILY 11/15/20 06/12/21 History [Centrum Silver Tablet] Rivaroxaban [Xarelto] 20 mg PO DAILY 11/15/20 06/12/21 History Famotidine [Pepcid] 20 mg PO BID #60 tab 11/29/20 06/12/21 Rx Pantoprazole [Protonix] 40 mg PO AC-BRKFST tablet. 11/29/20 06/12/21 Rx Ascorbic Acid [Vitamin C] 500 mg PO DAILY 06/12/21 06/12/21 History Furosemide [Lasix] 40 mg PO DAILY 06/12/21 06/12/21 History Allergies Allergy/AdvReac Type Severity Reaction Status Date / Time Pain Pill (Unknown Name) Allergy Itching Uncoded 06/12/21 16:29 Physical Exam Vitals: Vital Signs Temp Pulse Pulse Resp BP BP Pulse Ox 06/13/21 09:05 99 06/13/21 04:00 50 L 18 119/54 97 06/12/21 23:44 60 18 145/66 100 06/12/21 20:00 100 06/12/21 19:39 98.2 F 50 L 18 178/68 100 06/12/21 19:00 52 L 22 114/64 97 06/12/21 18:30 51 L 24 127/111 99 06/12/21 18:00 50 L 18 127/52 100 06/12/21 17:30 51 L 16 131/58 97 06/12/21 17:00 53 L 18 124/56 99 06/12/21 16:30 53 L 14 115/73 96 06/12/21 16:09 53 L 18 145/68 97 06/12/21 15:49 98.6 F 59 L 18 152/64 99 Intake and Output 06/12/21 06/13/21 06/13/21 22:59 06:59 14:59 Other: # Voids 1 Weight 81.647 kg 81 kg Results 06/13/21 07:10 06/13/21 07:10 Cardiac Enzymes 06/12/21 06/12/21 06/12/21 Range/Units 16:00 16:00 18:53 AST 49 (17-59) U/L Troponin I 0.013 0.015 (0.000-0.034) ng/mL 06/12/21 Range/Units 21:47 AST (17-59) U/L Troponin I 0.013 (0.000-0.034) ng/mL Coagulation 06/12/21 Range/Units 16:00 PT 12.0 (9.0-12.0) sec APTT 29.5 (22.0-30.0) sec CBC 06/12/21 06/13/21 Range/Units 16:00 07:10 WBC 9.6 7.7 (3.8-10.6) k/uL RBC 4.84 4.32 (4.30-5.90) m/uL Hgb 11.8 L 10.9 L (13.0-17.5) gm/dL Hct 36.9 L 33.5 L (39.0-53.0) % Plt Count 229 208 (150-450) k/uL Comprehensive Metabolic Panel 06/12/21 06/13/21 Range/Units 16:00 07:10 Sodium 138 139 (137-145) mmol/L Potassium 5.0 4.3 (3.5-5.1) mmol/L Chloride 103 105 (98-107) mmol/L Carbon Dioxide 23 26 (22-30) mmol/L BUN 23 H 21 H (9-20) mg/dL Creatinine 1.29 H 1.23 (0.66-1.25) mg/dL Glucose 123 H 127 H (74-99) mg/dL Calcium 10.2 9.8 (8.4-10.2) mg/dL AST 49 (17-59) U/L ALT 21 (4-49) U/L Alkaline Phosphatase 63 (38-126) U/L Total Protein 7.9 (6.3-8.2) g/dL Albumin 5.0 (3.5-5.0) g/dL Current Medications Generic Name Dose Route Start Last Admin Trade Name Deana PRN Reason Stop Dose Admin Ascorbic Acid 500 mg 06/13/21 09:00 06/13/21 08:56 Ascorbic Acid 500 Mg Tab PO 500 mg DAILY YOAN Administration Aspirin 325 mg 06/13/21 09:00 06/13/21 08:56 Aspirin 325 Mg Tab PO 325 mg DAILY YOAN Administration Atorvastatin Calcium 20 mg 06/13/21 09:00 06/13/21 08:56 Atorvastatin 20 Mg Tab PO 20 mg DAILY YOAN Administration Cholecalciferol 25 mcg 06/13/21 09:00 06/13/21 08:56 Cholecalciferol 25 Mcg (1000 Iu) Tablet PO 25 mcg DAILY YOAN Administration Famotidine 20 mg 06/12/21 21:00 06/13/21 08:56 Famotidine 20 Mg Tab PO 20 mg BID YOAN Administration Furosemide 40 mg 06/13/21 09:00 06/13/21 08:56 Furosemide 40 Mg Tab PO 40 mg DAILY YOAN Administration Gabapentin 300 mg 06/12/21 21:00 06/13/21 08:56 Gabapentin 300 Mg Cap PO 300 mg BID YOAN Administration Sodium Chloride 1,000 mls @ 20 mls/hr 06/12/21 18:45 06/12/21 18:52 Saline 0.9% IV Not Given .Q24H [facility] Insulin Aspart 0 unit 06/12/21 21:00 06/13/21 06:38 Insulin Aspart (Novolog) 100 Unit/Ml Vial SQ 1 unit ACHS [facility] Administration Protocol Insulin Aspart 0 unit 06/13/21 07:30 06/13/21 08:42 Insulin Aspart (Novolog) 100 Unit/Ml Vial SQ Not Given ACHS [facility] Protocol Insulin Detemir 20 unit 06/13/21 09:00 Insulin Detemir (Levemir) 100 Unit/Ml Syr SQ DAILY [facility] Losartan Potassium 25 mg 06/13/21 09:00 06/13/21 08:56 Losartan 25 Mg Tab PO 25 mg DAILY YOAN Administration Nitroglycerin 0.4 mg 06/12/21 18:32 Nitroglycerin Sl Tabs 0.4 Mg Tab SUBLINGUAL Q5M PRN Chest Pain Nitroglycerin 1 inch 06/13/21 00:00 06/13/21 06:38 Nitroglycerin Oint 1 Inch/Gm Packet TOPICAL 1 inch Q6HR YOAN Administration Pantoprazole Sodium 40 mg 06/13/21 07:30 06/13/21 06:37 Pantoprazole 40 Mg Tablet PO 40 mg AC-BRKFST YOAN Administration Rivaroxaban 20 mg 06/13/21 09:00 Rivaroxaban 20 Mg Tab PO DAILY [facility] Protocol Intake and Output 06/12/21 06/13/21 06/13/21 22:59 06:59 14:59 Other: # Voids 1 Weight 81.647 kg 81 kg 06/13/21 07:10 06/13/21 07:10
[2021-06-13] MEDS ORDERED: ALPRAZolam 0.5 MG TAB PO PRN (10:46)
[2021-06-13] MEDS ORDERED: ALPRAZolam 0.25 MG TAB PO PRN (10:46)
[2021-06-13] MEDS ORDERED: NITROGLYCERIN SL TABS 0.4 MG TAB SUBLINGUAL PRN (10:46)
[2021-06-13 11:49] LABS: Glucose,Whole Blood 257 mg/dL (75-99)
--- NOTE | 2021-06-13 12:09 | P.PN ---
Subjective Progress Note Date: 06/13/21 Patient reports feeling some chest discomfort in the right chest this morning. He denies shortness of breath. No acute events on the monitor reported by nursing staff. Objective - Vital Signs Vital signs: Vital Signs Temp 98.2 F 06/12/21 19:39 Pulse 55 L 06/13/21 08:00 Resp 16 06/13/21 08:00 BP 150/64 06/13/21 08:00 Pulse Ox 99 06/13/21 09:05 Intake & Output 06/12/21 06/13/21 06/13/21 18:59 06:59 18:59 Weight 81.647 kg 81 kg Other: # Voids 1 - Exam General: The patient is awake and alert, in no distress Eye: there is normal conjunctiva bilaterally. Neck: The neck is supple, there is no JVD. Cardiovascular: Normal S1-S2, no S3-S4, no murmurs. Respiratory: Lungs clear to auscultation bilaterally Gastrointestinal: Abdomen is soft, nontender Musculoskeletal: There is no pedal edema. Neurological:. Speech is normal. Skin: Skin is warm and dry - Labs CBC & Chem 7: 06/13/21 07:10 06/13/21 07:10 Labs: Abnormal Lab Results - Last 24 Hours (Table) 06/12/21 06/12/21 06/12/21 Range/Units 16:00 16:00 19:58 Hgb 11.8 L (13.0-17.5) gm/dL Hct 36.9 L (39.0-53.0) % MCV 76.4 L (80.0-100.0) fL MCH 24.4 L (25.0-35.0) pg BUN 23 H (9-20) mg/dL Creatinine 1.29 H (0.66-1.25) mg/dL Glucose 123 H (74-99) mg/dL POC Glucose (mg/dL) 139 H (75-99) mg/dL 06/13/21 06/13/21 06/13/21 Range/Units 06:19 07:10 07:10 Hgb 10.9 L (13.0-17.5) gm/dL Hct 33.5 L (39.0-53.0) % MCV 77.5 L (80.0-100.0) fL MCH (25.0-35.0) pg BUN 21 H (9-20) mg/dL Creatinine (0.66-1.25) mg/dL Glucose 127 H (74-99) mg/dL POC Glucose (mg/dL) 137 H (75-99) mg/dL 06/13/21 Range/Units 11:45 Hgb (13.0-17.5) gm/dL Hct (39.0-53.0) % MCV (80.0-100.0) fL MCH (25.0-35.0) pg BUN (9-20) mg/dL Creatinine (0.66-1.25) mg/dL Glucose (74-99) mg/dL POC Glucose (mg/dL) 257 H (75-99) mg/dL Assessment and Plan Assessment: This is a 70-year-old with past medical history noted below that presented to the emergency room with chest pain. Patient was evaluated in the ER and ad mitted to the hospital for further management of his medical problems noted below. 1. Chest pain, with concerns about unstable angina. Treated medically. Patient is on anticoagulation with Rivaroxaban. Plan for left heart catheterization on Tuesday. Echocardiogram ordered. 2. Acute kidney injury, mild. Improved with IV fluid hydration 3. Chronic medical problems, type 2 diabetes, hypertension, hyperlipidemia, history of PE on anticoagulation with Xarelto Today, I reviewed his medication list and lab work results. Continue current regimen. Appreciate cardiology recommendations. Repeat lab work in the morning.
--- NOTE | 2021-06-13 13:39 | ECHOF ---
Referral Reason:chest pain MEASUREMENTS -------- HEIGHT: 180.3 cm WEIGHT: 81.6 kg BP: 119/54 RVIDd: 4.1 cm (< 3.3) IVSd: 1.6 cm (0.6 - 1.1) LVIDd: 4.4 cm (3.9 - 5.3) LVPWd: 1.6 cm (0.6 - 1.1) IVSs: 1.9 cm LVIDs: 2.6 cm LVPWs: 2.0 cm LAESV Index (A-L): 30.40 ml/m Ao Diam: 3.4 cm (2.0 - 3.7) AV Cusp: 2.1 cm (1.5 - 2.6) MV EXCURSION: 22.450 mm (> 18.000) MV EF SLOPE: 53 mm/s (70 - 150) EPSS: 0.3 cm MV E Damien: 0.56 m/s MV DecT: 419 ms MV A Damien: 0.72 m/s MV E/A Ratio: 0.78 RAP: 5.00 mmHg RVSP: 45.75 mmHg FINDINGS -------- Resting bradycardia (HR<60bpm). This was a technically adequate study. The left ventricular size is normal. There is moderate concentric left ventricular hypertrophy. O verall left ventricular systolic function is normal with, an EF between 55 - 60 %. The right ventricle is moderately enlarged. LA is midly dilated 29-33ml/m2. The right atrium is moderately enlarged. Interatrial and interventricular septum intact. The aortic valve is trileaflet and appears structurally normal. There is no evidence of aortic regu rgitation. There is no evidence of aortic stenosis. Mild mitral regurgitation is present. Moderate tricuspid regurgitation present. There is moderate pulmonary hypertension. The right susana tricular systolic pressure, as measured by Doppler, is 45.75mmHg. There is no pulmonic regurgitation present. The aortic root size is normal. IVC Not well visulized. There is no pericardial effusion. CONCLUSIONS -------- 1. The left ventricular size is normal. 2. There is moderate concentric left ventricular hypertrophy. 3. Overall left ventricular systolic function is normal with, an EF between 55 - 60 %. 4. The right ventricle is moderately enlarged. 5. LA is midly dilated 29-33ml/m2. 6. The right atrium is moderately enlarged. 7. Mild mitral regurgitation is present. 8. Moderate tricuspid regurgitation present. 9. There is moderate pulmonary hypertension. 10. The right ventricular systolic pressure, as measured by Doppler, is 45.75mmHg. PILLOWCASE CUTTER: Gaviota Torres RDCS
[2021-06-13] MEDS: INSULIN DETEMIR (LEVEMIR) 100 UNIT/ML SYR SQ SCH (14:20)
[2021-06-13 16:53] LABS: Glucose,Whole Blood 144 mg/dL (75-99)
[2021-06-13 17:06] LABS: % Iron Saturation 7.35 (15.00-50.00); Chol/HDL Ratio 4.06; Ferritin 4.8 ng/mL (22.0-322.0); LDL Cholesterol,Calculated 61.2 mg/dL (0.0-131.0); VLDL Calculation 33.8 mg/dL (5.00-40.00)
[2021-06-13 19:53] LABS: Glucose,Whole Blood 160 mg/dL (75-99)
[2021-06-14 05:52] LABS: Glucose,Whole Blood 148 mg/dL (75-99)
[2021-06-14] MEDS: SODIUM CHLORIDE 0.9% 1,000 ML IV SCH ×2 (06:26→17:40)
[2021-06-14] MEDS: INSULIN ASPART (NovoLOG) 100 UNIT/ML VIAL SQ SCH ×4 (06:26→21:02)
[2021-06-14] MEDS: PANTOPRAZOLE 40 MG TABLET PO SCH (06:26)
[2021-06-14] MEDS: NITROGLYCERIN OINT 1 INCH/GM PACKET TOPICAL SCH ×4 (06:27→23:22)
[2021-06-14] MEDS ORDERED: HEPARIN SODIUM,PORCINE 10,000 UNIT in SODIUM CHLORIDE 0.9% 1,000 ML IRRIGATION PRN (07:00)
[2021-06-14] MEDS ORDERED: HEPARIN SODIUM,PORCINE 2,500 UNIT in SODIUM CHLORIDE 0.9% 250 ML IRRIGATION PRN (07:00)
[2021-06-14 08:22] LABS: Calcium 9.9 mg/dL (8.4-10.2); Magnesium 2.1 mg/dL (1.6-2.3); Potassium 4.3 mmol/L (3.5-5.1)
[2021-06-14] MEDS: GABAPENTIN 300 MG CAP PO SCH ×2 (08:31→21:02)
[2021-06-14] MEDS: ATORVASTATIN 20 MG TAB PO SCH (08:31)
[2021-06-14] MEDS: FUROSEMIDE 40 MG TAB PO SCH (08:31)
[2021-06-14] MEDS: ASPIRIN 81 MG PO SCH (08:31)
[2021-06-14] MEDS: INSULIN DETEMIR (LEVEMIR) 100 UNIT/ML SYR SQ SCH (08:31)
[2021-06-14] MEDS: LOSARTAN 25 MG TAB PO SCH (08:31)
[2021-06-14] MEDS: FAMOTIDINE 20 MG TAB PO SCH ×2 (08:31→21:02)
[2021-06-14] MEDS: CHOLECALCIFEROL 25 MCG (1000 IU) TABLET PO SCH (08:31)
[2021-06-14] MEDS: ASCORBIC ACID 500 MG TAB PO SCH (08:31)
[2021-06-14 08:33] LABS: Basophils # (A) 0.1 k/uL (0-0.2); Basophils % (A) 1 %; Eosinophils # (A) 0.2 k/uL (0-0.7); Eosinophils % (A) 2 %; HCT 34.2 % (39.0-53.0); Hypochromasia Slight; Lymphocytes # (A) 1.6 k/uL (1.0-4.8); Lymphocytes % (A) 17 %; MCH 24.1 pg (25.0-35.0); MCHC 32.1 g/dL (31.0-37.0); MCV 75.2 fL (80.0-100.0); Mean Platelet Volume 8.4; Microcytosis Slight; Monocytes # (A) 0.6 k/uL (0-1.0); Monocytes % (A) 6 %; Neutrophils # (A) 6.7 k/uL (1.3-7.7); Neutrophils % (A) 72 %; Platelet Count 214 k/uL (150-450); RBC 4.55 m/uL (4.30-5.90); WBC 9.3 k/uL (3.8-10.6)
--- NOTE | 2021-06-14 11:06 | P.PN ---
Subjective Progress Note Date: 06/14/21 Patient is doing fairly well today. He denies any chest pain or discomfort. No acute events overnight reported by nursing staff. Objective - Vital Signs Vital signs: Vital Signs Temp 97.6 F 06/14/21 00:00 Pulse 51 L 06/14/21 08:00 Resp 16 06/14/21 08:00 BP 186/83 06/14/21 08:00 Pulse Ox 98 06/14/21 08:00 Intake & Output 06/13/21 06/14/21 06/14/21 18:59 06:59 18:59 Intake Total 360 240 Balance 360 240 Weight 81.3 kg Intake: Oral 360 240 Other: # Voids 1 - Exam General: The patient is awake and alert, in no distress Eye: there is normal conjunctiva bilaterally. Neck: The neck is supple, there is no JVD. Cardiovascular: Normal S1-S2, no S3-S4, no murmurs. Respiratory: Lungs clear to auscultation bilaterally Gastrointestinal: Abdomen is soft, nontender Musculoskeletal: There is no pedal edema. Neurological:. Speech is normal. Skin: Skin is warm and dry - Labs CBC & Chem 7: 06/14/21 07:32 06/14/21 07:32 Labs: Abnormal Lab Results - Last 24 Hours (Table) 06/13/21 06/13/21 06/13/21 Range/Units 07:10 07:10 11:45 Hgb (13.0-17.5) gm/dL Hct (39.0-53.0) % MCV (80.0-100.0) fL MCH (25.0-35.0) pg BUN (9-20) mg/dL Creatinine (0.66-1.25) mg/dL Glucose (74-99) mg/dL POC Glucose (mg/dL) 257 H (75-99) mg/dL Hemoglobin A1c 8.0 H (4.0-6.0) % Iron 25 L (65-175) ug/dL % Saturation 7.35 L (15.00-50.00) Ferritin 4.8 L (22.0-322.0) ng/mL Triglycerides 169.0 H (0.0-149.0) mg/dL HDL Cholesterol 31.0 L (40.0-60.0) mg/dL 06/13/21 06/13/2106/14/21 Range/Units 16:50 19:51 05:49 Hgb (13.0-17.5) gm/dL Hct (39.0-53.0) % MCV (80.0-100.0) fL MCH (25.0-35.0) pg BUN (9-20) mg/dL Creatinine (0.66-1.25) mg/dL Glucose (74-99) mg/dL POC Glucose (mg/dL) 144 H 160 H 148 H (75-99) mg/dL Hemoglobin A1c (4.0-6.0) % Iron (65-175) ug/dL % Saturation (15.00-50.00) Ferritin (22.0-322.0) ng/mL Triglycerides (0.0-149.0) mg/dL HDL Cholesterol (40.0-60.0) mg/dL 06/14/21 06/14/21 Range/Units 07:32 07:32 Hgb 11.0 L (13.0-17.5) gm/dL Hct 34.2 L (39.0-53.0) % MCV 75.2 L (80.0-100.0) fL MCH 24.1 L (25.0-35.0) pg BUN 25 H (9-20) mg/dL Creatinine 1.32 H (0.66-1.25) mg/dL Glucose 157 H (74-99) mg/dL POC Glucose (mg/dL) (75-99) mg/dL Hemoglobin A1c (4.0-6.0) % Iron (65-175) ug/dL % Saturation (15.00-50.00) Ferritin (22.0-322.0) ng/mL Triglycerides (0.0-149.0) mg/dL HDL Cholesterol (40.0-60.0) mg/dL Assessment and Plan Assessment: This is a 70-year-old with past medical history noted below that presented to the emergency room with chest pain. Patient was evaluated in the ER and admitted to the hospital for further management of his medical problems noted below. 1. Chest pain, with concerns about unstable angina. Treated medically. Patient is on anticoagulation with Rivaroxaban now transitioned to IV heparin. Plan for left heart catheterization on Tuesday. Echocardiogram showed preserved ejection fraction of 55-60%. There is moderate tricuspid regurg and moderate pulmonary hypertension. 2. Acute kidney injury, mild. Improved with IV fluid hydration 3. Chronic medical problems, type 2 diabetes, hypertension, hyperlipidemia, history of PE on anticoagulation with Xarelto Today, I reviewed his medication list and lab work results. Discontinue Lasix for now. Continue current regimen otherwise. Appreciate cardiology recommendations. Repeat lab work in the morning.
--- NOTE | 2021-06-14 11:29 | P.PN ---
Subjective Progress Note Date: 06/14/21 HISTORY OF PRESENT ILLNESS: This is a 70-year-old male with a past medical history significant for coronary artery disease with known intermediate disease involving the ramus intermedius, diabetes, hypertension, and hyperlipidemia. Patient follows in the office with Dr. Erickson. We have been asked to see the patient in consultation for chest pain. Patient examined at the bedside. There is a mild language barrier present during examination. Patient states yesterday he began having pain on the right side of his chest. He reports associated shortness of breath. He states he felt dizzy and was having some elevations. Patient reports pain is worse with chest wall palpation. He states he only has minimal chest pain this morning. Patient recently saw Dr. Moore on 05/26/2021. Dr. Moore recommended a stress test at that time but the patient stated he would like to undergo a cardiac catheterization instead. The patient was scheduled for a cardiac catheterization on 06/11/2021. However the patient did not come to the hospital for his scheduled procedure. Patient states he was unable to make the appointment because there was issues with his insurance. EKG reveals sinus rhythm. Right bundle branch block. No signs of acute ischemia. Chest xray improvement in extensive pulmonary interstitial pneumonia compared to old exam. Laboratory data: WBC 7.7. Hemoglobin 10.9. Platelet count 208. Sodium 139. Potassium 4.3. BUN 21. Creatinine 1.23. D-dimer 0.17. ProBNP 436. Troponin negative 3. Current home cardiac medications include Xarelto 20 mg daily, losartan 25 mg daily, Lasix 40 mg daily, atorvastatin 20 mg daily, and aspirin 81 mg daily Most recent echocardiogram obtained in December 2020 revealed ejection fraction 55- 60%. Mild mitral regurgitation. Mild tricuspid regurgitation. Mild pulmonary hypertension. Cardiac catheterization history: 2018 revealing intermediate disease of large ramus intermedius branch 06/14/2021 Patient examined this morning at the bedside. Patient denies chest pain or pressure. He denies shortness of breath. Echocardiogram completed reveals ejection fraction 55-60%, mild mitral regurgitation, moderate tricuspid regurgitation, and moderate pulmonary hypertension. PHYSICAL EXAM: VITAL SIGNS: Reviewed. GENERAL: Well-developed in no acute distress. HEENT: Head is normocephalic. Pupils are equal, round. Sclerae anicteric. Mucous membranes of the mouth are moist. Neck supple. No JVD or thyromegaly LUNGS: Respirations even and unlabored. Lungs essentially clear to auscultation bilaterally. HEART: Regular rate and rhythm. S1 and S2 heard. EXTREMITIES: Normal range of motion. No clubbing or cyanosis. Peripheral pulses intact. No lower extremity edema ASSESSMENT: Chest pain with typical and atypical features, troponin negative 3 Coronary artery disease with known intermediate disease involving the ramus intermedius Diabetes Hypertension Hyperlipidemia PLAN: Continue current cardiac medications Continue to hold Xarelto. May resume postprocedure Cardiac cath with Dr. Erickson on Tuesday Further recommendations pending patient's course Nurse practitioner note has been reviewed by physician. Signing provider agrees with the documented findings, assessment, and plan of care. Objective - Vital Signs Vital signs: Vital Signs Temp 97.6 F 06/14/21 00:00 Pulse 51 L 06/14/21 08:00 Resp 16 06/14/21 08:00 BP 186/83 06/14/21 08:00 Pulse Ox 98 06/14/21 08:00 Intake & Output 06/13/21 06/14/21 06/14/21 18:59 06:59 18:59 Intake Total 360 240 Balance 360 240 Weight 81.3 kg Intake: Oral 360 240 Other: # Voids 1 - Labs CBC & Chem 7: 06/14/21 07:32 06/14/21 07:32 Labs: Abnormal Lab Results - Last 24 Hours (Table) 06/13/21 06/13/21 06/13/21 Range/Units 07:10 07:10 11:45 Hgb (13.0-17.5) gm/dL Hct (39.0-53.0) % MCV (80.0-100.0) fL MCH (25.0-35.0) pg BUN (9-20) mg/dL Creatinine (0.66-1.25) mg/dL Glucose (74-99) mg/dL POC Glucose (mg/dL) 257 H (75-99) mg/dL Hemoglobin A1c 8.0 H (4.0-6.0) % Iron 25 L (65-175) ug/dL % Saturation 7.35 L (15.00-50.00) Ferritin 4.8 L (22.0-322.0) ng/mL Triglycerides 169.0 H (0.0-149.0) mg/dL HDL Cholesterol 31.0 L (40.0-60.0) mg/dL 06/13/21 06/13/21 06/14/21 Range/Units 16:50 19:51 05:49 Hgb (13.0-17.5) gm/dL Hct (39.0-53.0) % MCV (80.0-100.0) fL MCH (25.0-35.0) pg BUN (9-20) mg/dL Creatinine (0.66-1.25) mg/dL Glucose (74-99) mg/dL POC Glucose (mg/dL) 144 H 160 H 148 H (75-99) mg/dL Hemoglobin A1c (4.0-6.0) % Iron (65-175) ug/dL % Saturation (15.00-50.00) Ferritin (22.0-322.0) ng/mL Triglycerides (0.0-149.0) mg/dL HDL Cholesterol (40.0-60.0) mg/dL 06/14/21 06/14/21 Range/Units 07:32 07:32 Hgb 11.0 L (13.0-17.5) gm/dL Hct 34.2 L (39.0-53.0) % MCV 75.2 L (80.0-100.0) fL MCH 24.1 L (25.0-35.0) pg BUN 25 H (9-20) mg/dL Creatinine 1.32 H (0.66-1.25) mg/dL Glucose 157 H (74-99) mg/dL POC Glucose (mg/dL) (75-99) mg/dL Hemoglobin A1c (4.0-6.0) % Iron (65-175) ug/dL % Saturation (15.00-50.00) Ferritin (22.0-322.0) ng/mL Triglycerides (0.0-149.0) mg/dL HDL Cholesterol (40.0-60.0) mg/dL
[2021-06-14 11:49] LABS: Glucose,Whole Blood 216 mg/dL (75-99)
[2021-06-14 16:23] LABS: Glucose,Whole Blood 215 mg/dL (75-99)
[2021-06-14 20:34] LABS: Glucose,Whole Blood 166 mg/dL (75-99)
[2021-06-14 20:54] LABS: Glucose,Whole Blood 153 mg/dL (75-99)
[2021-06-14] MEDS ORDERED: SODIUM CHLORIDE 0.9% 1,000 ML in EMPTY BAG 1 BAG IV ONE (23:00)
[2021-06-15] MEDS ORDERED: INSULIN DETEMIR (LEVEMIR) 100 UNIT/ML SYR SQ SCH (02:59)
[2021-06-15] MEDS: ASCORBIC ACID 500 MG TAB PO SCH (05:46)
[2021-06-15] MEDS: PANTOPRAZOLE 40 MG TABLET PO SCH (05:46)
[2021-06-15] MEDS: NITROGLYCERIN OINT 1 INCH/GM PACKET TOPICAL SCH ×2 (05:46→11:02)
[2021-06-15] MEDS: LOSARTAN 25 MG TAB PO SCH (05:46)
[2021-06-15] MEDS: CHOLECALCIFEROL 25 MCG (1000 IU) TABLET PO SCH (05:46)
[2021-06-15] MEDS: FAMOTIDINE 20 MG TAB PO SCH (05:46)
[2021-06-15] MEDS: INSULIN ASPART (NovoLOG) 100 UNIT/ML VIAL SQ SCH ×2 (05:47→12:31)
[2021-06-15] MEDS: ATORVASTATIN 20 MG TAB PO SCH (05:47)
[2021-06-15] MEDS: ASPIRIN 81 MG PO SCH (05:47)
[2021-06-15] MEDS: GABAPENTIN 300 MG CAP PO SCH (05:50)
[2021-06-15 06:00] LABS: Glucose,Whole Blood 169 mg/dL (75-99)
[2021-06-15 06:42] LABS: Basophils # (A) 0.1 k/uL (0-0.2); Basophils % (A) 1 %; Eosinophils # (A) 0.3 k/uL (0-0.7); Eosinophils % (A) 4 %; HCT 34.8 % (39.0-53.0); HGB 11.4 gm/dL (13.0-17.5); Hypochromasia Moderate; Lymphocytes # (A) 1.4 k/uL (1.0-4.8); Lymphocytes % (A) 16 %; MCH 24.9 pg (25.0-35.0); MCHC 32.7 g/dL (31.0-37.0); MCV 75.9 fL (80.0-100.0); Microcytosis Slight; Monocytes # (A) 0.5 k/uL (0-1.0); Monocytes % (A) 6 %; Neutrophils # (A) 6.3 k/uL (1.3-7.7); Neutrophils % (A) 71 %; Platelet Count 204 k/uL (150-450); RBC 4.58 m/uL (4.30-5.90); RDW 15.2 % (11.5-15.5); WBC 8.8 k/uL (3.8-10.6)
[2021-06-15] MEDS ORDERED: ATORVASTATIN 80 MG TAB PO ONE (07:00)
[2021-06-15] MEDS ORDERED: ASPIRIN 325 MG TAB PO ONE (07:00)
[2021-06-15 07:04] LABS: Calcium 9.8 mg/dL (8.4-10.2); Potassium 4.7 mmol/L (3.5-5.1)
[2021-06-15 09:54] VITALS: RESP 18; TEMP 97.6
[2021-06-15] MEDS ORDERED: MIDAZOLAM 2 MG/2 ML VIAL IV ONE (10:26)
[2021-06-15] MEDS ORDERED: IV FLUID CONTINUATION 300 ML IV ONE (10:27)
[2021-06-15] MEDS ORDERED: LIDOCAINE 1% INJ 10MG/ML (20 ML MDV) SQ ONE (10:27)
[2021-06-15] MEDS ORDERED: VERAPAMIL SYRINGE (5 MG/10 ML) INTRAARTER ONE (10:30)
[2021-06-15] MEDS ORDERED: IOPAMIDOL-370 125ML BTL INJ ONE (10:42)
[2021-06-15] MEDS ORDERED: RX INFO: IV CONTRAST WAS GIVEN 1 EACH MISC MISCELLANE PRN (10:46)
[2021-06-15] MEDS ORDERED: SODIUM CHLORIDE 0.9% 1,000 ML IV SCH (11:00)
[2021-06-15 11:47] LABS: Glucose,Whole Blood 141 mg/dL (75-99)
--- NOTE | 2021-06-15 12:31 | P.PN ---
Subjective Progress Note Date: 06/15/21 Patient is doing fairly well today. He denies any chest pain or discomfort. No acute events overnight reported by nursing staff. He is scheduled for left heart cath today Objective - Vital Signs Vital signs: Vital Signs Temp 97.6 F 06/15/21 08:00 Pulse 49 L 06/15/21 08:00 Resp 18 06/15/21 08:00 BP 133/61 06/15/21 08:00 Pulse Ox 96 06/15/21 08:00 Intake & Output 06/14/21 06/15/21 06/15/21 18:59 06:59 18:59 Intake Total 1500 150 Balance 1500 150 Weight 86.2 kg 86.2 kg Intake: IV 150 Oral 1500 Other: Voiding Method Toilet # Voids 1 # Bowel Movements 0 - Exam General: The patient is awake and alert, in no distress Eye: there is normal conjunctiva bilaterally. Neck: The neck is supple, there is no JVD. Cardiovascular: Normal S1-S2, no S3-S4, no murmurs. Respiratory: Lungs clear to auscultation bilaterally Gastrointestinal: Abdomen is soft, nontender Musculoskeletal: There is no pedal edema. Neurological:. Speech is normal. Skin: Skin is warm and dry - Labs CBC & Chem 7: 06/15/21 05:44 06/15/21 05:44 Labs: Abnormal Lab Results - Last 24 Hours (Table) 06/14/21 06/14/21 06/14/21 Range/Units 16:21 20:33 20:53 Hgb (13.0-17.5) gm/dL Hct (39.0-53.0) % MCV (80.0-100.0) fL MCH (25.0-35.0) pg BUN (9-20) mg/dL Glucose (74-99) mg/dL POC Glucose (mg/dL) 215 H 166 H 153 H (75-99) mg/dL 06/15/21 06/15/21 06/15/21 Range/Units 05:44 05:44 05:59 Hgb 11.4 L (13.0-17.5) gm/dL Hct 34.8 L (39.0-53.0) % MCV 75.9 L (80.0-100.0) fL MCH 24.9 L (25.0-35.0) pg BUN 25 H (9-20) mg/dL Glucose 164 H (74-99) mg/dL POC Glucose (mg/dL) 169 H (75-99) mg/dL 06/15/21 Range/Units 11:46 Hgb (13.0-17.5) gm/dL Hct (39.0-53.0) % MCV (80.0-100.0) fL MCH (25.0-35.0) pg BUN (9-20) mg/dL Glucose (74-99) mg/dL POC Glucose (mg/dL) 141 H (75-99) mg/dL Assessment and Plan Assessment: This is a 70-year-old with past medical history noted below that presented to the emergency room with chest pain. Patient was evaluated in the ER and admitted to the hospital for further management of his medical problems noted below. 1. Chest pain, with concerns about unstable angina. Treated medically. Patient is on anticoagulation with Rivaroxaban transitioned to IV heparin. Plan for left heart catheterization today. Echocardiogram showed preserved ejection fraction of 55-60%. There is moderate tricuspid regurg and moderate pulmonary hypertension. 2. Acute kidney injury, mild. Improved with IV fluid hydration 3. Chronic medical problems, type 2 diabetes, hypertension, hyperlipidemia, history of PE on anticoagulation with Xarelto Today, I reviewed his medication list and lab work results. Discontinue Lasix for now. Continue current regimen otherwise. Appreciate cardiology recommendations. Repeat lab work in the morning.
[2021-06-15 12:51] VITALS: BP 136/85; PULSE 55
--- NOTE | 2021-06-15 14:13 | CDI ---
Documentation Clarification Form Date: 06/15/2021 01:54:48 PM From: Bea Grider RN, CCDS Admit Date: 06/13/2021 02:38:00 PM Patient Name: Otis Corral Visit Number: [id number] Discharge Date: ATTENTION: The Clinical Documentation Specialists (CDI) and [facility] Coding Staff appreciate your assistance in clarifying documentation. Please respond to the clarification below the line at the bottom and electronically sign. The CDI & [facility] Coding staff will review the response and follow-up if needed. Please note: Queries are made part of the Legal Health Record. If you have any questions, please contact the author of this message via ITS. Dr. Amilcar Johnson Unspecified CKD is documented in the H/P on 06/12/2021. Additional clarification regarding the stage of CKD is requested. History/Risk Factors: Chronic kidney disease, PE, DVT, Diabetes, Hypertension, Hyperlipidemia Patients Historical: Baseline creatinine 1.1 (per H/P) Clinical Indicators: Unspecified CKD is documented in the past medical history. 06/12 BUN 23, CR 1.29 GFR 55 06/13 BUN 21 CR 1.23 GFR 59 06/15 BUN 24, CR 1.25 GFR 58 Treatment: Monitor BMP Daily .9NS @75 MLS/HR IV (06/15/21) Please clarify the stage of the CKD, if known: [ ] CKD Stage 1 (GFR > 90) [ ] CKD Stage 2 (GFR 60-89) [ ] CKD Stage 3 (GFR 30-59) [ ] CKD Stage 3a (GFR 45-59) [ ] CKD Stage 3b (GFR 30-44) [ ] Other, please specify [ ] Unable to determine (Template Last revised: November 2020) MTDD
--- NOTE | 2021-06-15 15:00 | P.DS ---
Providers Date of admission: 06/13/21 14:38 Expected date of discharge: 06/15/21 Attending physician: Nela Combs MD Consults: 06/12/21 18:32 Consult Physician Urgent Consulting Provider: William Erickson Consult Reason/Comments: Chest pain Do you want consulting provider notified?: Yes Primary care physician: [facility] Hospital Course: This is a 70-year-old with past medical history noted below that presented to the emergency room with chest pain. Patient was evaluated in the ER and admitted to the hospital for further management of his medical problems noted below. 1. Chest pain, with concerns about unstable angina. Treated medically. Patient underwent left heart catheterization showing no significant coronary artery disease. Echocardiogram showed preserved ejection fraction of 55-60%. There is moderate tricuspid regurg and moderate pulmonary hypertension. 2. Acute kidney injury, mild. Improved with IV fluid hydration 3. Chronic medical problems, type 2 diabetes, hypertension, hyperlipidemia, history of PE on anticoagulation with Xarelto Patient was cleared by cardiology for discharge home. Resume home medications. Follow-up with PCP as directed. Patient Condition at Discharge: Fair Plan - Discharge Summary Discharge Rx Participant: No New Discharge Prescriptions: Continue Gabapentin 300 mg PO BID Aspirin [Adult Low Dose Aspirin EC] 81 mg PO DAILY metFORMIN HCL [Glucophage] 1,000 mg PO BID Insulin Glargine,Hum.rec.anlog [Lantus Solostar Pen] 20 unit SQ DAILY Losartan [Cozaar] 25 mg PO DAILY #30 tab Rivaroxaban [Xarelto] 20 mg PO DAILY Cholecalciferol [Vitamin D3 (25 Mcg = 1000 Iu)] 25 mcg PO DAILY Multivit-Min/FA/Lycopen/Lutein [Centrum Silver Tablet] 1 tab PO DAILY Fish Oil/Dha/Epa [Fish Oil 1,200 mg Fish Oil] 1 cap PO DAILY Empagliflozin/Linagliptin [Glyxambi 25 mg-5 mg Tablet] 1 tab PO DAILY Atorvastatin [Lipitor] 20 mg PO DAILY Famotidine [Pepcid] 20 mg PO BID #60 tab Pantoprazole [Protonix] 40 mg PO AC-BRKFST tablet. Ascorbic Acid [Vitamin C] 500 mg PO DAILY Furosemide [Lasix] 40 mg PO DAILY Discharge Medication List Aspirin [Adult Low Dose Aspirin EC] 81 mg PO DAILY 07/22/16 [History] Gabapentin 300 mg PO BID 07/22/16 [History] Insulin Glargine,Hum.rec.anlog [Lantus Solostar Pen] 20 unit SQ DAILY 02/13/20 [History] metFORMIN HCL [Glucophage] 1,000 mg PO BID 02/13/20 [History] Losartan [Cozaar] 25 mg PO DAILY #30 tab 02/15/20 [Rx] Atorvastatin [Lipitor] 20 mg PO DAILY 11/15/20 [History] Cholecalciferol [Vitamin D3 (25 Mcg = 1000 Iu)] 25 mcg PO DAILY 11/15/20 [History] Empagliflozin/Linagliptin [Glyxambi 25 mg-5 mg Tablet] 1 tab PO DAILY 11/15/20 [History] Fish Oil/Dha/Epa [Fish Oil 1,200 mg Fish Oil] 1 cap PO DAILY 11/15/20 [History] Multivit-Min/FA/Lycopen/Lutein [Centrum Silver Tablet] 1 tab PO DAILY 11/15/20 [History] Rivaroxaban [Xarelto] 20 mg PO DAILY 11/15/20 [History] Famotidine [Pepcid] 20 mg PO BID #60 tab 11/29/20 [Rx] Pantoprazole [Protonix] 40 mg PO AC-BRKFST tablet. 11/29/20 [Rx] Ascorbic Acid [Vitamin C] 500 mg PO DAILY 06/12/21 [History] Furosemide [Lasix] 40 mg PO DAILY 06/12/21 [History] Follow up Appointment(s)/Referral(s): Long Hobbs MD [Primary Care Provider] - 1-2 days Patient Instructions/Handouts: After Radial Heart Catheterization (GEN) Discharge Disposition: HOME SELF-CARE
--- NOTE | 2021-06-15 19:22 | CC ---
CARDIAC CATHETERIZATION REPORT DATE OF SERVICE: PERFORMING PHYSICIAN: William Erickson M.D. PROCEDURE PERFORMED: Selective right and left coronary angiogram. INDICATION: This is a pleasant 70-year-old gentleman with diabetes and hypertension and dyslipidemia who presented to the hospital with chest discomfort concerning for angina. APPROACH: Right radial artery. COMPLICATIONS: None. LEVEL OF SEDATION: Moderate, with sedation length of 16 minutes. PROCEDURE DESCRIPTION: After obtaining informed consent, the patient was brought to the cardiac laboratory animal care veterinarian. The right radial artery was cannulated using micropuncture technique. The micropuncture wire passed easily. Then I placed a 6-Greenlandic sheath in the right radial artery. I gave the patient 2 mg of verapamil IA and 6000 units of heparin IV. Selective right and left coronary angiogram was performed using JR4 and JL4 catheters. Left heart catheterization was not performed. The procedure was completed without any complication. SELECTIVE CORONARY ANGIOGRAM: 1. The RCA is a large-caliber vessel and it is a dominant vessel. The RCA is angiographically normal. It distally bifurcates into PDA and PLV branches and both appeared to be angiographically normal. 2. The left main has mild disease that appeared to be in the range of 20% to 30%. It bifurcates into LCX and ramus intermedius and left anterior descending artery. 3. The left circumflex is a moderate-caliber vessel, nondominant vessel and appeared to be angiographically normal. 4. The ramus intermedius is a large-caliber vessel with mild disease in the proximal portion. 5. The LAD is a large-caliber vessel and seems to be angiographically normal and gives rise to a large diagonal branch which seems to be angiographically normal. CONCLUSION: Mild nonobstructive coronary artery disease. POSTPROCEDURE MANAGEMENT: Medical treatment and follow up with the patient. MMODL / IJN: [id number] /
--- NOTE | 2021-06-15 19:38 | LTR ---
To: Dr. Long Hobbs Re: Otis Corral (46) Dear Dr. Hobbs, Mr. Otis Corral was admitted to the hospital with chest discomfort and underwent a coronary angiogram which revealed only mild nonobstructive coronary artery disease. I want to thank you for allowing me to participate in this patient's care. Please do not hesitate to call with any questions or concerns. Sincerely, William Erickson M.D. MIKE / MICHAEL: [id number] /
== END 2021-06-15 16:28 | disposition home or self-care (01) ==
LOC: EC 15:47 → 3SCARD 18:32 → OBSVTOIN 06-13 14:38 → INTOOBSV 06-13 14:38 → UNDODISIN 06-15 16:28
PROVIDERS: ADMIT Internal Medicine; ATTEND Internal Medicine
PROC: B2111ZZ Fluoroscopy of Multiple Coronary Arteries using Low Osmolar Contrast (ICD-10-PCS; 2021-06-15)
PROC: 4A023N7 Measurement of Cardiac Sampling and Pressure, Left Heart, Percutaneous Approach (ICD-10-PCS; principal; 2021-06-15 08:25)
DX: R07.89 Other chest pain (principal); N17.9 Acute kidney failure, unspecified; I12.9 Hypertensive chronic kidney disease with stage 1 through stage 4 chronic kidney disease, or unspecified chronic kidney disease; E11.22 Type 2 diabetes mellitus with diabetic chronic kidney disease; N18.2 Chronic kidney disease, stage 2 (mild); J84.9 Interstitial pulmonary disease, unspecified; I25.10 Atherosclerotic heart disease of native coronary artery without angina pectoris; D50.9 Iron deficiency anemia, unspecified; I45.10 Unspecified right bundle-branch block; I70.0 Atherosclerosis of aorta; I07.1 Rheumatic tricuspid insufficiency; I27.20 Pulmonary hypertension, unspecified; R00.1 Bradycardia, unspecified; E78.5 Hyperlipidemia, unspecified; I25.2 Old myocardial infarction; F32.9 Major depressive disorder, single episode, unspecified; M19.90 Unspecified osteoarthritis, unspecified site; K21.9 Gastro-esophageal reflux disease without esophagitis; Z79.01 Long term (current) use of anticoagulants; Z79.82 Long term (current) use of aspirin; Z79.4 Long term (current) use of insulin; Z79.899 Other long term (current) drug therapy; Z86.718 Personal history of other venous thrombosis and embolism; Z86.711 Personal history of pulmonary embolism; Z98.890 Other specified postprocedural states; Z80.0 Family history of malignant neoplasm of digestive organs
CPT/HCPCS: 99291; 36415; 93005; 93306; 93454; 85379; 83880; 80061; 80053; 80048 ×3; 82728; 82550; 83540; 83550; 83690; 83735 ×2; 84484; 85025 ×3; 85027; 85610; 85730; 83036; 71046; G0378 ×4; C1894; J2250; J2001; J1644; Q9967

== ENCOUNTER 2022-03-29 14:03 | Inpatient (IN) | payer MEDICARE ==
--- NOTE | 2022-03-29 15:36 | XR ---
EXAMINATION TYPE: XR chest 2V DATE OF EXAM: 03/29/2022 HISTORY: Shortness of breath. COMPARISON: 06/12/2021 TECHNIQUE: Single view of the chest is submitted. FINDINGS: Demonstrated are scattered senescent parenchymal change. There is no evidence for focal infiltrate. The heart is stable. Hilar and mediastinal structures are within normal limits. Degenerative changes are seen of the dorsal spine. IMPRESSION: 1. Chronic changes without evidence for acute pulmonary disease.
[2022-03-29 15:48] LABS: Basophils # (A) 0.1 k/uL (0-0.2); Basophils % (A) 1 %; Eosinophils # (A) 0.3 k/uL (0-0.7); Eosinophils % (A) 3 %; HGB 12.3 gm/dL (13.0-17.5); Hypochromasia Moderate; Lymphocytes # (A) 1.7 k/uL (1.0-4.8); Lymphocytes % (A) 15 %; MCH 24.7 pg (25.0-35.0); MCV 82.5 fL (80.0-100.0); Monocytes # (A) 0.8 k/uL (0-1.0); Monocytes % (A) 7 %; Neutrophils % (A) 73 %; Platelet Count 223 k/uL (150-450); RBC 4.98 m/uL (4.30-5.90)
[2022-03-29 15:53] LABS: INR 1.3 (<1.2); Partial Thromboplastin Time 31.6 sec (22.0-30.0); Prothrombin Time 13.6 sec (9.0-12.0)
[2022-03-29 16:05] LABS: Albumin 4.7 g/dL (3.5-5.0); Calcium 9.6 mg/dL (8.4-10.2); Magnesium 2.1 mg/dL (1.6-2.3); Total Bilirubin 1.3 mg/dL (0.2-1.3); Total Protein 7.8 g/dL (6.3-8.2)
[2022-03-29 16:11] LABS: Potassium 5.7 mmol/L (3.5-5.1)
--- NOTE | 2022-03-29 16:24 | ED ---
General Adult HPI - General Chief complaint: Chest Pain Stated complaint: Sent By PCP Time Seen by Provider: 03/29/22 14:54 Source: patient, RN notes reviewed Mode of arrival: wheelchair Limitations: no limitations - History of Present Illness Initial comments: Patient is a 71-year-old male presents to the emergency room at the direction of his primary care provider and EKG in the office showed sinus bradycardia with a right bundle branch block and he was having episodes of dizziness intermittent chest pain and shortness of breath. 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 Erickson. He is having some mild dizziness when laying down and with minimal exertion he has chest pain along with some shortness of breath. He has a significant past medical history coronary artery disease previous MS, hypertension, pulmonary emboli on xarelto, osteoarthritis and diabetes on insulin. He reports taking all of his morning medications this morning including his insulin and his diuretic beta juarez, atenolol/hydrochlorothiazide. He denies any shortness of breath at rest. He and his denies any syncopal events. He denies any nausea vomiting, fevers or chills. He denies any other complaints or concerns at this time. - Related Data Home Medications Medication Instructions Recorded Confirmed Aspirin [Adult Low Dose Aspirin EC] 81 mg PO DAILY 07/22/16 03/29/22 Gabapentin 300 mg PO BID 07/22/16 03/29/22 Insulin Glargine,Hum.rec.anlog 40 unit SQ DAILY 02/13/20 03/29/22 [Lantus Solostar Pen] metFORMIN HCL [Glucophage] 1,000 mg PO BID 02/13/20 03/29/22 Atorvastatin [Lipitor] 20 mg PO DAILY 11/15/20 03/29/22 Cholecalciferol [Vitamin D3 (25 25 mcg PO DAILY 11/15/20 03/29/22 Mcg = 1000 Iu)] Empagliflozin/Linagliptin 1 tab PO DAILY 11/15/20 03/29/22 [Glyxambi 25 mg-5 mg Tablet] Fish Oil/Dha/Epa [Fish Oil 1,200 1 cap PO DAILY 11/15/20 03/29/22 mg Fish Oil] Multivit-Min/FA/Lycopen/Lutein 1 tab PO DAILY 11/15/20 03/29/22 [Centrum Silver Tablet] Rivaroxaban [Xarelto] 20 mg PO DAILY 11/15/20 03/29/22 Ascorbic Acid [Vitamin C] 500 mg PO DAILY 06/12/21 03/29/22 Furosemide [Lasix] 40 mg PO DAILY 06/12/21 03/29/22 Previous Rx's Medication Instructions Recorded Losartan [Cozaar] 25 mg PO DAILY #30 tab 02/15/20 Famotidine [Pepcid] 20 mg PO BID #60 tab 11/29/20 Pantoprazole [Protonix] 40 mg PO AC-BRKFST tablet. 11/29/20 Allergies Allergy/AdvReac Type Severity Reaction Status Date / Time Pain Pill (Unknown Name) Allergy Itching Uncoded 03/29/22 18:04 Review of Systems ROS Statement: Those systems with pertinent positive or pertinent negative responses have been documented in the HPI. ROS Other: All systems not noted in ROS Statement are negative. Past Medical History Past Medical History: Coronary Artery Disease (CAD), Diabetes Mellitus, GERD/Reflux, Hypertension, Myocardial Infarction (MS), Osteoarthritis (OA), Pulmonary Embolus (PE) Last Myocardial Infarction Date:: UNSURE History of Any Multi-Drug Resistant Organisms: None Reported Past Surgical History: Heart Catheterization With Stent, Orthopedic Surgery Additional Past Surgical History / Comment(s): RT ROTATOR CUFF REPAIR. COLONOSCOPY Past Anesthesia/Blood Transfusion Reactions: Motion Sickness Date of Last Stent Placement:: UNSURE Past Psychological History: Depression Smoking Status: Never smoker Past Alcohol Use History: None Reported Past Drug Use History: None Reported - Past Family History Father Family Medical History: Cancer Additional Family Medical History / Comment(s): COLON General Exam Limitations: language barrier General appearance: alert, in no apparent distress Head exam: Present: atraumatic, normocephalic, normal inspection Eye exam: Present: normal appearance, PERRL, EOMI. Absent: scleral icterus, conjunctival injection, periorbital swelling ENT exam: Present: normal exam, mucous membranes moist Neck exam: Present: normal inspection. Absent: tenderness, meningismus, lymphadenopathy Respiratory exam: Present: other (Intermittent expiratory wheeze no coarse rales or crackles noted) Cardiovascular Exam: Present: bradycardia, systolic murmur (III/) GI/Abdominal exam: Present: soft, normal bowel sounds. Absent: distended, tenderness, guarding, rebound, rigid Extremities exam: Present: normal inspection. Absent: pedal edema, joint swelling Neurological exam: Present: alert, oriented X3, CN II-XII intact Psychiatric exam: Present: normal affect, normal mood Skin exam: Present: warm, dry, intact, normal color. Absent: rash Course Vital Signs 03/29/22 03/29/22 03/29/22 14:08 15:06 15:17 Temperature 98.5 F Pulse Rate 45 L 48 L Pulse Rate [ 48 L Face Cleaner ] Respiratory 18 18 Rate Blood Pressure 152/63 171/71 O2 Sat by Pulse 98 96 Oximetry 03/29/22 03/29/22 03/29/22 17:01 17:39 18:40 Temperature Pulse Rate 48 L 45 L 51 L Pulse Rate [ Face Cleaner ] Respiratory 18 18 18 Rate Blood Pressure 222/91 183/94 215/98 O2 Sat by Pulse 98 99 98 Oximetry Medical Decision Making - Medical Decision Making Due to symptomatic bradycardia pacer pads placed on patient. CBC troponin TSH, CMP screen and chest x-ray ordered. Dr. Erickson is his flame annealing machine setter outpatient contacted regarding symptoms and advised to contact cardiology group covering doctor (Dr. Renee for observation admission). Patient recheck atenolol dose for this morning. Will hold further beta blockers at this time. No respiratory distress or indication for further evaluation regarding pulmonary emboli. Dr. Renee evaluation advised to give antivert for vertigo given along with amlodipine for hypertension. Electrolytes reviewed potassium slightly hemolyzed treatment held with repeat potassium normal no need for treatment for hyperkalemia at this time. Case discussed with Dr. Meek for observation admission and monitoring at this time. - Lab Data Result diagrams: 03/29/22 15:05 03/29/22 16:59 Lab Results 03/29/22 03/29/22 03/29/22 Range/Units 15:05 15:05 15:05 WBC 11.0 H (3.8-10.6) k/uL RBC 4.98 (4.30-5.90) m/uL Hgb 12.3 L (13.0-17.5) gm/dL Hct 41.0 (39.0-53.0) % MCV 82.5 (80.0-100.0) fL MCH 24.7 L (25.0-35.0) pg MCHC 30.0 L (31.0-37.0) g/dL RDW 14.0 (11.5-15.5) % Plt Count 223 (150-450) k/uL MPV 11.0 Neutrophils % 73 % Lymphocytes % 15 % Monocytes % 7 % Eosinophils % 3 % Basophils % 1 % Neutrophils # 8.0 H (1.3-7.7) k/uL Lymphocytes # 1.7 (1.0-4.8) k/uL Monocytes # 0.8 (0-1.0) k/uL Eosinophils # 0.3 (0-0.7) k/uL Basophils # 0.1 (0-0.2) k/uL Hypochromasia Moderate PT 13.6 H (9.0-12.0) sec INR 1.3 H (<1.2) APTT 31.6 H (22.0-30.0) sec Sodium 139 (137-145) mmol/L Potassium 5.7 H (3.5-5.1) mmol/L Chloride 107 (98-107) mmol/L Carbon Dioxide 23 (22-30) mmol/L Anion Gap 9 mmol/L BUN 23 H (9-20) mg/dL Creatinine 1.27 H (0.66-1.25) mg/dL Est GFR (CKD-EPI)AfAm 64 (>60 ml/min/1.73 sqM) Est GFR (CKD-EPI)NonAf 56 (>60 ml/min/1.73 sqM) Glucose 126 H (74-99) mg/dL Calcium 9.6 (8.4-10.2) mg/dL Magnesium 2.1 (1.6-2.3) mg/dL Total Bilirubin 1.3 (0.2-1.3) mg/dL AST 55 (17-59) U/L ALT 19 (4-49) U/L Alkaline Phosphatase 51 (38-126) U/L Troponin I (0.000-0.034) ng/mL Total Protein 7.8 (6.3-8.2) g/dL Albumin 4.7 (3.5-5.0) g/dL TSH (0.465-4.680) mIU/L Coronavirus (PCR) (Not Detectd) 03/29/22 03/29/22 03/29/22 Range/Units 15:05 16:59 16:59 WBC (3.8-10.6) k/uL RBC (4.30-5.90) m/uL Hgb (13.0-17.5) gm/dL Hct (39.0-53.0) % MCV (80.0-100.0) fL MCH (25.0-35.0) pg MCHC (31.0-37.0) g/dL RDW (11.5-15.5) % Plt Count (150-450) k/uL MPV Neutrophils % % Lymphocytes % % Monocytes % % Eosinophils % % Basophils % % Neutrophils # (1.3-7.7) k/uL Lymphocytes # (1.0-4.8) k/uL Monocytes # (0-1.0) k/uL Eosinophils # (0-0.7) k/uL Basophils # (0-0.2) k/uL Hypochromasia PT (9.0-12.0) sec INR (<1.2) APTT (22.0-30.0) sec Sodium 141 (137-145) mmol/L Potassium 4.1 (3.5-5.1) mmol/L Chloride 107 (98-107) mmol/L Carbon Dioxide 23 (22-30) mmol/L Anion Gap 11 mmol/L BUN 22 H (9-20) mg/dL Creatinine 1.26 H (0.66-1.25) mg/dL Est GFR (CKD-EPI)AfAm 65 (>60 ml/min/1.73 sqM) Est GFR (CKD-EPI)NonAf 56 (>60 ml/min/1.73 sqM) Glucose 87 (74-99) mg/dL Calcium 9.2 (8.4-10.2) mg/dL Magnesium (1.6-2.3) mg/dL Total Bilirubin (0.2-1.3) mg/dL AST (17-59) U/L ALT (4-49) U/L Alkaline Phosphatase (38-126) U/L Troponin I 0.032 (0.000-0.034) ng/mL Total Protein (6.3-8.2) g/dL Albumin (3.5-5.0) g/dL TSH 0.960 (0.465-4.680) mIU/L Coronavirus (PCR) Not Detected (Not Detectd) - EKG Data EKG Comments: EKG shows sinus bradycardia with marked sinus arrhythmia intravaginal conduction delay. Ventricular rate 49 bpm, UT interval 188 ms, QRS duration 142 ms, QT/QTC 104 187/450 ms. P axis East 233, 60, 49 - Radiology Data Radiology results: report reviewed, image reviewed Chest x-ray showed no acute cardiopulmonary processes. Chronic changes noted. Disposition Clinical Impression: Bradycardia Disposition: ADMITTED IP TO THIS HOSP Condition: Stable Is patient prescribed a controlled substance at d/c from ED?: No Time of Disposition: 18:53
[2022-03-29] MEDS ORDERED: amLODIPine 5 MG TAB PO STA (16:48)
[2022-03-29] MEDS ORDERED: MECLIZINE 12.5 MG TAB PO STA (16:48)
[2022-03-29] MEDS ORDERED: amLODIPine 10 MG TAB PO STA (16:52)
[2022-03-29 17:34] LABS: African American GFR (CKD) 65 (>60 ml/min/1.73 sqM); Anion Gap 11 mmol/L; Blood Urea Nitrogen 22 mg/dL (9-20); Calcium 9.2 mg/dL (8.4-10.2); Carbon Dioxide 23 mmol/L (22-30); Chloride 107 mmol/L (98-107); Glucose 87 mg/dL (74-99); Non-African American GFR(CKD) 56 (>60 ml/min/1.73 sqM); Potassium 4.1 mmol/L (3.5-5.1); Sodium 141 mmol/L (137-145)
--- NOTE | 2022-03-29 18:01 | CONS ---
CONSULTATION CHIEF COMPLAINT: Vertigo. This is a 70-year-old gentleman with history of mild non-obstructive coronary artery disease, status post cardiac catheterization in May of 2021, hypertension, insulin- requiring diabetes and dyslipidemia who presented to his primary care physician with symptoms of vertigo that has been going on for the last several weeks and has gotten particularly worse of late. He has history of pulmonary embolism and is currently on anticoagulant for the same. He was seen by his primary care physician, from where he has been sent to the emergency room. He also complains of intermittent episodes of chest discomfort. At the time of my evaluation, patient is comfortable at rest. Heart rate is around 48 beats per minute. Blood pressure is elevated at 190/90. I was called by the emergency room nurse practitioner/physician pest controller assistant who evaluated the patient, concerned that the patient was having dizziness, and the bradycardia is the only thing she has found so far. Patient's bradycardia is sinus bradycardia and is not causing any symptoms, and patient does not have dizziness; in fact, he has vertigo. I do not believe the chest discomfort is of concern in a patient who had a cardiac catheterization within the last 6 months and the EKG does not reveal ischemic changes. Patient's bradycardia may be related to the beta juarez that he is on. It is unclear if the ER physician had evaluated the patient or not. I requested the nurse practitioner that in future the patient ought to be evaluated by the ER physician, and if he or she has any concerns, they should then call the specialist wound care. PAST MEDICAL HISTORY: Significant for mild non-obstructive coronary artery disease, hypertension, diabetes, dyslipidemia and pulmonary embolism. ALLERGIES: PAIN PILLS. MEDICATIONS: Medications at home included Lasix 40 daily, ascorbic acid, Xarelto 20 daily, fish oil, aspirin, Neurontin, insulin, metformin and Lipitor. FAMILY HISTORY: Negative for premature coronary artery disease. SOCIAL HISTORY: Negative for current smoking, EtOH abuse or drug abuse. REVIEW OF SYSTEMS: HEENT is unremarkable. CARDIAC: As described above. RESPIRATORY: As described above. GI: Negative. GENITOURINARY: Negative. ALLERGY/IMMUNOLOGY: Negative. SKIN: Negative. MUSCULOSKELETAL: Significant for arthritis. PSYCHOSOCIAL: Negative. DERMATOLOGY: Negative. CONSTITUTIONAL: Negative. ONCOLOGICAL: Negative. PUBLICATION DESIGNER: Significant for vertigo. PHYSICAL EXAMINATION: Patient appears comfortable at rest. Heart rate is 60 beats per minute. Blood pressure is 170/70, respiratory rate of 18, O2 saturation is 96% on room air. There is no jugular venous distention. Carotid upstroke is normal. There is no bruit. Chest exam reveals good air entry bilaterally. Heart exam reveals first and second heart sounds, a systolic murmur at the left lower sternal border. Abdomen is soft. Examination of extremities did not reveal any edema. Peripheral pulses are felt. PUBLICATION DESIGNER exam did not reveal focal neurological deficits. Patient's EKG on this presentation revealed sinus bradycardia with right bundle branch block. Patient had an EKG in May, which again showed sinus bradycardia with right bundle branch block. He had an echocardiogram in May of last year that revealed normal LV systolic function. He had a cardiac catheterization at that time that did not reveal significant obstructive CAD. LABS: Hemoglobin 12.3. Platelet count is 223. INR is 1.3. Potassium is elevated at 5.7, but I am told this is a hemolyzed sample. Troponin is negative. ASSESSMENT: 1. Asymptomatic sinus bradycardia. 2. Atypical chest pain in a patient who had a cardiac catheterization within the last 6 months. 3. Vertigo. 4. Severe uncontrolled hypertension. 5. Insulin-requiring diabetes. 6. History of pulmonary embolism. PLAN: Please hold the Tenoretic that the patient is currently on. Put an inch of nitro paste on him for better control of blood pressure. Increase the dose of losartan. Treat the hyperkalemia. The labs show that he has hyperkalemia. Treat patient's vertigo and evaluate it further. I instructed the nurse practitioner ELLY to give some Antivert to see if this makes any difference to his symptoms. I walked the patient in the emergency room, and after walking for a short distance he complained that he was vertiginous symptoms. Thank you for allowing me to participate in the care of this pleasant gentleman. MMODL / IJN: [id number] /
[2022-03-29] MEDS ORDERED: NALOXONE 0.4 MG/ML 1 ML VIAL IV PRN (18:21)
--- NOTE | 2022-03-29 18:22 | P.HPIM ---
History of Present Illness H&P Date: 03/29/22 Chief Complaint: Chest pressure, dizziness 71 old man with medical history of hypertension, hyperlipidemia, diabetes, nonobstructive CAD, history of DVT/PE on Xarelto presented with dizziness, chest pressure. Patient says that he's had dizziness for the past month at least, chest pressure started today. Chest pressures on and off and at present during my evaluation he does not have any chest pressure. Regarding the dizziness, he says he's had it for approximately one month, went to see his PCP today, who recommended that he come to the emergency room for further evaluation. Back in May 2021, patient had a similar episode in which she was evaluated by left heart catheterization, which demonstrated nonocclusive coronary artery disease specifically in the left main with 20-30% blockage, otherwise was clear coronary arteries. Patient continues to follow regularly with primary care physician as well as cardiology and has been in his usual state of health except for the last month in which she's had increasing dizziness. He is on 2 different diuretic medications including Lasix which he takes twice a day per patient as well as hydrochlorothiazide; he is also on atenolol. Patient says that he has episodes of dizziness which are worse when he is ambulating, and much better when he's at rest. He has not had any syncopal episodes. He denies fevers, chills, nausea, vomiting, palpitations, syncope, presyncope, cough, dyspnea, abdominal pain, constipation, diarrhea, dysuria, dyschezia, numbness/weakness of extremities. In the emergency room, patient was afebrile, 152/63, heart rate 45-48, 98% on room air. CBC shows mild leukocytosis to 11.0, mild anemia to 12.3. Chemistries show elevated potassium at 5.7, BUN/creatinine of 23/1.27 which represents baseline. LFTs unremarkable. Troponin was 0.032. Coag showed an elevated PT of 13.6, elevated INR 1.3, elevated PTT at 31.6. Chest x-ray shows no evidence of acute pulmonary disease. EKG shows sinus bradycardia with sinus arrhythmia, normal axis, incomplete right bundle-branch block; no change from prior EKGs. All Systems reviewed and pertinent positives and negatives noted in HPI, all other symptoms are negative Gen: in no apparent distress, resting comfortably in bed Eyes: PERRL, no scleral injection or icterus HENT: normocephalic, atraumatic, good hearing acuity, moist mucous membranes Neck: no tracheal deviation, full range of motion Resp: good air exchange, breathing comfortably with no accessory muscle use, no tactile fremitus, clear to auscultation bilaterally CVS: good distal perfusion x 4, no pitting edema, regular rate and rhythm GI: soft, tenderness to palpation in the epigastrium, periumbilical area, ND, no hepatosplenomegaly : no suprapubic tenderness, left-sided CVAT, villalpando catheter not present MSK: no clubbing, no cyanosis, no noted contractures of extremities Skin: no noted rashes, petechiae; temperature of skin is appropriate Neuro: moving all extremities without signs of weakness, CN II-XII intact Psych: cooperative, euthymic mood, insight and judgment intact Labs and imaging assessed above Assessment/plan: Chest pressure Dizziness -Admit to observation, telemetry -Cardiology consult -No need to repeat echocardiogram at this time -Orthostatics twice a day -Hold home diuretics, beta juarez -We will walk patient in the hallways tomorrow to ensure appropriate chronotropia -TSH/free T4 Hypertension Hyperlipidemia Diabetes type 2 Nonobstructive CAD History of DVT/PE -Home medications reconciliation is pending completion of medication history -Plan to hold atenolol, Hydrochlorothiazide, Lasix -LD SSI Patient is full code DVT prophylaxis with Xarelto upon medication reconciliation Past Medical History Past Medical History: Coronary Artery Disease (CAD), Diabetes Mellitus, GERD/Reflux, Hypertension, Myocardial Infarction (MD), Osteoarthritis (OA), Pulmonary Embolus (PE) Last Myocardial Infarction Date:: UNSURE History of Any Multi-Drug Resistant Organisms: None Reported Past Surgical History: Heart Catheterization With Stent, Orthopedic Surgery Additional Past Surgical History / Comment(s): RT ROTATOR CUFF REPAIR. COLONOSCOPY Past Anesthesia/Blood Transfusion Reactions: Motion Sickness Date of Last Stent Placement:: UNSURE Past Psychological History: Depression Smoking Status: Never smoker Past Alcohol Use History: None Reported Past Drug Use History: None Reported - Past Family History Father Family Medical History: Cancer Additional Family Medical History / Comment(s): COLON Medications and Allergies Home Medications Medication Instructions Recorded Confirmed Type Aspirin [Adult Low Dose Aspirin EC] 81 mg PO DAILY 07/22/16 06/12/21 History Gabapentin 300 mg PO BID 07/22/16 06/12/21 History Insulin Glargine,Hum.rec.anlog 20 unit SQ DAILY 02/13/20 06/12/21 History [Lantus Solostar Pen] metFORMIN HCL [Glucophage] 1,000 mg PO BID 02/13/20 06/12/21 History Losartan [Cozaar] 25 mg PO DAILY #30 tab 02/15/20 06/12/21 Rx Atorvastatin [Lipitor] 20 mg PO DAILY 11/15/20 06/12/21 History Cholecalciferol [Vitamin D3 (25 25 mcg PO DAILY 11/15/20 06/12/21 History Mcg = 1000 Iu)] Empagliflozin/Linagliptin 1 tab PO DAILY 11/15/20 06/12/21 History [Glyxambi 25 mg-5 mg Tablet] Fish Oil/Dha/Epa [Fish Oil 1,200 1 cap PO DAILY 11/15/20 06/12/21 History mg Fish Oil] Multivit-Min/FA/Lycopen/Lutein 1 tab PO DAILY 11/15/20 06/12/21 History [Centrum Silver Tablet] Rivaroxaban [Xarelto] 20 mg PO DAILY 11/15/20 06/12/21 History Famotidine [Pepcid] 20 mg PO BID #60 tab 11/29/20 06/12/21 Rx Pantoprazole [Protonix] 40 mg PO [id number] tablet. 11/29/20 06/12/21 Rx Ascorbic Acid [Vitamin C] 500 mg PO DAILY 06/12/21 06/12/21 History Furosemide [Lasix] 40 mg PO DAILY 06/12/21 06/12/21 History Allergies Allergy/AdvReac Type Severity Reaction Status Date / Time Pain Pill (Unknown Name) Allergy Itching Uncoded 03/29/22 18:04 Physical Exam Osteopathic Statement: *. No significant issues noted on an osteopathic structural exam other than those noted in the History and Physical/Consult. Vitals: Vital Signs Temp Pulse Pulse Resp BP Pulse Ox 03/29/22 17:39 45 L 18 183/94 99 03/29/22 17:01 48 L 18 222/91 98 03/29/22 15:17 48 L 18 171/71 96 03/29/22 15:06 48 L 03/29/22 14:08 98.5 F 45 L 18 152/63 98 Intake and Output 03/29/22 03/29/22 03/29/22 06:59 14:59 22:59 Other: Weight 97.069 kg Results CBC & Chem 7: 03/29/22 15:05 03/29/22 16:59 Labs: Abnormal Lab Results - Last 24 Hours (Table) 03/29/22 03/29/22 03/29/22 Range/Units 15:05 15:05 15:05 WBC 11.0 H (3.8-10.6) k/uL Hgb 12.3 L (13.0-17.5) gm/dL MCH 24.7 L (25.0-35.0) pg MCHC 30.0 L (31.0-37.0) g/dL Neutrophils # 8.0 H (1.3-7.7) k/uL PT 13.6 H (9.0-12.0) sec INR 1.3 H (<1.2) APTT 31.6 H (22.0-30.0) sec Potassium 5.7 H (3.5-5.1) mmol/L BUN 23 H (9-20) mg/dL Creatinine 1.27 H (0.66-1.25) mg/dL Glucose 126 H (74-99) mg/dL 03/29/22 Range/Units 16:59 WBC (3.8-10.6) k/uL Hgb (13.0-17.5) gm/dL MCH (25.0-35.0) pg MCHC (31.0-37.0) g/dL Neutrophils # (1.3-7.7) k/uL PT (9.0-12.0) sec INR (<1.2) APTT (22.0-30.0) sec Potassium (3.5-5.1) mmol/L BUN 22 H (9-20) mg/dL Creatinine 1.26 H (0.66-1.25) mg/dL Glucose (74-99) mg/dL
[2022-03-29] MEDS ORDERED: NITROGLYCERIN OINT 1 INCH/GM PACKET TOPICAL STA (19:10)
[2022-03-29] MEDS ORDERED: LOSARTAN 25 MG TAB PO STA (19:10)
[2022-03-29] MEDS ORDERED: hydrALAZINE HCL 25 MG TAB PO PRN (19:21)
[2022-03-29 21:26] LABS: Glucose,Whole Blood 166 mg/dL (75-99)
[2022-03-30 07:00] LABS: Glucose,Whole Blood 122 mg/dL (75-99)
[2022-03-30] MEDS ORDERED: ceFAZolin 1 GM in SODIUM CHLORIDE 0.9% IRRIG BTL 250 ML IRRIGATION PRN (07:00)
[2022-03-30] MEDS ORDERED: SODIUM CHLORIDE 0.9% 1,000 ML IV STA (08:47)
[2022-03-30] MEDS: ATORVASTATIN 20 MG TAB PO SCH (09:37)
[2022-03-30] MEDS: LOSARTAN 25 MG TAB PO SCH (09:37)
[2022-03-30] MEDS: SODIUM CHLORIDE 0.9% 1,000 ML IV SCH ×2 (09:37→11:21)
--- NOTE | 2022-03-30 09:46 | P.PN ---
Subjective HISTORY OF PRESENT ILLNESS: This is a 71-year-old male with a past medical history significant for mild non- obstructive coronary artery disease (cardiac cath on 05/2021), type 2 diabetes, hypertension, and hyperlipidemia, pulmonary embolism on Xarelto, . Patient follows in the office with Dr. Erickson. We have been asked to see the patient in consultation for bradycardia. Patient presented to the emergency department with complaints of dizziness and not feeling well. Patient has been monitored on telemetry. He is bradycardic with HR 38-40s, he was also found to have significant pauses up to 6.1 seconds this morning. Patient was asymptomatic o vernight, however this morning having more frequent and longer pauses with symptoms of lightheadedness and dizziness. Patient apparently was taking atenolol/hydrochlorothiazide at home, not on home medication list. All his cardiac medications have been held since admission. Most recent Echo in 05/2021 revealed EF 5560%, mild mitral regurgitation, moderate tricuspid regurgitation, moderate pulmonary hypertension with RVSP of 45 mmHg. PHYSICAL EXAM: VITAL SIGNS: Blood pressure 167/68, heart rate 49, afebrile, saturation 97% on 2 L nasal cannula GENERAL: Well-developed in no acute distress. HEENT: Head is normocephalic. Pupils are equal, round. Sclerae anicteric. Mucous membranes of the mouth are moist. Neck supple. No JVD or thyromegaly LUNGS: Respirations even and unlabored. Lungs essentially clear to auscultation bilaterally. HEART: Regular rate and rhythm. S1 and S2 heard. ABDOMEN: Soft. Nondistended. Nontender. EXTREMITIES: Normal range of motion. No clubbing or cyanosis. Peripheral pulses intact. No lower extremity edema NEUROLOGIC: Awake and alert. Oriented x 3. ASSESSMENT: Symptomatic bradycardia Sick sinus syndrome Mild nonobstructive coronary artery disease Diabetes Hypertension Hyperlipidemia PLAN: Keep NPO Hold Xarelto Obtain 2D echo to assess cardiac structure and function Continue to hold atenolol and all AV clark blocking agents Plan for Temporary pacemaker today with Dr. Trevino Plan for permanent pacemaker today vs tomorrow with Dr. Trevino. Plan for ICU transfer after temporary pacemaker I have discussed the risks, benefits and alternative therapies for the above- mentioned procedure and for both sedation/analgesia as well as necessary blood product administration, if indicated, as they pertain to this patient. The patient has indicated understanding and acceptance of the risks and procedures discussed. Questions have been answered appropriately and he is agreeable to move forward with the above-stated procedure. Further recommendations based on clinical course Nurse practitioner note has been reviewed by physician. Signing provider agrees with the documented findings, assessment, and plan of care. Objective - Vital Signs Vital signs: Vital Signs Temp 97.7 F 03/30/22 01:52 Pulse 52 L 03/30/22 02:52 Resp 16 03/30/22 02:52 BP 120/46 03/30/22 01:52 Pulse Ox 98 03/30/22 01:52 FiO2 Intake & Output 03/29/22 03/29/22 03/30/22 06:59 18:59 06:59 Weight 97.069 kg 97.069 kg Other: Voiding Method Toilet # Voids 2 - Labs CBC & Chem 7: 03/29/22 15:05 03/29/22 16:59 Labs: Abnormal Lab Results - Last 24 Hours (Table) 03/29/22 03/29/22 03/29/22 Range/Units 15:05 15:05 15:05 WBC 11.0 H (3.8-10.6) k/uL Hgb 12.3 L (13.0-17.5) gm/dL MCH 24.7 L (25.0-35.0) pg MCHC 30.0 L (31.0-37.0) g/dL Neutrophils # 8.0 H (1.3-7.7) k/uL PT 13.6 H (9.0-12.0) sec INR 1.3 H (<1.2) APTT 31.6 H (22.0-30.0) sec Potassium 5.7 H (3.5-5.1) mmol/L BUN 23 H (9-20) mg/dL Creatinine 1.27 H (0.66-1.25) mg/dL Glucose 126 H (74-99) mg/dL POC Glucose (mg/dL) (75-99) mg/dL 03/29/22 03/29/22 Range/Units 16:59 21:24 WBC (3.8-10.6) k/uL Hgb (13.0-17.5) gm/dL MCH (25.0-35.0) pg MCHC (31.0-37.0) g/dL Neutrophils # (1.3-7.7) k/uL PT (9.0-12.0) sec INR (<1.2) APTT (22.0-30.0) sec Potassium (3.5-5.1) mmol/L BUN 22 H (9-20) mg/dL Creatinine 1.26 H (0.66-1.25) mg/dL Glucose (74-99) mg/dL POC Glucose (mg/dL) 166 H (75-99) mg/dL
[2022-03-30] MEDS ORDERED: IV FLUID CONTINUATION 1,000 ML IV ONE (10:20)
[2022-03-30] MEDS ORDERED: LIDOCAINE 1% INJ 10MG/ML (30 ML VIAL-PF) SQ ONE ×2 (10:24→10:50)
[2022-03-30 10:39] LABS: African American GFR (CKD) 69.1 (60.0-200.0); Anion Gap 10.9 mmol/L (10.00-18.00); BUN/Creat Ratio 15.08 Ratio (12.00-20.00); Blood Urea Nitrogen 18.1 mg/dL (9.0-27.0); Calcium 9.7 mg/dL (8.7-10.3); Carbon Dioxide 25.6 mmol/L (20.0-27.5); Magnesium 2.2 mg/dL (1.5-2.4); Non-African American GFR(CKD) 59.6 (60.0-200.0); Potassium 4.4 mmol/L (3.5-5.5)
[2022-03-30] MEDS: MIDAZOLAM 2 MG/2 ML VIAL IV ONE ×2 (10:45→12:09)
[2022-03-30] MEDS ORDERED: IOPAMIDOL-370 50ML BTL INJ ONE (11:01)
[2022-03-30 11:02] LABS: Basophils # (A) 0.08 X 10*3/uL (0.00-0.10); Basophils % (A) 0.9 %; Eosinophils # (A) 0.21 X 10*3/uL (0.04-0.35); Eosinophils % (A) 2.3 %; HCT 41.9 % (39.6-50.0); HGB 12.6 g/dL (13.0-17.0); Immature Grans, Automated 0.3 %; Lymphocytes % (A) 16.3 %; MCH 24.5 pg (27.0-32.0); MCHC 30.1 g/dL (32.0-37.0); MCV 81.4 fL (80.0-97.0); Mean Platelet Volume 13.8 fL (9.5-12.2); Monocytes % (A) 8.7 %; NRBC Per 100 WBC 0 /100 WBCS (0.0-0.0); Neutrophils # (A) 6.59 X 10*3/uL (1.80-7.70); Neutrophils % (A) 71.5 %; Platelet Count 229 X 10*3/uL (140-440); RBC 5.15 X 10*6/uL (4.40-5.60); RDW 14.4 % (11.5-14.5); WBC 9.21 X 10*3/uL (4.50-10.00)
--- NOTE | 2022-03-30 12:36 | P.PCN ---
Description of Procedure: Procedure(s): #1 transvenous temporary pacemaker from the right femoral venous approach #2 Dual Chamber Permanent Pacemaker Implantation left infraclavicular location; Cardiac Fluoroscopy Indications: Sick sinus syndrome with symptomatic pauses of more than 5.5 seconds. Preprocedure Diagnosis: [Sick sinus syndrome with symptomatic pauses of more than 5.5 seconds. Sinus arrest Postprocedure Diagnosis: Sick sinus syndrome with symptomatic pauses of more than 5.5 seconds. Sinus arrest Moderate conscious sedation time was 115 minutes. Patient was administered Versed. Oxygen saturation hemodynamics and EKG were monitored closely Procedure Details: Under strict aseptic precautions and local anesthesia a 6-Prydeinig introducer was placed into the right femoral vein. A balloontipped 5-Prydeinig pacemaker was advanced and positioned in the right ventricular apex. Good thresholds was achieved off about 0.5 mV. The pacemaker was set at a backup rate of 40 with a MA of 5.0. I then proceeded to perform the dual-chamber permanent pacemaker from the left infraclavicular approach. The risks, benefits, complications, treatment options, and expected outcomes were discussed with the patient. The patient and/or family concurred with the proposed plan, giving informed consent. Patient was prepped and draped in the usual strict sterile fashion. After the antibiotic was completely infused, 20 mL of 1% lidocaine was infiltrated into the area just medial to the left deltopectoral groove. Using a micropuncture needle technique with fluoroscopic guidance two access points were obtained into the axillary vein. 2 wires were advanced under to access fluoroscopic guidance into the right atrium. Using a #15 scalpel, an incision was made. The incision was extended to the pre-pectoral fascia using blunt dissection. Using cautery and dissection a pocket was made. A guidewire was advanced to the heart under fluoroscopic guidance. Sheath was advanced over the guidewire. A guidewire was retained, and dilator was removed. A pacemaker lead was advanced to the heart under fluoroscopic guidance. The sheath was peeled away. The lead was fixated to the right ventricular apical septum. Appropriate sensing and thresholds were obtained. No diaphragmatic pacing occurred at 10 V and 1.5 ms. As second sheath was advanced over the guidewire. The dilator and guidewire were removed. A pacemaker lead was advanced to the heart under fluoroscopic guidance. The sheath was peeled away. The lead was fixated to the right atrial appendage. Appropriate sensing and thresholds were obtained. No diaphragmatic pacing occurred at 10 V and 1.5 ms. Both were active leads and both the leads were screwed and and secured to the underlying muscle using 2 separate 0 silk sutures. The leads were then sutured to the pectoralis muscle using silk. Hemostasis was achieved. The measurements were then rechecked. A left pre-pectoral pocket was fashioned.The pocket was irrigated with antibiotic and i left the antibiotic sponge in the pocket for 20 minutes. The leads were attached to the generator. The system was placed in the pocket. The pacemaker and lead system were visualized under fluoroscopy. Appropriate redundancy/slacken the leads were noted. The pins of the leads were beyond the set screws. The pulse generator was also secured to the underlying muscle using a 0 silk suture. Following the permanent pacemaker procedure, underfluoroscopic guidance a temporary pacemaker was taken out and the sheath was taken out and hemostasis secured. Hemostasis was reverified. The pocket was then closed with 2.0 and 3.0 Vicryl. Steri-Strips, a gauze dressing, and operative site were placed. Pacemaker [employer] Analyst cheerapp model [employer]urity MRI 2272 serial number is [id number]. Ventricular lead knitting machine operator [employer] medical model tendril STS TS 2088 TC/58 serial number [id number]. The atrial lead knitting machine operator [employer] model tendril STS 2088 TC/52 serial number [id number] The pacemaker was set at a lower rate of 50 high rate of 120 BPM the the morning was a DDD with a AV paced to delay of 250 ms and a A-V sensed delay of 225 ms Complications: None; patient tolerated the procedure well. Disposition: PACU - hemodynamically stable. Condition: Stable. No complications. Patient will be discharged in 24 hours after device check and chest x-ray.
--- NOTE | 2022-03-30 12:44 | P.PN ---
Subjective Progress Note Date: 03/30/22 Pt with multiple sinus pauses lasting up to 6 seconds overnight. Plan for PPM implantation today. Gen: in no apparent distress, resting comfortably in bed Eyes: PERRL, no scleral injection or icterus HENT: normocephalic, atraumatic, good hearing acuity, moist mucous membranes Neck: no tracheal deviation, full range of motion Resp: good air exchange, breathing comfortably with no accessory muscle use, no tactile fremitus, clear to auscultation bilaterally CVS: good distal perfusion x 4, no pitting edema, regular rate and rhythm GI: soft, tenderness to palpation in the epigastrium, periumbilical area, ND, no hepatosplenomegaly : no suprapubic tenderness, left-sided CVAT, villalpando catheter not present MSK: no clubbing, no cyanosis, no noted contractures of extremities Skin: no noted rashes, petechiae; temperature of skin is appropriate Neuro: moving all extremities without signs of weakness, CN II-XII intact Psych: cooperative, euthymic mood, insight and judgment intact Labs and imaging assessed above Assessment/plan: SSS with symptomatic bradycardia -Admit to observation, telemetry -Cardiology consult -No need to repeat echocardiogram at this time -Orthostatics twice a day -Hold home diuretics, beta juarez -TSH/free T4 -PPM placement today. Hypertension Hyperlipidemia Diabetes type 2 Nonobstructive CAD History of DVT/PE -Home medications reconciliation is pending completion of medication history -Plan to hold atenolol, Hydrochlorothiazide, Lasix -LD SSI Patient is full code DVT prophylaxis with Xarelto upon medication reconciliation Objective - Vital Signs Vital signs: Vital Signs Temp 97.7 F 03/30/22 07:00 Pulse 51 L 03/30/22 09:38 Resp 16 03/30/22 08:00 BP 169/59 03/30/22 09:38 Pulse Ox 97 03/30/22 07:00 FiO2 Intake & Output 03/29/22 03/30/22 03/30/22 18:59 06:59 18:59 Intake Total 50 Balance 50 Weight 97.069 kg 97.069 kg Intake: IV 50 Other: Voiding Method Toilet # Voids 2 - Labs CBC & Chem 7: 03/30/22 07:08 03/30/22 07:08 Labs: Abnormal Lab Results - Last 24 Hours (Table) 03/29/22 03/29/22 03/29/22 Range/Units 15:05 15:05 15:05 WBC 11.0 H (3.8-10.6) k/uL Hgb 12.3 L (13.0-17.5) gm/dL MCH 24.7 L (25.0-35.0) pg MCHC 30.0 L (31.0-37.0) g/dL MPV (9.5-12.2) fL Neutrophils # 8.0 H (1.3-7.7) k/uL PT 13.6 H (9.0-12.0) sec INR 1.3 H (<1.2) APTT 31.6 H (22.0-30.0) sec Potassium 5.7 H (3.5-5.1) mmol/L BUN 23 H (9-20) mg/dL Creatinine 1.27 H (0.66-1.25) mg/dL Est GFR (CKD-EPI)NonAf (60.0-200.0) Glucose 126 H (74-99) mg/dL POC Glucose (mg/dL) (75-99) mg/dL Hemoglobin A1c (0.0-6.0) % 03/29/22 03/29/22 03/30/22 Range/Units 16:59 21:24 06:58 WBC (3.8-10.6) k/uL Hgb (13.0-17.5) gm/dL MCH (25.0-35.0) pg MCHC (31.0-37.0) g/dL MPV (9.5-12.2) fL Neutrophils # (1.3-7.7) k/uL PT (9.0-12.0) sec INR (<1.2) APTT (22.0-30.0) sec Potassium (3.5-5.1) mmol/L BUN 22 H (9-20) mg/dL Creatinine 1.26 H (0.66-1.25) mg/dL Est GFR (CKD-EPI)NonAf (60.0-200.0) Glucose (74-99) mg/dL POC Glucose (mg/dL) 166 H 122 H (75-99) mg/dL Hemoglobin A1c (0.0-6.0) % 03/30/22 03/30/22 03/30/22 Range/Units 07:08 07:08 07:08 WBC (3.8-10.6) k/uL Hgb 12.6 L (13.0-17.5) gm/dL MCH 24.5 L (25.0-35.0) pg MCHC 30.1 L (31.0-37.0) g/dL MPV 13.8 H (9.5-12.2) fL Neutrophils # (1.3-7.7) k/uL PT (9.0-12.0) sec INR (<1.2) APTT (22.0-30.0) sec Potassium (3.5-5.1) mmol/L BUN (9-20) mg/dL Creatinine (0.66-1.25) mg/dL Est GFR (CKD-EPI)NonAf 59.6 L (60.0-200.0) Glucose 123 H (74-99) mg/dL POC Glucose (mg/dL) (75-99) mg/dL Hemoglobin A1c 7.8 H (0.0-6.0) %
[2022-03-30 13:07] LABS: Glucose,Whole Blood 113 mg/dL (75-99)
[2022-03-30] MEDS: ACETAMINOPHEN TAB 325 MG TAB PO PRN ×2 (13:35→19:15)
--- NOTE | 2022-03-30 14:30 | XR ---
EXAMINATION TYPE: XR chest 1V portable DATE OF EXAM: 03/30/2022 Comparison: 03/29/2022 Clinical History: 71-year-old male Lead placement check Findings: Left anterior chest wall pacemaker generator with right atrial right ventricular leads. Heart mildly enlarged. Mild interstitial prominence is unchanged. Strandy atelectasis in the lungs. No consolidati on or pleural effusion. No appreciable pneumothorax. Impression: 2-lead left anterior chest wall pacemaker generator. Mild cardiomegaly. Chronic interstitial changes. Some strandy left basilar atelectasis. No definite acute process.
[2022-03-30 16:45] LABS: Glucose,Whole Blood 147 mg/dL (75-99)
--- NOTE | 2022-03-30 18:04 | CA ---
Transthoracic Echo Report Name: Otis Corral Age: 71 Gender: M : 1950 Exam Date: 03/30/2022 12:56 Exam Location: [place] [facility] Ht (in): 71 Wt (lb): 214 Ordering Physician: Virginia Joya Attending/Referring Phys: City Manager Amanda Lua RDCS Procedure CPT: Indications: Bradycardia and pauses Cardiac Hx: Post pacemaker, cath, htn, chol. Technical Quality: Good Contrast 1: Total Dose (mL): Contrast 2: Total Dose (mL): MEASUREMENTS (Male / Female) Normal Values 2D ECHO LV Diastolic Diameter PLAX 4.0 cm 4.2 - 5.9 / 3.9 - 5.3 cm LV Systolic Diameter PLAX 2.4 cm IVS Diastolic Thickness 1.3 cm 0.6 - 1.0 / 0.6 - 0.9 cm LVPW Diastolic Thickness 1.5 cm 0.6 - 1.0 / 0.6 - 0.9 cm LV Relative Wall Thickness 0.7 LA Volume 84.3 cm??? 18 - 58 / 22 - 52 cm??? M-MODE Aortic Root Diameter MM 3.1 cm LA Systolic Diameter MM 4.7 cm LA Ao Ratio MM 1.5 MV E Point Septal Separation 0.7 cm AV Cusp Separation MM 1.9 cm DOPPLER AV Peak Velocity 127.3 cm/s AV Peak Gradient 6.5 mmHg AI Peak Velocity 251.8 cm/s AI Peak Gradient 25.4 mmHg AI Pressure Half Time 608.1 ms MV Area PHT 2.6 cm??? Mitral E Point Velocity 60.0 cm/s Mitral A Point Velocity 68.9 cm/s Mitral E to A Ratio 0.9 MV Deceleration Time 290.6 ms MV E' Velocity 5.5 cm/s Mitral E to MV E' Ratio 10.8 TR Peak Velocity 322.7 cm/s TR Peak Gradient 41.7 mmHg Right Ventricular Systolic Press 45.9 mmHg FINDINGS Left Ventricle Mildly increased septal wall thickness. Left ventricular ejection fraction is estimated at 55-60 %. Left ventricular cavity size normal. Right Ventricle The right ventricle is normal in size and function. Right Atrium The right atrium is normal in size. Left Atrium Severely increased left atrial volume. Mildly increased left atrial area. Mitral Valve Structurally normal mitral valve without significant stenosis or prolapse. There is mild mitral regurgitation. Aortic Valve Structurally normal aortic valve without significant sclerosis or stenosis. There is trace aortic regurgitation. Tricuspid Valve Structurally normal tricuspid valve without significant stenosis. Pulmonary artery systolic pressure is normal. Mild tricuspid regurgitation. Pulmonic Valve Structurally normal pulmonic valve without significant stenosis. There is no pulmonic regurgitation. Pericardium Normal pericardium without effusion. Aorta Normal aortic root dimension. CONCLUSIONS Normal LV size and systolic function with mild concentric LVH. Mild mitral and tricuspid insufficiency. No pericardial effusion Previewed by: Dr. Pat Trevino MD (Electronically Signed) Final Date: 30 March 2022 18:03
[2022-03-30 21:11] LABS: Glucose,Whole Blood 243 mg/dL (75-99)
[2022-03-31] MEDS: SODIUM CHLORIDE 0.9% 1,000 ML IV SCH ×2 (05:34)
[2022-03-31] MEDS ORDERED: ceFAZolin 1 GM in SODIUM CHLORIDE 0.9% IRRIG BTL 250 ML IRRIGATION PRN (07:00)
[2022-03-31 07:11] LABS: African American GFR (CKD) 72 (>60 ml/min/1.73 sqM); Anion Gap 12 mmol/L; Blood Urea Nitrogen 17 mg/dL (9-20); Calcium 9.9 mg/dL (8.4-10.2); Carbon Dioxide 23 mmol/L (22-30); Chloride 104 mmol/L (98-107); Glucose 195 mg/dL (74-99); Non-African American GFR(CKD) 63 (>60 ml/min/1.73 sqM); Potassium 4.8 mmol/L (3.5-5.1); Sodium 139 mmol/L (137-145)
[2022-03-31 07:23] LABS: Basophils # (A) 0.1 k/uL (0-0.2); Basophils % (A) 1 %; Eosinophils # (A) 0.1 k/uL (0-0.7); Eosinophils % (A) 1 %; HCT 42.5 % (39.0-53.0); HGB 13.4 gm/dL (13.0-17.5); Hypochromasia Moderate; Lymphocytes # (A) 1.6 k/uL (1.0-4.8); Lymphocytes % (A) 15 %; MCH 25.7 pg (25.0-35.0); MCHC 31.6 g/dL (31.0-37.0); MCV 81.2 fL (80.0-100.0); Mean Platelet Volume 10.8; Monocytes # (A) 0.7 k/uL (0-1.0); Monocytes % (A) 6 %; Neutrophils # (A) 8.4 k/uL (1.3-7.7); Neutrophils % (A) 76 %; Platelet Count 250 k/uL (150-450); RBC 5.23 m/uL (4.30-5.90); RDW 14.5 % (11.5-15.5)
[2022-03-31 07:46] LABS: Glucose,Whole Blood 216 mg/dL (75-99)
--- NOTE | 2022-03-31 07:49 | XR ---
EXAMINATION TYPE: XR chest 2V DATE OF EXAM: 03/31/2022 COMPARISON: Chest x-ray from yesterday HISTORY: Lead pacemaker check. TECHNIQUE: Frontal and lateral views of the chest are obtained. FINDINGS: Persistent dual-lead pacemaker with leads terminating in right atrium and right ventricle. Right lateral lung base is not entirely imaged. There is no suspicious focal air space opacity, pleur al effusion, or pneumothorax seen. The cardiac silhouette size is stable and enlarged. The osseous structures are intact. IMPRESSION: As above. No significant change from one day earlier.
[2022-03-31 07:55] VITALS: BP 159/60; PULSE 57; RESP 18; TEMP 97.9
[2022-03-31] MEDS: LOSARTAN 25 MG TAB PO SCH (08:55)
[2022-03-31] MEDS: ATORVASTATIN 20 MG TAB PO SCH (08:55)
--- NOTE | 2022-03-31 10:40 | P.PN ---
Subjective HISTORY OF PRESENT ILLNESS: This is a 71-year-old male with a past medical history significant for mild non- obstructive coronary artery disease (cardiac cath on 05/2021), type 2 diabetes, hypertension, and hyperlipidemia, pulmonary embolism on Xarelto, . Patient follows in the office with Dr. Erickson. We have been asked to see the patient in consultation for bradycardia. Patient presented to the emergency department with complaints of dizziness and not feeling well. Patient has been monitored on telemetry. He is bradycardic with HR 38-40s, he was also found to have significant pauses up to 6.1 seconds. Patient apparently was taking atenolol /hydrochlorothiazide at home, not on home medication list. All his cardiac medications have been held since admission. Echocardiogram revealed EF 5560%, severely increased left atrial volume, mild concentric LVH, mild mitral and tricuspid regurgitation. On 03/30/2022 patient underwent dual chamber permanent pacemaker implantation with Dr. Trevino. 03/31/2022 Patient seen and examined at bedside, no acute distress. Telemetry reviewed patient in sinus rhythm with paced beats noted. No acute events overnight. Chest x-ray reviewed which revealed total sleep pacemaker with leads extremity and the right atrium and right ventricle, no acute pulmonary process seen. No p neumothorax. Patient denies any further dizziness, lightheadedness. He denies any chest pain, shortness of breath. Vital signs are stable. PHYSICAL EXAM: VITAL SIGNS: Blood pressure 159/60, heart rate 57, afebrile, saturations 93% on room air GENERAL: Well-developed in no acute distress. HEENT: Head is normocephalic. Pupils are equal, round. Sclerae anicteric. Mucous membranes of the mouth are moist. Neck supple. No JVD or thyromegaly LUNGS: Respirations even and unlabored. Lungs essentially clear to auscultation bilaterally. HEART: Regular rate and rhythm. S1 and S2 heard. ABDOMEN: Soft. Nondistended. Nontender. EXTREMITIES: Normal range of motion. No clubbing or cyanosis. Peripheral pulses intact. No lower extremity edema NEUROLOGIC: Awake and alert. Oriented x 3. ASSESSMENT: Symptomatic bradycardia Sick sinus syndrome Mild nonobstructive coronary artery disease Diabetes Hypertension Hyperlipidemia PLAN: Ok to continue Xarelto Continue to hold atenolol and all AV clark blocking agents at this time, will re-evaluate as an outpatient. Continue home anti-hypertensives Device interrogation completed device functionally normally, no acute findings, ok to discharge from a cardiology perspective, follow up with Dr. Erickson in 1 week. Nurse practitioner note has been reviewed by physician. Signing provider agrees with the documented findings, assessment, and plan of care. Objective - Vital Signs Vital signs: Vital Signs Temp 97.9 F 03/31/22 07:54 Pulse 57 L 03/31/22 07:54 Resp 18 03/31/22 07:54 BP 159/60 03/31/22 07:54 Pulse Ox 93 L 03/31/22 07:54 FiO2 Intake & Output 03/30/22 03/31/22 03/31/22 18:59 06:59 18:59 Intake Total 798 118 Balance 798 118 Intake: IV 200 Oral 598 118 Other: Voiding Method Toilet # Voids 1 - Labs CBC & Chem 7: 03/31/22 06:25 03/31/22 06:25 Labs: Abnormal Lab Results - Last 24 Hours (Table) 03/30/22 03/30/22 03/30/22 Range/Units 07:08 07:08 07:08 WBC (3.8-10.6) k/uL Hgb 12.6 L (13.0-17.0) g/dL MCH 24.5 L (27.0-32.0) pg MCHC 30.1 L (32.0-37.0) g/dL MPV 13.8 H (9.5-12.2) fL Neutrophils # (1.3-7.7) k/uL Est GFR (CKD-EPI)NonAf 59.6 L (60.0-200.0) Glucose 123 H (70-110) mg/dL POC Glucose (mg/dL) (75-99) mg/dL Hemoglobin A1c 7.8 H (0.0-6.0) % 03/30/22 03/30/22 03/30/22 Range/Units 13:05 16:43 21:10 WBC (3.8-10.6) k/uL Hgb (13.0-17.0) g/dL MCH (27.0-32.0) pg MCHC (32.0-37.0) g/dL MPV (9.5-12.2) fL Neutrophils # (1.3-7.7) k/uL Est GFR (CKD-EPI)NonAf (60.0-200.0) Glucose (70-110) mg/dL POC Glucose (mg/dL) 113 H 147 H 243 H (75-99) mg/dL Hemoglobin A1c (0.0-6.0) % 03/31/22 03/31/22 03/31/22 Range/Units 06:25 06:25 07:44 WBC 11.0 H (3.8-10.6) k/uL Hgb (13.0-17.0) g/dL MCH (27.0-32.0) pg MCHC (32.0-37.0) g/dL MPV (9.5-12.2) fL Neutrophils # 8.4 H (1.3-7.7) k/uL Est GFR (CKD-EPI)NonAf (60.0-200.0) Glucose 195 H (70-110) mg/dL POC Glucose (mg/dL) 216 H (75-99) mg/dL Hemoglobin A1c (0.0-6.0) %
[2022-03-31 11:47] LABS: Glucose,Whole Blood 318 mg/dL (75-99)
--- NOTE | 2022-03-31 12:13 | P.DS ---
Providers Date of admission: 03/30/22 11:44 Expected date of discharge: 03/31/22 Attending physician: Nela Combs MD Consults: 03/29/22 17:21 Consult Physician Routine Consulting Provider: Sriram Younger Consult Reason/Comments: bradycardia Do you want consulting provider notified?: Already Contacted Primary care physician: Steve King [facility] Course: Sick Sinus Syndrome with Symptomatic Bradycardia Chest pressure Dizziness Hypertension Hyperlipidemia Diabetes type 2 Nonobstructive CAD History of DVT/PE 71 old man with medical history of hypertension, hyperlipidemia, diabetes, nonobstructive CAD, history of DVT/PE on Xarelto presented with dizziness, chest pressure. In the emergency room, patient was afebrile, 152/63, heart rate 45- 48, 98% on room air. CBC shows mild leukocytosis to 11.0, mild anemia to 12.3. Chemistries show elevated potassium at 5.7, BUN/creatinine of 23/1.27 which represents baseline. LFTs unremarkable. Troponin was 0.032. Coag showed an elevated PT of 13.6, elevated INR 1.3, elevated PTT at 31.6. Chest x-ray shows no evidence of acute pulmonary disease. EKG shows sinus bradycardia with sinus arrhythmia, normal axis, incomplete right bundle-branch block; no change from prior EKGs. Patient was admitted to observation with telemetry and cardiology consult, however, patient had multiple episodes of sinus pauses overnight lasting as high as 6 seconds, prompting inpatient admission and urgent placement of temporary pacemaker followed by dual chamber permanent pacemaker. On the day following this procedure, patient reported feeling total resolution of symptoms. Pt was discharged home with PCP f/u and cardiology f/u. I spent 34 minutes coordinating this complex discharge, discharge date is 03/31 Gen: in no apparent distress, resting comfortably in bed Eyes: PERRL, no scleral injection or icterus HENT: normocephalic, atraumatic, good hearing acuity, moist mucous membranes Neck: no tracheal deviation, full range of motion Resp: good air exchange, breathing comfortably with no accessory muscle use, no tactile fremitus, clear to auscultation bilaterally CVS: good distal perfusion x 4, no pitting edema, regular rate and rhythm GI: soft, tenderness to palpation in the epigastrium, periumbilical area, ND, no hepatosplenomegaly : no suprapubic tenderness, left-sided CVAT, villalpando catheter not present MSK: no clubbing, no cyanosis, no noted contractures of extremities Skin: no noted rashes, petechiae; temperature of skin is appropriate Neuro: moving all extremities without signs of weakness, CN II-XII intact Psych: cooperative, euthymic mood, insight and judgment intact Patient Condition at Discharge: Stable Plan - Discharge Summary Discharge Rx Participant: No New Discharge Prescriptions: Continue Gabapentin 300 mg PO BID Aspirin [Adult Low Dose Aspirin EC] 81 mg PO DAILY metFORMIN HCL [Glucophage] 1,000 mg PO BID Insulin Glargine,Hum.rec.anlog [Lantus Solostar Pen] 40 unit SQ DAILY Losartan [Cozaar] 25 mg PO DAILY #30 tab Rivaroxaban [Xarelto] 20 mg PO DAILY Cholecalciferol [Vitamin D3 (25 Mcg = 1000 Iu)] 25 mcg PO DAILY Multivit-Min/FA/Lycopen/Lutein [Centrum Silver Tablet] 1 tab PO DAILY Fish Oil/Dha/Epa [Fish Oil 1,200 mg Fish Oil] 1 cap PO DAILY Empagliflozin/Linagliptin [Glyxambi 25 mg-5 mg Tablet] 1 tab PO DAILY Atorvastatin [Lipitor] 20 mg PO DAILY Famotidine [Pepcid] 20 mg PO BID #60 tab Pantoprazole [Protonix] 40 mg PO AC-BRKFST tablet. Ascorbic Acid [Vitamin C] 500 mg PO DAILY Furosemide [Lasix] 40 mg PO DAILY Discharge Medication List Aspirin [Adult Low Dose Aspirin EC] 81 mg PO DAILY 07/22/16 [History] Gabapentin 300 mg PO BID 07/22/16 [History] Insulin Glargine,Hum.rec.anlog [Lantus Solostar Pen] 40 unit SQ DAILY 02/13/20 [History] metFORMIN HCL [Glucophage] 1,000 mg PO BID 02/13/20 [History] Losartan [Cozaar] 25 mg PO DAILY #30 tab 02/15/20 [Rx] Atorvastatin [Lipitor] 20 mg PO DAILY 11/15/20 [History] Cholecalciferol [Vitamin D3 (25 Mcg = 1000 Iu)] 25 mcg PO DAILY 11/15/20 [History] Empagliflozin/Linagliptin [Glyxambi 25 mg-5 mg Tablet] 1 tab PO DAILY 11/15/20 [History] Fish Oil/Dha/Epa [Fish Oil 1,200 mg Fish Oil] 1 cap PO DAILY 11/15/20 [History] Multivit-Min/FA/Lycopen/Lutein [Centrum Silver Tablet] 1 tab PO DAILY 11/15/20 [History] Rivaroxaban [Xarelto] 20 mg PO DAILY 11/15/20 [History] Famotidine [Pepcid] 20 mg PO BID #60 tab 11/29/20 [Rx] Pantoprazole [Protonix] 40 mg PO AC-BRKFST tablet. 11/29/20 [Rx] Ascorbic Acid [Vitamin C] 500 mg PO DAILY 06/12/21 [History] Furosemide [Lasix] 40 mg PO DAILY 06/12/21 [History] Follow up Appointment(s)/Referral(s): Steve Hobbs MD [Primary Care Provider] - 1-2 days William Erickson MD [Family Provider] - 04/07/22 3:30 am (main office placer/site check ) Patient Instructions/Handouts: Bradycardia (IP), Pacemaker (GEN) Activity/Diet/Wound Care/Special Instructions: Activity Restrictions or Additional Instructions: Instructions following a heart rhythm device implant. 1. Keep dressing dry for 5 days. You adair cover the area with surrounding with a clean dressing/wrap prior to shower 2. The dressing can be removed in about 5 days in the Device [facility] at [facility]. Absorbable sutures were used to close the wound. 3. Avoid raising the left arm above the shoulder level. 4 week resection. 4. Avoid arm movements such as back scratching, rubbing the head or pulling on a cord. 4 week for striction. 5. Gentle range of motion movements of the shoulder, closest institution should be performed to avoid a frozen shoulder. (Pendulum exercises of the shoulder) 6. The opposite arm may be used freely. 7. Avoid driving for 7 days. 8. Avoid activities such as golfing, swimming, weed whacking, lifting more than 10 pounds of weight, bowling, and weight training/lifting (6 week restriction) 9. Being close to home induction cooktops and activities such as wood chopping with axe, pull ups, power lifting will always be a problem 10. Arm sling is only remind her not to raise arm above the head. You do not need to keep the arm completely immobilized. You're free to move the arm and use it in normal activities. In case of any problems, please call [facility] at [phone] Attention: Device Clinic Device clinic follow up in 5 days Follw up with primary chief operating engineer in 2-3 months Discharge Disposition: HOME SELF-CARE
[2022-03-31] MEDS ORDERED: RIVAROXABAN 20 MG TAB PO SCH (21:00)
== END 2022-03-31 12:08 | disposition home or self-care (01) | DRG 244 ==
LOC: EC 14:03 → 6NMEDSUR 17:33 → OBSVTOIN 03-30 11:44
PROVIDERS: ADMIT Internal Medicine; ATTEND Internal Medicine
PROC: 02HK3JZ Insertion of Pacemaker Lead into Right Ventricle, Percutaneous Approach (ICD-10-PCS; 2022-03-30)
PROC: 02H63JZ Insertion of Pacemaker Lead into Right Atrium, Percutaneous Approach (ICD-10-PCS; 2022-03-30)
PROC: 0JH606Z Insertion of Pacemaker, Dual Chamber into Chest Subcutaneous Tissue and Fascia, Open Approach (ICD-10-PCS; principal; 2022-03-30 10:25)
DX: I49.5 Sick sinus syndrome (principal); R00.1 Bradycardia, unspecified; D64.9 Anemia, unspecified; D72.829 Elevated white blood cell count, unspecified; E11.9 Type 2 diabetes mellitus without complications; I25.10 Atherosclerotic heart disease of native coronary artery without angina pectoris; Z20.822 Contact with and (suspected) exposure to COVID-19; E78.5 Hyperlipidemia, unspecified; F32.A Depression, unspecified; I10 Essential (primary) hypertension; I08.1 Rheumatic disorders of both mitral and tricuspid valves; I45.5 Other specified heart block; R79.1 Abnormal coagulation profile; R07.89 Other chest pain; R42 Dizziness and giddiness; M19.90 Unspecified osteoarthritis, unspecified site; I25.2 Old myocardial infarction; I27.20 Pulmonary hypertension, unspecified; I45.10 Unspecified right bundle-branch block; Z79.01 Long term (current) use of anticoagulants; Z79.4 Long term (current) use of insulin; Z79.82 Long term (current) use of aspirin; Z79.84 Long term (current) use of oral hypoglycemic drugs; Z79.899 Other long term (current) drug therapy; Z86.711 Personal history of pulmonary embolism; Z86.718 Personal history of other venous thrombosis and embolism
CPT/HCPCS: 33208; 36415; 71045; 71046; 80048; 80053; 83036; 83735; 84443; 84484; 85025; 85610; 85730; 87635; 93005; 93306; 99285

== ENCOUNTER 2022-04-16 09:38 | Emergency (ER) | payer MEDICARE ==
[2022-04-16 10:06] VITALS: RESP 18; TEMP 97.5
--- NOTE | 2022-04-16 10:35 | ED ---
General Adult HPI - General Chief complaint: Recheck/Abnormal Lab/Rx Stated complaint: skin problem by pacemaker Time Seen by Provider: 04/16/22 10:11 Source: patient, family Mode of arrival: ambulatory Limitations: no limitations - History of Present Illness Initial comments: Patient is a 71-year-old male presents to the emergency room at the direction of his jacquard card lacer after having an episode of bleeding from his pacemaker insertion site. He and his reports that he has had a hematoma over the site for approximately 2 days and was advised to come to the emergency room after calling when they noticed bleeding from the site this morning when they woke. He denies any pain at the insertion site, headache, dizziness, chest pain, shortness of breath fevers or chills. He had pacemaker inserted due to symptomatic bradycardia by Dr. Trevino on 03/30/22. He has a past medical history significant for hypertension, hyperlipidemia, diabetes, GERD, coronary artery disease, myocardial infarction, osteoarthritis and pulmonary emboli. He is on Xarelto for anticoagulation for his history of pulmonary embolus. He and his deny any other complaints or concerns at this time. - Related Data Home Medications Medication Instructions Recorded Confirmed Aspirin [Adult Low Dose Aspirin EC] 81 mg PO DAILY 07/22/16 03/29/22 Gabapentin 300 mg PO BID 07/22/16 03/29/22 Insulin Glargine,Hum.rec.anlog 40 unit SQ DAILY 02/13/20 03/29/22 [Lantus Solostar Pen] metFORMIN HCL [Glucophage] 1,000 mg PO BID 02/13/20 03/29/22 Atorvastatin [Lipitor] 20 mg PO DAILY 11/15/20 03/29/22 Cholecalciferol [Vitamin D3 (25 25 mcg PO DAILY 11/15/20 03/29/22 Mcg = 1000 Iu)] Empagliflozin/Linagliptin 1 tab PO DAILY 11/15/20 03/29/22 [Glyxambi 25 mg-5 mg Tablet] Fish Oil/Dha/Epa [Fish Oil 1,200 1 cap PO DAILY 11/15/20 03/29/22 mg Fish Oil] Multivit-Min/FA/Lycopen/Lutein 1 tab PO DAILY 11/15/20 03/29/22 [Centrum Silver Tablet] Rivaroxaban [Xarelto] 20 mg PO DAILY 11/15/20 03/29/22 Ascorbic Acid [Vitamin C] 500 mg PO DAILY 06/12/21 03/29/22 Furosemide [Lasix] 40 mg PO DAILY 06/12/21 03/29/22 Previous Rx's Medication Instructions Recorded Losartan [Cozaar] 25 mg PO DAILY #30 tab 02/15/20 Famotidine [Pepcid] 20 mg PO BID #60 tab 11/29/20 Pantoprazole [Protonix] 40 mg PO AC-BRKFST tablet. 11/29/20 Allergies Allergy/AdvReac Type Severity Reaction Status Date / Time bupropion [From Wellbutrin] Allergy Rash/Hives Verified 04/16/22 10:06 Pain Pill (Unknown Name) Allergy Itching Uncoded 03/29/22 18:04 Review of Systems ROS Statement: Those systems with pertinent positive or pertinent negative responses have been documented in the HPI. ROS Other: All systems not noted in ROS Statement are negative. Past Medical History Past Medical History: Coronary Artery Disease (CAD), Diabetes Mellitus, GERD/Reflux, Hypertension, Myocardial Infarction (CT), Osteoarthritis (OA), Pulmonary Embolus (PE) Last Myocardial Infarction Date:: UNSURE History of Any Multi-Drug Resistant Organisms: None Reported Past Surgical History: Heart Catheterization With Stent, Orthopedic Surgery Additional Past Surgical History / Comment(s): RT ROTATOR CUFF REPAIR. COLONOSCOPY Past Anesthesia/Blood Transfusion Reactions: Motion Sickness Date of Last Stent Placement:: UNSURE Past Psychological History: Depression Smoking Status: Never smoker Past Alcohol Use History: None Reported Past Drug Use History: None Reported - Past Family History Father Family Medical History: Cancer Additional Family Medical History / Comment(s): COLON General Exam Limitations: no limitations General appearance: alert, in no apparent distress Head exam: Present: atraumatic, normocephalic, normal inspection Eye exam: Present: normal appearance, PERRL, EOMI. Absent: scleral icterus, conjunctival injection, periorbital swelling ENT exam: Present: normal exam, mucous membranes moist Neck exam: Present: normal inspection. Absent: tenderness, meningismus, lymphadenopathy Respiratory exam: Present: normal lung sounds bilaterally. Absent: respiratory distress, wheezes, rales, rhonchi, stridor Cardiovascular Exam: Present: regular rate, normal rhythm, bradycardia, normal heart sounds. Absent: systolic murmur, rubs GI/Abdominal exam: Present: soft, normal bowel sounds. Absent: distended, tenderness, guarding, rebound, rigid Extremities exam: Present: normal inspection, normal capillary refill. Absent: pedal edema, joint swelling, calf tenderness Neurological exam: Present: alert, oriented X3, CN II-XII intact Psychiatric exam: Present: normal affect, normal mood Skin exam: Present: other (Left chest wall pacemaker site with ecchymosis, hemat keon moderate sized with scant amount of oozing bloody drainage from incision site. No purulent drainage or foul odor) Course Vital Signs 04/16/22 04/16/22 10:01 11:17 Temperature 97.5 F L Pulse Rate 50 L 50 L Respiratory 18 18 Rate Blood Pressure 174/62 170/68 O2 Sat by Pulse 99 96 Oximetry Medical Decision Making - Medical Decision Making Patient on anticoagulation for pulmonary emboli. Currently hemodynamically stable with slow oozing of blood noted at pacemaker incision site.. Will check EKG, chest x-ray along with CBC, CMP, Mg, troponin and clotting times. Mild anemia noted on labs (near baseline) otherwise lab stable. Chest x-ray without acute abnormalities. EKG shows atrially paced. bleeding during ER stay from site. Case discussed with Dr. Garcia and Dr. Miles, on-call for cardiology, case presentation information given to Dr. Miles cleared patient was advised to come to the emergency room by cardiology. Dr. Miles cleared patient for discharge home with follow-up in the office. - Lab Data Result diagrams: 04/16/22 10:38 04/16/22 10:38 Lab Results 04/16/22 04/16/22 04/16/22 Range/Units 10:38 10:38 10:38 WBC 8.3 (3.8-10.6) k/uL RBC 4.41 (4.30-5.90) m/uL Hgb 11.4 L (13.0-17.5) gm/dL Hct 36.0 L (39.0-53.0) % MCV 81.7 (80.0-100.0) fL MCH 25.9 (25.0-35.0) pg MCHC 31.8 (31.0-37.0) g/dL RDW 14.8 (11.5-15.5) % Plt Count 212 (150-450) k/uL MPV 10.0 Neutrophils % 73 % Lymphocytes % 16 % Monocytes % 7 % Eosinophils % 2 % Basophils % 1 % Neutrophils # 6.1 (1.3-7.7) k/uL Lymphocytes # 1.3 (1.0-4.8) k/uL Monocytes # 0.6 (0-1.0) k/uL Eosinophils # 0.2 (0-0.7) k/uL Basophils # 0.1 (0-0.2) k/uL Hypochromasia Slight PT 10.3 (9.0-12.0) sec INR 0.9 (<1.2) APTT 24.7 (22.0-30.0) sec Sodium 140 (137-145) mmol/L Potassium 5.0 (3.5-5.1) mmol/L Chloride 104 (98-107) mmol/L Carbon Dioxide 27 (22-30) mmol/L Anion Gap 9 mmol/L BUN 15 (9-20) mg/dL Creatinine 1.08 (0.66-1.25) mg/dL Est GFR (CKD-EPI)AfAm 78 (>60 ml/min/1.73 sqM) Est GFR (CKD-EPI)NonAf 68 (>60 ml/min/1.73 sqM) Glucose 162 H (74-99) mg/dL Calcium 9.5 (8.4-10.2) mg/dL Magnesium 1.9 (1.6-2.3) mg/dL Total Bilirubin 0.6 (0.2-1.3) mg/dL AST 23 (17-59) U/L ALT 14 (4-49) U/L Alkaline Phosphatase 66 (38-126) U/L Troponin I (0.000-0.034) ng/mL Total Protein 7.0 (6.3-8.2) g/dL Albumin 4.4 (3.5-5.0) g/dL 04/16/22 Range/Units 10:38 WBC (3.8-10.6) k/uL RBC (4.30-5.90) m/uL Hgb (13.0-17.5) gm/dL Hct (39.0-53.0) % MCV (80.0-100.0) fL MCH (25.0-35.0) pg MCHC (31.0-37.0) g/dL RDW (11.5-15.5) % Plt Count (150-450) k/uL MPV Neutrophils % % Lymphocytes % % Monocytes % % Eosinophils % % Basophils % % Neutrophils # (1.3-7.7) k/uL Lymphocytes # (1.0-4.8) k/uL Monocytes # (0-1.0) k/uL Eosinophils # (0-0.7) k/uL Basophils # (0-0.2) k/uL Hypochromasia PT (9.0-12.0) sec INR (<1.2) APTT (22.0-30.0) sec Sodium (137-145) mmol/L Potassium (3.5-5.1) mmol/L Chloride (98-107) mmol/L Carbon Dioxide (22-30) mmol/L Anion Gap mmol/L BUN (9-20) mg/dL Creatinine (0.66-1.25) mg/dL Est GFR (CKD-EPI)AfAm (>60 ml/min/1.73 sqM) Est GFR (CKD-EPI)NonAf (>60 ml/min/1.73 sqM) Glucose (74-99) mg/dL Calcium (8.4-10.2) mg/dL Magnesium (1.6-2.3) mg/dL Total Bilirubin (0.2-1.3) mg/dL AST (17-59) U/L ALT (4-49) U/L Alkaline Phosphatase (38-126) U/L Troponin I <0.012 (0.000-0.034) ng/mL Total Protein (6.3-8.2) g/dL Albumin (3.5-5.0) g/dL - EKG Data EKG Comments: Electronically atrially paced with intra-atrial conduction delay ventricular rate 49 bpm, NM interval 260 ms, QRS duration 140 ms, QT/QTC 468/4038 ms, PRT axes 201, -1, -6 Disposition Clinical Impression: Hematoma Disposition: HOME SELF-CARE Condition: Stable Instructions (If sedation given, give patient instructions): Hematoma (ED), Pacemaker (DC) Additional Instructions: Continue to follow activity restrictions per cardiology recommendations. Keep pacemaker site clean and dry. Monitor for continued bleeding and bruising. Please follow-up with cardiology and her primary care provider. Please return to the Emergency Department if symptoms worsen or any other concerns. Is patient prescribed a controlled substance at d/c from ED?: No Referrals: Steve Hobbs MD [Primary Care Provider] - 1-2 days William Erickson MD [STAFF PHYSICIAN] - 1-2 days Time of Disposition: 13:29
[2022-04-16 10:55] LABS: Basophils # (A) 0.1 k/uL (0-0.2); Basophils % (A) 1 %; Eosinophils # (A) 0.2 k/uL (0-0.7); Eosinophils % (A) 2 %; HGB 11.4 gm/dL (13.0-17.5); Hypochromasia Slight; Lymphocytes # (A) 1.3 k/uL (1.0-4.8); Lymphocytes % (A) 16 %; MCH 25.9 pg (25.0-35.0); MCHC 31.8 g/dL (31.0-37.0); MCV 81.7 fL (80.0-100.0); Monocytes # (A) 0.6 k/uL (0-1.0); Monocytes % (A) 7 %; Neutrophils # (A) 6.1 k/uL (1.3-7.7); Neutrophils % (A) 73 %; Platelet Count 212 k/uL (150-450); RBC 4.41 m/uL (4.30-5.90); RDW 14.8 % (11.5-15.5); WBC 8.3 k/uL (3.8-10.6)
[2022-04-16 10:59] LABS: Albumin 4.4 g/dL (3.5-5.0); Calcium 9.5 mg/dL (8.4-10.2); Magnesium 1.9 mg/dL (1.6-2.3); Total Bilirubin 0.6 mg/dL (0.2-1.3)
[2022-04-16 11:00] LABS: INR 0.9 (<1.2); Partial Thromboplastin Time 24.7 sec (22.0-30.0); Prothrombin Time 10.3 sec (9.0-12.0)
--- NOTE | 2022-04-16 11:07 | XR ---
EXAMINATION TYPE: XR chest 2V DATE OF EXAM: 04/16/2022 COMPARISON: 03/31/2022 INDICATION: Pacemaker hematoma TECHNIQUE: Frontal and lateral views of the chest are obtained. FINDINGS: The heart size is normal. The pulmonary vasculature is normal. The lungs are clear. Left-sided pacemaker is present. No suspicious radiographic abnormality is iden tified at this level. IMPRESSION: 1. No acute pulmonary process.
[2022-04-16 13:41] VITALS: BP 154/84; PULSE 54
== END 2022-04-16 13:41 | disposition home or self-care (01) ==
LOC: EC 09:38
DX: L76.32 Postprocedural hematoma of skin and subcutaneous tissue following other procedure (principal); E11.9 Type 2 diabetes mellitus without complications; K21.9 Gastro-esophageal reflux disease without esophagitis; I10 Essential (primary) hypertension; I25.10 Atherosclerotic heart disease of native coronary artery without angina pectoris; M19.90 Unspecified osteoarthritis, unspecified site; Z88.8 Allergy status to other drugs, medicaments and biological substances; Z88.6 Allergy status to analgesic agent; Z79.899 Other long term (current) drug therapy; Z79.02 Long term (current) use of antithrombotics/antiplatelets; Z79.82 Long term (current) use of aspirin
CPT/HCPCS: 36415; 71046; 80053; 83735; 84484; 85025; 85610; 85730; 93005; 99284

== ENCOUNTER → 2023-01-21 | Outpatient (CLI) | payer MEDICARE ==
--- NOTE | 2023-01-21 15:30 | US ---
EXAMINATION TYPE: US arterial LE single level DATE OF EXAM: 01/21/2023 11:59 AM CLINICAL HISTORY: I73.9. Bilateral cold feet. Patient states right groin stent. History of: Smoker: No Hypertension: Yes Diabetic: Yes TIA/CVA: No Previous Vascular Surgery: Yes CAD: Yes Vascular Ulcers: No Claudication: No Gangrene: No Doppler Waveforms: Right: Multiphasic, monophasic in the right digit Left: Multiphasic, monophasic in the right digit Pulse Volume Recording: Pressure Gradients: Right Brachial Pressure: 19 Left Brachial Pressure: 199 Ankle-Brachial Indices: Right: 1.0 Left: 1.1 Toe Brachial Indices: Right: 0.7 Left: 0.5 IMPRESSION: Normal waveforms and DANIEL involving the bilateral femoral to dorsalis pedis arteries. Mon ophasic waveforms involving the bilateral digits. Cannot exclude significant arterial vascular diseas e within the bilateral digits.
== END | disposition home or self-care (01) ==
LOC: RADUSWWP 10:45
PROVIDERS: ATTEND Family Medicine
DX: I73.9 Peripheral vascular disease, unspecified (principal); E11.51 Type 2 diabetes mellitus with diabetic peripheral angiopathy without gangrene; I10 Essential (primary) hypertension
CPT/HCPCS: 93922

== ENCOUNTER → 2023-06-06 | Outpatient (CLI) | payer MEDICARE ==
--- NOTE | 2023-06-06 13:20 | CT ---
EXAMINATION TYPE: CT abdomen pelvis wo con DATE OF EXAM: 06/06/2023 COMPARISON: 11/15/2020 HISTORY: 72-year-old male R10.9, Bilateral flank pain CT DLP: 953.4 mGycm. Automated exposure control for dose reduction was used. TECHNIQUE: Contiguous axial scanning of the abdomen and pelvis without IV contrast. Coronal and sagit erick reconstructions performed. FINDINGS: Right atrial and right ventricular pacer leads. Heart borderline enlarged without pericardial effusio n. Patchy groundglass changes in the visualized lower lungs. Slightly more focal 1.1 density periphery o f the left base should be reassessed at follow-up. No pleural effusion. Noncontrast appearance of the liver, gallbladder, adrenal glands, spleen with anterior and inferior h ilar splenules, and pancreas show no gross adenopathy. Redemonstrated bilateral lobulated renal contours. No hydronephrosis. No nephrolithiasis. No dilated small bowel, free fluid, or free air. No mesenteric or retroperitoneal lymphadenopathy. Normal appendix. There is mild to moderate stool. Lower descending and sigmoid colonic diverticulosis . No pericolonic inflammatory change. Patulous bilateral inguinal canals, left more so than right. Bladder partially distended. Prostate gland measures 4.7 cm wide. No abnormal fluid collection in the pelvis or pelvic lymphadenopathy. Bones: Addition the lower thoracic spine. Hypertrophic facet arthropathy lumbar spine. IMPRESSION: 1. No nephrolithiasis or hydronephrosis. 2. Left-sided colonic diverticulosis without acute diverticulitis. 3. Mild/moderate stool burden. Mild prostatomegaly of 4.7 cm wide. 4. Patchy groundglass changes in the lower lungs. Consider interstitial pneumonitis, chronic aspirat ion, or atypical pneumonias. Changes slightly progressed from 2020. There is also a more focal 1.1 cm density at the left base which should be reassessed at 3-[address] chest.
== END | disposition home or self-care (01) ==
LOC: RADCTMAIN 12:09
PROVIDERS: ATTEND Family Medicine
DX: N40.0 Benign prostatic hyperplasia without lower urinary tract symptoms (principal); R91.8 Other nonspecific abnormal finding of lung field; J98.4 Other disorders of lung; K57.30 Diverticulosis of large intestine without perforation or abscess without bleeding
CPT/HCPCS: 74176

== ENCOUNTER → 2023-06-06 | Outpatient (CLI) | payer MEDICARE ==
[2023-06-06 17:01] LABS: ALT 24 U/L (10-49); AST 21 U/L (14-35); Albumin 4.6 d/dL (3.8-4.9); Albumin/Globulin Ratio 2.19 Ratio (1.60-3.17); Alkaline Phosphatase 71 U/L (41-126); BUN/Creat Ratio 11.75 Ratio (12.00-20.00); Blood Urea Nitrogen 14.1 mg/dL (9.0-27.0); Calcium 10.1 mg/dL (8.7-10.3); Carbon Dioxide 27.5 mmol/L (21.6-31.8); Chloride 105 mmol/L (96-109); Globulin 2.1 d/dL (1.6-3.3); Glucose 190 mg/dL (70-110); Potassium 5.1 mmol/L (3.5-5.5); Sodium 143 mmol/L (135-145); Total Bilirubin 0.4 mg/dL (0.3-1.2); Total Protein 6.7 d/dL (6.2-8.2)
[2023-06-06 17:27] LABS: Basophils # (A) 0.07 X 10*3/uL (0.00-0.10); Basophils % (A) 0.8 %; Eosinophils # (A) 0.28 X 10*3/uL (0.04-0.35); Eosinophils % (A) 3.3 %; HCT 40.1 % (39.6-50.0); HGB 12.7 d/dL (13.0-17.0); Lymphocytes # (A) 1.74 X 10*3/uL (0.90-5.00); Lymphocytes % (A) 20.8 %; MCH 26.8 pg (27.0-32.0); MCHC 31.7 d/dL (32.0-37.0); MCV 84.6 FL (80.0-97.0); Mean Platelet Volume 14.3 FL (9.5-12.2); Monocytes # (A) 0.67 X 10*3/uL (0.20-1.00); NRBC Per 100 WBC 0 X 10*3/uL (0.00-0.01); Neutrophils # (A) 5.57 X 10*3/uL (1.80-7.70); Neutrophils % (A) 66.6 %; Platelet Count 174 X 10*3/uL (140-440); RBC 4.74 X 10*6/uL (4.40-5.60); RDW 14.7 % (11.5-14.5); WBC 8.37 X 10*3/uL (4.50-10.00)
== END | disposition home or self-care (01) ==
LOC: LABWHC1 12:38
PROVIDERS: ATTEND Family Medicine
DX: R10.9 Unspecified abdominal pain (principal); R80.9 Proteinuria, unspecified
CPT/HCPCS: 36415; 80053; 85025

== ENCOUNTER 2024-02-05 21:12 | Emergency (ER) | payer MEDICARE ==
[2024-02-05 22:14] VITALS: TEMP 98.6
[2024-02-05 23:08] LABS: Basophils # (A) 0.1 k/uL (0-0.2); Basophils % (A) 1 %; Eosinophils # (A) 0.1 k/uL (0-0.7); Eosinophils % (A) 1 %; HCT 35.2 % (39.0-53.0); HGB 12.6 gm/dL (13.0-17.5); Lymphocytes # (A) 1.4 k/uL (1.0-4.8); Lymphocytes % (A) 14 %; MCHC 35.7 g/dL (31.0-37.0); Mean Platelet Volume 10.5; Monocytes # (A) 0.6 k/uL (0-1.0); Monocytes % (A) 6 %; Neutrophils # (A) 7.5 k/uL (1.3-7.7); Neutrophils % (A) 76 %; Platelet Count 208 k/uL (150-450); RBC 4.19 m/uL (4.30-5.90); RDW 13.2 % (11.5-15.5); WBC 9.8 k/uL (3.8-10.6)
--- NOTE | 2024-02-05 23:24 | ED ---
Abdominal Pain HPI - General Chief Complaint: Abdominal Pain Stated Complaint: Abd pain Time Seen by Provider: 02/05/24 22:48 Source: patient Mode of arrival: ambulatory Limitations: no limitations - History of Present Illness Initial Comments: 73-year-old male with a past medical history significant for diabetes. Patient is [place] and history mainly provided by the patient's at bedside. Per , has had symptoms of productive cough, diffuse abdominal pain, 2-3 episodes of nonbloody diarrhea with some nausea and headache over the past 2 to 3 months. Most recently, patient started to have episodes of vomiting which worried her prompting presentation to the ED for further evaluation. Patient also does note some associated subjective fevers. Denies chest pain or shortness of breath at this time. No other complaints. - Related Data Home Medications Medication Instructions Recorded Confirmed Aspirin [Adult Low Dose Aspirin EC] 81 mg PO DAILY 07/22/16 03/29/22 Gabapentin 300 mg PO BID 07/22/16 03/29/22 Insulin Glargine,Hum.rec.anlog 40 unit SQ DAILY 02/13/20 03/29/22 [Lantus Solostar Pen] metFORMIN HCL [Glucophage] 1,000 mg PO BID 02/13/20 03/29/22 Atorvastatin [Lipitor] 20 mg PO DAILY 11/15/20 03/29/22 Cholecalciferol [Vitamin D3 (25 25 mcg PO DAILY 11/15/20 03/29/22 Mcg = 1000 Iu)] Empagliflozin/Linagliptin 1 tab PO DAILY 11/15/20 03/29/22 [Glyxambi 25 mg-5 mg Tablet] Fish Oil/Dha/Epa [Fish Oil 1,200 1 cap PO DAILY 11/15/20 03/29/22 mg Fish Oil] Multivit-Min/FA/Lycopen/Lutein 1 tab PO DAILY 11/15/20 03/29/22 [Centrum Silver Tablet] Rivaroxaban [Xarelto] 20 mg PO DAILY 11/15/20 03/29/22 Ascorbic Acid [Vitamin C] 500 mg PO DAILY 06/12/21 03/29/22 Furosemide [Lasix] 40 mg PO DAILY 06/12/21 03/29/22 Previous Rx's Medication Instructions Recorded Losartan [Cozaar] 25 mg PO DAILY #30 tab 02/15/20 Famotidine [Pepcid] 20 mg PO BID #60 tab 11/29/20 Pantoprazole [Protonix] 40 mg PO AC-[id number] tablet. 11/29/20 Ondansetron Odt [Zofran Odt] 4 mg PO Q8HR PRN #10 tab 02/06/24 Allergies Allergy/AdvReac Type Severity Reaction Status Date / Time bupropion [From Wellbutrin] Allergy Rash/Hives Verified 02/06/24 02:05 Iodinated Contrast Media Allergy Swelling Verified 02/06/24 02:05 Pain Pill (Unknown Name) Allergy Itching Uncoded 02/06/24 02:05 Review of Systems ROS Statement: Those systems with pertinent positive or pertinent negative responses have been documented in the HPI. ROS Other: All systems not noted in ROS Statement are negative. Past Medical History Past Medical History: Coronary Artery Disease (CAD), Diabetes Mellitus, GERD/Reflux, Hypertension, Myocardial Infarction (IL), Osteoarthritis (OA), Pulmonary Embolus (PE) Last Myocardial Infarction Date:: UNSURE History of Any Multi-Drug Resistant Organisms: None Reported Past Surgical History: Heart Catheterization With Stent, Orthopedic Surgery Additional Past Surgical History / Comment(s): RT ROTATOR CUFF REPAIR. COLONOSCOPY Past Anesthesia/Blood Transfusion Reactions: Motion Sickness Date of Last Stent Placement:: UNSURE Past Psychological History: Depression Smoking Status: Never smoker Past Alcohol Use History: None Reported Past Drug Use History: None Reported - Past Family History Father Family Medical History: Cancer Additional Family Medical History / Comment(s): COLON General Exam Limitations: no limitations General appearance: alert, in no apparent distress Eye exam: Present: normal appearance Neck exam: Present: normal inspection Respiratory exam: Present: normal lung sounds bilaterally Cardiovascular Exam: Present: regular rate GI/Abdominal exam: Present: soft (No significant tenderness to palpation. No rebound without rigidity. Bowel sounds active.) Neurological exam: Present: alert, oriented X3 Skin exam: Present: warm, dry Course Vital Signs 02/05/24 02/06/24 02/06/24 21:53 01:35 02:02 Temperature 98.6 F Pulse Rate 50 L 52 L 51 L Respiratory 18 18 16 Rate Blood Pressure 133/45 181/58 113/81 O2 Sat by Pulse 100 98 100 Oximetry Medical Decision Making - Medical Decision Making Was pt. sent in by a medical professional or institution (, PA, PLASTICS SEASONER OPERATOR, urgent care, hospital, or intermediate...) When possible be specific @ -No Did you speak to anyone other than the patient for history (EMS, parent, family, police, friend...)? What history was obtained from this source @ -Majority of the history provided by the patient's . For further details of his HPI. Did you review nursing and triage notes (agree or disagree)? Why? @ -I reviewed and agree with nursing and triage notes Were old charts reviewed (outside hosp., previous admission, EMS record, old EKG, old radiological studies, urgent care reports/EKG's, intermediate records)? Report findings @ -No old charts were reviewed Differential Diagnosis (chest pain, altered mental status, abdominal pain women, abdominal pain men, vaginal bleeding, weakness, fever, dyspnea, syncope, headache, dizziness, GI bleed, back pain, seizure, CVA, palpatations, mental h ealth, musculoskeletal)? @ -Differential Abdominal Pain Men: Appendicitis, cholecystitis, diverticulosis, ischemic bowel, pancreatitis, hepatitis, UTI, gastroenteritis, AAA, incarcerated hernia, bowel obstruction, constipation, inflammatory bowel, hepatitis, peptic ulcer disease, splenic infarction, perforated viscus, testicular torsion, this is not meant to be an all-inclusive list EKG interpreted by me (3pts min.). @ -EKG interpreted me showing a paced rhythm at [address] or T wave changes at a rate of 50 bpm. MT 22, QRS 144, QT/QTc 404/457. Appears largely similar to prior. X-rays interpreted by me (1pt min.). @ -None done CT interpreted by me (1pt min.). @ -CT abdomen pelvis interpreted me which revealed no evidence of acute finding. U/S interpreted by me (1pt. min.). @ -None done What testing was considered but not performed or refused? (CT, X-rays, U/S, labs)? Why? @ -None What meds were considered but not given or refused? Why? @ -None Did you discuss the management of the patient with other professionals (professionals i.e. , ELLY, PLASTICS SEASONER OPERATOR, lab, RT, psych nurse, social services assistant, sheet rock hanger, teacher, loan service officer, casework manager)? Give summary @ -No Was smoking cessation discussed for >3mins.? @ -No Was critical care preformed (if so, how long)? @ -No Were there social determinants of health that impacted care today? How? (Homelessness, low income, unemployed, alcoholism, drug addiction, transportation, low edu. Level, literacy, decrease access to med. care, shelter, rehab)? @ -No Was there de-escalation of care discussed even if they declined (Discuss DNR or withdrawal of care, Hospice)? DNR status @ -No What co-morbidities impacted this encounter? (DM, HTN, Smoking, COPD, CAD, Cancer, CVA, ARF, Chemo, Hep., AIDS, mental health diagnosis, sleep apnea, morbid obesity)? @ -None Was patient admitted / discharged? Hospital course, mention meds given and route, prescriptions, significant lab abnormalities, going to OR and other pertinent info. @ -Discharge 73-year-old male presented to the ED with complaints of headache, abdominal pain, nausea, diarrhea which have been intermittent for the last 3 months. Also reported some intermittent chest pain over this time. However at this time denied chest pain. Laboratory studies reviewed. Labs including CBC, CMP, UA, troponin largely unremarkable. Did have some evidence of hypomagnesemia which was repleted, and dehydration. Patient was taken to CT with contrast however did have a reaction where he started to feel itchiness and rash. Patient promptly given IV Solu-Medrol, Pepcid, Benadryl with resolution of symptoms. Labs and imaging studies show no evidence of acute findings at this time and p atient will be discharged home in stable condition with instructions to closely follow-up with his PCP. Provided prescription for Zofran. Discussed strict return precautions with patient and family who verbalized agreement. Undiagnosed new problem with uncertain prognosis? @ -No Drug Therapy requiring intensive monitoring for toxicity (Heparin, Nitro, Insulin, Cardizem)? @ -No Were any procedures done? @ -No Diagnosis/symptom? @ -Abdominal pain, nausea, vomiting, diarrhea Acute, or Chronic, or Acute on Chronic? @ -Acute on chronic Uncomplicated (without systemic symptoms) or Complicated (systemic symptoms)? @ -Uncomplicated Side effects of treatment? @ -No Exacerbation, Progression, or Severe Exacerbation? @ -No Poses a threat to life or bodily function? How? (Chest pain, USA, IL, pneumonia, PE, COPD, DKA, ARF, appy, cholecystitis, CVA, Diverticulitis, Homicidal, Suicidal, threat to staff... and all critical care pts) @ -No - Lab Data Result diagrams: 02/05/24 21:57 02/05/24 21:57 Lab Results 02/05/24 02/05/24 02/05/24 Range/Units 21:57 21:57 21:57 WBC 9.8 (3.8-10.6) k/uL RBC 4.19 L (4.30-5.90) m/uL Hgb 12.6 L (13.0-17.5) gm/dL Hct 35.2 L (39.0-53.0) % MCV 84.0 (80.0-100.0) fL MCH 30.0 (25.0-35.0) pg MCHC 35.7 (31.0-37.0) g/dL RDW 13.2 (11.5-15.5) % Plt Count 208 (150-450) k/uL MPV 10.5 Neutrophils % 76 % Lymphocytes % 14 % Monocytes % 6 % Eosinophils % 1 % Basophils % 1 % Neutrophils # 7.5 (1.3-7.7) k/uL Lymphocytes # 1.4 (1.0-4.8) k/uL Monocytes # 0.6 (0-1.0) k/uL Eosinophils # 0.1 (0-0.7) k/uL Basophils # 0.1 (0-0.2) k/uL PT (10.0-12.5) sec INR (<1.2) APTT (22.0-30.0) sec Sodium 140 (137-145) mmol/L Potassium 4.3 (3.5-5.1) mmol/L Chloride 108 H (98-107) mmol/L Carbon Dioxide 21 L (22-30) mmol/L Anion Gap 11 mmol/L BUN 17 (9-20) mg/dL Creatinine 1.25 (0.66-1.25) mg/dL Est GFR (CKD-EPI)AfAm 65 (>60 ml/min/1.73 sqM) Est GFR (CKD-EPI)NonAf 56 (>60 ml/min/1.73 sqM) Glucose 171 H (74-99) mg/dL Plasma Lactic Acid Eron (0.7-2.0) mmol/L Calcium 9.8 (8.4-10.2) mg/dL Magnesium 1.4 L (1.6-2.3) mg/dL Total Bilirubin 0.9 (0.2-1.3) mg/dL AST 39 (17-59) U/L ALT 24 (4-49) U/L Alkaline Phosphatase 70 (38-126) U/L Troponin I (0.000-0.034) ng/mL Total Protein 7.4 (6.3-8.2) g/dL Albumin 4.4 (3.5-5.0) g/dL Amylase 52 (30-110) U/L Lipase 167 (23-300) U/L Urine Color Yellow Urine Appearance Clear (Clear) Urine pH 6.5 (5.0-8.0) Ur Specific [place] 1.018 (1.001-1.035) Urine Protein 2+ H (Negative) Urine Glucose (UA) 1+ H (Negative) Urine Ketones Negative (Negative) Urine Blood Negative (Negative) Urine Nitrite Negative (Negative) Urine Bilirubin Negative (Negative) Urine Urobilinogen <2.0 (<2.0) mg/dL Ur Leukocyte Esterase Negative (Negative) Urine RBC 1 (0-5) /hpf Urine WBC 1 (0-5) /hpf Hyaline Casts 14 H (0-2) /lpf Urine Mucus Rare H (None) /hpf Influenza Type A (PCR) (Not Detectd) Influenza Type B (PCR) (Not Detectd) RSV (PCR) (Not Detectd) SARS-CoV-2 (PCR) (Not Detectd) 02/05/24 02/05/24 02/05/24 Range/Units 21:57 21:57 21:57 WBC (3.8-10.6) k/uL RBC (4.30-5.90) m/uL Hgb (13.0-17.5) gm/dL Hct (39.0-53.0) % MCV (80.0-100.0) fL MCH (25.0-35.0) pg MCHC (31.0-37.0) g/dL RDW (11.5-15.5) % Plt Count (150-450) k/uL MPV Neutrophils % % Lymphocytes % % Monocytes % % Eosinophils % % Basophils % % Neutrophils # (1.3-7.7) k/uL Lymphocytes # (1.0-4.8) k/uL Monocytes # (0-1.0) k/uL Eosinophils # (0-0.7) k/uL Basophils # (0-0.2) k/uL PT (10.0-12.5) sec INR (<1.2) APTT (22.0-30.0) sec Sodium (137-145) mmol/L Potassium (3.5-5.1) mmol/L Chloride (98-107) mmol/L Carbon Dioxide (22-30) mmol/L Anion Gap mmol/L BUN (9-20) mg/dL Creatinine (0.66-1.25) mg/dL Est GFR (CKD-EPI)AfAm (>60 ml/min/1.73 sqM) Est GFR (CKD-EPI)NonAf (>60 ml/min/1.73 sqM) Glucose (74-99) mg/dL Plasma Lactic Acid Eron 1.2 (0.7-2.0) mmol/L Calcium (8.4-10.2) mg/dL Magnesium (1.6-2.3) mg/dL Total Bilirubin (0.2-1.3) mg/dL AST (17-59) U/L ALT (4-49) U/L Alkaline Phosphatase (38-126) U/L Troponin I 0.014 (0.000-0.034) ng/mL Total Protein (6.3-8.2) g/dL Albumin (3.5-5.0) g/dL Amylase (30-110) U/L Lipase (23-300) U/L Urine Color Urine Appearance (Clear) Urine pH (5.0-8.0) Ur Specific Penn (1.001-1.035) Urine Protein (Negative) Urine Glucose (UA) (Negative) Urine Ketones (Negative) Urine Blood (Negative) Urine Nitrite (Negative) Urine Bilirubin (Negative) Urine Urobilinogen (<2.0) mg/dL Ur Leukocyte Esterase (Negative) Urine RBC (0-5) /hpf Urine WBC (0-5) /hpf Hyaline Casts (0-2) /lpf Urine Mucus (None) /hpf Influenza Type A (PCR) Not Detected (Not Detectd) Influenza Type B (PCR) Not Detected (Not Detectd) RSV (PCR) Not Detected (Not Detectd) SARS-CoV-2 (PCR) Not Detected (Not Detectd) 02/05/24 Range/Units 22:29 WBC (3.8-10.6) k/uL RBC (4.30-5.90) m/uL Hgb (13.0-17.5) gm/dL Hct (39.0-53.0) % MCV (80.0-100.0) fL MCH (25.0-35.0) pg MCHC (31.0-37.0) g/dL RDW (11.5-15.5) % Plt Count (150-450) k/uL MPV Neutrophils % % Lymphocytes % % Monocytes % % Eosinophils % % Basophils % % Neutrophils # (1.3-7.7) k/uL Lymphocytes # (1.0-4.8) k/uL Monocytes # (0-1.0) k/uL Eosinophils # (0-0.7) k/uL Basophils # (0-0.2) k/uL PT 13.5 H (10.0-12.5) sec INR 1.3 H (<1.2) APTT 29.7 (22.0-30.0) sec Sodium (137-145) mmol/L Potassium (3.5-5.1) mmol/L Chloride (98-107) mmol/L Carbon Dioxide (22-30) mmol/L Anion Gap mmol/L BUN (9-20) mg/dL Creatinine (0.66-1.25) mg/dL Est GFR (CKD-EPI)AfAm (>60 ml/min/1.73 sqM) Est GFR (CKD-EPI)NonAf (>60 ml/min/1.73 sqM) Glucose (74-99) mg/dL Plasma Lactic Acid Eron (0.7-2.0) mmol/L Calcium (8.4-10.2) mg/dL Magnesium (1.6-2.3) mg/dL Total Bilirubin (0.2-1.3) mg/dL AST (17-59) U/L ALT (4-49) U/L Alkaline Phosphatase (38-126) U/L Troponin I (0.000-0.034) ng/mL Total Protein (6.3-8.2) g/dL Albumin (3.5-5.0) g/dL Amylase (30-110) U/L Lipase (23-300) U/L Urine Color Urine Appearance (Clear) Urine pH (5.0-8.0) Ur Specific Penn (1.001-1.035) Urine Protein (Negative) Urine Glucose (UA) (Negative) Urine Ketones (Negative) Urine Blood (Negative) Urine Nitrite (Negative) Urine Bilirubin (Negative) Urine Urobilinogen (<2.0) mg/dL Ur Leukocyte Esterase (Negative) Urine RBC (0-5) /hpf Urine WBC (0-5) /hpf Hyaline Casts (0-2) /lpf Urine Mucus (None) /hpf Influenza Type A (PCR) (Not Detectd) Influenza Type B (PCR) (Not Detectd) RSV (PCR) (Not Detectd) SARS-CoV-2 (PCR) (Not Detectd) Disposition Clinical Impression: Abdominal pain, Nausea vomiting and diarrhea, Headache Disposition: HOME SELF-CARE Condition: Good Additional Instructions: Please return to the Emergency Department if symptoms worsen or any other concerns. Please follow-up with your primary care provider. Prescriptions: Ondansetron Odt [Zofran Odt] 4 mg PO Q8HR PRN #10 tab PRN Reason: Nausea Is patient prescribed a controlled substance at d/c from ED?: No Referrals: Long Hobbs MD [Primary Care Provider] - 1-2 days Time of Disposition: 02:35
[2024-02-05 23:25] LABS: Appearance,Urine Clear (Clear); Bilirubin,Urine Negative (Negative); Blood,Urine Negative (Negative); Color,Urine Yellow; Glucose,Urine (UA) 1+ (Negative); Hyaline Casts,Urine 14 /lpf (0-2); Ketones,Urine Negative (Negative); Leukocyte Esterase,Urine Negative (Negative); Mucus,Urine Rare /hpf; Nitrite,Urine Negative (Negative); PH, Urine 6.5 (5.0-8.0); Protein,Urine 2+ (Negative); RBC,Urine 1 /hpf (0-5); Specific Gravity,Urine 1.018 (1.001-1.035); Urobilinogen,Urine <2.0 mg/dL (<2.0); WBC,Urine 1 /hpf (0-5)
--- NOTE | 2024-02-05 23:37 | XR ---
EXAM: XR Chest, 2 Views CLINICAL HISTORY: ITS.REASON XR Reason: Chest Pain TECHNIQUE: Frontal and lateral views of the chest. COMPARISON: No relevant prior studies available. FINDINGS: Lungs: Unremarkable. No consolidation. Pleural space: Unremarkable. No pneumothorax. Heart: Unremarkable. No cardiomegaly. Mediastinum: Unremarkable. Normal mediastinal contour. Bones/joints: Unremarkable. No acute fracture. Tubes, lines and devices: Dual lead pacemaker. IMPRESSION: No acute findings in the chest.
[2024-02-05 23:38] LABS: INR 1.3 (<1.2); Partial Thromboplastin Time 29.7 sec (22.0-30.0); Prothrombin Time 13.5 sec (10.0-12.5)
[2024-02-06 00:23] LABS: ALT 24 U/L (4-49); AST 39 U/L (17-59); African American GFR (CKD) 65 (>60 ml/min/1.73 sqM); Albumin 4.4 g/dL (3.5-5.0); Alkaline Phosphatase 70 U/L (38-126); Amylase 52 U/L (30-110); Anion Gap 11 mmol/L; Blood Urea Nitrogen 17 mg/dL (9-20); Calcium 9.8 mg/dL (8.4-10.2); Carbon Dioxide 21 mmol/L (22-30); Chloride 108 mmol/L (98-107); Glucose 171 mg/dL (74-99); Lipase 167 U/L (23-300); Magnesium 1.4 mg/dL (1.6-2.3); Non-African American GFR(CKD) 56 (>60 ml/min/1.73 sqM); Potassium 4.3 mmol/L (3.5-5.1); Sodium 140 mmol/L (137-145); Total Bilirubin 0.9 mg/dL (0.2-1.3); Total Protein 7.4 g/dL (6.3-8.2)
[2024-02-06] MEDS: KETOROLAC 15 MG/ML 1 ML VIAL IVP STA (00:40)
[2024-02-06] MEDS: ONDANSETRON 4 MG/2 ML VIAL IVP STA (00:40)
[2024-02-06] MEDS: SODIUM CHLORIDE 0.9% 1,000 ML IV STA (00:41)
[2024-02-06] MEDS: diphenhydrAMINE 50 MG/ML 1 ML VIAL IVP STA (01:34)
[2024-02-06] MEDS: methylPREDNISolone SOD SUCCI 125 MG/2 ML VIAL IV STA (01:34)
[2024-02-06] MEDS: FAMOTIDINE 20 MG/2 ML VIAL IV STA (01:34)
--- NOTE | 2024-02-06 01:45 | CT ---
EXAM: CT Abdomen and Pelvis With Intravenous Contrast CLINICAL HISTORY: ITS.REASON CT Reason: abdominal pain diarrhea TECHNIQUE: Axial computed tomography images of the abdomen and pelvis with intravenous contrast. CTDI is 23.7 mGy and DLP is 1261.1 mGy-cm. This CT exam was performed using one or more of the following dose reduction techniques: automated exposure control, adjustment of the mA and/or kV according to patient size, and/or use of iterative reconstruction technique. COMPARISON: No relevant prior studies available. FINDINGS: Lung bases: Unremarkable. No mass. No consolidation. ABDOMEN: Liver: Unremarkable. No mass. Gallbladder and bile ducts: Contracted gallbladder. No calcified stones. No ductal dilation. Pancreas: Unremarkable. No mass. No ductal dilation. Spleen: Unremarkable. No splenomegaly. Adrenals: Unremarkable. No mass. Kidneys and ureters: Unremarkable. No solid mass. No hydronephrosis. Stomach and bowel: Diverticulosis, without acute diverticulitis. No small bowel obstruction. No free intraperitoneal air. PELVIS: Appendix: Normal appendix. Bladder: Unremarkable. No mass. Reproductive: Unremarkable as visualized. ABDOMEN and PELVIS: Intraperitoneal space: Unremarkable. No free air. No significant fluid collection. Bones/joints: Degenerative changes of the spine. No acute fracture. No dislocation. Soft tissues: Fat-containing bilateral inguinal hernias. Vasculature: Atherosclerotic changes of the aorta. No abdominal aortic aneurysm. Lymph nodes: Unremarkable. No enlarged lymph nodes. IMPRESSION: No acute findings in the abdomen or pelvis.
[2024-02-06] MEDS: MAGNESIUM SULFATE-D5W PMX 1 GM in DEXTROSE/WATER 1 100ML.BAG IVPB ONE (02:45)
[2024-02-06 04:11] VITALS: BP 135/78; PULSE 52; RESP 18
== END 2024-02-06 03:40 | disposition home or self-care (01) ==
LOC: EC 21:12
DX: R10.9 Unspecified abdominal pain (principal); R11.2 Nausea with vomiting, unspecified; R19.7 Diarrhea, unspecified; R51.9 Headache, unspecified; Z91.041 Radiographic dye allergy status; Z88.8 Allergy status to other drugs, medicaments and biological substances; Z11.52 Encounter for screening for COVID-19
CPT/HCPCS: 99284 ×2; 96365 ×2; 96375 ×6; 96361 ×2; 36415; 93005; 80053; 82150; 83605; 83690; 83735; 84484; 85025; 85610; 85730; 81001; 87636; 71046; 74177; J1200; J2405; J3490; J3475; J1885; Q9967; J2919

== ENCOUNTER 2024-02-21 07:31 | Day surgery (SDC) | payer MEDICARE ==
[2024-02-20 09:02] VITALS: BMI 26.7
[~2024-02-21 07:31] MED LIST changes: +ASPIRIN 325 MG TAB PO ONE; -ASPIRIN 325 MG TAB PO STA; -ATORVASTATIN 80 MG TAB PO STA; +HEPARIN SODIUM,PORCINE (1 ML) 2,500 UNIT in SODIUM CHLORIDE 0.9% 250 ML IRRIGATION PRN; +HEPARIN SODIUM,PORCINE 10,000 UNIT in SODIUM CHLORIDE 0.9% 1,000 ML IRRIGATION PRN; -SODIUM CHLORIDE 0.9% 1,000 ML in EMPTY BAG 1 BAG IV ONE
[2024-02-21] MEDS: SODIUM CHLORIDE 0.9% 1,000 ML in EMPTY BAG 1 BAG IV SCH (09:14)
[2024-02-21 09:17] LABS: Glucose,Whole Blood 184 mg/dL (70-110)
[2024-02-21] MEDS: diphenhydrAMINE 50 MG/ML 1 ML VIAL IVP ONE (09:28)
[2024-02-21] MEDS: methylPREDNISolone SOD SUCCI 125 MG/2 ML VIAL IV ONE (09:28)
[2024-02-21] MEDS: FAMOTIDINE 20 MG/2 ML VIAL IV ONE (09:28)
[2024-02-21 09:50] VITALS: RESP 18; TEMP 97.5
[2024-02-21] MEDS: hydrALAZINE HCL 20 MG/ML 1 ML VIAL ONE (11:19)
[2024-02-21] MEDS ORDERED: hydrALAZINE HCL 20 MG/ML 1 ML VIAL IVP STA (11:19)
[2024-02-21] MEDS ORDERED: VERAPAMIL 2.5 MG/ML 2 ML AMP ONE (11:29)
[2024-02-21] MEDS ORDERED: HEPARIN SODIUM 1,000 UN/ML (10ML VL) ONE (11:29)
[2024-02-21] MEDS ORDERED: LIDOCAINE 1% INJ 10MG/ML (20 ML MDV) ONE (11:30)
[2024-02-21] MEDS: MIDAZOLAM 2 MG/2 ML VIAL IVP ONE (11:47)
[2024-02-21] MEDS: LIDOCAINE 1% INJ 10MG/ML (20 ML MDV) SQ ONE (11:48)
[2024-02-21] MEDS: VERAPAMIL SYRINGE (5 MG/10 ML) INTRAARTER ONE (11:50)
[2024-02-21] MEDS: HEPARIN SODIUM 1,000 UN/ML (10ML VL) IVP ONE (11:52)
[2024-02-21] MEDS: SODIUM CHLORIDE 0.9% 1,000 ML IV ONE (12:25)
[2024-02-21] MEDS ORDERED: RX INFO: IV CONTRAST WAS GIVEN 1 EACH MISC MISCELLANE PRN (12:25)
--- NOTE | 2024-02-21 12:29 | P.PCN ---
Date of Procedure: 02/21/24 Operative Findings: CARDIAC CATHETERIZATION PERFORMING PHYSICIAN: William Erickson MD, RPVI PROCEDURE PERFORMED: 1. Selective right and left coronary angiogram 2. Left heart catheterization 3. IFR of the LCx 4. Ultrasound-guided access of the right radial artery INDICATION: Symptomatic 73-year-old gentleman with a CAD and abnormal myocardial perfusion imaging stress test COMPLICATION: None APPROACH: Right radial artery LEVEL OF SEDATION: Moderate with a sedation length of 24 minutes PROCEDURE DESCRIPTION: After obtaining an informed consent, the patient was brought to cardiac cardiac catheterization technician. Local anesthesia was performed using lidocaine subcutaneously. The right radial artery was cannulated using Seldinger technique, the guidewire passed easily, following that we advanced a 5-Mosotho sheath dilator assembly, the wire and dilator were removed and sheath was flushed. Following that, 2 mg of verapamil along with 5000 unit heparin were given. Selective right and left coronary angiogram using a 6-Mosotho JR4 and JL 3.5 catheters. Following that we did left heart catheterization using 6-Mosotho pigtail catheter. After that we decided to do an IFR of the LCx. After zeroing the Doppler wire and equalizing between the Doppler wire and guiding catheter which was JL 3.5 guiding catheter the left main was engaged and OM1 was wired. The IFR came in to be 0.95. The procedure was completed with no complication The procedure was completed there was no complication. SELECTIVE CORONARY ANGIOGRAM: The right coronary artery: Large-caliber vessel and a dominant vessel with mild disease on Left main: Has mild disease only The left circumflex: Gives rise into an OM1 which has intermediate to severe disease appears to be nonflow limiting by Doppler wire The left anterior descending artery: The LAD has mild disease only HEMODYNAMICS: The LVEDP was about 14 mmHg with no significant gradient across aortic valve CONCLUSION: 1. Intermediate to severe disease involving OM1 documented to be nonflow limiting by Doppler wire 2. Normal left-sided filling pressure POSTPROCEDURE MANAGEMENT: Medical treatment
[2024-02-21] MEDS ORDERED: SODIUM CHLORIDE 0.9% 1,000 ML IV SCH (12:30)
[2024-02-21 14:28] VITALS: PULSE 48
[2024-02-21 16:46] VITALS: BP 172/69
== END 2024-02-21 16:25 | disposition home or self-care (01) ==
LOC: CATHCVL 07:31
PROVIDERS: ATTEND Internal Medicine Interventional Cardiology
DX: I25.10 Atherosclerotic heart disease of native coronary artery without angina pectoris (principal); I10 Essential (primary) hypertension; I48.0 Paroxysmal atrial fibrillation; E78.5 Hyperlipidemia, unspecified; E11.9 Type 2 diabetes mellitus without complications; Z79.01 Long term (current) use of anticoagulants; Z79.82 Long term (current) use of aspirin; Z79.899 Other long term (current) drug therapy
CPT/HCPCS: 93458; 93799; C1887; C1769 ×2; C1894; J2250; J0360; J1200; J2001; J3490; J1644; J2919

== ENCOUNTER 2024-08-04 13:50 | Inpatient (IN) | payer MEDICARE ==
--- NOTE | 2024-08-04 14:26 | ED ---
General Adult HPI - General Source: patient, family Mode of arrival: wheelchair Limitations: language barrier <Jonathan Gupta - Last Filed: 08/04/24 15:18> <Robson Sena - Last Filed: 08/04/24 16:24> - General Chief complaint: Chest Pain Stated complaint: chest pain Time Seen by Provider: 08/04/24 14:12 - History of Present Illness Initial comments: Dictation was produced using [employer] dictation software. please excuse any grammatical, word or spelling errors. Chief Complaint: 73-year-old male presents to the emergency department with chest pain head pain and neck pain after fall History of Present Illness: Patient 73-year-old male states that yesterday he got dizzy. He states that he fell backwards hit the back of his head. D not sure if he lost consciousness. States that he fell and after he fell he noticed that he was having sharp chest pain to his sternum along with neck pain and posterior head pain. Patient has cardiac history. He is not sure how he fell. Denies tripping. The ROS documented in this emergency department record has been reviewed and confirmed by me. Those systems with pertinent positive or negative responses have been documented in the HPI. All other systems are other negative and/or noncontributory. (Jonathan Gupta) - Related Data Home Medications Medication Instructions Recorded Confirmed Aspirin [Adult Low Dose Aspirin EC] 81 mg PO DAILY 07/22/16 02/20/24 Gabapentin 300 mg PO BID 07/22/16 02/20/24 Insulin Glargine,Hum.rec.anlog 40 unit SQ DAILY 02/13/20 02/20/24 [Lantus Solostar Pen] Atorvastatin [Lipitor] 20 mg PO DAILY 11/15/20 02/20/24 Cholecalciferol [Vitamin D3 (25 25 mcg PO DAILY 11/15/20 02/20/24 Mcg = 1000 Iu)] Empagliflozin/Linagliptin 1 tab PO DAILY 11/15/20 02/20/24 [Glyxambi 25 mg-5 mg Tablet] Fish Oil/Dha/Epa [Fish Oil 1,200 1 cap PO DAILY 11/15/20 02/20/24 mg Fish Oil] Multivit-Min/FA/Lycopen/Lutein 1 tab PO DAILY 11/15/20 02/20/24 [Centrum Silver Tablet] Rivaroxaban [Xarelto] 20 mg PO DAILY 11/15/20 02/20/24 Ascorbic Acid [Vitamin C] 500 mg PO DAILY 06/12/21 02/20/24 Furosemide [Lasix] 40 mg PO Q48H 06/12/21 02/20/24 Previous Rx's Medication Instructions Recorded Losartan [Cozaar] 25 mg PO DAILY #30 tab 02/15/20 Famotidine [Pepcid] 20 mg PO BID #60 tab 11/29/20 Pantoprazole [Protonix] 40 mg PO AC-[id number] tablet. 11/29/20 Ondansetron Odt [Zofran ODT] 4 mg PO Q8HR PRN #10 tab 02/06/24 Allergies Allergy/AdvReac Type Severity Reaction Status Date / Time bupropion [From Wellbutrin] Allergy Rash/Hives Verified 08/04/24 14:03 Iodinated Contrast Media Allergy Swelling Verified 08/04/24 14:03 Pain Pill (Unknown Name) Allergy Itching Uncoded 08/04/24 14:03 Review of Systems ROS Other: All systems not noted in ROS Statement are negative. <Jonathan Gupta - Last Filed: 08/04/24 15:18> ROS Other: All systems not noted in ROS Statement are negative. <Robson Sena - Last Filed: 08/04/24 16:24> ROS Statement: Those systems with pertinent positive or pertinent negative responses have been documented in the HPI. Past Medical History Past Medical History: Coronary Artery Disease (CAD), Diabetes Mellitus, GERD/Reflux, Hypertension, Myocardial Infarction (WA), Osteoarthritis (OA), Pulmonary Embolus (PE) Additional Past Medical History / Comment(s): See Dr Erickson's H&P. Last Myocardial Infarction Date:: UNSURE History of Any Multi-Drug Resistant Organisms: None Reported Past Surgical History: Heart Catheterization With Stent, Orthopedic Surgery Additional Past Surgical History / Comment(s): RIGHT ROTATOR CUFF REPAIR, COLONOSCOPY. Past Anesthesia/Blood Transfusion Reactions: Motion Sickness Date of Last Stent Placement:: 2019 Past Psychological History: No Psychological Hx Reported Smoking Status: Never smoker - Past Family History Father Family Medical History: Cancer Additional Family Medical History / Comment(s): COLON CANCER. <Jonathan Gupta - Last Filed: 08/04/24 15:18> General Exam Limitations: language barrier <Jonathan Gupta - Last Filed: 08/04/24 15:18> - General Exam Comments Initial Comments: PHYSICAL EXAM: General Impression: Alert and oriented x3, not in acute distress HEENT: Normocephalic atraumatic, extra-ocular movements intact, pupils equal and reactive to light bilaterally, mucous membranes moist. Cardiovascular: Heart regular rate and rhythm Chest: Able to complete full sentences, no retractions, no tachypnea Abdomen: abdomen soft, non-tender, non-distended, no organomegaly Musculoskeletal: Pulses present and equal in all extremities, no peripheral edema Motor: no focal deficits noted Neurological: CN II-XII grossly intact, no focal motor or sensory deficits noted Skin: Intact with no visualized rashes Psych: Normal affect and mood (Jonathan Gupta) Course <Robson Sena - Last Filed: 08/04/24 16:24> Vital Signs 08/04/24 08/04/24 08/04/24 14:03 14:34 15:07 Temperature 98.3 F Pulse Rate 50 L 49 L 75 Respiratory 18 20 16 Rate Blood Pressure 151/72 170/67 130/60 O2 Sat by Pulse 97 98 98 Oximetry 08/04/24 16:07 Temperature Pulse Rate 65 Respiratory 16 Rate Blood Pressure 1740/69 O2 Sat by Pulse Oximetry - Reevaluation(s) Reevaluation #1: 08/04/24 15:30 Patient was endorsed to me by ED physician Dr. Gupta (secondary to shift change) with some of the patient's labs and imaging reports still pending. 08/04/24 16:10 Case, test results and ED management thus far were discussed with Dr. Combs. He accepts hospital admission. He agrees with cardiology consultation. He has no further recommendations at this time. 08/04/24 16:17 Patient denies development of any new symptoms while in the ED. Patient remains alert and breathing comfortably. Patient is aware of his test results, and he agrees with hospital admission at this time. Patient remains in an atrial paced rhythm on the nurse monitoring. With heart rate in the 50s (Robson Sena) EKG Findings - EKG Comments: EKG Findings:: ED physician interpretation (interpreted me): Atrial paced rhythm, ventricular 49 bpm, WV interval of 222 ms, right bundle branch block, QRS duration of 140 ms, normal QT interval, normal axis, no ST or T wave abnormality, no significant change when compared to 02/05/2024 EKG <Robson Sena - Last Filed: 08/04/24 16:24> Medical Decision Making - Lab Data Result diagrams: 08/04/24 14:30 08/04/24 14:30 <Jonathan Gupta - Last Filed: 08/04/24 15:18> - Lab Data Result diagrams: 08/04/24 14:30 08/04/24 14:30 <Robson Sena - Last Filed: 08/04/24 16:24> - Medical Decision Making Was pt. sent in by a medical professional or institution (, PA, MEDICAL SALES CONSULTANT, urgent care, hospital, or senior living...) When possible be specific @ -No Did you speak to anyone other than the patient for history (EMS, parent, family, police, friend...)? What history was obtained from this source @ -Some history obtained from patient's grandson at the bedside Did you review nursing and triage notes (agree or disagree)? Why? @ -I reviewed and agree with nursing and triage notes Were old charts reviewed (outside hosp., previous admission, EMS record, old EKG, old radiological studies, urgent care reports/EKG's, senior living records)? Report findings @ -No old charts were reviewed Differential Diagnosis (chest pain, altered mental status, abdominal pain women, abdominal pain men, vaginal bleeding, musculoskeletal, weakness, fever, dyspnea, syncope, headache, dizziness, GI bleed, back pain, seizure, CVA, palpatations, mental health)? @ -Differential Syncope: Valvular disease, hypertrophic cardiomyopathy, pulmonary embolism, tamponade, tachycardia, bradycardia, WA, hypovolemia, hemorrhage, dissection, anemia, intracranial hemorrhage, seizure, hypoglycemia, carbon monoxide poisoning, this is not meant to be an all-inclusive list. EKG interpreted by me (3pts min.). @ -My EKG interpretation: Ventricular rate 49, sinus rhythm,. 1-22, QRS 140, QTc 445. No WV prolongation, no QTC prolongation, no ST or T-wave changes noted. Overall, this EKG is unremarkable X-rays interpreted by me (1pt min.). @ -None done CT interpreted by me (1pt min.). @ -CT chest, C-spine and brain are pending U/S interpreted by me (1pt. min.). @ -None done What testing was considered but not performed or refused? (CT, X-rays, U/S, labs)? Why? @ -None What meds were considered but not given or refused? Why? @ -None Was smoking cessation discussed for >3mins.? @ -No Were there social determinants of health that impacted care today? How? (Homelessness, low income, unemployed, alcoholism, drug addiction, transportation, low edu. Level, literacy, decrease access to med. care, senior living, rehab)? @ -No Was there de-escalation of care discussed even if they declined (Discuss DNR or withdrawal of care, Hospice)? DNR status @ -No What co-morbidities impacted this encounter? (DM, HTN, Smoking, COPD, CAD, Cancer, CVA, ARF, Chemo, Hep., AIDS, mental health diagnosis, sleep apnea, morbid obesity)? @ -Coronary artery disease and coronary artery stent Was patient admitted / discharged? Hospital course, mention meds given and route, prescriptions, significant lab abnormalities, going to OR and other pert inent info. @ -73-year-old male presents to the emergency department with chest pain neck pain and head pain after fall. Does not provide overwhelming HPI concerning for mechanical fall. He does have cardiac history raising suspicion of possible cardiac syncope. Vital signs upon arrival are within acceptable limits. Patient care signed out to Dr. Sena at 3:00 PM Did you discuss the management of the patient with other professionals (professionals i.e. , PA, MEDICAL SALES CONSULTANT, lab, RT, psych nurse, social work case manager, horologist apprentice, teacher, sustainability officer, skilled nursing case manager)? Give summary @ -No Was critical care preformed (if so, how long)? @ -No Undiagnosed new problem with uncertain prognosis? @ -No Drug Therapy requiring intensive monitoring for toxicity (Heparin, Nitro, Insulin, Cardizem)? @ -No Were any procedures done? @ -No Diagnosis/symptom? Acute, or Chronic, or Acute on Chronic? Uncomplicated (without systemic symptoms) or Complicated (systemic symptoms)? @ -Fall, syncope? Side effects of treatment? @ -No Exacerbation, Progression, or Severe Exacerbation? @ -No Poses a threat to life or bodily function? How? (Chest pain, USA, WA, pneumonia, PE, COPD, DKA, ARF, appy, cholecystitis, CVA, Diverticulitis, Homicidal, Suicidal, threat to staff... and all critical care pts) @ -yes (Jonathan Gupta) EKG interpreted by me (3pts min.). @ -As above CT interpreted by me (1pt min.). @ -Noncontrast CT chest and CT head/cervical spine were reviewed myself and showed no acute traumatic abnormalities. I agree with the radiologist's interpretations as above. Was critical care preformed (if so, how long)? @ -Yes, 35 minutes. Was patient admitted / discharged? Hospital course, mention meds given and route, prescriptions, significant lab abnormalities, going to OR and other pertinent info. @ -Patient was endorsed to me by ED physician Dr. Gupta (secondary to shift change). I have seen/examined the patient myself and labs/imaging reports were reviewed myself. Patient's EKG demonstrates an atrial paced rhythm. Patient's troponin is minimally elevated. Patient reports that he is on Xarelto anticoagulation therapy. Patient has been treated with a dose of aspirin in the ED. Patient's CTs are negative for acute traumatic injury or any other concerning findings. Will admit the patient to the hospital for cardiac monitoring, serial troponins and cardiology consultation. Patient agrees with this plan. Dr. Combs has accepted hospital admission. Undiagnosed new problem with uncertain prognosis? @ -No Drug Therapy requiring intensive monitoring for toxicity (Heparin, Nitro, Insulin, Cardizem)? @ -No Were any procedures done? @ -No Diagnosis/symptom? @ -Dizziness Acute, or Chronic, or Acute on Chronic? @ -Acute Uncomplicated (without systemic symptoms) or Complicated (systemic symptoms)? @ -Default Side effects of treatment? @ -No Exacerbation, Progression, or Severe Exacerbation? @ -No Poses a threat to life or bodily function? How? (Chest pain, USA, WA, pneumonia, PE, COPD, DKA, ARF, appy, cholecystitis, CVA, Diverticulitis, Homicidal, Suicidal, threat to staff... and all critical care pts) @ -Possible Diagnosis/symptom? @ -Chest pain with elevated troponin Acute, or Chronic, or Acute on Chronic? @ -Acute Uncomplicated (without systemic symptoms) or Complicated (systemic symptoms)? @ -Default Side effects of treatment? @ -None Exacerbation, Progression, or Severe Exacerbation] @ -No Poses a threat to life or bodily function? @ -Yes Diagnosis/symptom? @ -Fall with head injury Acute, or Chronic, or Acute on Chronic? @ -Acute] Uncomplicated (without systemic symptoms) or Complicated (systemic symptoms)? @ -Default Side effects of treatment? @ -None Exacerbation, Progression, or Severe Exacerbation] @ -No Poses a threat to life or bodily function? @ -No (Robson Sena) - Lab Data Lab Results 08/04/24 08/04/24 08/04/24 Range/Units 14:30 14:30 14:30 WBC 8.3 (3.8-10.6) k/uL RBC 4.71 (4.30-5.90) m/uL Hgb 14.0 (13.0-17.5) gm/dL Hct 40.0 (39.0-53.0) % MCV 84.9 (80.0-100.0) fL MCH 29.7 (25.0-35.0) pg MCHC 35.0 (31.0-37.0) g/dL RDW 14.2 (11.5-15.5) % Plt Count 215 (150-450) k/uL MPV 10.1 Neutrophils % 78 % Lymphocytes % 15 % Monocytes % 5 % Eosinophils % 1 % Basophils % 0 % Neutrophils # 6.5 (1.3-7.7) k/uL Lymphocytes # 1.2 (1.0-4.8) k/uL Monocytes # 0.4 (0-1.0) k/uL Eosinophils # 0.1 (0-0.7) k/uL Basophils # 0.0 (0-0.2) k/uL PT 10.6 (10.0-12.5) sec INR 1.0 (<1.2) APTT 23.7 (22.0-30.0) sec Sodium 140 (137-145) mmol/L Potassium 5.0 (3.5-5.1) mmol/L Chloride 106 (98-107) mmol/L Carbon Dioxide 26 (22-30) mmol/L Anion Gap 8 mmol/L BUN 17 (9-20) mg/dL Creatinine 1.04 (0.66-1.25) mg/dL Est GFR (CKD-EPI)AfAm 81 (>60 ml/min/1.73 sqM) Est GFR (CKD-EPI)NonAf 70 (>60 ml/min/1.73 sqM) Glucose 205 H (74-99) mg/dL Calcium 9.8 (8.4-10.2) mg/dL Magnesium 1.8 (1.6-2.3) mg/dL Troponin I (0.000-0.034) ng/mL 08/04/24 Range/Units 14:30 WBC (3.8-10.6) k/uL RBC (4.30-5.90) m/uL Hgb (13.0-17.5) gm/dL Hct (39.0-53.0) % MCV (80.0-100.0) fL MCH (25.0-35.0) pg MCHC (31.0-37.0) g/dL RDW (11.5-15.5) % Plt Count (150-450) k/uL MPV Neutrophils % % Lymphocytes % % Monocytes % % Eosinophils % % Basophils % % Neutrophils # (1.3-7.7) k/uL Lymphocytes # (1.0-4.8) k/uL Monocytes # (0-1.0) k/uL Eosinophils # (0-0.7) k/uL Basophils # (0-0.2) k/uL PT (10.0-12.5) sec INR (<1.2) APTT (22.0-30.0) sec Sodium (137-145) mmol/L Potassium (3.5-5.1) mmol/L Chloride (98-107) mmol/L Carbon Dioxide (22-30) mmol/L Anion Gap mmol/L BUN (9-20) mg/dL Creatinine (0.66-1.25) mg/dL Est GFR (CKD-EPI)AfAm (>60 ml/min/1.73 sqM) Est GFR (CKD-EPI)NonAf (>60 ml/min/1.73 sqM) Glucose (74-99) mg/dL Calcium (8.4-10.2) mg/dL Magnesium (1.6-2.3) mg/dL Troponin I 0.059 H* (0.000-0.034) ng/mL - Radiology Data Noncontrast CT head/cervical spine: 1. No acute intracranial process. 2. Nonspecific white matter changes, likely secondary to chronic small vessel ischemic disease. 3. No evidence of cervical spine fracture. 4. Mild multilevel degenerative disc disease. Noncontrast CT chest: 1. No evidence for acute process. 2. Right lower lobe 8 x 5 mm pulmonary nodule. 3. Mild cardiomegaly. 4. Mild coronary artery atherosclerosis. (Robson Sena) Critical Care Time Critical Care Time: Yes Total Critical Care Time: 35 <Robson Sena - Last Filed: 08/04/24 16:24> Disposition <Jonathan Gupta - Last Filed: 08/04/24 15:18> Is patient prescribed a controlled substance at d/c from ED?: No Time of Disposition: 16:11 <Robson Sena - Last Filed: 08/04/24 16:24> Clinical Impression: Dizziness, Fall, Elevated troponin, Headache, Head injury, Chest pain, Sinus bradycardia Disposition: ADMITTED IP TO THIS HOSP Condition: Stable Referrals: Long Hobbs MD [Primary Care Provider] - 1-2 days
[2024-08-04 14:55] LABS: Basophils % (A) 0 %; Eosinophils # (A) 0.1 k/uL (0-0.7); Eosinophils % (A) 1 %; Lymphocytes # (A) 1.2 k/uL (1.0-4.8); Lymphocytes % (A) 15 %; MCH 29.7 pg (25.0-35.0); MCV 84.9 fL (80.0-100.0); Mean Platelet Volume 10.1; Monocytes # (A) 0.4 k/uL (0-1.0); Monocytes % (A) 5 %; Neutrophils # (A) 6.5 k/uL (1.3-7.7); Neutrophils % (A) 78 %; Platelet Count 215 k/uL (150-450); RBC 4.71 m/uL (4.30-5.90); RDW 14.2 % (11.5-15.5); WBC 8.3 k/uL (3.8-10.6)
[2024-08-04 15:07] LABS: Partial Thromboplastin Time 23.7 sec (22.0-30.0); Prothrombin Time 10.6 sec (10.0-12.5)
[2024-08-04 15:11] LABS: African American GFR (CKD) 81 (>60 ml/min/1.73 sqM); Anion Gap 8 mmol/L; Blood Urea Nitrogen 17 mg/dL (9-20); Calcium 9.8 mg/dL (8.4-10.2); Carbon Dioxide 26 mmol/L (22-30); Chloride 106 mmol/L (98-107); Glucose 205 mg/dL (74-99); Magnesium 1.8 mg/dL (1.6-2.3); Non-African American GFR(CKD) 70 (>60 ml/min/1.73 sqM); Sodium 140 mmol/L (137-145)
--- NOTE | 2024-08-04 15:59 | CT ---
EXAMINATION TYPE: CT brain cspine wo con CT DLP: 1462.1 mGycm, Automated exposure control for dose reduction was used. DATE OF EXAM: 08/04/2024 3:19 PM COMPARISON: None. CLINICAL INDICATION: Male, 73 years old with history of fall; Pt c/o CP and head pain after falling y esterday. States he was dizzy at home and fell backwards, possible LOC. Pt states today he has head , neck, and CP like "his heart hurts". TECHNIQUE: Brain: Multiple axial CT images of the brain were obtained without IV contrast. Cspine: Axial CT images from the skull base to the inferior aspect of T2 we obtained without intraven ous contrast. Coronal and sagittal reformatted images were also reviewed. . FINDINGS: Brain: Extra-axial spaces: No abnormal extra-axial fluid collections. Ventricular system: Within normal limits Cerebral parenchyma: No acute intraparenchymal hemorrhage or mass effect. The love-white junction is well differentiated. Cerebellum: Unremarkable. Mass effect: No evidence of midline shift. Intracranial vasculature: Atherosclerotic calcifications of the intracranial vessels. Soft tissues: Normal. Calvarium/osseous structures: No depressed skull fracture. Paranasal sinuses and mastoid air cells: Clear. Visualized orbits: Orbital contents are intact. Cervical spine: Fracture: None. Osseous structures: Multilevel degenerative disc disease changes with endplate spurring and disc oste ophyte complex's. Vertebral alignment: Within normal limits. Spinal canal/Neural Foramina: No evidence of significant spinal canal narrowing. No evidence for sign ificant neural foraminal stenosis. Neck soft tissues: Prevertebral soft tissues are within normal limits. Other: The airway is patent. The lung apices are clear. IMPRESSION: 1. No acute intracranial process. 2. Nonspecific white matter changes, likely secondary to chronic small vessel ischemic disease. 3. No evidence of cervical spine fracture. 4. Mild multilevel degenerative disc disease. [facility], , 08/04/2024 3:57 PM
--- NOTE | 2024-08-04 16:02 | CT ---
EXAMINATION TYPE: CT chest wo con CT DLP: 321.1 mGycm, Automated exposure control for dose reduction was used. DATE OF EXAM: 08/04/2024 3:19 PM COMPARISON: 02/13/2020 CLINICAL INDICATION: Male, 73 years old with history of fall; PHH, Pt c/o CP and head pain after fall ing yesterday. States he was dizzy at home and fell backwards, possible LOC. Pt states today he has head, neck, and CP like "his heart hurts". TECHNIQUE: Multiple axial images were obtained through the chest. Sagittal and coronal reformats were created for review. MIP was performed on a separate workstation. Contrast used: mL of (None if empty) Oral contrast used: (None if empty) FINDINGS: LUNGS/ PLEURA: No focal consolidation, pneumothorax or pleural effusion. Right lower lobe 8 x 5 mm pu lmonary nodule. AIRWAY: Patent and unremarkable. HEART: Hours enlarged for size cardiac conduction device leads remain in the right ventricle and righ t atrium. Atherosclerosis of the coronary arteries. MEDIASTINUM: No gross evidence of adenopathy. VASCULATURE: No aortic aneurysm. MUSCULOSKELETAL: Mild disc degeneration changes are present throughout the thoracolumbar spine. SOFT TISSUES/LYMPH NODES: Unremarkable. LOWER NECK: No significant findings. UPPER ABDOMEN: No significant findings. IMPRESSION: 1. No evidence for acute process. 2. Right lower lobe 8 x 5 mm pulmonary nodule. 3. Mild cardiomegaly. 4. Mild coronary artery atherosclerosis. [facility], , 08/04/2024 4:00 PM
[2024-08-04] MEDS ORDERED: NALOXONE 0.4 MG/ML 1 ML VIAL IV PRN (16:11)
[2024-08-04] MEDS: ASPIRIN 81 MG PO STA (16:12)
--- NOTE | 2024-08-04 17:11 | P.HPIM ---
History of Present Illness H&P Date: 08/04/24 History of Presenting Illness: Patient is a very pleasant 73-year-old male with a past medical history of CAD with previous stenting, hypertension, hyperlipidemia, previous pulmonary emboli not on anticoagulation, insulin-dependent diabetes mellitus, and GERD. He presented to the emergency department with a chief complaint of fall/syncopal episode followed by episode of dizziness and chest pain. Patient reports morning he got up and was very dizzy and fell backwards onto the floor hitting the back of his head. He reports his grandson was in the room across the swartz and reportedly heard his fall and immediately began calling for him but he did not answer. Patient reports after his grandson came into the room he remembers feeling very dizzy and not like himself. He reports his grandson helped him up and he had "pain, pain, pain to my chest". Patient reports experiencing a very intense pain to his midsternal chest radiating into left anterior chest accompanied by the dizziness/lightheadedness occurring after fall/syncopal episode. He reports he waited a while blood because he had pain to the back of his head neck, dizziness, and continued chest pain he told his grandson he needed to go to the hospital right away. Patient is chest pain lasted a short while but was unable to elaborate on length of time. He currently reports pain to chest has resolved along with the dizziness. He reports mild ache to the back of his head. He denies having any changes in vision, hearing, fevers, chills, diaphoresis, palpitations, shortness of breath, cough or congestion, abdominal pain or discomfort, nausea, vomiting, or experiencing any numb ness/tingling/weakness/swelling in his extremities. He reports that his legs sometimes swell up, but states they are currently okay. On arrival to our facility, patient underwent evaluation in the emergency department. Vital signs upon arrival show blood pressure 151/72, heart rate 50, respiratory rate 18, temp 98.3 F, and SpO2 of 97% on room air. EKG showing atrial paced rhythm at 49 bpm with flattened P waves and T wave inversion in lead III. CT head cervical spine completed was negative for acute intracranial process showing nonspecific white matter changes and mild multilevel degenerative disc disease but no evidence of cervical spinal fracture. CT chest without contrast also completed and was negative for acute process showing a right lower lobe 8 x 5 mm pulmonary nodule, mild coronary artery atherosclerosis and mild cardiomegaly. Labs were completed and reviewed. CBC unremarkable. Coagulation profile normal findings. BMP unremarkable with exception of mild hyperglycemia with glucose of 205. Magnesium normal findings at 1.8. Troponin was elevated at 0.059. Patient was given aspirin 324 mg p.o. x 1 dose in the emergency department and was admitted under our services with consultation to cardiology. Review of systems: Pertinent positives and negatives as discussed in HPI, a complete review of systems was performed and all other systems are negative. Physical exam: Vital signs reviewed and stable. General: Nontoxic, no distress and appears stated age. Derm: Skin warm and dry, normal coloration for ethnicity. Head: Atraumatic, normocephalic and symmetric. Eyes: EOM's intact, no lid lag, and anicteric sclera Mouth: no lip lesions, mucus membranes moist Cardiovascular: regular rate and rhythm with normal S1S2, no murmur, positive posterior tibial pulses bilaterally, and cap refill < 2 seconds. Lungs: Respirations even, regular, and unlabored on room air. Lungs CTA bilaterally, no rhonchi, no rales, no wheezing, and no accessory muscle usage. Abdominal: soft, nontender to palpation, no guarding, no appreciable organomegaly Ext: ROM intact. No gross muscle atrophy, no edema, no contractures Neuro: Speech clear, face symmetrical and CN II-XII grossly intact with no noted focal neuro deficits Psych: Alert and oriented to person, place, time, and situation. Appropriate and pleasant affect. Assessment and Plan of Care: Chest pain with elevated troponin, rule out acute coronary event Fall/syncopal episode with reports of dizziness Known coronary artery disease with previous stenting and permanent pacemaker placement Hypertension Hyperlipidemia Previous pulmonary emboli -Cardiology consulted, appreciate recommendations -Patient started on low intensity heparin infusion at 12 units/kg/h. Will monitor PTT every 6 hours for goal therapeutic range of 45 to 79 seconds. -Order placed for stat D-dimer to rule out PE, if positive will place order for CTA chest. -Patient to remain on continuous telemetry monitoring -Trend troponins -Order placed for nursing communication to obtain pacemaker interrogation report -Continue cardiac medication regimen with aspirin 81 mg daily, atorvastatin 20 mg daily, Lasix 40 mg daily, and losartan 50 mg daily. -Echocardiogram Insulin-dependent diabetes mellitus with hyperglycemia -Continue Levemir 35 units daily and patient placed on glycemic protocol with NovoLog sliding scale. Pulmonary nodule of right lower lobe, 8 x 5 mm -Incidental finding on CT. Recommend outpatient follow-up/surveillance. GERD Continue daily medication regimen with Pepcid 20 mg twice daily and Protonix 40 mg with breakfast. Data and imaging reviewed: As stated above in HPI. The patient is admitted with an anticipated greater than 2 midnight stay for evaluation of chest pain with elevated troponin and fall/syncopal episode CODE STATUS: Full code DVT prophylaxis: Heparin infusion Anticipated discharge date: Pending clinical course Anticipated discharge place: Home Patient was seen independently by Nurse Practitioner. This document was prepared using [email or web address] dictation software. Please allow for errors in blade bender furnace tender while rare they do occur. . I reviewed the documentation as provided by the EDGARDO above, who is the original author of this note. I agree with the documented assessment and plan, with the following changes: none Past Medical History Past Medical History: Coronary Artery Disease (CAD), Diabetes Mellitus, GERD/Reflux, Hypertension, Myocardial Infarction ([place]), Osteoarthritis (OA), Pulmonary Embolus ([place]) Additional Past Medical History / Comment(s): See Dr Erickson's H&P. Last Myocardial Infarction Date:: UNSURE History of Any Multi-Drug Resistant Organisms: None Reported Past Surgical History: Heart Catheterization With Stent, Orthopedic Surgery Additional Past Surgical History / Comment(s): RIGHT ROTATOR CUFF REPAIR, COLONOSCOPY. Past Anesthesia/Blood Transfusion Reactions: Motion Sickness Date of Last Stent Placement:: 2019 Past Psychological History: No Psychological Hx Reported Smoking Status: Never smoker - Past Family History Father Family Medical History: Cancer Additional Family Medical History / Comment(s): COLON CANCER. Medications and Allergies Home Medications Medication Instructions Recorded Confirmed Type Gabapentin 300 mg PO DAILY 07/22/16 08/04/24 History Insulin Glargine,Hum.rec.anlog 35 unit SQ DAILY 02/13/20 08/04/24 History [Lantus Solostar Pen] Atorvastatin [Lipitor] 20 mg PO DAILY 11/15/20 08/04/24 History Cholecalciferol [Vitamin D3 (25 25 mcg PO DAILY 11/15/20 08/04/24 History Mcg = 1000 Iu)] Empagliflozin/Linagliptin 1 tab PO DAILY 11/15/20 08/04/24 History [Glyxambi 25 mg-5 mg Tablet] Famotidine [Pepcid] 20 mg PO BID #60 tab 11/29/20 08/04/24 Rx Pantoprazole [Protonix] 40 mg PO AC-BRKFST tablet. 11/29/20 08/04/24 Rx Furosemide [Lasix] 40 mg PO DAILY 06/12/21 08/04/24 History Cyanocobalamin (Vitamin B-12) 1,000 mcg PO DAILY 08/04/24 08/04/24 History [Vitamin B-12] Ferrous Sulfate [Feosol] 325 mg PO DAILY 08/04/24 08/04/24 History Gabapentin 600 mg PO HS 08/04/24 08/04/24 History Linaclotide [Linzess] 72 mcg PO DAILY PRN 08/04/24 08/04/24 History Losartan [Cozaar] 50 mg PO DAILY 08/04/24 08/04/24 History Semaglutide [Rybelsus] 3 mg PO DAILY 08/04/24 08/04/24 History Simvastatin [Zocor] 20 mg PO DAILY 08/04/24 08/04/24 History metFORMIN HCL 1,000 mg PO BID 08/04/24 08/04/24 History Allergies Allergy/AdvReac Type Severity Reaction Status Date / Time bupropion [From Wellbutrin] Allergy Rash/Hives Verified 08/04/24 17:05 Iodinated Contrast Media Allergy Swelling Verified 08/04/24 17:05 Pain Pill (Unknown Name) Allergy Itching Uncoded 08/04/24 14:03 Physical Exam Osteopathic Statement: *. No significant issues noted on an osteopathic structural exam other than those noted in the History and Physical/Consult. Vitals: Vital Signs Temp Pulse Resp BP Pulse Ox 08/04/24 16:07 65 16 1740/69 08/04/24 15:07 75 16 130/60 98 08/04/24 14:34 49 L 20 170/67 98 08/04/24 14:03 98.3 F 50 L 18 151/72 97 Intake and Output 08/04/24 08/04/24 08/04/24 06:59 14:59 22:59 Other: Weight 81.647 kg Results CBC & Chem 7: 08/04/24 14:30 08/04/24 14:30 Labs: Abnormal Lab Results - Last 24 Hours (Table) 08/04/24 08/04/24 Range/Units 14:30 14:30 Glucose 205 H (74-99) mg/dL Troponin I 0.059 H* (0.000-0.034) ng/mL
[2024-08-04] MEDS ORDERED: NON FORMULARY DRUG (Linaclotide [Linzess] 72 MCG Capsule) PO PRN (17:13)
[2024-08-04] MEDS ORDERED: DEXTROSE 50% SYRINGE 50 ML IVP PRN ×2 (17:20)
[2024-08-04] MEDS: HEPARIN SODIUM 1,000 UN/ML (10ML VL) IV ONE (17:48)
[2024-08-04] MEDS: HEPARIN SOD,PORK IN 0.45% NACL 25,000 UNIT in 0.45% NACL 1 250ML.BAG IV SCH (17:50)
[2024-08-04] MEDS: INSULIN ASPART (NovoLOG) 100 UNIT/ML VIAL SQ SCH (18:28)
[2024-08-04 20:40] LABS: Glucose,Whole Blood 123 mg/dL (70-110)
[2024-08-04] MEDS: GABAPENTIN 300 MG CAP PO SCH ×2 (20:56→20:57)
[2024-08-04] MEDS: FAMOTIDINE 20 MG TAB PO SCH (20:57)
[2024-08-05] MEDS: HEPARIN SODIUM 1,000 UN/ML (10ML VL) IV PRN (03:12)
[2024-08-05 08:06] LABS: Glucose,Whole Blood 260 mg/dL (70-110)
[2024-08-05] MEDS: FUROSEMIDE 40 MG TAB PO SCH (08:18)
[2024-08-05] MEDS: CHOLECALCIFEROL 25 MCG (1000 IU) TABLET PO SCH (08:18)
[2024-08-05] MEDS: PANTOPRAZOLE 40 MG TABLET PO SCH (08:18)
[2024-08-05] MEDS: FERROUS SULFATE 325 MG TAB PO SCH (08:18)
[2024-08-05] MEDS: LOSARTAN 50 MG TAB PO SCH (08:18)
[2024-08-05] MEDS: CYANOCOBALAMIN 500 MCG TAB PO SCH (08:18)
[2024-08-05] MEDS: ATORVASTATIN 20 MG TAB PO SCH (08:18)
[2024-08-05] MEDS: INSULIN DETEMIR (LEVEMIR) 100 UNIT/ML SYR SQ SCH (08:18)
[2024-08-05] MEDS: ASPIRIN 81 MG PO SCH (08:18)
[2024-08-05 08:50] LABS: Basophils % (A) 1 %; Eosinophils # (A) 0.1 k/uL (0-0.7); Eosinophils % (A) 1 %; HCT 42.6 % (39.0-53.0); HGB 14.6 gm/dL (13.0-17.5); Lymphocytes # (A) 1.4 k/uL (1.0-4.8); Lymphocytes % (A) 17 %; MCH 30.1 pg (25.0-35.0); MCHC 34.3 g/dL (31.0-37.0); MCV 87.6 fL (80.0-100.0); Mean Platelet Volume 10.3; Monocytes # (A) 0.4 k/uL (0-1.0); Monocytes % (A) 5 %; Neutrophils # (A) 6.5 k/uL (1.3-7.7); Neutrophils % (A) 76 %; Platelet Count 205 k/uL (150-450); RBC 4.86 m/uL (4.30-5.90); RDW 14.5 % (11.5-15.5); WBC 8.6 k/uL (3.8-10.6)
[2024-08-05 08:55] LABS: Partial Thromboplastin Time 49.2 sec (22.0-30.0); Prothrombin Time 10.6 sec (10.0-12.5)
--- NOTE | 2024-08-05 09:09 | P.CRDCN ---
History of Present Illness Consult date: 08/05/24 History of present illness: HISTORY OF PRESENTING ILLNESS Patient is a 73-year-old male with past medical history of moderate to severe CAD involving the OM1 branch. He had a last heart cath for an abnormal Lexiscan nuclear stress test by Dr. Moore in February 2024 at that time his OM was nonflow limiting based off the IFR assessment. He was since been treated on medical management. This time he presents to the hospital because of substernal chest pressure, feeling poorly, weak and having heaviness in the head. On admission his ECG shows atrial paced rhythm with intraventricular conduction delay. On admission his troponin was elevated 0.059, 0.063, 0.068. Creatinine 1.04, potassium 5, hemoglobin 14 REVIEW OF SYSTEMS 14 point review of system is negative except what is mentioned above in HPI. PHYSICAL EXAMINATION Vital signs reviewed. Head: Normocephalic. Eyes: Sclerae nonicteric. Neck: Brisk carotid upstroke, no jugular venous distention. Lungs: Clear to auscultation. Heart: Regular rate and rhythm, S1-S2, no S3, no murmur or rub. Abdomen: Soft nontender, positive bowel sounds. Extremities: No edema, intact distal pulses. Neuro: Alert, oritented, no focal deficits. Detailed neuro exam was not performed. ASSESSMENT NSTEMI Prior history of CAD moderate to severe OM1 disease negative by IFR Essential hypertension Type 2 diabetes Sick sinus syndrome status post PPM. PLAN Continue aspirin Start IV heparin drip, Plavix 75 mg daily Lipitor 40 mg daily Losartan 50 mg daily, Imdur 30 mg daily Obtain updated echocardiogram Plan for cardiac authorization tomorrow morning with Dr. Oscar Rock. Long Hinds MD, [facility], [facility] Thank you for allowing [facility] to participate in this patient's care. Feel free to reach out in case of any followup questions. Past Medical History Past Medical History: Coronary Artery Disease (CAD), Diabetes Mellitus, GERD/Reflux, Hypertension, Myocardial Infarction ([place]), Osteoarthritis (OA), Pulmonary Embolus ([place]) Additional Past Medical History / Comment(s): See Dr Erickson's H&P. Last Myocardial Infarction Date:: UNSURE History of Any Multi-Drug Resistant Organisms: None Reported Past Surgical History: Heart Catheterization With Stent, Orthopedic Surgery Additional Past Surgical History / Comment(s): RIGHT ROTATOR CUFF REPAIR, COLONOSCOPY. Past Anesthesia/Blood Transfusion Reactions: Motion Sickness Date of Last Stent Placement:: 2019 Past Psychological History: No Psychological Hx Reported Smoking Status: Never smoker - Past Family History Father Family Medical History: Cancer Additional Family Medical History / Comment(s): COLON CANCER. Medications and Allergies Home Medications Medication Instructions Recorded Confirmed Type Gabapentin 300 mg PO DAILY 07/22/16 08/04/24 History Insulin Glargine,Hum.rec.anlog 35 unit SQ DAILY 02/13/20 08/04/24 History [Lantus Solostar Pen] Atorvastatin [Lipitor] 20 mg PO DAILY 11/15/20 08/04/24 History Cholecalciferol [Vitamin D3 (25 25 mcg PO DAILY 11/15/20 08/04/24 History Mcg = 1000 Iu)] Empagliflozin/Linagliptin 1 tab PO DAILY 11/15/20 08/04/24 History [Glyxambi 25 mg-5 mg Tablet] Famotidine [Pepcid] 20 mg PO BID #60 tab 11/29/20 08/04/24 Rx Pantoprazole [Protonix] 40 mg PO AC-BRKFST tablet. 11/29/20 08/04/24 Rx Furosemide [Lasix] 40 mg PO DAILY 06/12/21 08/04/24 History Cyanocobalamin (Vitamin B-12) 1,000 mcg PO DAILY 08/04/24 08/04/24 History [Vitamin B-12] Ferrous Sulfate [Feosol] 325 mg PO DAILY 08/04/24 08/04/24 History Gabapentin 600 mg PO HS 08/04/24 08/04/24 History Linaclotide [Linzess] 72 mcg PO DAILY PRN 08/04/24 08/04/24 History Losartan [Cozaar] 50 mg PO DAILY 08/04/24 08/04/24 History Semaglutide [Rybelsus] 3 mg PO DAILY 08/04/24 08/04/24 History Simvastatin [Zocor] 20 mg PO DAILY 08/04/24 08/04/24 History metFORMIN HCL 1,000 mg PO BID 08/04/24 08/04/24 History Allergies Allergy/AdvReac Type Severity Reaction Status Date / Time bupropion [From Wellbutrin] Allergy Rash/Hives Verified 08/04/24 17:05 Iodinated Contrast Media Allergy Swelling Verified 08/04/24 17:05 Pain Pill (Unknown Name) Allergy Itching Uncoded 08/04/24 14:03 Physical Exam Vitals: Vital Signs Temp Pulse Pulse Resp BP Pulse Ox 08/05/24 07:24 97.8 F 50 L 16 150/76 97 08/05/24 04:00 61 18 164/68 95 08/05/24 02:00 49 L 18 142/87 95 08/05/24 00:00 50 L 18 154/54 97 08/04/24 22:00 50 L 18 147/70 97 08/04/24 20:00 53 L 18 161/75 95 08/04/24 18:53 20 08/04/24 17:54 49 L 16 170/86 97 08/04/24 16:40 50 L 08/04/24 16:30 48 L 08/04/24 16:07 65 16 1740/69 08/04/24 15:07 75 16 130/60 98 08/04/24 14:34 49 L 20 170/67 98 08/04/24 14:03 98.3 F 50 L 18 151/72 97 Intake and Output 08/04/24 08/05/24 08/05/24 22:59 06:59 14:59 Intake Total 91.775 Balance 91.775 Intake: Intake, IV Titration 91.775 Amount Heparin Sod,Pork in 0.45% 91.775 NaCl 25,000 unit In 0.45 % NaCl 1 250ml.bag @ 12 UNITS/KG/HR 9.798 mls/hr IV .Q24H [facility] Rx#: [id number] Results 08/05/24 08:28 08/04/24 14:30 Cardiac Enzymes 08/04/24 08/04/24 08/04/24 Range/Units 14:30 17:29 20:27 Troponin I 0.059 H* 0.063 H* 0.068 H* (0.000-0.034) ng/mL Coagulation 08/04/24 08/05/24 08/05/24 Range/Units 14:30 00:32 08:28 PT 10.6 10.6 (10.0-12.5) sec APTT 23.7 38.6 H 49.2 H (22.0-30.0) sec CBC 08/04/24 08/05/24 Range/Units 14:30 08:28 WBC 8.3 8.6 (3.8-10.6) k/uL RBC 4.71 4.86 (4.30-5.90) m/uL Hgb 14.0 14.6 (13.0-17.5) gm/dL Hct 40.0 42.6 (39.0-53.0) % Plt Count 215 205 (150-450) k/uL Comprehensive Metabolic Panel 08/04/24 Range/Units 14:30 Sodium 140 (137-145) mmol/L Potassium 5.0 (3.5-5.1) mmol/L Chloride 106 (98-107) mmol/L Carbon Dioxide 26 (22-30) mmol/L BUN 17 (9-20) mg/dL Creatinine 1.04 (0.66-1.25) mg/dL Glucose 205 H (74-99) mg/dL Calcium 9.8 (8.4-10.2) mg/dL Current Medications Generic Name Dose Route Start Last Admin Trade Name Freq PRN Reason Stop Dose Admin Aspirin 81 mg 08/05/24 09:00 08/05/24 08:18 Aspirin 81 Mg PO 81 mg DAILY YOAN Administration Atorvastatin Calcium 20 mg 08/05/24 09:00 08/05/24 08:18 Atorvastatin 20 Mg Tab PO 20 mg DAILY YOAN Administration Cholecalciferol 25 mcg 08/05/24 09:00 08/05/24 08:18 Cholecalciferol 25 Mcg (1000 Iu) Tablet PO 25 mcg DAILY YOAN Administration Clopidogrel Bisulfate 75 mg 08/05/24 09:15 Clopidogrel 75 Mg Tab PO DAILY YOAN Cyanocobalamin 1,000 mcg 08/05/24 09:00 08/05/24 08:18 Cyanocobalamin 500 Mcg Tab PO 1,000 mcg DAILY YOAN Administration Dextrose/Water 25 ml 08/04/24 17:20 Dextrose 50% Syringe 50 Ml IVP PER PROTOCOL PRN Hypoglycemia Protocol Dextrose/Water 50 ml 08/04/24 17:20 Dextrose 50% Syringe 50 Ml IVP PER PROTOCOL PRN Hypoglycemia Protocol Famotidine 20 mg 08/04/24 21:00 08/05/24 08:26 Famotidine 20 Mg Tab PO 20 mg BID YOAN Administration Ferrous Sulfate 325 mg 08/05/24 09:00 08/05/24 08:18 Ferrous Sulfate 325 Mg Tab PO 325 mg DAILY YOAN Administration Furosemide 40 mg 08/05/24 09:00 08/05/24 08:18 Furosemide 40 Mg Tab PO 40 mg DAILY YOAN Administration Gabapentin 300 mg 08/05/24 09:00 08/05/24 08:25 Gabapentin 300 Mg Cap PO 300 mg DAILY YOAN Administration Gabapentin 600 mg 08/04/24 21:00 08/04/24 20:57 Gabapentin 300 Mg Cap PO 600 mg HS YOAN Administration Heparin Sodium (Porcine) 0 unit 08/04/24 17:13 08/05/24 03:12 Heparin Sodium 1,000 Un/Ml (10ml Vl) IV 2,000 unit PER PROTOCOL PRN Administration Low PTT Protocol Heparin Sodium/Sodium Chloride 250 mls @ 9.798 mls/hr 08/04/24 17:15 08/05/24 03:12 25,000 unit/ Sodium Chloride IV 14 units/kg/hr .Q24H YOAN 11.431 mls/hr Titration Protocol 12 UNITS/KG/HR Insulin Aspart 0 unit 08/04/24 17:30 08/05/24 08:09 Insulin Aspart (Novolog) 100 Unit/Ml Vial SQ 3 unit ACHS YOAN Administration Protocol Insulin Detemir 35 unit 08/05/24 07:00 08/05/24 08:18 Insulin Detemir (Levemir) 100 Unit/Ml Syr SQ 35 unit DAILY@0700 YOAN Administration Losartan Potassium 50 mg 08/05/24 09:00 08/05/24 08:18 Losartan 50 Mg Tab PO 50 mg DAILY YOAN Administration Naloxone HCl 0.2 mg 08/04/24 16:11 Naloxone 0.4 Mg/Ml 1 Ml Vial IV Q2M PRN Opioid Reversal Non-Formulary Medication 72 mcg 08/04/24 17:13 Linaclotide [Linzess] PO DAILY PRN Constipation Pantoprazole Sodium 40 mg 08/05/24 07:30 08/05/24 08:18 Pantoprazole 40 Mg Tablet PO 40 mg AC-BRKFST YOAN Administration Intake and Output 08/04/24 08/05/24 08/05/24 22:59 06:59 14:59 Intake Total 91.775 Balance 91.775 Intake: Intake, IV Titration 91.775 Amount Heparin Sod,Pork in 0.45% 91.775 NaCl 25,000 unit In 0.45 % NaCl 1 250ml.bag @ 12 UNITS/KG/HR 9.798 mls/hr IV .Q24H [facility] Rx#: [id number] 08/05/24 08:28 08/04/24 14:30
[2024-08-05] MEDS ORDERED: ALPRAZolam 0.5 MG TAB PO PRN (09:10)
[2024-08-05] MEDS ORDERED: NITROGLYCERIN SL TABS 0.4 MG TAB SUBLINGUAL PRN (09:10)
[2024-08-05 09:12] LABS: ALT 21 U/L (4-49); AST 31 U/L (17-59); African American GFR (CKD) 81 (>60 ml/min/1.73 sqM); Albumin 4.2 g/dL (3.5-5.0); Alkaline Phosphatase 81 U/L (38-126); Anion Gap 6 mmol/L; Blood Urea Nitrogen 15 mg/dL (9-20); Calcium 9.8 mg/dL (8.4-10.2); Carbon Dioxide 27 mmol/L (22-30); Chloride 106 mmol/L (98-107); Glucose 206 mg/dL (74-99); Non-African American GFR(CKD) 70 (>60 ml/min/1.73 sqM); Potassium 4.2 mmol/L (3.5-5.1); Sodium 139 mmol/L (137-145); Total Bilirubin 0.8 mg/dL (0.2-1.3); Total Protein 6.8 g/dL (6.3-8.2)
[2024-08-05] MEDS ORDERED: MORPHINE SULFATE 4 MG/ML SYRINGE IV PRN (10:37)
[2024-08-05] MEDS: METOPROLOL SUCCINATE (ER) 25 MG TAB.ER.24H PO SCH (11:11)
[2024-08-05] MEDS: CLOPIDOGREL 75 MG TAB PO SCH (11:12)
[2024-08-05] MEDS: ISOSORBIDE MONONITRATE ER 30 MG TAB.ER.24H PO SCH (11:12)
--- NOTE | 2024-08-05 11:48 | P.PN ---
Subjective Progress Note Date: 08/05/24 Hospital course: Patient is a very pleasant 73-year-old male with a past medical history of CAD with previous stenting, sick sinus syndrome status post permanent pacemaker placement, hypertension, hyperlipidemia, previous pulmonary emboli not on anticoagulation, insulin-dependent diabetes mellitus, and GERD. He presented to the emergency department with a chief complaint of fall/syncopal episode followed by episode of dizziness and chest pain. Patient reports morning he got up and was very dizzy and fell backwards onto the floor hitting the back of his head. He reports his grandson was in the room across the swartz and reportedly heard his fall and immediately began calling for him but he did not answer. Patient reports after his grandson came into the room he remembers feeling very dizzy and not like himself. He reports his grandson helped him up and he had "pain, pain, pain to my chest". Patient reports experiencing a very intense pain to his midsternal chest radiating into left anterior chest accompanied by the dizziness/lightheadedness occurring after fall/syncopal episode. He reports he waited a while blood because he had pain to the back of his head neck, dizziness, and continued chest pain he told his grandson he needed to go to the hospital right away. Patient is chest pain lasted a short while but was unable to elaborate on length of time. He currently reports pain to chest has resolved along with the dizziness. He reports mild ache to the back of his head. He denies having any changes in vision, hearing, fevers, chills, diaphoresis, palpitations, shortness of breath, cough or congestion, abdominal pain or discomfort, nausea, vomiting, or experiencing any numbness/tingling/weakness/swelling in his extremities. He reports that his legs sometimes swell up, but states they are currently okay. On arrival to our facility, patient underwent evaluation in the emergency department. Vital signs upon arrival show blood pressure 151/72, heart rate 50, respiratory rate 18, temp 98.3 F, and SpO2 of 97% on room air. EKG showing atrial paced rhythm at 49 bpm with flattened P waves and T wave inversion in lead III. CT head cervical spine completed was negative for acute intracranial process showing nonspecific white matter changes and mild multilevel degenerative disc disease but no evidence of cervical spinal fracture. CT chest without contrast also completed and was negative for acute process showing a right lower lobe 8 x 5 mm pulmonary nodule, mild coronary artery atherosclerosis and mild cardiomegaly. L abs were completed and reviewed. CBC unremarkable. Coagulation profile normal findings. BMP unremarkable with exception of mild hyperglycemia with glucose of 205. Magnesium normal findings at 1.8. Troponin was elevated at 0.059. Patient was given aspirin 324 mg p.o. x 1 dose in the emergency department and was admitted under our services with consultation to cardiology. Patient was started on low intensity heparin infusion. Troponins were trended overnight resulting at 0.059, 0.063, and 0.068. D-dimer was negative at 0.27. Physical exam: Patient was seen and fully evaluated at bedside this morning. He reports dizziness remains resolved but continues to have intermittent pains in his chest. He states right now it is gone but the last time he felt this pain was earlier this morning. He denies having any other complaints at this time i ncluding shortness of breath, palpitations, headache, or nausea. Vital signs reviewed and stable. General: Nontoxic, no distress and appears stated age. Derm: Skin warm and dry, normal coloration for ethnicity. Head: Atraumatic, normocephalic and symmetric. Eyes: EOM's intact, no lid lag, and anicteric sclera Mouth: no lip lesions, mucus membranes moist Cardiovascular: regular rate and rhythm with normal S1S2, no murmur, positive posterior tibial pulses bilaterally, and cap refill < 2 seconds. Lungs: Respirations even, regular, and unlabored on room air. Lungs CTA bilaterally, no rhonchi, no rales, no wheezing, and no accessory muscle usage. Abdominal: soft, nontender to palpation, no guarding, no appreciable organomegaly Ext: ROM intact. No gross muscle atrophy, no edema, no contractures Neuro: Speech clear, face symmetrical and CN II-XII grossly intact with no noted focal neuro deficits Psych: Alert and oriented to person, place, time, and situation. Appropriate and pleasant affect. Assessment and Plan of Care: NSTEMI Fall/syncopal episode with reports of dizziness Known severe coronary artery disease with previous stenting and sick sinus syndrome status post permanent pacemaker placement Hypertension Hyperlipidemia Previous pulmonary emboli -Cardiology consulted, discussed with Dr. Hinds. He is in agreement with continuation of heparin infusion and stated patient will require cardiac catheterization tomorrow morning with Dr. Erickson. He also stated he is starting patient on Plavix 75 mg daily and holding Lasix until after the cardiac cath at this time. -Continue low intensity heparin infusion. Will monitor PTT every 6 hours for goal therapeutic range of 45 to 79 seconds. PTT was subtherapeutic at 38.6 and heparin infusion was increased to 14 units/kg/h with repeat PTT in therapeutic range at 49.2. -Troponins were trended overnight resulting at 0.059, 0.063, and 0.068. D-dimer was negative at 0.27. -Patient to remain on continuous telemetry monitoring -Will follow-up with pacemaker interrogation report once available. -Continue cardiac medication regimen with aspirin 81 mg daily, Plavix 75 mg daily, atorvastatin 20 mg daily, and losartan 50 mg daily. -Echocardiogram to be completed Insulin-dependent diabetes mellitus with hyperglycemia -Continue Levemir 35 units daily and patient placed on glycemic protocol with NovoLog sliding scale. Pulmonary nodule of right lower lobe, 8 x 5 mm -Incidental finding on CT. Recommend outpatient follow-up/surveillance. GERD Continue daily medication regimen with Pepcid 20 mg twice daily and Protonix 40 mg with breakfast. Data and imaging reviewed: Troponins were trended overnight resulting at 0.059, 0.063, and 0.068. D- dimer was negative at 0.27. Morning labs reviewed. CBC unremarkable. PTT currently 49.2. Blood glucose 202. BMP otherwise unremarkable. Liver profile unremarkable. Vital signs reviewed. Blood pressure 150/76, heart rate 50, respiratory rate 16, temp 97.8 F, and SpO2 of 97% on room air. CODE STATUS: Full code DVT prophylaxis: Heparin infusion Anticipated discharge date: Pending clinical course Anticipated discharge place: Home Patient was seen independently by Nurse Practitioner. This document was prepared using [employer]arm[employer] dictation software. Please allow for errors in lead based paint technician while rare they do occur. I reviewed the documentation as provided by the EDGARDO above, who is the original author of this note. I agree with the documented assessment and plan, with the following changes: none. Objective - Vital Signs Vital signs: Vital Signs Temp 97.8 F 08/05/24 07:24 Pulse 50 L 08/05/24 07:24 Resp 16 08/05/24 07:24 BP 150/76 08/05/24 07:24 Pulse Ox 97 08/05/24 07:24 FiO2 Intake & Output 08/04/24 08/05/24 08/05/24 18:59 06:59 18:59 Intake Total 91.775 Balance 91.775 Weight 81.647 kg Intake: Intake, IV Titration 91.775 Amount Heparin Sod,Pork in 0.45% 91.775 NaCl 25,000 unit In 0.45 % NaCl 1 250ml.bag @ 12 UNITS/KG/HR 9.798 mls/hr IV .Q24H [facility] Rx#: [id number] - Labs CBC & Chem 7: 08/05/24 08:28 08/05/24 08:28 Labs: Abnormal Lab Results - Last 24 Hours (Table) 08/04/24 08/04/24 08/04/24 Range/Units 14:30 14:30 17:29 APTT (22.0-30.0) sec Glucose 205 H (74-99) mg/dL POC Glucose (mg/dL) (70-110) mg/dL Troponin I 0.059 H* 0.063 H* (0.000-0.034) ng/mL 08/04/24 08/04/24 08/05/24 Range/Units 20:27 20:39 00:32 APTT 38.6 H (22.0-30.0) sec Glucose (74-99) mg/dL POC Glucose (mg/dL) 123 H (70-110) mg/dL Troponin I 0.068 H* (0.000-0.034) ng/mL
[2024-08-05 12:24] LABS: Glucose,Whole Blood 156 mg/dL (70-110)
[2024-08-05 13:10] LABS: Glucose,Whole Blood 209 mg/dL (70-110)
[2024-08-05 13:57] LABS: Chol/HDL Ratio 3.72 Ratio; LDL Cholesterol,Calculated 59.3 mg/dL (0.0-131.0)
[2024-08-05 17:16] LABS: Glucose,Whole Blood 166 mg/dL (70-110)
[2024-08-05 20:43] LABS: Glucose,Whole Blood 205 mg/dL (70-110)
[2024-08-06] MEDS: SODIUM CHLORIDE 0.9% 1,000 ML in EMPTY BAG 1 BAG IV SCH (04:27)
[2024-08-06 06:32] LABS: Glucose,Whole Blood 174 mg/dL (70-110)
[2024-08-06 06:35] LABS: HCT 46.6 % (39.0-53.0); HGB 14.9 gm/dL (13.0-17.5); Hypochromasia Slight; MCH 28.9 pg (25.0-35.0); MCV 90.2 fL (80.0-100.0); Mean Platelet Volume 9.5; Platelet Count 290 k/uL (150-450); RBC 5.16 m/uL (4.30-5.90); RDW 14.1 % (11.5-15.5)
[2024-08-06 06:45] LABS: ALT 29 U/L (4-49); AST 38 U/L (17-59); African American GFR (CKD) 55 (>60 ml/min/1.73 sqM); Albumin 4.6 g/dL (3.5-5.0); Alkaline Phosphatase 89 U/L (38-126); Anion Gap 10 mmol/L; Blood Urea Nitrogen 22 mg/dL (9-20); Calcium 9.9 mg/dL (8.4-10.2); Carbon Dioxide 27 mmol/L (22-30); Chloride 103 mmol/L (98-107); Glucose 170 mg/dL (74-99); Magnesium 2.1 mg/dL (1.6-2.3); Non-African American GFR(CKD) 47 (>60 ml/min/1.73 sqM); Potassium 4.3 mmol/L (3.5-5.1); Sodium 140 mmol/L (137-145); Total Bilirubin 0.8 mg/dL (0.2-1.3); Total Protein 7.5 g/dL (6.3-8.2)
[2024-08-06 11:42] LABS: Glucose,Whole Blood 143 mg/dL (70-110)
[2024-08-06] MEDS ORDERED: LORATADINE-PSEUDOEPH 5-120 MG 1 EACH TAB.ER.12H PO PRN (12:12)
[2024-08-06] MEDS: LORATADINE 10 MG TAB PO PRN (12:28)
--- NOTE | 2024-08-06 12:54 | CA ---
Transthoracic Echo Report Name: Otis Corral Age: 73 Gender: M : 1950 Exam Date: 08/06/2024 09:11 Exam Location: [facility] Ht (in): 70 Wt (lb): 180 Ordering Physician: Dandre Andrea Attending/Referring Phys: Metabolic Specialist Gaviota Torres RDCS Procedure CPT: Indications: assess structure and function of heart Cardiac Hx: Technical Quality: Fair Contrast 1: Total Dose (mL): Contrast 2: Total Dose (mL): MEASUREMENTS (Male / Female) Normal Values 2D ECHO LV Diastolic Diameter PLAX 4.4 cm 4.2 - 5.9 / 3.9 - 5.3 cm LV Systolic Diameter PLAX 2.9 cm IVS Diastolic Thickness 1.3 cm 0.6 - 1.0 / 0.6 - 0.9 cm LVPW Diastolic Thickness 1.5 cm 0.6 - 1.0 / 0.6 - 0.9 cm LV Relative Wall Thickness 0.6 RV Internal Dim ED PLAX 3.5 cm LA Volume 62.7 cm??? 18 - 58 / 22 - 52 cm??? LA Volume Index 31.0 cm???/m??? 16 - 28 cm???/m??? M-MODE Aortic Root Diameter MM 3.5 cm LA Systolic Diameter MM 6.7 cm LA Ao Ratio MM 1.9 AV Cusp Separation MM 1.9 cm DOPPLER AV Peak Velocity 127.7 cm/s AV Peak Gradient 6.5 mmHg AV Mean Velocity 78.1 cm/s AV Mean Gradient 2.8 mmHg AV Velocity Time Integral 26.4 cm AI Peak Velocity 275.6 cm/s AI Peak Gradient 30.4 mmHg AI Pressure Half Time 597.8 ms LVOT Peak Velocity 106.6 cm/s LVOT Peak Gradient 4.5 mmHg LVOT Velocity Time Integral 23.3 cm MV Area PHT 2.5 cm??? Mitral E Point Velocity 46.4 cm/s Mitral A Point Velocity 68.5 cm/s Mitral E to A Ratio 0.7 MV Deceleration Time 308.0 ms MV E' Velocity 4.5 cm/s Mitral E to MV E' Ratio 10.4 TR Peak Velocity 270.4 cm/s TR Peak Gradient 29.2 mmHg Right Ventricular Systolic Press 34.2 mmHg FINDINGS Left Ventricle Mildly increased left ventricular wall thickness. Left ventricular cavity size normal. Normal left ventricular systolic function with no obvious regional wall motion abnormalities. Left ventricular ejection fraction is estimated at 55 %. Grade 1 diastolic dysfunction. Right Ventricle Normal right ventricular size and function. Right ventricular systolic pressure within normal limits. Right Atrium Normal right atrial size. Catheter/pacemaker wire in the right atrial cavity. Left Atrium Mildly increased left atrial volume. Mildly increased left atrial area. Mitral Valve Structurally normal mitral valve. Mild mitral annular calcification. Mild mitral regurgitation. Aortic Valve Trileaflet aortic valve. No aortic stenosis. Aortic valve sclerosis. Trace to mild aortic regurgitation. Tricuspid Valve Structurally normal tricuspid valve. Mild tricuspid regurgitation. Pulmonic Valve Structurally normal pulmonic valve. Pericardium No pericardial effusion. Echo free space anterior to the right ventricle likely represents a fat pad. Aorta Normal size aortic root and proximal ascending aorta. CONCLUSIONS Normal LV size and systolic function. There is mild diastolic dysfunction. There is mild mitral annular calcification and aortic valve sclerosis without significant restriction. There is mild mitral and tricuspid regurgitation. No significant pulmonary hypertension no pericardial effusion Previewed by: Dr. Pat Trevino MD (Electronically Signed) Final Date: 06 August 2024 12:53
--- NOTE | 2024-08-06 12:55 | P.PN ---
Subjective Progress Note Date: 08/06/24 HISTORY OF PRESENTING ILLNESS Patient is a 73-year-old male with past medical history of moderate to severe CAD involving the OM1 branch. He had a last heart cath for an abnormal Lexiscan nuclear stress test by Dr. Moore in February 2024 at that time his OM was nonflow limiting based off the IFR assessment. He was since been treated on medical management. This time he presents to the hospital because of substernal chest pressure, feeling poorly, weak and having heaviness in the head. On admission his ECG shows atrial paced rhythm with intraventricular conduction delay. On admission his troponin was elevated 0.059, 0.063, 0.068. Creatinine 1.04, potassium 5, hemoglobin 14 08/06 Patient is scheduled for cardiac catheterization today with Dr. Erickson. Heart rate has been in the 48-60 range, blood pressure 155/67, patient is noted to have increasing kidney function with BUN 22 creatinine 1.44. He is on IV fluids at 75 cc/h. Patient did have chest pain during the night. Dr. Erickson was notified of the increased creatinine. Patient is plan to continue with cardiac catheterization despite rising creatinine due to his complaints of chest pain. PHYSICAL EXAMINATION Vital signs reviewed. Head: Normocephalic. Eyes: Sclerae nonicteric. Neck: Brisk carotid upstroke, no jugular venous distention. Lungs: Clear to auscultation. Heart: Regular rate and rhythm, S1-S2, no S3, no murmur or rub. Abdomen: Soft nontender, positive bowel sounds. Extremities: No edema, intact distal pulses. Neuro: Alert, oritented, no focal deficits. Detailed neuro exam was not performed. ASSESSMENT NSTEMI Prior history of CAD moderate to severe OM1 disease negative by IFR Essential hypertension Type 2 diabetes Sick sinus syndrome status post PPM. PLAN Continue aspirin Continue IV heparin drip, Plavix 75 mg daily Lipitor 40 mg daily Losartan 50 mg daily, Imdur 30 mg daily Obtain updated echocardiogram Plan for cardiac authorization today with Dr. Oscar Rock. Nurse practitioner note has been reviewed, I agree with documented findings and plan of care. Patient was seen and examined. Objective - Vital Signs Vital signs: Vital Signs Temp 97.9 F 08/06/24 08:00 Pulse 50 L 08/06/24 12:00 Resp 18 08/06/24 12:00 BP 120/61 08/06/24 12:00 Pulse Ox 97 08/06/24 12:00 FiO2 Intake & Output 08/05/24 08/06/24 08/06/24 18:59 06:59 18:59 Intake Total 158.225 162.32 Balance 158.225 162.32 Weight 80.1 kg Intake: Intake, IV Titration 158.225 162.32 Amount Heparin Sod,Pork in 0.45% 158.225 162.32 NaCl 25,000 unit In 0.45 % NaCl 1 250ml.bag @ 12 UNITS/KG/HR 9.798 mls/hr IV .Q24H [facility] Rx#: [id number] Oral 0 Other: Voiding Method Toilet Toilet # Voids 1 - Labs CBC & Chem 7: 08/06/24 05:54 08/06/24 05:54 Labs: Abnormal Lab Results - Last 24 Hours (Table) 08/05/24 08/05/24 08/05/24 Range/Units 08:28 08:28 13:08 APTT (22.0-30.0) sec BUN (9-20) mg/dL Creatinine (0.66-1.25) mg/dL Glucose (74-99) mg/dL POC Glucose (mg/dL) 209 H (70-110) mg/dL Hemoglobin A1c 7.7 H (<=6.0) % Triglycerides 164.00 H (0.00-149.00) mg/dL HDL Cholesterol 33.90 L (40.00-60.00) mg/dL 08/05/24 08/05/24 08/06/24 Range/Units 17:15 20:42 05:54 APTT (22.0-30.0) sec BUN 22 H (9-20) mg/dL Creatinine 1.44 H (0.66-1.25) mg/dL Glucose 170 H (74-99) mg/dL POC Glucose (mg/dL) 166 H 205 H (70-110) mg/dL Hemoglobin A1c (<=6.0) % Triglycerides (0.00-149.00) mg/dL HDL Cholesterol (40.00-60.00) mg/dL 08/06/24 08/06/24 08/06/24 Range/Units 05:54 06:25 11:41 APTT 37.8 H (22.0-30.0) sec BUN (9-20) mg/dL Creatinine (0.66-1.25) mg/dL Glucose (74-99) mg/dL POC Glucose (mg/dL) 174 H 143 H (70-110) mg/dL Hemoglobin A1c (<=6.0) % Triglycerides (0.00-149.00) mg/dL HDL Cholesterol (40.00-60.00) mg/dL
--- NOTE | 2024-08-06 13:59 | P.PN ---
Subjective Progress Note Date: 08/06/24 Hospital course: Patient is a very pleasant 73-year-old male with a past medical history of CAD with previous stenting, sick sinus syndrome status post permanent pacemaker placement, hypertension, hyperlipidemia, previous pulmonary emboli not on anticoagulation, insulin-dependent diabetes mellitus, and GERD. He presented to the emergency department with a chief complaint of fall/syncopal episode followed by episode of dizziness and chest pain. Patient reports morning he got up and was very dizzy and fell backwards onto the floor hitting the back of his head. He reports his grandson was in the room across the swartz and reportedly heard his fall and immediately began calling for him but he did not answer. Patient reports after his grandson came into the room he remembers feeling very dizzy and not like himself. He reports his grandson helped him up and he had "pain, pain, pain to my chest". Patient reports experiencing a very intense pain to his midsternal chest radiating into left anterior chest accompanied by the dizziness/lightheadedness occurring after fall/syncopal episode. He reports he waited a while blood because he had pain to the back of his head neck, dizziness, and continued chest pain he told his grandson he needed to go to the hospital right away. Patient is chest pain lasted a short while but was unable to elaborate on length of time. He currently reports pain to chest has resolved along with the dizziness. He reports mild ache to the back of his head. He denies having any changes in vision, hearing, fevers, chills, diaphoresis, palpitations, shortness of breath, cough or congestion, abdominal pain or discomfort, nausea, vomiting, or experiencing any numbness/tingling/weakness/swelling in his extremities. He reports that his legs sometimes swell up, but states they are currently okay. On arrival to our facility, patient underwent evaluation in the emergency department. Vital signs upon arrival show blood pressure 151/72, heart rate 50, respiratory rate 18, temp 98.3 F, and SpO2 of 97% on room air. EKG showing atrial paced rhythm at 49 bpm with flattened P waves and T wave inversion in lead III. CT head cervical spine completed was negative for acute intracranial process showing nonspecific white matter changes and mild multilevel degenerative disc disease but no evidence of cervical spinal fracture. CT chest without contrast also completed and was negative for acute process showing a right lower lobe 8 x 5 mm pulmonary nodule, mild coronary artery atherosclerosis and mild cardiomegaly. L abs were completed and reviewed. CBC unremarkable. Coagulation profile normal findings. BMP unremarkable with exception of mild hyperglycemia with glucose of 205. Magnesium normal findings at 1.8. Troponin was elevated at 0.059. Patient was given aspirin 324 mg p.o. x 1 dose in the emergency department and was admitted under our services with consultation to cardiology. Patient was started on low intensity heparin infusion. Troponins were trended overnight resulting at 0.059, 0.063, and 0.068. D-dimer was negative at 0.27. Physical exam: Patient was seen and fully evaluated at bedside this morning. He was resting in bed visiting with son at bedside. He reports continued intermittent episodes of chest pain/pressure with last episode being overnight. He currently denies having any complaints at this time. Vital signs reviewed and stable. General: Nontoxic, no distress and appears stated age. Derm: Skin warm and dry, normal coloration for ethnicity. Head: Atraumatic, normocephalic and symmetric. Eyes: EOM's intact, no lid lag, and anicteric sclera Mouth: no lip lesions, mucus membranes moist Cardiovascular: regular rate and rhythm with normal S1S2, no murmur, positive posterior tibial pulses bilaterally, and cap refill < 2 seconds. Lungs: Respirations even, regular, and unlabored on room air. Lungs CTA bilaterally, no rhonchi, no rales, no wheezing, and no accessory muscle usage. Abdominal: soft, nontender to palpation, no guarding, no appreciable organomegaly Ext: ROM intact. No gross muscle atrophy, no edema, no contractures Neuro: Speech clear, face symmetrical and CN II-XII grossly intact with no noted focal neuro deficits Psych: Alert and oriented to person, place, time, and situation. Appropriate and pleasant affect. Assessment and Plan of Care: NSTEMI Fall/syncopal episode with reports of dizziness Known severe coronary artery disease with previous stenting and sick sinus syndrome status post permanent pacemaker placement Hypertension Hyperlipidemia Previous pulmonary emboli -Cardiology consulted, discussed with cardiac PAPER BALING MACHINE OPERATOR. Patient to undergo cardiac cath with Dr. Erickson later today. -Continue low intensity heparin infusion. Will monitor PTT every 6 hours for goal therapeutic range of 45 to 79 seconds. PTT was subtherapeutic at 38.6 and heparin infusion was increased to 14 units/kg/h with repeat PTT in therapeutic range at 49.2. -Troponins were trended overnight resulting at 0.059, 0.063, and 0.068. D-dimer was negative at 0.27. -Patient to remain on continuous telemetry monitoring -Will follow-up with pacemaker interrogation report once available. -Continue cardiac medication regimen with aspirin 81 mg daily, Plavix 75 mg daily, atorvastatin 20 mg daily, and losartan 50 mg daily. -Echocardiogram revealing a preserved EF of 55%, mild diastolic dysfunction with mild mitral annular calcification and aortic valve sclerosis without significant restriction, and mild mitral and tricuspid regurgitation. Insulin-dependent diabetes mellitus with hyperglycemia -Continue Levemir 35 units daily and patient placed on glycemic protocol with NovoLog sliding scale. Pulmonary nodule of right lower lobe, 8 x 5 mm -Incidental finding on CT. Recommend outpatient follow-up/surveillance. GERD Continue daily medication regimen with Pepcid 20 mg twice daily and Protonix 40 mg with breakfast. Data and imaging reviewed: Morning labs reviewed. CBC unremarkable. PTT currently subtherapeutic at 37.8. Blood glucose 202. and heparin infusion increased from 14 units/kg/h to 16 units/kg/h. BMP showing elevation of renal function with BUN of 22, creatinine 1.44, GFR 47. Magnesium 2.1. Vital signs reviewed. Blood pressure 145/78, heart rate 50, respiratory rate 16, temp 97.9 F, and SpO2 of 95% on room air. Echocardiogram revealing a preserved EF of 55%, mild diastolic dysfunction with mild mitral annular calcification and aortic valve sclerosis without significant restriction, and mild mitral and tricuspid regurgitation. CODE STATUS: Full code DVT prophylaxis: Heparin infusion Anticipated discharge date: Pending clinical course Anticipated discharge place: Home Patient was seen independently by Nurse Practitioner. This document was prepared using [employer] dictation software. Please allow for errors in moss picker while rare they do occur. I reviewed the documentation as provided by the EDGARDO above, who is the original author of this note. I agree with the documented assessment and plan, with the following changes: none. Objective - Vital Signs Vital signs: Vital Signs Temp 97.7 F 08/06/24 04:00 Pulse 51 L 08/06/24 04:00 Resp 17 08/06/24 04:00 BP 193/81 08/06/24 04:00 Pulse Ox 96 08/06/24 04:00 FiO2 Intake & Output 08/05/24 08/06/24 08/06/24 18:59 06:59 18:59 Intake Total 158.225 162.32 Balance 158.225 162.32 Weight 80.1 kg Intake: Intake, IV Titration 158.225 162.32 Amount Heparin Sod,Pork in 0.45% 158.225 162.32 NaCl 25,000 unit In 0.45 % NaCl 1 250ml.bag @ 12 UNITS/KG/HR 9.798 mls/hr IV .Q24H [facility] Rx#: [id number] Other: Voiding Method Toilet - Labs CBC & Chem 7: 08/06/24 05:54 08/06/24 05:54 Labs: Abnormal Lab Results - Last 24 Hours (Table) 08/05/24 08/05/24 08/05/24 Range/Units 08:28 08:28 08:28 APTT 49.2 H (22.0-30.0) sec BUN (9-20) mg/dL Creatinine (0.66-1.25) mg/dL Glucose 206 H (74-99) mg/dL POC Glucose (mg/dL) (70-110) mg/dL Hemoglobin A1c 7.7 H (<=6.0) % Triglycerides (0.00-149.00) mg/dL HDL Cholesterol (40.00-60.00) mg/dL 08/05/24 08/05/24 08/05/24 Range/Units 08:28 12:22 13:08 APTT (22.0-30.0) sec BUN (9-20) mg/dL Creatinine (0.66-1.25) mg/dL Glucose (74-99) mg/dL POC Glucose (mg/dL) 156 H 209 H (70-110) mg/dL Hemoglobin A1c (<=6.0) % Triglycerides 164.00 H (0.00-149.00) mg/dL HDL Cholesterol 33.90 L (40.00-60.00) mg/dL 08/05/24 08/05/24 08/06/24 Range/Units 17:15 20:42 05:54 APTT (22.0-30.0) sec BUN 22 H (9-20) mg/dL Creatinine 1.44 H (0.66-1.25) mg/dL Glucose 170 H (74-99) mg/dL POC Glucose (mg/dL) 166 H 205 H (70-110) mg/dL Hemoglobin A1c (<=6.0) % Triglycerides (0.00-149.00) mg/dL HDL Cholesterol (40.00-60.00) mg/dL 08/06/24 08/06/24 Range/Units 05:54 06:25 APTT 37.8 H (22.0-30.0) sec BUN (9-20) mg/dL Creatinine (0.66-1.25) mg/dL Glucose (74-99) mg/dL POC Glucose (mg/dL) 174 H (70-110) mg/dL Hemoglobin A1c (<=6.0) % Triglycerides (0.00-149.00) mg/dL HDL Cholesterol (40.00-60.00) mg/dL
[2024-08-06 16:35] LABS: Glucose,Whole Blood 128 mg/dL (70-110)
[2024-08-06] MEDS: LIDOCAINE 1% INJ 10MG/ML (20 ML MDV) SQ ONE ×2 (18:06→18:07)
[2024-08-06] MEDS: fentaNYL (PF) 50 MCG/1 ML VIAL IVP ONE (18:07)
[2024-08-06] MEDS: MIDAZOLAM 2 MG/2 ML VIAL IVP ONE (18:07)
[2024-08-06] MEDS: ASPIRIN 81 MG PO ONE (18:07)
[2024-08-06] MEDS: methylPREDNISolone SOD SUCCI 125 MG/2 ML VIAL IVP ONE (18:07)
[2024-08-06] MEDS: diphenhydrAMINE 50 MG/ML 1 ML VIAL IVP ONE (18:07)
[2024-08-06] MEDS: VERAPAMIL SYRINGE (5 MG/10 ML) INTRAARTER ONE (18:09)
[2024-08-06] MEDS: IV FLUID CONTINUATION 750 ML IV ONE (18:10)
[2024-08-06] MEDS: HEPARIN SODIUM 1,000 UN/ML (10ML VL) IVP ONE (18:16)
[2024-08-06] MEDS: IOPAMIDOL-370 100ML BTL INJ ONE (18:36)
[2024-08-06] MEDS: HEPARIN SODIUM,PORCINE 10,000 UNIT in SODIUM CHLORIDE 0.9% 1,000 ML IRRIGATION PRN (18:36)
[2024-08-06] MEDS: HEPARIN SODIUM,PORCINE (1 ML) 2,500 UNIT in SODIUM CHLORIDE 0.9% 250 ML IRRIGATION PRN (18:36)
[2024-08-06] MEDS ORDERED: RX INFO: IV CONTRAST WAS GIVEN 1 EACH MISC MISCELLANE PRN (18:41)
--- NOTE | 2024-08-06 18:44 | P.PCN ---
Date of Procedure: 08/06/24 Operative Findings: CARDIAC CATHETERIZATION PERFORMING PHYSICIAN: William Erickson MD, RPVI PROCEDURE PERFORMED: 1. Selective right and left coronary angiogram and left heart catheterization 2. IFR of the left main and IFR of OM1 3. Ultrasound-guided access of the right radial artery INDICATION: Acute coronary syndrome COMPLICATION: None APPROACH: Right radial artery LEVEL OF SEDATION: Moderate with a sedation length of 31 minutes PROCEDURE DESCRIPTION: After obtaining an informed consent, the patient was brought to cardiac mechanical shop laborer. Local anesthesia was performed using lidocaine subcutaneously. The right radial artery was cannulated using Seldinger technique, the guidewire passed easily, following that we advanced a 5-Uzbek sheath dilator assembly, the wire and dilator were removed and sheath was flushed. Following that, 2 mg of verapamil along with 5000 unit heparin were given. Selective right and left coronary angiogram using a 6-Uzbek JR4 and JL 3.5 catheters. Following that we did left heart catheterization using 6-Uzbek pigtail catheter. Subsequently we decided to do an IFR of the left main. After zeroing the Doppler wire and equalizing between the Doppler wire and guiding catheter which was JL 3 guiding catheter the left main was engaged and subsequently the LAD was wired and subsequently the left main was disengaged from the guide. We did an IFR and that came in to be at 0.93 and subsequently the wire was advanced to the OM1 and we did IFR and that came to be at 0.98 The procedure was completed there was no complication. SELECTIVE CORONARY ANGIOGRAM: The right coronary artery: Large-caliber vessel nondominant vessel appears to be angiographically normal Left main: Has ostial lesion appears to be in the range of mild to moderate range documented to be nonflow limiting by Doppler wire The left circumflex: Gives rise into an OM1 which has a proximal lesion appears to be in the range of 50% documented to be nonflow limiting by Doppler wire as well The left anterior descending artery: Appears to have mild disease only and reach the apex HEMODYNAMICS: The LVEDP was about 20 mmHg with no significant gradient across aortic valve CONCLUSION: 1. Intermediate disease involving the ostial left main documented to be nonflow limiting by Doppler wire with IFR of 0.93 2. Intermediate disease involving OM1 of the LCx documented also to be nonflow limiting by Doppler wire with IFR of 0.98 3. Elevated left-sided filling pressure POSTPROCEDURE MANAGEMENT: Continue aggressive cholesterol control and risk factors modification and follow-up with the patient
[2024-08-06] MEDS: SODIUM CHLORIDE 0.9% 1,000 ML IV SCH (18:54)
[2024-08-06 20:16] LABS: Glucose,Whole Blood 245 mg/dL (70-110)
[2024-08-07 06:07] LABS: Glucose,Whole Blood 283 mg/dL (70-110)
[2024-08-07 06:58] LABS: HCT 42.1 % (39.0-53.0); HGB 13.5 gm/dL (13.0-17.5); MCH 28.6 pg (25.0-35.0); MCHC 32.2 g/dL (31.0-37.0); Mean Platelet Volume 9.6; Platelet Count 232 k/uL (150-450); RBC 4.73 m/uL (4.30-5.90); RDW 13.7 % (11.5-15.5)
[2024-08-07 07:06] LABS: ALT 24 U/L (4-49); AST 26 U/L (17-59); African American GFR (CKD) 72 (>60 ml/min/1.73 sqM); Albumin 3.9 g/dL (3.5-5.0); Alkaline Phosphatase 74 U/L (38-126); Anion Gap 10 mmol/L; Blood Urea Nitrogen 19 mg/dL (9-20); Calcium 9.4 mg/dL (8.4-10.2); Carbon Dioxide 21 mmol/L (22-30); Chloride 109 mmol/L (98-107); Glucose 255 mg/dL (74-99); Non-African American GFR(CKD) 62 (>60 ml/min/1.73 sqM); Potassium 4.6 mmol/L (3.5-5.1); Sodium 140 mmol/L (137-145); Total Bilirubin 0.8 mg/dL (0.2-1.3); Total Protein 6.3 g/dL (6.3-8.2)
[2024-08-07] MEDS: LOSARTAN 50 MG TAB PO SCH (09:21)
[2024-08-07] MEDS: FAMOTIDINE 20 MG TAB PO SCH (09:21)
[2024-08-07 11:36] LABS: Glucose,Whole Blood 189 mg/dL (70-110)
--- NOTE | 2024-08-07 12:10 | P.PN ---
Subjective Progress Note Date: 08/07/24 HISTORY OF PRESENTING ILLNESS Patient is a 73-year-old male with past medical history of moderate to severe CAD involving the OM1 branch. He had a last heart cath for an abnormal Lexiscan nuclear stress test by Dr. Moore in February 2024 at that time his OM was nonflow limiting based off the IFR assessment. He was since been treated on medical management. This time he presents to the hospital because of substernal chest pressure, feeling poorly, weak and having heaviness in the head. On admission his ECG shows atrial paced rhythm with intraventricular conduction delay. On admission his troponin was elevated 0.059, 0.063, 0.068. Creatinine 1.04, potassium 5, hemoglobin 14 08/06 Patient is scheduled for cardiac catheterization today with Dr. Erickson. Heart rate has been in the 48-60 range, blood pressure 155/67, patient is noted to have increasing kidney function with BUN 22 creatinine 1.44. He is on IV fluids at 75 cc/h. Patient did have chest pain during the night. Dr. Erickson was notified of the increased creatinine. Patient is plan to continue with cardiac catheterization despite rising creatinine due to his complaints of chest pain. 08/07 Yesterday, patient underwent cardiac catheterization with Dr. Erickson which revealed no obstructive disease. Blood pressure 167/61, heart rate in the 50s, pulse ox 97% on room air. Repeat blood work reveals creatinine 1.15, potassium 4.6. Right radial wrist with no hematoma or bleeding. Echocardiogram reveals EF of 55%. Mild diastolic dysfunction. Mild mitral calcification, aortic valve sclerosis without restriction. Mild mitral and tricuspid regurgitation. No significant pulmonary hypertension. PHYSICAL EXAMINATION Vital signs reviewed. Head: Normocephalic. Eyes: Sclerae nonicteric. Neck: Brisk carotid upstroke, no jugular venous distention. Lungs: Clear to auscultation. Heart: Regular rate and rhythm, S1-S2, no S3, no murmur or rub. Abdomen: Soft nontender, positive bowel sounds. Extremities: No edema, intact distal pulses. Neuro: Alert, oritented, no focal deficits. ASSESSMENT NSTEMI Prior history of CAD moderate to severe OM1 disease negative by IFR Essential hypertension Type 2 diabetes Sick sinus syndrome status post PPM. PLAN Continue aspirin, Plavix 75 mg daily, Lipitor 20 mg daily, Imdur 30 mg daily, Toprol 25 mg daily Increase losartan to 100 mg daily Blood pressure control Patient to follow-up with Dr. Erickson Nurse practitioner note has been reviewed, I agree with documented findings and plan of care. Patient was seen and examined. Objective - Vital Signs Vital signs: Vital Signs Temp 97.5 F L 08/06/24 23:57 Pulse 49 L 08/07/24 04:11 Resp 16 08/07/24 04:11 BP 167/66 08/07/24 04:11 Pulse Ox 96 08/07/24 04:11 FiO2 Intake & Output 08/06/24 08/07/24 08/07/24 18:59 06:59 18:59 Intake Total 612.263 118 Balance 612.263 118 Weight 81.3 kg Intake: IV 70 Intake, IV Titration 302.263 Amount Heparin Sod,Pork in 0.45% 302.263 NaCl 25,000 unit In 0.45 % NaCl 1 250ml.bag @ 12 UNITS/KG/HR 9.798 mls/hr IV .Q24H [facility] Rx#: [id number] Oral 240 118 Other: Voiding Method Toilet Toilet # Voids 1 1 - Labs CBC & Chem 7: 08/07/24 06:19 08/07/24 06:19 Labs: Abnormal Lab Results - Last 24 Hours (Table) 08/06/24 08/06/24 08/06/24 Range/Units 11:41 12:23 16:33 APTT 41.1 H (22.0-30.0) sec Chloride (98-107) mmol/L Carbon Dioxide (22-30) mmol/L Glucose (74-99) mg/dL POC Glucose (mg/dL) 143 H 128 H (70-110) mg/dL 08/06/24 08/07/24 08/07/24 Range/Units 20:14 06:05 06:19 APTT (22.0-30.0) sec Chloride 109 H (98-107) mmol/L Carbon Dioxide 21 L (22-30) mmol/L Glucose 255 H (74-99) mg/dL POC Glucose (mg/dL) 245 H 283 H (70-110) mg/dL
--- NOTE | 2024-08-07 14:41 | P.PN ---
Subjective Progress Note Date: 08/07/24 Hospital course: Patient is a very pleasant 73-year-old male with a past medical history of CAD with previous stenting, sick sinus syndrome status post permanent pacemaker placement, hypertension, hyperlipidemia, previous pulmonary emboli not on anticoagulation, insulin-dependent diabetes mellitus, and GERD. He presented to the emergency department with a chief complaint of fall/syncopal episode followed by episode of dizziness and chest pain. Patient reports morning he got up and was very dizzy and fell backwards onto the floor hitting the back of his head. He reports his grandson was in the room across the swartz and reportedly heard his fall and immediately began calling for him but he did not answer. Patient reports after his grandson came into the room he remembers feeling very dizzy and not like himself. He reports his grandson helped him up and he had "pain, pain, pain to my chest". Patient reports experiencing a very intense pain to his midsternal chest radiating into left anterior chest accompanied by the dizziness/lightheadedness occurring after fall/syncopal episode. He reports he waited a while blood because he had pain to the back of his head neck, dizziness, and continued chest pain he told his grandson he needed to go to the hospital right away. Patient is chest pain lasted a short while but was unable to elaborate on length of time. He currently reports pain to chest has resolved along with the dizziness. He reports mild ache to the back of his head. He denies having any changes in vision, hearing, fevers, chills, diaphoresis, palpitations, shortness of breath, cough or congestion, abdominal pain or discomfort, nausea, vomiting, or experiencing any numbness/tingling/weakness/swelling in his extremities. He reports that his legs sometimes swell up, but states they are currently okay. On arrival to our facility, patient underwent evaluation in the emergency department. Vital signs upon arrival show blood pressure 151/72, heart rate 50, respiratory rate 18, temp 98.3 F, and SpO2 of 97% on room air. EKG showing atrial paced rhythm at 49 bpm with flattened P waves and T wave inversion in lead III. CT head cervical spine completed was negative for acute intracranial process showing nonspecific white matter changes and mild multilevel degenerative disc disease but no evidence of cervical spinal fracture. CT chest without contrast also completed and was negative for acute process showing a right lower lobe 8 x 5 mm pulmonary nodule, mild coronary artery atherosclerosis and mild cardiomegaly. L abs were completed and reviewed. CBC unremarkable. Coagulation profile normal findings. BMP unremarkable with exception of mild hyperglycemia with glucose of 205. Magnesium normal findings at 1.8. Troponin was elevated at 0.059. Patient was given aspirin 324 mg p.o. x 1 dose in the emergency department and was admitted under our services with consultation to cardiology. Patient was started on low intensity heparin infusion. Troponins were trended overnight resulting at 0.059, 0.063, and 0.068. D-dimer was negative at 0.27. Patient was taken for cardiac cath on 08/06/2024 which reported intermediate disease involving the ostial left main was documented to be nonflow limiting by Doppler, intermediate disease involving the JUSTINE of the left circumflex documented also to be nonflow limiting by Doppler and elevated left-sided filling pressures. Ophthalmic Medical Technician recommendations for medical management and to continue with aggressive cholesterol control and risk factor modification Physical exam: Patient was seen and fully evaluated at bedside this morning. He was resting in bed visiting with son at bedside. He reports continued intermittent episodes of chest pain/pressure with last episode being overnight. He currently denies having any complaints at this time. Vital signs reviewed and stable. General: Nontoxic, no distress and appears stated age. Derm: Skin warm and dry, normal coloration for ethnicity. Head: Atraumatic, normocephalic and symmetric. Eyes: EOM's intact, no lid lag, and anicteric sclera Mouth: no lip lesions, mucus membranes moist Cardiovascular: regular rate and rhythm with normal S1S2, no murmur, positive posterior tibial pulses bilaterally, and cap refill < 2 seconds. Lungs: Respirations even, regular, and unlabored on room air. Lungs CTA bilaterally, no rhonchi, no rales, no wheezing, and no accessory muscle usage. Abdominal: soft, nontender to palpation, no guarding, no appreciable organomega ly Ext: ROM intact. No gross muscle atrophy, no edema, no contractures Neuro: Speech clear, face symmetrical and CN II-XII grossly intact with no noted focal neuro deficits Psych: Alert and oriented to person, place, time, and situation. Appropriate and pleasant affect. Assessment and Plan of Care: NSTEMI Fall/syncopal episode with reports of dizziness Known severe coronary artery disease with previous stenting and sick sinus synd billy status post permanent pacemaker placement Hypertension Hyperlipidemia Previous pulmonary emboli -Cardiology following, took patient for cardiac cath on 08/06/2024. Made some medication changes including increasing losartan to 100 mg daily and recommending monitoring patient for an additional 24 hours in hospital and to follow-up outpatient with Dr. Erickson. -Troponins were trended at 0.059, 0.063, and 0.068. D-dimer was negative at 0.27. -Patient to remain on continuous telemetry monitoring -RN and cardiolgoy still working on obtaining pacemaker interrogation report. Di scussed with both RN and Cardiology SUPERCHARGER REPAIR SUPERVISOR. -Continue cardiac medication regimen with aspirin 81 mg daily, Plavix 75 mg daily, atorvastatin 20 mg daily, and losartan 50 mg daily. -Echocardiogram revealing a preserved EF of 55%, mild diastolic dysfunction with mild mitral annular calcification and aortic valve sclerosis without significant restriction, and mild mitral and tricuspid regurgitation. Insulin-dependent diabetes mellitus with hyperglycemia -Continue Levemir 35 units daily and patient placed on glycemic protocol with NovoLog sliding scale. Pulmonary nodule of right lower lobe, 8 x 5 mm -Incidental finding on CT. Recommend outpatient follow-up/surveillance. GERD Continue daily medication regimen with Pepcid 20 mg twice daily and Protonix 40 mg with breakfast. Data and imaging reviewed: Morning labs reviewed. CBC unremarkable. BMP showing mild metabolic acidosis with chloride of 109, bicarb 21, and anion gap of 10. Blood glucose elevated at 255. Magnesium 2.0. Vital signs reviewed. Blood pressure 167/61, heart rate 50, respiratory rate 18, temp 98.1 F, and SpO2 of 97% on room air. CODE STATUS: Full code DVT prophylaxis: Heparin Anticipated discharge date: Pending clinical course Anticipated discharge place: Home Patient was seen independently by Nurse Practitioner. This document was prepared using [employer] dictation software. Please allow for errors in on air announcer while rare they do occur. I reviewed the documentation as provided by the EDAGRDO above, who is the original author of this note. I agree with the documented assessment and plan, with the following changes: none. Objective - Vital Signs Vital signs: Vital Signs Temp 97.5 F L 08/06/24 23:57 Pulse 49 L 08/07/24 04:11 Resp 16 08/07/24 04:11 BP 167/66 08/07/24 04:11 Pulse Ox 96 08/07/24 04:11 FiO2 Intake & Output 08/06/24 08/07/24 08/07/24 18:59 06:59 18:59 Intake Total 612.263 Balance 612.263 Weight 81.3 kg Intake: IV 70 Intake, IV Titration 302.263 Amount Heparin Sod,Pork in 0.45% 302.263 NaCl 25,000 unit In 0.45 % NaCl 1 250ml.bag @ 12 UNITS/KG/HR 9.798 mls/hr IV .Q24H [facility] Rx#: [id number] Oral 240 Other: Voiding Method Toilet Toilet # Voids 1 1 - Labs CBC & Chem 7: 08/07/24 06:19 08/07/24 06:19 Labs: Abnormal Lab Results - Last 24 Hours (Table) 08/06/24 08/06/24 08/06/24 Range/Units 11:41 12:23 16:33 APTT 41.1 H (22.0-30.0) sec Chloride (98-107) mmol/L Carbon Dioxide (22-30) mmol/L Glucose (74-99) mg/dL POC Glucose (mg/dL) 143 H 128 H (70-110) mg/dL 08/06/24 08/07/24 08/07/24 Range/Units 20:14 06:05 06:19 APTT (22.0-30.0) sec Chloride 109 H (98-107) mmol/L Carbon Dioxide 21 L (22-30) mmol/L Glucose 255 H (74-99) mg/dL POC Glucose (mg/dL) 245 H 283 H (70-110) mg/dL
[2024-08-07] MEDS: HEPARIN SODIUM,PORCINE 5,000 UNIT/ML 1 ML VIAL SQ SCH (15:25)
[2024-08-07 16:34] LABS: Glucose,Whole Blood 366 mg/dL (70-110)
[2024-08-07 20:11] LABS: Glucose,Whole Blood 257 mg/dL (70-110)
[2024-08-08 06:11] LABS: Glucose,Whole Blood 204 mg/dL (70-110)
[2024-08-08] MEDS: ACETAMINOPHEN TAB 325 MG TAB PO PRN (06:47)
[2024-08-08] MEDS: VALSARTAN 160 MG TAB PO SCH (09:32)
--- NOTE | 2024-08-08 11:16 | P.PN ---
Subjective Progress Note Date: 08/08/24 HISTORY OF PRESENTING ILLNESS Patient is a 73-year-old male with past medical history of moderate to severe CAD involving the OM1 branch. He had a last heart cath for an abnormal Lexiscan nuclear stress test by Dr. Moore in February 2024 at that time his OM was nonflow limiting based off the IFR assessment. He was since been treated on medical management. This time he presents to the hospital because of substernal chest pressure, feeling poorly, weak and having heaviness in the head. On admission his ECG shows atrial paced rhythm with intraventricular conduction delay. On admission his troponin was elevated 0.059, 0.063, 0.068. Creatinine 1.04, potassium 5, hemoglobin 14 08/06 Patient is scheduled for cardiac catheterization today with Dr. Erickson. Heart rate has been in the 48-60 range, blood pressure 155/67, patient is noted to have increasing kidney function with BUN 22 creatinine 1.44. He is on IV fluids at 75 cc/h. Patient did have chest pain during the night. Dr. Erickson was notified of the increased creatinine. Patient is plan to continue with cardiac catheterization despite rising creatinine due to his complaints of chest pain. 08/07 Yesterday, patient underwent cardiac catheterization with Dr. Erickson which revealed no obstructive disease. Blood pressure 167/61, heart rate in the 50s, pulse ox 97% on room air. Repeat blood work reveals creatinine 1.15, potassium 4.6. Right radial wrist with no hematoma or bleeding. Echocardiogram reveals EF of 55%. Mild diastolic dysfunction. Mild mitral calcification, aortic valve sclerosis without restriction. Mild mitral and tricuspid regurgitation. No significant pulmonary hypertension. 08/08 Reviewed interrogation of AICD and patient had only 1 very brief episode of atrial fibrillation or atrial tachycardia. No plan for anticoagulation. Blood pressure readings have been high despite changes to medication yesterday. Blood pressure 181/77, heart rate in the 50s, pulse ox 97% on room air. PHYSICAL EXAMINATION Vital signs reviewed. Head: Normocephalic. Eyes: Sclerae nonicteric. Neck: Brisk carotid upstroke, no jugular venous distention. Lungs: Clear to auscultation. Heart: Regular rate and rhythm, S1-S2, no S3, no murmur or rub. Abdomen: Soft nontender, positive bowel sounds. Extremities: No edema, intact distal pulses. Neuro: Alert, oritented, no focal deficits. ASSESSMENT NSTEMI Prior history of CAD moderate to severe OM1 disease negative by IFR Essential hypertension Type 2 diabetes Sick sinus syndrome status post PPM. PLAN Continue aspirin, Plavix 75 mg daily, Lipitor 20 mg daily, Imdur 30 mg daily, Toprol 25 mg daily Discontinue losartan and start patient on valsartan 320 mg daily Monitor blood pressure and hopefully observe overnight with plan for discharge tomorrow. If patient is blood pressure is improved later today and he is very anxious to go home, patient is cleared for discharge. Patient to follow-up with Dr. Erickson Nurse practitioner note has been reviewed, I agree with documented findings and plan of care. Patient was seen and examined. Objective - Vital Signs Vital signs: Vital Signs Temp 98 F 08/08/24 08:58 Pulse 50 L 08/08/24 08:58 Resp 17 08/08/24 08:58 BP 181/77 08/08/24 08:58 Pulse Ox 97 08/08/24 08:58 FiO2 Intake & Output 08/07/24 08/08/24 08/08/24 18:59 06:59 18:59 Intake Total 1806 540 Balance 1806 540 Weight 82 kg Intake: IV 10 Invasive Line 2 10 Oral 1796 540 Other: Voiding Method Toilet Toilet # Voids 3 - Labs CBC & Chem 7: 08/07/24 06:19 08/07/24 06:19 Labs: Abnormal Lab Results - Last 24 Hours (Table) 08/07/24 08/07/24 08/07/24 Range/Units 11:34 16:32 20:09 POC Glucose (mg/dL) 189 H 366 H 257 H (70-110) mg/dL 08/08/24 Range/Units 06:07 POC Glucose (mg/dL) 204 H (70-110) mg/dL
--- NOTE | 2024-08-08 11:42 | P.PN ---
Subjective Progress Note Date: 08/08/24 Hospital course: Patient is a very pleasant 73-year-old male with a past medical history of CAD with previous stenting, sick sinus syndrome status post permanent pacemaker placement, hypertension, hyperlipidemia, previous pulmonary emboli not on anticoagulation, insulin-dependent diabetes mellitus, and GERD. He presented to the emergency department with a chief complaint of fall/syncopal episode followed by episode of dizziness and chest pain. On arrival to our facility, patient underwent evaluation in the emergency department. Vital signs upon arrival show blood pressure 151/72, heart rate 50, respiratory rate 18, temp 98.3 F, and SpO2 of 97% on room air. EKG showing atrial paced rhythm at 49 bpm with flattened P waves and T wave inversion in lead III. CT head cervical spine completed was negative for acute intracranial process showing nonspecific white matter changes and mild multilevel degenerative disc disease but no evidence of cervical spinal fracture. CT chest without contrast also completed and was negative for acute process showing a right lower lobe 8 x 5 mm pulmonary nodule, mild coronary artery atherosclerosis and mild cardiomegaly. Labs were completed and reviewed. CBC unremarkable. Coagulation profile normal findings. BMP unremarkable with exception of mild hyperglycemia with glucose of 205. Magnesium normal findings at 1.8. Troponin was elevated at 0.059. Patient was given aspirin 324 mg p.o. x 1 dose in the emergency department and was admitted under our services with consultation to cardiology. Patient was started on low intensity heparin infusion. Troponins were trended overnight resulting at 0.059, 0.063, and 0.068. D-dimer was negative at 0.27. Patient was taken for cardiac cath on 08/06/2024 which reported intermediate disease involving the ostial left main was documented to be nonflow limiting by Doppler, intermediate disease involving the JUSTINE of the left circumflex documented also to be nonflow limiting by Doppler and elevated left-sided filling pressures. Water Fabricator Operator recommending medical management and to continue with aggressive cholesterol control and risk factor modification Physical exam: Patient was seen and fully evaluated at bedside this morning. He was resting in bed. He reports continued intermittent episodes of chest pain/pressure with last episode being earlier this morning. He currently denies having any complaints at this time. Vital signs reviewed and stable. General: Nontoxic, no distress and appears stated age. Derm: Skin warm and dry, normal coloration for ethnicity. Head: Atraumatic, normocephalic and symmetric. Eyes: EOM's intact, no lid lag, and anicteric sclera Mouth: no lip lesions, mucus membranes moist Cardiovascular: regular rate and rhythm with normal S1S2, no murmur, positive posterior tibial pulses bilaterally, and cap refill < 2 seconds. Lungs: Respirations even, regular, and unlabored on room air. Lungs CTA bilaterally, no rhonchi, no rales, no wheezing, and no accessory muscle usage. Abdominal: soft, nontender to palpation, no guarding, no appreciable organomegaly Ext: ROM intact. No gross muscle atrophy, no edema, no contractures Neuro: Speech clear, face symmetrical and CN II-XII grossly intact with no noted focal neuro deficits Psych: Alert and oriented to person, place, time, and situation. Appropriate and pleasant affect. Assessment and Plan of Care: NSTEMI Fall/syncopal episode with reports of dizziness Known severe coronary artery disease with previous stenting and sick sinus syndrome status post permanent pacemaker placement Hypertension Hyperlipidemia Previous pulmonary emboli -Cardiology following, took patient for cardiac cath on 08/06/2024. Discussed with glass calibrator and cardiology RESOURCE ECONOMIST. Pacemaker interrogation report showing isolated episode of atrial tachycardia stating they are not recommending anticoagulation but are changing losartan to valsartan and recommending continued monitoring for an additional 24 hours. -Troponins were trended at 0.059, 0.063, and 0.068. D-dimer was negative at 0.27. -Patient to remain on continuous telemetry monitoring -Maker interrogation report was obtained showing brief episode of atrial fibrillation/atrial tachycardia. -Continue cardiac medication regimen with aspirin 81 mg daily, Plavix 75 mg daily, atorvastatin 20 mg daily, and losartan 50 mg daily. -Echocardiogram revealing a preserved EF of 55%, mild diastolic dysfunction with mild mitral annular calcification and aortic valve sclerosis without significant restriction, and mild mitral and tricuspid regurgitation. Insulin-dependent diabetes mellitus with hyperglycemia -Continue Levemir 35 units daily and patient placed on glycemic protocol with NovoLog sliding scale. Pulmonary nodule of right lower lobe, 8 x 5 mm -Incidental finding on CT. Recommend outpatient follow-up/surveillance. GERD Continue daily medication regimen with Pepcid 20 mg twice daily and Protonix 40 mg with breakfast. Data and imaging reviewed: Labs reviewed. CBC unremarkable. BMP showing mild metabolic acidosis with chloride of 109, bicarb 21, and anion gap of 10. Blood glucose elevated at 255. Magnesium 2.0. Vital signs reviewed. Blood pressure 181/77, heart rate 50, respiratory rate 17, temp 98.0 F, and SpO2 of 97% on room air. CODE STATUS: Full code DVT prophylaxis: Heparin Anticipated discharge date: Pending clinical course, likely tomorrow morning Anticipated discharge place: Home Patient was seen independently by Nurse Practitioner. This document was prepared using [employer] dictation software. Please allow for errors in range conservationist while rare they do occur. I reviewed the documentation as provided by the EDGARDO above, who is the original author of this note. I agree with the documented assessment and plan, with the following changes: none. Objective - Vital Signs Vital signs: Vital Signs Temp 98.2 F 08/07/24 16:00 Pulse 51 L 08/08/24 04:13 Resp 16 08/08/24 04:13 BP 189/80 08/08/24 06:52 Pulse Ox 96 08/08/24 04:13 FiO2 Intake & Output 08/07/24 08/08/24 08/08/24 18:59 06:59 18:59 Intake Total 1806 540 Balance 1806 540 Weight 82 kg Intake: IV 10 Invasive Line 2 10 Oral 1796 540 Other: Voiding Method Toilet Toilet # Voids 3 - Labs CBC & Chem 7: 08/07/24 06:19 08/07/24 06:19 Labs: Abnormal Lab Results - Last 24 Hours (Table) 08/07/24 08/07/24 08/07/24 Range/Units 11:34 16:32 20:09 POC Glucose (mg/dL) 189 H 366 H 257 H (70-110) mg/dL 08/08/24 Range/Units 06:07 POC Glucose (mg/dL) 204 H (70-110) mg/dL
[2024-08-08 11:44] LABS: Glucose,Whole Blood 335 mg/dL (70-110)
[2024-08-08 16:43] LABS: Glucose,Whole Blood 142 mg/dL (70-110)
[2024-08-08] MEDS: HYDROcodone/APAP 5-325MG 1 EACH TAB PO PRN (17:08)
[2024-08-08 20:12] LABS: Glucose,Whole Blood 204 mg/dL (70-110)
[2024-08-09] MEDS: hydrALAZINE HCL 25 MG TAB PO STA (05:00)
[2024-08-09] MEDS: ALPRAZolam 0.25 MG TAB PO PRN (05:13)
[2024-08-09 06:12] LABS: Glucose,Whole Blood 196 mg/dL (70-110)
[2024-08-09 08:28] VITALS: BP 164/69; PULSE 53; RESP 17; TEMP 98
[2024-08-09 10:36] LABS: African American GFR (CKD) 77 (>60 ml/min/1.73 sqM); Anion Gap 7 mmol/L; Blood Urea Nitrogen 20 mg/dL (9-20); Calcium 9.5 mg/dL (8.4-10.2); Carbon Dioxide 24 mmol/L (22-30); Chloride 107 mmol/L (98-107); Glucose 227 mg/dL (74-99); Magnesium 1.9 mg/dL (1.6-2.3); Non-African American GFR(CKD) 67 (>60 ml/min/1.73 sqM); Potassium 4.7 mmol/L (3.5-5.1); Sodium 138 mmol/L (137-145)
[2024-08-09 10:46] LABS: HCT 44.4 % (39.0-53.0); HGB 14.6 gm/dL (13.0-17.5); MCH 29.1 pg (25.0-35.0); MCHC 32.9 g/dL (31.0-37.0); MCV 88.2 fL (80.0-100.0); Mean Platelet Volume 10.1; Platelet Count 236 k/uL (150-450); RBC 5.04 m/uL (4.30-5.90); RDW 14.3 % (11.5-15.5)
[2024-08-09 11:41] VITALS: BMI 25.7
--- NOTE | 2024-08-09 12:15 | P.DS ---
Providers Date of admission: 08/04/24 16:11 Expected date of discharge: 08/09/24 Attending physician: Nela Combs MD Consults: 08/04/24 16:11 Consult Physician Urgent Consulting Provider: William Erickson Consult Reason/Comments: Chest pain, elevated troponin, dizziness, fall Do you want consulting provider notified?: Yes Primary care physician: [place] [facility] Course: Discharge Diagnosis: NSTEMI. Cardiology evaluated, took patient for cardiac cath on 08/06/2024 which reported nonflow limiting intermittent disease and they are recommending medication management with aggressive cholesterol control and risk factor modification. Pacemaker interrogation report revealed isolated episode of atrial tachycardia. Cardiology not recommending anticoagulation but change losartan to valsartan and recommending patient follow-up in our office in 1 week. Atrial tachycardia Fall/syncopal episode with reports of dizziness Coronary artery disease with previous stenting and sick sinus syndrome status post permanent pacemaker placement. Continue cardiac medication regimen with aspirin 81 mg daily, Plavix 75 mg daily, atorvastatin 20 mg daily, and valsartan 320 mg daily. Hypertension Hyperlipidemia Previous pulmonary emboli Insulin-dependent diabetes mellitus with hyperglycemia. Continue Levemir 35 units daily, Glyxambi 25-5 mg daily, metformin 1000 mg twice daily, and Rybelsus 3 mg daily. Pulmonary nodule of right lower lobe, 8 x [address] finding [address]. Recommend outpatient follow-up/surveillance. GERD. Continue daily medication regimen with Protonix 40 mg with breakfast. Hospital course: Patient is a very pleasant 73-year-old male with a past medical history of CAD with previous stenting, sick sinus syndrome status post permanent pacemaker placement, hypertension, hyperlipidemia, previous pulmonary emboli not on anticoagulation, insulin-dependent diabetes mellitus, and GERD. He presented to the emergency department with a chief complaint of fall/syncopal episode followed by episode of dizziness and chest pain. On arrival to our facility, patient underwent evaluation in the emergency department. Vital signs upon arrival show blood pressure 151/72, heart rate 50, respiratory rate 18, temp 98.3 F, and SpO2 of 97% on room air. EKG showing atrial paced rhythm at 49 bpm with flattened P waves and T wave inversion in lead III. CT head cervical spine completed was negative for acute intracranial process showing nonspecific white matter changes and mild multilevel degenerative disc disease but no evidence of cervical spinal fracture. CT chest without contrast also completed and was negative for acute process showing a right lower lobe 8 x 5 mm pulmonary nodule, mild coronary artery atherosclerosis and mild cardiomegaly. Labs were completed and reviewed. CBC unremarkable. Coagulation profile normal findings. BMP unremarkable with exception of mild hyperglycemia with glucose of 205. Magnesium normal findings at 1.8. Troponin was elevated at 0.059. Patient was given aspirin 324 mg p.o. x 1 dose in the emergency department and was admitted under our services with consultation to cardiology. Patient was started on low intensity heparin infusion. Troponins were trended overnight resulting at 0.059, 0.063, and 0.068. D-dimer was negative at 0.27. Patient was taken for cardiac cath on 08/06/2024 which reported intermediate disease involving the ostial left main was documented to be nonflow limiting by Doppler, intermediate disease involving the JUSTINE of the left circumflex documented also to be nonflow limiting by Doppler and elevated left-sided filling pressures. Respiratory Therapy Manager recommending medical management and to continue with aggressive cholesterol control and risk factor modification. Echocardiogram revealing a preserved EF of 55%, mild diastolic dysfunction with mild mitral annular calcification and aortic valve sclerosis without significant restriction, and mild mitral and tricuspid regurgitation. Pacemaker interrogation report revealed isolated episode of atrial tachycardia. Cardiology not recommending anticoagulation but change losartan to valsartan and recommending patient follow-up in our office in 1 week. Patient is free from any further episodes of chest pain or syn copal/presyncopal episodes and denies having any other complaints at this time. He is medically optimized for discharge and cleared from cardiology perspective. Patient to follow-up outpatient with PCP in 1 to 2 days and with golf course starter in 1 week. Physical exam: Vital signs reviewed and stable. General: Nontoxic, no distress and appears stated age. Derm: Skin warm and dry, normal coloration for ethnicity. Head: Atraumatic, normocephalic and symmetric. Eyes: EOM's intact, no lid lag, and anicteric sclera Mouth: no lip lesions, mucus membranes moist Cardiovascular: regular rate and rhythm with normal S1S2, no murmur, positive posterior tibial pulses bilaterally, and cap refill < 2 seconds. Lungs: Respirations even, regular, and unlabored on room air. Lungs CTA bilaterally, no rhonchi, no rales, no wheezing, and no accessory muscle usage. Abdominal: soft, nontender to palpation, no guarding, no appreciable organomegaly Ext: ROM intact. No gross muscle atrophy, no edema, no contractures Neuro: Speech clear, face symmetrical and CN II-XII grossly intact with no noted focal neuro deficits Psych: Alert and oriented to person, place, time, and situation. Appropriate and pleasant affect. A total of 37 minutes of time were spent preparing this complex discharge summary. Pt was discharged on 08/09/24 at 9:38 AM. Patient was seen independently by Nurse Practitioner. This document was prepared using [employer] dictation software. Please allow for errors in hedge trimmer while rare they do occur. I reviewed the documentation as provided by the EDGARDO above, who is the original author of this note. I agree with the documented assessment and plan, with the following changes: none Patient Condition at Discharge: Stable Plan - Discharge Summary Discharge Rx Participant: Yes New Discharge Prescriptions: New Isosorbide Mononitrate ER [Imdur] 30 mg PO DAILY 30 Days #30 tab Metoprolol Succinate (ER) [Toprol XL] 25 mg PO DAILY 30 Days #30 tab Aspirin 81 mg PO DAILY 30 Days #30 tab Valsartan [Diovan] 320 mg PO DAILY 30 Days #60 tab Clopidogrel [Plavix] 75 mg PO DAILY 30 Days #30 tab Continue Gabapentin 300 mg PO DAILY Insulin Glargine,Hum.rec.anlog [Lantus Solostar Pen] 35 unit SQ DAILY Cholecalciferol [Vitamin D3 (25 Mcg = 1000 Iu)] 25 mcg PO DAILY Empagliflozin/Linagliptin [Glyxambi 25 mg-5 mg Tablet] 1 tab PO DAILY Atorvastatin [Lipitor] 20 mg PO DAILY Famotidine [Pepcid] 20 mg PO BID #60 tab Pantoprazole [Protonix] 40 mg PO AC-BRKFST tablet. Gabapentin 600 mg PO HS metFORMIN HCL 1,000 mg PO BID Linaclotide [Linzess] 72 mcg PO DAILY PRN PRN Reason: Constipation Semaglutide [Rybelsus] 3 mg PO DAILY Ferrous Sulfate [Iron (65 MG Elemental)] 325 mg PO DAILY Furosemide [Lasix] 40 mg PO DAILY Cyanocobalamin (Vitamin B-12) [Vitamin B-12] 1,000 mcg PO DAILY Discontinued Simvastatin [Zocor] 20 mg PO DAILY Losartan [Cozaar] 50 mg PO DAILY Discharge Medication List Gabapentin 300 mg PO DAILY 07/22/16 [History] Insulin Glargine,Hum.rec.anlog [Lantus Solostar Pen] 35 unit SQ DAILY 02/13/20 [History] Atorvastatin [Lipitor] 20 mg PO DAILY 11/15/20 [History] Cholecalciferol [Vitamin D3 (25 Mcg = 1000 Iu)] 25 mcg PO DAILY 11/15/20 [History] Empagliflozin/Linagliptin [Glyxambi 25 mg-5 mg Tablet] 1 tab PO DAILY 11/15/20 [History] Famotidine [Pepcid] 20 mg PO BID #60 tab 11/29/20 [Rx] Pantoprazole [Protonix] 40 mg PO AC-BRKFST tablet. 11/29/20 [Rx] Furosemide [Lasix] 40 mg PO DAILY 06/12/21 [History] Cyanocobalamin (Vitamin B-12) [Vitamin B-12] 1,000 mcg PO DAILY 08/04/24 [History] Ferrous Sulfate [Iron (65 MG Elemental)] 325 mg PO DAILY 08/04/24 [History] Gabapentin 600 mg PO HS 08/04/24 [History] Linaclotide [Linzess] 72 mcg PO DAILY PRN 08/04/24 [History] Semaglutide [Rybelsus] 3 mg PO DAILY 08/04/24 [History] metFORMIN HCL 1,000 mg PO BID 08/04/24 [History] Aspirin 81 mg PO DAILY 30 Days #30 tab 08/09/24 [Rx] Clopidogrel [Plavix] 75 mg PO DAILY 30 Days #30 tab 08/09/24 [Rx] Isosorbide Mononitrate ER [Imdur] 30 mg PO DAILY 30 Days #30 tab 08/09/24 [Rx] Metoprolol Succinate (ER) [Toprol XL] 25 mg PO DAILY 30 Days #30 tab 08/09/24 [Rx] Valsartan [Diovan] 320 mg PO DAILY 30 Days #60 tab 08/09/24 [Rx] Follow up Appointment(s)/Referral(s): William Erickson MD [STAFF PHYSICIAN] - 1 Week (office will call with appt) Long Hobbs MD [Primary Care Provider] - 08/14/24 10:30 am Activity/Diet/Wound Care/Special Instructions: Activity: As tolerated. Take breaks as needed. Diet: Heart healthy and carb consistent diet. Avoid salts, or foods with hidden salts such as canned or boxed foods and frozen dinners. Extra salt makes your heart work harder and traps the fluid in your body for longer. Special Instructions: Take all of your medications as directed and remember to keep all of your doctor's appointments and follow-up as needed. Pulmonary nodule of right lower lobe, 8 x 5 mm. Incidental finding on CT revealed a small pulmonary nodule in right lower lobe of lung measuring 8 x 5 mm. It is recommended that you continue to follow outpatient with your PCP, Dr. Hobbs for follow-up/surveillance. Thank you for allowing us to participate in your care, it was truly a pleasure having you for our patient!!! . Discharge Disposition: HOME SELF-CARE
--- NOTE | 2024-08-09 12:32 | P.PN ---
Subjective Progress Note Date: 08/09/24 HISTORY OF PRESENTING ILLNESS Patient is a 73-year-old male with past medical history of moderate to severe CAD involving the OM1 branch. He had a last heart cath for an abnormal Lexiscan nuclear stress test by Dr. Moore in February 2024 at that time his OM was nonflow limiting based off the IFR assessment. He was since been treated on medical management. This time he presents to the hospital because of substernal chest pressure, feeling poorly, weak and having heaviness in the head. On admission his ECG shows atrial paced rhythm with intraventricular conduction delay. On admission his troponin was elevated 0.059, 0.063, 0.068. Creatinine 1.04, potassium 5, hemoglobin 14 08/06 Patient is scheduled for cardiac catheterization today with Dr. Erickson. Heart rate has been in the 48-60 range, blood pressure 155/67, patient is noted to have increasing kidney function with BUN 22 creatinine 1.44. He is on IV fluids at 75 cc/h. Patient did have chest pain during the night. Dr. Erickson was notified of the increased creatinine. Patient is plan to continue with cardiac catheterization despite rising creatinine due to his complaints of chest pain. 08/07 Yesterday, patient underwent cardiac catheterization with Dr. Erickson which revealed no obstructive disease. Blood pressure 167/61, heart rate in the 50s, pulse ox 97% on room air. Repeat blood work reveals creatinine 1.15, potassium 4.6. Right radial wrist with no hematoma or bleeding. Echocardiogram reveals EF of 55%. Mild diastolic dysfunction. Mild mitral calcification, aortic valve sclerosis without restriction. Mild mitral and tricuspid regurgitation. No significant pulmonary hypertension. 08/08 Reviewed interrogation of AICD and patient had only 1 very brief episode of atrial fibrillation or atrial tachycardia. No plan for anticoagulation. Blood pressure readings have been high despite changes to medication yesterday. Blood pressure 181/77, heart rate in the 50s, pulse ox 97% on room air. 08/09 Patient seen and examined. Yesterday, losartan was transitioned to valsartan 320 mg daily. Blood pressure readings remain high but we will plan to maintain valsartan as it is expected to improve the blood pressure surge soon. Patient may have a piece of anxiety that is causing his blood pressure to be high. He is anxious to go home today. Blood pressure 133/65-198/86. Pulse ox 96% on room air, heart rate in the 50s. Repeat blood work reveals hemoglobin 14.6, BUN 20 and creatinine 1.08, potassium 4.7. PHYSICAL EXAMINATION Vital signs reviewed. Head: Normocephalic. Eyes: Sclerae nonicteric. Neck: Brisk carotid upstroke, no jugular venous distention. Lungs: Clear to auscultation. Heart: Regular rate and rhythm, S1-S2, no S3, no murmur or rub. Abdomen: Soft nontender, positive bowel sounds. Extremities: No edema, intact distal pulses. Neuro: Alert, oritented, no focal deficits. ASSESSMENT NSTEMI Prior history of CAD moderate to severe OM1 disease negative by IFR Essential hypertension Type 2 diabetes Sick sinus syndrome status post PPM. PLAN Continue aspirin, Plavix 75 mg daily, Lipitor 20 mg daily, Imdur 30 mg daily, Toprol 25 mg daily Continue patient on valsartan 320 mg daily Patient is cleared for discharge and may follow-up in the office with Dr. Erickson in 1 week and further adjustments can be made to his blood pressure medications. Nurse practitioner note has been reviewed, I agree with documented findings and plan of care. Patient was seen and examined. Objective - Vital Signs Vital signs: Vital Signs Temp 98 F 08/09/24 08:20 Pulse 53 L 08/09/24 08:20 Resp 17 08/09/24 08:20 BP 164/69 08/09/24 08:20 Pulse Ox 96 08/09/24 08:20 FiO2 Intake & Output 08/08/24 08/09/24 08/09/24 18:59 06:59 18:59 Intake Total 736 10 Balance 736 10 Weight 81.3 kg Intake: IV 20 10 Invasive Line 2 20 10 Oral 716 Other: Voiding Method Toilet Toilet # Voids 3 2 - Labs CBC & Chem 7: 08/09/24 09:00 08/09/24 09:00 Labs: Abnormal Lab Results - Last 24 Hours (Table) 08/08/24 08/08/24 08/08/24 Range/Units 11:42 16:41 20:11 POC Glucose (mg/dL) 335 H 142 H 204 H (70-110) mg/dL 08/09/24 Range/Units 06:11 POC Glucose (mg/dL) 196 H (70-110) mg/dL
== END 2024-08-09 11:40 | disposition home or self-care (01) | DRG 282 ==
LOC: EC 13:50 → 3SCARD 16:11
PROVIDERS: ADMIT Internal Medicine; ATTEND Internal Medicine
PROC: 4A033BC Measurement of Arterial Pressure, Coronary, Percutaneous Approach (ICD-10-PCS; 2024-08-06)
PROC: 4A023N7 Measurement of Cardiac Sampling and Pressure, Left Heart, Percutaneous Approach (ICD-10-PCS; principal; 2024-08-06 11:15)
PROC: B2111ZZ Fluoroscopy of Multiple Coronary Arteries using Low Osmolar Contrast (ICD-10-PCS; 2024-08-06 11:15)
DX: I21.4 Non-ST elevation (NSTEMI) myocardial infarction (principal); S09.90XA Unspecified injury of head, initial encounter; E11.65 Type 2 diabetes mellitus with hyperglycemia; E78.5 Hyperlipidemia, unspecified; I10 Essential (primary) hypertension; I35.8 Other nonrheumatic aortic valve disorders; I08.3 Combined rheumatic disorders of mitral, aortic and tricuspid valves; I25.10 Atherosclerotic heart disease of native coronary artery without angina pectoris; I49.5 Sick sinus syndrome; I48.91 Unspecified atrial fibrillation; K21.9 Gastro-esophageal reflux disease without esophagitis; W19.XXXA Unspecified fall, initial encounter; Z95.0 Presence of cardiac pacemaker; Z79.02 Long term (current) use of antithrombotics/antiplatelets; Z79.01 Long term (current) use of anticoagulants; Z79.4 Long term (current) use of insulin; Z79.82 Long term (current) use of aspirin; Z79.84 Long term (current) use of oral hypoglycemic drugs; Z79.899 Other long term (current) drug therapy; Z86.711 Personal history of pulmonary embolism; Z95.5 Presence of coronary angioplasty implant and graft; Z88.8 Allergy status to other drugs, medicaments and biological substances; Z88.6 Allergy status to analgesic agent; Z91.041 Radiographic dye allergy status
CPT/HCPCS: 36415; 70450; 71250; 72125; 80048; 80053; 80061; 83036; 83735; 84484; 85025; 85027; 85379; 85610; 85730; 93005; 93306; 93458; 93799; 96365; 96366; 99291

== ENCOUNTER → 2024-12-11 | Outpatient (CLI) | payer MEDICARE ==
--- NOTE | 2024-12-11 13:10 | CT ---
EXAMINATION TYPE: CT abdomen pelvis wo con DATE OF EXAM: 12/11/2024 12:54 PM COMPARISON: 02/06/2024 CLINICAL INDICATION: Male, 74 years old with history of R10.9 abdominal pain, ABD PAIN TECHNIQUE: Axial images were obtained from above the diaphragm to the pubic rami in the axial plane a t 5 mm thick sections. Reconstructed images are reviewed on the computer in the coronal plane. CONTRAST: mL of . Study performed without Oral Contrast DLP: 1246 mGycm, Automated exposure control for dose reduction was used. FINDINGS: Limited CT sections are obtained the lung bases. There is a 1.0 cm nodule in the posterior right staci g base. Series 4 image 2 there is a 0.4 cm nodule posterior lateral right lung base. Series 4 image 1 4. Is not identified previously. CT ABDOMEN: Liver: Normal Spleen: Normal Pancreas: Normal Adrenal glands: The adrenal glands are normal. Gallbladder: Normal Kidneys: No masses are evident. No hydronephrosis is present. No cysts are present. No renal stone s are evident. Aorta: Vascular calcification is within the aorta. Inferior vena cava: Normal. CT PELVIS: Loops of bowel within the abdomen and pelvis without oral contrast appear unremarkable Appendix: Normal as visualized. Urinary bladder: Normal. Genitourinary structures: Prostate appears unremarkable Osseous structures: No suspicious lytic or sclerotic lesions. IMPRESSION: 1. Stable small nodules within the right lung base. Follow-up exam in 6 months is recommended. 2. No suspicious abnormality to account for flank pain [facility], , 12/11/2024 1:07 PM
== END | disposition home or self-care (01) ==
LOC: RADCTMAIN 12:34
PROVIDERS: ATTEND Family Medicine
DX: R10.9 Unspecified abdominal pain (principal); R91.8 Other nonspecific abnormal finding of lung field
CPT/HCPCS: 74176